=== PATIENT | female | born 1935 | race Caucasian/White ===

== ENCOUNTER 2017-09-28 13:23 | Inpatient (IN) | payer BC, OTHER ==
[~2017-09-28] VITALS: Ht 165.1 cm; Wt 91.1 kg
[~2017-09-28 13:23] MED LIST: ATEN100T PO; CALC-393 PO; CHOL2000 PO; DEXTSYP41 PO; FERR1TAB13 PO; FRS/80 PO; GLIP-197 PO; INSDGI SC; LEVO75TA5 PO; MECL1TAB40 PO; NITR100C43 PO; OMEP40CA PO; QUIN20TA30 PO; RXC5 PO; SPIR50TA2 PO
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
[2017-09-28] MEDS ORDERED: SODIUM CHLORIDE 0.9% 1000ML 1,000 ML IV STA (13:55)
[2017-09-28] MEDS ORDERED: GLIP10TA10 PO (14:11)
[2017-09-28] MEDS ORDERED: INSU1INJ33 SQ (14:11)
[2017-09-28] MEDS ORDERED: PRLSR20 PO (14:11)
[2017-09-28] MEDS ORDERED: PHEN95TA PO (14:11)
[2017-09-28] MEDS ORDERED: ATEN50TA8 PO (14:11)
[2017-09-28] MEDS ORDERED: FRS/40 PO (14:11)
[2017-09-28] MEDS ORDERED: QUIN40TA18 PO (14:11)
[2017-09-28] MEDS ORDERED: LIRA18IN INJ (14:11)
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
--- NOTE | 2017-09-28 14:48 | DIAGNOSTIC IMAGING REPORT ---
L WRIST MIN 3 VIEWS ROUTINE CLINICAL HISTORY: Left wrist pain status post trauma COMPARISON: None. DISCUSSION: There is acute fracture involving the midshaft of the radius. Distal fragment is ulnarly displaced by one full shaft width. No associated ulnar fracture is visualized. There is mild vertex dorsal ulnar angulation at the fracture site. IMPRESSION: Acute fracture of the mid radial shaft width mild vertex dorsal ulnar angulation, and one full shaft width of displacement Electronically signed by: Nirav Mercado M.D. 09/28/2017 2:47 PM Dictated Date/Time: 09/28/2017 2:35 PM
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
[2017-09-28] MEDS ORDERED: INSULIN SQ (15:01)
[2017-09-28 15:40] LABS: INR 1.1 (0.9-1.1); PTT PATIENT 24.2 SECONDS (21.0-31.0)
[2017-09-28 15:54] LABS: ALBUMIN 4.1 gm/dl (3.4-5.0); CALCIUM 9.9 mg/dl (8.5-10.1); CREATININE 2.18 mg/dl (0.60-1.20); POTASSIUM 5.2 mmol/L (3.5-5.1)
[2017-09-28 15:57] LABS: TOTAL PROTEIN 7.9 gm/dl (6.4-8.2)
[2017-09-28] MEDS ORDERED: ONDANSETRON INJ 2 MG/ML 2 ML VIAL ONE (16:07)
[2017-09-28 16:15] LABS: BASO % 0.3 %; BASO ABS # 0.02 K/uL (0-0.2); EOS % 0.8 %; EOS ABS # 0.06 K/uL (0-0.5); HEMATOCRIT 36.1 % (37-47); HEMOGLOBIN 12.7 g/dL (12.0-16.0); IG# 0.02 K/uL (0.00-0.02); LYMPH % 12.2 %; LYMPH ABS # 0.87 K/uL (1.2-3.4); MEAN CELL VOLUME 89.6 fL (80-100); MEAN CORPUSCULAR HEMOGLOBIN 31.5 pg (25-34); MEAN CORPUSCULAR HGB CONC 35.2 g/dl (32-36); MEAN PLATELET VOLUME 10.3 fL (7.4-10.4); MONO % 5.6 %; NEUT % 80.8 %; NEUT ABS # 5.74 K/uL (1.4-6.5); PLATELET COUNT 67 K/uL (130-400); RED CELL DISTRIBUTION WIDTH CV 14.1 % (11.5-14.5); RED CELL DISTRIBUTION WIDTH SD 46.1 fL (36.4-46.3); WHITE BLOOD COUNT 7.11 K/uL (4.8-10.8)
--- NOTE | 2017-09-28 16:29 | DIAGNOSTIC IMAGING REPORT ---
RIGHT FOOT 3 VIEWS HISTORY: Right foot pain COMPARISON: None. FINDINGS: Nondisplaced fracture within the proximal metadiaphysis of the right fifth metatarsal. This extends to the intertarsal region and is consistent with a Bess fracture. Soft tissue swelling within the midfoot. No radiopaque foreign bodies. IMPRESSION: Nondisplaced fracture within the proximal metadiaphysis of the right fifth metatarsal. This extends to the intertarsal region and is consistent with a Bess fracture. Electronically signed by: Oswaldo Rizo M.D. 09/28/2017 4:27 PM Dictated Date/Time: 09/28/2017 4:26 PM
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
[2017-09-28] MEDS ORDERED: HYDROmorphone INJ 1 MG/ML SYR IV PRN (18:30)
[2017-09-28] MEDS ORDERED: ONDANSETRON INJ 2 MG/ML 2 ML VIAL IV PRN (18:30)
[2017-09-28] MEDS ORDERED: METOCLOPRAMIDE HCL INJ 5 MG/ML 2 ML VIAL IV PRN (18:30)
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
[2017-09-28 20:20] VITALS: BP 105/67; PULSE 72; TEMP 36.7; O2SAT 96; BMI 33.4
[2017-09-28] MEDS ORDERED: FUROSEMIDE 40 MG TAB PO SCH (21:00)
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
[2017-09-28] MEDS: LEVOTHYROXINE 75 MCG TAB PO SCH (22:02)
[2017-09-28] MEDS: PANTOprazole SOD 40 MG TAB PO SCH (22:03)
[2017-09-28] MEDS: INSULIN GLARGINE SQ SCH (22:07)
[2017-09-29] VITALS (10 sets, daily range): BP systolic 102–130; BP diastolic 57–78; PULSE 77–101; TEMP 36.4–37.2; O2SAT 92–98
[2017-09-29] MEDS ORDERED: GLUCOSE 10 TABS/TUBE PO PRN (00:15)
[2017-09-29] MEDS ORDERED: GLUCAGON FOR INJ 1 MG VIAL SQ PRN (00:15)
[2017-09-29] MEDS ORDERED: GLUCOSE 40% GEL 15 GM TUBE PO PRN (00:15)
[2017-09-29] MEDS ORDERED: CARBIDOPA/LEVODOPA 10/100MG TAB PO PRN (00:15)
[2017-09-29] MEDS ORDERED: DEXTROSE 50% 50 ML SYR IV PRN (00:15)
[2017-09-29] MEDS ORDERED: CARB10TA5 PO (00:17)
[2017-09-29] MEDS: SODIUM CHLORIDE 0.9% 1000ML 1,000 ML IV SCH ×3 (00:51→21:03)
[2017-09-29] MEDS ORDERED: DOCUSATE SODIUM 100 MG CAP PO PRN (05:15)
[2017-09-29] MEDS ORDERED: CEFAZOLIN IV 2,000 MG in DEXTROSE 5% 50ML 50 ML IV SCH ×2 (06:00→14:30)
[2017-09-29] MEDS ORDERED: CEFAZOLIN 2000MG IV PUSH 15 ML IV SCH (06:00)
[2017-09-29 06:39] LABS: HEMATOCRIT 30.7 % (37-47); HEMOGLOBIN 10.8 g/dL (12.0-16.0); MEAN CELL VOLUME 90.3 fL (80-100); MEAN CORPUSCULAR HEMOGLOBIN 31.8 pg (25-34); MEAN CORPUSCULAR HGB CONC 35.2 g/dl (32-36); RED CELL DISTRIBUTION WIDTH CV 14.4 % (11.5-14.5); RED CELL DISTRIBUTION WIDTH SD 47.5 fL (36.4-46.3); WHITE BLOOD COUNT 5.07 K/uL (4.8-10.8)
[2017-09-29 06:42] LABS: MEAN PLATELET VOLUME 10.2 fL (7.4-10.4); PLATELET COUNT 56 K/uL (130-400)
[2017-09-29] MEDS: INSULIN ASPART 100 UNITS/ML 3 ML PEN SC SCH ×4 (07:04→22:29)
[2017-09-29 07:09] LABS: CALCIUM 8.8 mg/dl (8.5-10.1); CREATININE 2.02 mg/dl (0.60-1.20); POTASSIUM 4.8 mmol/L (3.5-5.1)
--- NOTE | 2017-09-29 08:46 | PROGRESS NOTE ---
DATE: 09/29/2017 CHIEF COMPLAINT: Left radial shaft fracture and right Bess fracture. PROGRESS: Earlene was seen and examined at bedside today. Overall, she is doing fairly well. She is having some difficulty ambulating. She says her biggest complaint actually comes from her left leg. She has pain in her left ankle and pain in the medial aspect of her left thigh. She says that hurts her worse than her right foot does. She has been having a lot of trouble getting up to the commode and is starting to have some soreness in her right shoulder as well today. PHYSICAL EXAMINATION: LEFT ARM: She has a left arm splint on. She has active motion of her fingers. RIGHT FOOT: There is swelling of her right foot. There is ecchymosis. She does have some tenderness to palpation at the base of the fifth metatarsal. LEFT LEG: She has pain in the left groin radiating down the left leg with logroll. She has pain on the lateral aspect of the ankle as well. She is able to do a straight leg raise, which she gets pain in her hip with that. LABORATORY DATA: She has an H&H of 10.8 and 30.7. Her glucose is 185. VITAL SIGNS: Her vital signs are all stable on room air. She is voiding on her own. IMPRESSION: 1. Left radial shaft fracture. 2. Right Bess fracture. PLAN: The Bess fracture will be treated conservatively in group. The radial shaft fracture, we will take her to the OR today for simple plate and screw fixation; so she can start using her forearm comfortably. I will also get a good look at her left lower extremity under fluoroscopy during the case to make sure that we are not missing anything. If all x-rays and fluoroscopic images come back negative, but she continues to be very symptomatic in her groin to the point where she cannot bear weight, an MRI of her hip may be warranted to rule out any occult fracture. She has already been seen by the medical team. She was placed on insulin. They deemed her a moderate risk for surgery and we will proceed later today. She is currently n.p.o.
[2017-09-29] MEDS ORDERED: FUROSEMIDE 80 MG TAB PO SCH (09:00)
[2017-09-29] MEDS: INSULIN GLARGINE SQ SCH ×2 (09:00→22:25)
[2017-09-29] MEDS: ENALAPRIL MALEATE 10 MG TAB PO SCH (09:00)
[2017-09-29] MEDS ORDERED: SPIRONOLACTONE 25 MG TAB PO SCH (09:00)
[2017-09-29] MEDS: PANTOprazole SOD 40 MG TAB PO SCH ×2 (10:05→21:05)
[2017-09-29] MEDS: PHENAZOPYRIDINE HCL 200 MG TAB PO SCH (10:05)
[2017-09-29] MEDS ORDERED: ONDANSETRON INJ 2 MG/ML 2 ML VIAL ONE (12:43)
[2017-09-29] MEDS ORDERED: LIDOCAINE HCL 2% 2 ML VIAL (20MG/ML) ONE (12:43)
[2017-09-29] MEDS ORDERED: FENTANYL CITRATE INJ 50 MCG/1 ML 2 ML VIAL ONE (12:43)
[2017-09-29] MEDS ORDERED: PROPOFOL IV EMULSION 10 MG/ML 20 ML VIAL IV ONE (12:43)
[2017-09-29] MEDS ORDERED: MIDAZOLAM HCL 1 MG/ML 2ML VIAL ONE (12:44)
[2017-09-29] MEDS ORDERED: HYDROmorphone INJ 2 MG/ML SYR/VIAL IV PRN (12:45)
[2017-09-29] MEDS ORDERED: ONDANSETRON INJ 2 MG/ML 2 ML VIAL IV PRN ×2 (12:45→14:30)
[2017-09-29] MEDS ORDERED: ATROPINE SULFATE 0.1 MG/ML 5ML SYR IV PRN (12:45)
[2017-09-29] MEDS ORDERED: BUPIVACAINE 0.25% 30 ML VIAL ONE (12:59)
[2017-09-29] MEDS ORDERED: EpINEphrine INJ 1MG/ML AMP 1 MG/ML AMP ONE (12:59)
[2017-09-29] MEDS ORDERED: CISATRACURIUM BESYLATE IV SOLN 2 MG/ML 10 ML VIAL ONE (13:47)
[2017-09-29] MEDS ORDERED: CEFAZOLIN SOD 1 GM VIAL ONE (13:47)
[2017-09-29] MEDS ORDERED: GLYCOPYRROLATE INJ 0.2 MG/ML VIAL ONE (14:14)
[2017-09-29] MEDS ORDERED: PHENYLEPHRINE 100MCG/ML 5ML SYR ONE (14:14)
--- NOTE | 2017-09-29 14:20 | [facility] Post Operative Brief Note ---
Immediate Operative Summary Operative Date Sep 29, 2017. Pre-Operative Diagnosis Displaced Left Radial Fracture Post-Operative Diagnosis Same as preoperative. Procedure(s) Performed Left Radius, Open Reduction Internal Fixation Surgeon Dr. Elian Gunderson Histopathology Technician Surgeon(s) Andrea Morales PA-C Estimated Blood Loss 5ml Findings Consistent with Post-Op Diagnosis Specimens None per surgeon. Anesthesia Type General Complication(s) none Disposition Disposition: Recovery Room / PACU
[2017-09-29] MEDS ORDERED: LABETALOL HCL IV 5 MG/ML 20ML IV ONE ×2 (14:28→15:11)
--- NOTE | 2017-09-29 14:28 | DIAGNOSTIC IMAGING REPORT ---
L FOREARM 2 VIEWS ROUTINE CLINICAL HISTORY: 82 years-old Female presenting with LT FOREARM FX. TECHNIQUE: 3 fluoroscopic image(s) recorded as part of an intraoperative procedure. COMPARISON: 09/28/2017. FINDINGS/IMPRESSION: Interval cortical compression plate and screw fixation across the transversely oriented fracture of the mid radial diaphysis. Normal anatomic alignment has been restored. Please see surgical report for further details. Fluoroscopy dosage (mGy): 1.19. Fluoroscopy time: 29.5 seconds. Number of fluoroscopic spot images: 0. Electronically signed by: Faustino Santana M.D. 09/29/2017 2:27 PM Dictated Date/Time: 09/29/2017 2:26 PM
[2017-09-29] MEDS ORDERED: BISACODYL 10 MG SUPP PR PRN (14:30)
[2017-09-29] MEDS ORDERED: METOCLOPRAMIDE HCL INJ 5 MG/ML 2 ML VIAL IV PRN (14:30)
[2017-09-29] MEDS ORDERED: LABETALOL HCL IV 5 MG/ML 20ML IV PRN (14:30)
[2017-09-29] MEDS ORDERED: OXYCODONE HCL IR 5 MG TAB (IMMEDIATE RELEASE) PO PRN (14:30)
[2017-09-29] MEDS ORDERED: MAGNESIUM HYDROXIDE SUSP 30 ML UDC PO PRN (14:30)
[2017-09-29] MEDS ORDERED: SOD PHOSPHATE/SOD BIPHOSPHATE ENEMA 132 ML BTL PR PRN (14:30)
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
--- NOTE | 2017-09-29 14:58 | Anesthesiology Progress Note ---
Anesthesia Post Op Note Date & Time Sep 29, 2017 at 14:58 Vital Signs Pain Intensity: 0 Vital Signs Past 12 Hours Date Time Temp Pulse Resp B/P (MAP) Pulse Ox O2 Delivery O2 Flow Rate FiO2 09/29/17 14:45 36.1 107 20 138/62 95 Nasal Cannula 2 09/29/17 14:35 110 18 141/71 100 Oxymask 10 09/29/17 14:25 113 20 159/72 97 Oxymask 10 09/29/17 14:17 36.3 115 14 180/63 100 Oxymask 10 09/29/17 07:30 Room Air 09/29/17 07:19 36.9 101 18 114/73 (87) 93 Room Air Notes Mental Status: alert / awake / arousable, participated in evaluation Pt Amnestic to Procedure: Yes Nausea / Vomiting: adequately controlled Pain: adequately controlled Airway Patency, RR, SpO2: stable & adequate BP & HR: stable & adequate Hydration State: stable & adequate Anesthetic Complications: no major complications apparent
[2017-09-29] MEDS ORDERED: POTASSIUM CHLORIDE INJ 10 MEQ in SODIUM CHLORIDE 0.9% 1000ML 1,000 ML IV SCH (15:00)
[2017-09-29] MEDS: ACETAMINOPHEN 500 MG TAB PO SCH ×2 (17:02→22:32)
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
[2017-09-29] MEDS: SENNA 8.6 MG TAB PO SCH (21:00)
[2017-09-29] MEDS: DOCUSATE SODIUM 100 MG CAP PO SCH (21:05)
[2017-09-29] MEDS: LEVOTHYROXINE 75 MCG TAB PO SCH (21:06)
[2017-09-29] MEDS: OXYCODONE/ACETAMINOPHEN 5-325 TAB PO PRN (21:52)
[2017-09-29] MEDS: CEFAZOLIN IV 2,000 MG in SYRINGE 0 ML IV SCH (22:29)
[2017-09-29] MEDS ORDERED: NURSING VERBAL MED ORDER ONE (22:30)
[2017-09-29] MEDS ORDERED: INSULIN ASPART 100 UNITS/ML 3 ML PEN SC STA (22:38)
[2017-09-30] VITALS (7 sets, daily range): BP systolic 96–118; BP diastolic 53–69; PULSE 72–92; TEMP 36.6–37.1; O2SAT 90–94; Ht 165.1 cm; Wt 91.1 kg
[2017-09-30] MEDS: OXYCODONE/ACETAMINOPHEN 5-325 TAB PO PRN ×2 (03:47→22:30)
[2017-09-30] MEDS: CEFAZOLIN IV 2,000 MG in SYRINGE 0 ML IV SCH (06:13)
[2017-09-30] MEDS: ACETAMINOPHEN 500 MG TAB PO SCH ×3 (06:14→22:00)
[2017-09-30 06:49] LABS: HEMATOCRIT 30.6 % (37-47); HEMOGLOBIN 10.2 g/dL (12.0-16.0); MEAN CELL VOLUME 91.6 fL (80-100); MEAN CORPUSCULAR HEMOGLOBIN 30.5 pg (25-34); MEAN CORPUSCULAR HGB CONC 33.3 g/dl (32-36); RED CELL DISTRIBUTION WIDTH CV 14.3 % (11.5-14.5); RED CELL DISTRIBUTION WIDTH SD 48.4 fL (36.4-46.3); WHITE BLOOD COUNT 5.28 K/uL (4.8-10.8)
[2017-09-30 06:53] LABS: MEAN PLATELET VOLUME 10.3 fL (7.4-10.4); PLATELET COUNT 52 K/uL (130-400)
[2017-09-30 07:19] LABS: HEMOGLOBIN A1C 10.2 % (4.5-5.6)
[2017-09-30 07:20] LABS: CALCIUM 7.9 mg/dl (8.5-10.1); CREATININE 2.35 mg/dl (0.60-1.20); POTASSIUM 4.3 mmol/L (3.5-5.1)
[2017-09-30 07:31] LABS: BASO % 0.2 %; BASO ABS # 0.01 K/uL (0-0.2); EOS % 2.7 %; EOS ABS # 0.14 K/uL (0-0.5); IG# 0.02 K/uL (0.00-0.02); LYMPH % 14.4 %; LYMPH ABS # 0.76 K/uL (1.2-3.4); MONO % 9.1 %; MONO ABS # 0.48 K/uL (0.11-0.59); NEUT % 73.2 %; NEUT ABS # 3.87 K/uL (1.4-6.5)
--- NOTE | 2017-09-30 08:20 | PROGRESS NOTE ---
DATE: 09/30/2017 CHIEF COMPLAINT: Status post ORIF of the left radius. postop day #1. PROGRESS: Earlene was seen and examined at bedside today. Overall, she is doing as well as expected. She does not have much pain in her forearm. She is happy with the progress to this point and has no complaints. PHYSICAL EXAMINATION: The splint is clean and dry. She has active motion of all of her fingers and active motion of her thumb. Sensations are intact. IMPRESSION: Status post open reduction internal fixation of the left radial shaft fracture, postop day #1. PLAN: At this point, she is doing as well as expected. She can be weightbearing as tolerated on her forearm while she is in the splint. She will only be in the splint, likely for 2 weeks. She will be weightbearing as tolerated on her right foot while as long as she is in the boot. I did do fluoroscopic images of her entire left lower extremity and did not find any fractures or any abnormalities. She will be seen by physical therapy today for ambulation. She will likely need discharge to a rehab facility. She does live alone at home. I will continue to follow her closely.
[2017-09-30] MEDS: INSULIN GLARGINE SQ SCH ×2 (09:25→22:13)
[2017-09-30] MEDS: INSULIN ASPART 100 UNITS/ML 3 ML PEN SC SCH ×4 (09:25→21:00)
[2017-09-30] MEDS: PHENAZOPYRIDINE HCL 200 MG TAB PO SCH (09:26)
[2017-09-30] MEDS: ENALAPRIL MALEATE 10 MG TAB PO SCH (09:26)
[2017-09-30] MEDS: PANTOprazole SOD 40 MG TAB PO SCH ×2 (09:26→22:30)
[2017-09-30] MEDS: MULTIVITAMIN TAB PO SCH (09:26)
[2017-09-30] MEDS: DOCUSATE SODIUM 100 MG CAP PO SCH ×2 (09:27→22:05)
[2017-09-30] MEDS: SODIUM CHLORIDE 0.9% 1000ML 1,000 ML IV SCH (09:34)
[2017-09-30] MEDS ORDERED: MECLIZINE HCL 12.5 MG TAB PO ONE (10:15)
--- NOTE | 2017-09-30 13:03 | DIAGNOSTIC IMAGING REPORT ---
CHEST ONE VIEW PORTABLE CLINICAL HISTORY: CONGESTION dyspnea COMPARISON STUDY: 09/28/2017 FINDINGS: Mild stable cardia megaly. Diaphragms are smooth. No evidence for focal infiltrate. Patient is status post right shoulder total arthroplasty. IMPRESSION: Mild stable cardiomegaly. Otherwise no acute process. The above report was generated using voice recognition software. It may contain grammatical, syntax or spelling errors. Electronically signed by: Yogi Velazquez M.D. 09/30/2017 1:01 PM Dictated Date/Time: 09/30/2017 1:01 PM
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
[2017-09-30] MEDS ORDERED: NURSING VERBAL MED ORDER ONE (22:00)
[2017-09-30] MEDS: MECLIZINE HCL 12.5 MG TAB PO SCH (22:04)
[2017-09-30] MEDS: SENNA 8.6 MG TAB PO SCH (22:05)
[2017-09-30] MEDS: LEVOTHYROXINE 75 MCG TAB PO SCH (22:06)
[2017-09-30] MEDS ORDERED: INSULIN ASPART 100 UNITS/ML 3 ML PEN SC ONE (22:15)
[2017-10-01] MEDS: SODIUM CHLORIDE 0.9% 1000ML 1,000 ML IV SCH ×2 (03:07→22:58)
[2017-10-01] MEDS: ACETAMINOPHEN 500 MG TAB PO SCH ×3 (06:11→21:21)
[2017-10-01 07:51] VITALS: BP 113/65; PULSE 87; TEMP 36.9; O2SAT 95
[2017-10-01 07:54] LABS: HEMATOCRIT 25.9 % (37-47); HEMOGLOBIN 8.7 g/dL (12.0-16.0); MEAN CELL VOLUME 91.5 fL (80-100); MEAN CORPUSCULAR HEMOGLOBIN 30.7 pg (25-34); MEAN CORPUSCULAR HGB CONC 33.6 g/dl (32-36); RED CELL DISTRIBUTION WIDTH CV 14.4 % (11.5-14.5); RED CELL DISTRIBUTION WIDTH SD 48.3 fL (36.4-46.3); WHITE BLOOD COUNT 4.69 K/uL (4.8-10.8)
[2017-10-01 07:55] LABS: MEAN PLATELET VOLUME 9.8 fL (7.4-10.4); PLATELET COUNT 50 K/uL (130-400)
[2017-10-01 08:19] LABS: BASO % 0.4 %; BASO ABS # 0.02 K/uL (0-0.2); EOS % 2.8 %; EOS ABS # 0.13 K/uL (0-0.5); IG# 0.02 K/uL (0.00-0.02); LYMPH % 19.4 %; LYMPH ABS # 0.91 K/uL (1.2-3.4); MONO % 11.1 %; MONO ABS # 0.52 K/uL (0.11-0.59); NEUT % 65.9 %; NEUT ABS # 3.09 K/uL (1.4-6.5)
--- NOTE | 2017-10-01 08:19 | PROGRESS NOTE ---
DATE: 10/01/2017 CHIEF COMPLAINT: 1. Status post ORIF left radial shaft fracture, postop day #2. 2. Nondisplaced right proximal fifth metatarsal fracture. PROGRESS: Earlene was seen and examined at bedside today. Overall, she is doing fairly well. She is not having much pain. She has been getting hypotensive while standing and she did not get much therapy yesterday. She is being followed by the medical team. She has no new complaints. PHYSICAL EXAMINATION: EXTREMITIES: Left forearm, the dressing is clean and dry. She can move her fingers. Her sensation is intact. She has good capillary refill. Examination of her right foot, she still has some ecchymosis in the area and still has some swelling. IMPRESSION: 1. Status post open reduction internal fixation of the left radial shaft fracture, postop day #1. 2. Fifth metatarsal fracture. PLAN: With regards to her left forearm, I do want her in the splint, but she can be weightbearing as tolerated on it. With regards to her right foot, normally I would like a CAM walker boot. However, if she is having difficulty ambulating or more pain because of the unequal leg lengths secondary to the boot, I am okay if she ambulates some either without a boot or just with a simple hard-soled shoe, basically whatever makes her most comfortable so she can get up and ambulate some. The fracture is stable and is not going to displace. She is still getting blood work per the medical team and we want to make sure she is hemodynamically stable before we consider sending her to a rehab facility.
[2017-10-01 08:24] LABS: CALCIUM 7.8 mg/dl (8.5-10.1); CREATININE 1.93 mg/dl (0.60-1.20)
[2017-10-01 08:30] LABS: POTASSIUM 4.1 mmol/L (3.5-5.1)
[2017-10-01] MEDS: PANTOprazole SOD 40 MG TAB PO SCH ×2 (08:58→21:22)
[2017-10-01] MEDS: PHENAZOPYRIDINE HCL 200 MG TAB PO SCH (08:58)
[2017-10-01] MEDS: DOCUSATE SODIUM 100 MG CAP PO SCH ×2 (08:58→21:12)
[2017-10-01] MEDS: MECLIZINE HCL 12.5 MG TAB PO SCH ×2 (08:59→21:12)
[2017-10-01] MEDS: MULTIVITAMIN TAB PO SCH (08:59)
[2017-10-01] MEDS: INSULIN ASPART 100 UNITS/ML 3 ML PEN SC SCH ×4 (09:33→21:25)
[2017-10-01] MEDS: INSULIN GLARGINE SQ SCH ×2 (09:34→21:25)
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
[2017-10-01] MEDS ORDERED: ALUMINUM/MAGNESIUM SUSP 30 ML UDC PO PRN (10:45)
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
[2017-10-01 15:10] VITALS: BP 96/56; PULSE 70; TEMP 36.6; O2SAT 93
[2017-10-01] MEDS: LEVOTHYROXINE 75 MCG TAB PO SCH (21:21)
[2017-10-01] MEDS: SENNA 8.6 MG TAB PO SCH (21:22)
[2017-10-01 23:59] VITALS: BP 112/67; PULSE 91; TEMP 37.2; O2SAT 91
[2017-10-02] MEDS: ACETAMINOPHEN 500 MG TAB PO SCH ×2 (06:07→13:39)
[2017-10-02 07:59] LABS: HEMATOCRIT 26.3 % (37-47); HEMOGLOBIN 9.1 g/dL (12.0-16.0); MEAN CELL VOLUME 91.3 fL (80-100); MEAN CORPUSCULAR HEMOGLOBIN 31.6 pg (25-34); MEAN CORPUSCULAR HGB CONC 34.6 g/dl (32-36); MEAN PLATELET VOLUME 10.1 fL (7.4-10.4); PLATELET COUNT 63 K/uL (130-400); RED CELL DISTRIBUTION WIDTH CV 14.4 % (11.5-14.5); RED CELL DISTRIBUTION WIDTH SD 48.1 fL (36.4-46.3)
[2017-10-02 08:26] LABS: CALCIUM 8.2 mg/dl (8.5-10.1); CREATININE 1.73 mg/dl (0.60-1.20); POTASSIUM 4.2 mmol/L (3.5-5.1)
[2017-10-02 08:30] LABS: BASO % 0.4 %; BASO ABS # 0.02 K/uL (0-0.2); EOS % 3.1 %; EOS ABS # 0.15 K/uL (0-0.5); IG# 0.03 K/uL (0.00-0.02); LYMPH % 14.6 %; MONO % 9.2 %; MONO ABS # 0.44 K/uL (0.11-0.59); NEUT % 72.1 %; NEUT ABS # 3.46 K/uL (1.4-6.5)
[2017-10-02 08:31] VITALS: BP 121/69; PULSE 72; TEMP 36.5; O2SAT 94
[2017-10-02] MEDS: PANTOprazole SOD 40 MG TAB PO SCH ×2 (09:17→21:09)
[2017-10-02] MEDS: PHENAZOPYRIDINE HCL 200 MG TAB PO SCH (09:17)
[2017-10-02] MEDS: MULTIVITAMIN TAB PO SCH (09:18)
[2017-10-02] MEDS: DOCUSATE SODIUM 100 MG CAP PO SCH ×2 (09:18→21:08)
[2017-10-02] MEDS: MECLIZINE HCL 12.5 MG TAB PO SCH ×2 (09:18→21:08)
[2017-10-02] MEDS: INSULIN ASPART 100 UNITS/ML 3 ML PEN SC SCH ×4 (09:23→21:15)
[2017-10-02] MEDS: INSULIN GLARGINE SQ SCH ×2 (09:24→21:13)
[2017-10-02 15:28] VITALS: BP 119/69; PULSE 57; TEMP 36.4; O2SAT 97
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
[2017-10-02] MEDS ORDERED: ACETAMINOPHEN 500 MG TAB PO PRN (18:00)
[2017-10-02] MEDS ORDERED: PHARMACY GLYCEMIC MGMT CONSULT PRN (18:03)
[2017-10-02] MEDS: LEVOTHYROXINE 75 MCG TAB PO SCH (21:08)
[2017-10-02] MEDS: SENNA 8.6 MG TAB PO SCH (21:09)
[2017-10-02 23:05] VITALS: BP 127/68; PULSE 72; TEMP 37.4; O2SAT 94
[2017-10-03] MEDS: INSULIN ASPART 100 UNITS/ML 3 ML PEN SC SCH ×4 (04:00→13:38)
[2017-10-03] MEDS: DOCUSATE SODIUM 100 MG CAP PO SCH (08:12)
[2017-10-03] MEDS: PANTOprazole SOD 40 MG TAB PO SCH (08:14)
[2017-10-03] MEDS: MULTIVITAMIN TAB PO SCH (08:14)
[2017-10-03] MEDS: MECLIZINE HCL 12.5 MG TAB PO SCH (08:14)
[2017-10-03] MEDS: PHENAZOPYRIDINE HCL 200 MG TAB PO SCH (08:14)
[2017-10-03 08:22] VITALS: BP 129/64; PULSE 78; TEMP 36.7; O2SAT 94
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
[2017-10-03] MEDS ORDERED: INSU1INJ33 SQ (08:44)
[2017-10-03] MEDS ORDERED: TNR25 PO (08:45)
[2017-10-03] MEDS ORDERED: ACET-24 PO (08:45)
--- NOTE | 2017-10-03 08:49 | Discharge Instructions ---
Discharge Instructions Date of Service Oct 03, 2017. Admission Reason for Admission: Closed Left Radial Fracture Discharge Discharge Diagnosis / Problem: LEFT RADIAL FRACTURE, S/P ORIF Discharge Goals Goal(s): Diagnostic testing, Therapeutic intervention Activity Recommendations Activity Level: Assistance Required Therapies: Physical Therapy, Occupational Therapy . Additional Information Patient informed of condition: Yes Advance Directives: No (UNKNOWN) DNR: No (PATIENT IS A FULL CODE) Level of Care: Acute Rehab Communicable Disease: No Prognosis: Improving Instructions / Follow-Up Instructions / Follow-Up PLEASE MONITOR BLOOD GLUCOSE AC AND HS. (RE: EPISODES OF HYPOGLYCEMIA). MONITOR BLOOD PRESSURE DAILY (RE: ATENOLOL REDUCED, SHARYN-I HELD). PLEASE REFER TO ACCOMPANYING HOSPITAL DISCHARGE SUMMARY FOR FURTHER DETAILS. Current Hospital Diet Patient's current hospital diet: Diabetes Type 2 Diet Discharge Diet Recommended Diet: AHA Diet (Heart Healthy), Diabetes Type 2 Diet Procedures Procedures Performed: Left Radius, Open Reduction Internal Fixation Pending Studies Studies pending at discharge: yes List of pending studies: REPEAT CBC, PRP ON Saturday10/07/17 Physician Orders On Transfer Special Precautions: PLEASE MONITOR BLOOD GLUCOSE AC AND HS. (RE: EPISODES OF HYPOGLYCEMIA). MONITOR BLOOD PRESSURE DAILY (RE: ATENOLOL REDUCED, SHARYN-I HELD). PLEASE REFER TO ACCOMPANYING HOSPITAL DISCHARGE SUMMARY FOR FURTHER DETAILS. Laboratory Results Hemoglobin A1c Test 09/29/17 06:10 Range/Units Estimated Average Glucose 246 mg/dl Hemoglobin A1c 10.2 H 4.5-5.6 % Medical Emergencies . Who to Call and When: Medical Emergencies: If at any time you feel your situation is an emergency, please call 911 immediately. . Non-Emergent Contact Non-Emergency issues call your: Primary Care Provider, Surgeon Call Non-Emergent contact if: you have a fever, your pain is not controlled, your pain is worsening, wound has increased drainage, wound has increased redness, wound has increased pain, you have any medication questions . Past History Medical & Surgical History: (1) Proximal humerus fracture (2) Closed left radial fracture (3) Closed nondisplaced fracture of fifth right metatarsal bone . "Provider Documentation" section prepared by Shekhar Mark. . Core Measure Problem Core Measures: None
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
[2017-10-03] MEDS ORDERED: INSULIN GLARGINE SQ SCH (09:00)
[2017-10-03 09:02] VITALS: BP 129/64; PULSE 78; TEMP 36.7; O2SAT 94
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
== END 2017-10-03 16:00 | DRG 511 ==
LOC: EDBD 13:23 → C.EDA 13:24 → C.MSW 18:20 → ENRESERV 18:35 → C.MSW 20:09
PROVIDERS: ADMIT Orthopaedic Surgery; ATTEND Internal Medicine
PROC: 0PSJ04Z Reposition Left Radius with Internal Fixation Device, Open Approach (ICD-10-PCS; principal; 2017-09-29 09:00)
DX: S52.302A Unspecified fracture of shaft of left radius, initial encounter for closed fracture (principal); N17.9 Acute kidney failure, unspecified; D62 Acute posthemorrhagic anemia; S92.354A Nondisplaced fracture of fifth metatarsal bone, right foot, initial encounter for closed fracture; I12.9 Hypertensive chronic kidney disease with stage 1 through stage 4 chronic kidney disease, or unspecified chronic kidney disease; E11.22 Type 2 diabetes mellitus with diabetic chronic kidney disease; N18.3 Chronic kidney disease, stage 3 (moderate); E03.9 Hypothyroidism, unspecified; E78.5 Hyperlipidemia, unspecified; E87.5 Hyperkalemia; G25.81 Restless legs syndrome; G47.33 Obstructive sleep apnea (adult) (pediatric); K75.81 Nonalcoholic steatohepatitis (NASH); Z79.4 Long term (current) use of insulin; Z79.899 Other long term (current) drug therapy; Z88.5 Allergy status to narcotic agent; V03.10XA Pedestrian on foot injured in collision with car, pick-up truck or van in traffic accident, initial encounter

== ENCOUNTER 2018-12-05 10:53 | Inpatient (IN) ==
--- OUTSIDE RECORDS SUMMARY | 2018-12-05 10:57 | External Medical Summary | Continuity of Care Document ---
:1935 Author Name Rhea Kinsey Address Unavailable Unavailable , Care Team Providers Name Role Phone Ham Quick PA-C Unavailable [email or web address] [email or web address]. 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 ZEFERINO Quick Start: 01-Dec-2018 Quantity: 30 Refills: 5 NovoLIN 70/30 SUSP Refills: 0 Tresiba SOLN Refills: 0 raNITIdine HCl - 150 MG Oral Tablet; TAKE 1 TABLET DAILY. Refills: 0 Eliquis 5 MG Oral Tablet; TAKE 1 TABLET BY MOUTH TWICE DAILY Quantity: 180 Refills: 3 Carbidopa-Levodopa 10-100 MG Oral Tablet; Take 1 tablet artie y Refills: 0 Spironolactone 25 MG Oral Tablet; TAKE 1 TABLET TWICE DAILY. Refills: 0 Ferrous Sulfate 325 (65 Fe) MG Oral Tablet; as directed Refills: 0 Meclizine HCl - 12.5 MG Oral Tablet; TAKE 1 TABLET 3 T IMES DAILY NEEDED. Amelie Sultana Start: 07-Jun-2014 Quantity: 30 Refills: 1 Lantus SoloStar SOLN Refills: 0 Levothyroxine Sodium 88 MCG Oral Tablet; TAKE 1 TABLET DAILY . Quantity: 90 Refills: 3 Procedures Basic Metabolic Panel Date: 01-Dec-2018 Magnesium Date: 01-Dec-2018 History of Craniotomy Tumor Removal - Complete Status: Completed History of Cholecystectomy Status: Compl eted History of Total Abdominal Hysterectomy With Status: Completed Removal Of Both Ovaries History of Biopsy Of Liver Status: Compl eted History of Shoulder Arthroplasty Total Shoulder Status: Completed Replacement Immunizations Influenza On: 24-Mar-2014 Family History Unknown Family Member Family history of coronary artery disease Status: Active Comments: Family History (V17.3) (Z82.49) Family history of diabetes mellitus (V18.0) Status: Active Comments: Family History (Z83.3) Plan of Treatment Planned Encounters Appointment; Dav Quick PA-C Start: 11-Dec-2018 16:00 Requ est Planned Observations Planned Goals not documented Results No Known Results Results not documented Vital Signs 01-Dec-2018 14:11 Systolic 142 mm[Hg] Diastolic 74 mm[Hg] Respiration 16 /min Comments: Quality: N ormal Weight 218.4375 lb Heart Rate 120 /min Comments: Quality: R egular BMI Calculated 34.21 kg/m2 BSA Calculated 2.1 m2 Encounters Appointment; Dav Quick PA-C 01-Dec-2018 14:00 Encounter Diagnosis: Problem not documented Appointment; Dav Quick PA-C 11-Dec-2018 16:00 Encounter Diagnosis: Problem not documented
[2018-12-05 12:44] LABS: Basophils # (auto) 0.01 K/uL (0-0.2); Basophils % (auto) 0.2 %; Eosinophils # (auto) 0.16 K/uL (0-0.5); Eosinophils % (auto) 2.8 %; Hematocrit (blood only) 26.6 % (37-47); Hemoglobin 8.5 g/dL (12.0-16.0); Immature Granulocytes # (auto) 0.02 K/uL (0.00-0.02); Immature Granulocytes % (auto) 0.3 %; Lymphocytes # (auto) 0.86 K/uL (1.2-3.4); Lymphocytes % (auto) 14.9 %; Mean Platelet Volume 10.2 fL (7.4-10.4); Monocytes # (auto) 0.47 K/uL (0.11-0.59); Monocytes % (auto) 8.1 %; Neutrophils # (auto) 4.27 K/uL (1.4-6.5); Neutrophils % (auto) 73.7 %; Platelet Count 102 K/uL (130-400); RDW Coefficient of Variation 19.5 % (11.5-14.5); RDW Standard Deviation 63.1 fL (36.4-46.3); Red Blood Count 2.99 M/uL (4.2-5.4); White Blood Count 5.79 K/uL (4.8-10.8)
[2018-12-05 13:02] LABS: Calcium 8.9 mg/dl (8.5-10.1); Creatinine Clr Calc Pharmacy 14.4 ml/min; Est GFR (African American) 12.8; Est GFR (Non-African American) 11.1; Magnesium 2.8 mg/dl (1.8-2.4)
[2018-12-05 13:06] LABS: INR 1.4 (0.9-1.1); Partial Thromboplastin Ratio 1.1; Partial Thromboplastin Time 31.1 Seconds (21.0-31.0); Prothrombin Time 13.6 Seconds (9.0-12.0)
[2018-12-05 13:07] LABS: Albumin Globulin Ratio 1.1 (0.9-2); Bilirubin,Total 1.2 mg/dl (0.2-1); Globulin 3.7 gm/dl (2.5-4.0); Total Protein 7.7 gm/dl (6.4-8.2); Troponin I 0.031 ng/ml (0-0.045)
--- NOTE | 2018-12-05 13:09 | XRay Report ---
XR chest 1V portable CLINICAL HISTORY: Dyspnea dyspnea COMPARISON STUDY: 07/16/2018 FINDINGS: Moderate cardiomegaly slightly increased in the prior exam. Comment pulmonary vasculature. Very small left pleural effusion. IMPRESSION: Congestive heart failure. Very small left pleural effusion. The above report was generated using voice recognition software. It may contain grammatical, syntax or spelling errors. Electronically signed by: Yogi Velazquez M.D. 12/05/2018 1:08 PM
[2018-12-05] MEDS ORDERED: FUROSEMIDE 40 MG in SYRINGE 0 ML IV ONE (14:30)
--- NOTE | 2018-12-05 14:54 | History & Physical Report ---
Date of Service December 05, 2018 Assessment & Plan (1) Acute respiratory failure: (2) SOB (shortness of breath): (3) Acute decompensated heart failure: This is a 83-year-old female who has a significant past medical history of Martin cirrhosis, PAF, IDDM 2, HTN, HLD, CKD stage III, hypertension, anemia (both iron deficiency and chronic disease), hypothyroidism, RLS who presents to [facility] ED secondary to SOB x45 days. Patient has been on oxygen for approximately the past month per family secondary to increasing shortness of breath and hypoxia. Also she had is a 22 pound weight gain within the past 45 days. Patient was found to have sodium 129, K5.0, BUN 91, creatinine 3.62. Hemoglobin 8.5, hematocrit 26.6, platelet 102. proBNP elevated at 5038. Chest x-ray consistent with congestive heart failure changes and small left pleural effusion. Initial troponin is detectable but negative. INR elevated to 1.4 but on eliquis Pt with likely decompensated CHF (will need to get echocardiogram to determine sys vs diastolic) Pt with known MARTIN Cirrhosis and likely contributing to decompensation of CHF but no hepatic encephalopathy admit to telemetry consult [facility] Cardiology - Spoke with Dr. Whitehead Lasix 40mg IV given in ER - defer to cardiology for diuretic adjustment Daily weights Strict I and O - joyce placed FR of 1800cc/hr echocardiogram in a.m. repeat troponin 1800, given new t wave inversions anteriorly (4) Hyponatremia: likely in setting of volume overload/cirrhosis will check serum osm, urine osm, urine na bmp at 1800 monitor bmp closely with diuretic use (5) Acute worsening of stage 3 chronic kidney disease: Likely secondary to Decompensation of CHF baseline cr 1.9-2 bun/cr 91 and 3.62 bmp at 1800 Lasix 40mg IV x 1 given in ED - monitor response [facility] nephrology consulted - pt establishing with Dr. 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: known liver cirrhosis secondary to martin known portal htn and gastopathy on nadolol - no signs of active bleeding no s/sx of H.E., asterixis absent continue nadolol, aldactone, Lasix IV Obtain Abd U/S to observe for ascites and possible need for paracentesis (7) Anemia: H/H stable at 8.5 and 26.6 had iron panel 09/2018 which revealed iron deficiency (also likely chronic component contributing) per family had IV Venofer infusion recently outpt continue iron supplement recently required PRBC transfusion x 1 at [facility] and x 1 and [facility] follow FOBT and H/H closely - pt on eliquis for PAF (8) 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 on lantus/novolog per protocol Pt feels she is on too much insulin and gets symptomatic hypoglycemia with BSG 110 or less prefers to be > 120 given age and comorbidities loose control is acceptable (11) Hypothyroidism: (12) Restless leg syndrome: continue sinemet at HS (13) DVT prophylaxis: eliquis Disposition: to be determined, case management consulted Follow up: PCP Dr. Bean, along with appropriate cardiology, nephrology and GI follow up Patient was seen and examined in collaboration with Dr. Dixon, please see addendum Starting 12/06/18 pt will be under the care of Dr. Rogesr History of Present Illness Chief Complaint: SOB x 45 days. Primary Care Provider: Britta Bean MD This is a 83-year-old female who has a significant past medical history of Martin cirrhosis, PAF, IDDM 2, HTN, HLD, CKD stage III, hypertension, anemia (both iron deficiency and chronic disease), hypothyroidism, RLS who presents to [facility] ED secondary to SOB x45 days. Daughters at bedside. Pt had recent hospitalization at [facility] and [facility]. Records are unavailable at this time. Recent prolonged hospitalization at [facility] for hepatorenal syndrome, fluid overload and anemia. During that hospitalization she did require blood transfusion. She had worsening renal failure and was discharged to SNF on hospice given multiple comorbidities. While at SNF patient started to improve, kidney function improved and she was taken off hospice. She worked with PT and OT and was discharged home. She has been home for approximately 1 week and daughters have noticed progressive decline. She has had 6 pound weight gain in the past 3 days. Approximately 45 days ago patient's baseline weight was 190 pounds. Today she is 222 pounds. According to family she recently saw [facility] cardiology and had Lasix increased to 40 mg. Patient complains of increasing dyspnea on exertion, shortness of breath at rest, worsening swelling, increased weight gain, dry cough, orthopnea requiring her to sleep in chair, early satiety, decreased appetite. She denies any fever, chills, sweats, lightheadedness, dizziness, chest pain, palpitations, hemoptysis, nausea, vomiting, diarrhea, melena, hematochezia. She does note black stools secondary to iron but no rosi blood. Last BM was today and was normal for her. Over the past 3 days she has noted decreased urine output. Of note she was hospitalized at [facility] 2/2 Anemia requiring 1 unit PRBC. Daughters note she has had 1 iron infusion as well. Iron studies 09/29/18 ferritin 22, iron 75, TIBC 444, T sat 17% She currently lives alone, uses a walker to ambulate. Denies any smoking or ETOH Use. Has known hx of MARTIN cirrhosis but has not required paracentesis. States she is compliant with medications including lasix, aldactone and eliquis. Allergies Allergy/AdvReac Type Severity Reaction Status Date / Time oxycodone Allergy Unknown Hallucinati Verified 12/05/18 12:53 ng hydrocodone AdvReac Unknown SWEATING, Verified 12/05/18 12:53 FELT FUNNY - UNSURE IF IT WAS VICODIN Home Medications Home Medications Medication Instructions Recorded Confirmed Type insulin degludec [Tresiba 20 unit SUBCUT HS 07/09/18 12/05/18 History FlexTouch U-200] levothyroxine 88 mcg PO QAM 07/09/18 12/05/18 History meclizine 12.5 mg PO BID 07/09/18 12/05/18 History spironolactone 25 mg PO BID 07/09/18 12/05/18 History apixaban [Eliquis] 2.5 mg PO BID 12/05/18 12/05/18 History carbidopa-levodopa 1 tab PO HS 12/05/18 12/05/18 History ferrous sulfate 325 mg PO BID 12/05/18 12/05/18 History furosemide 40 mg PO QAM 12/05/18 12/05/18 History insulin aspart U-100 [Novolog 5 unit SUBCUT AC 12/05/18 12/05/18 History Flexpen U-100 Insulin] midodrine 2.5 mg PO TID PRN 12/05/18 12/05/18 History nadolol 20 mg PO HS 12/05/18 12/05/18 History ranitidine HCl 150 mg PO QAM 12/05/18 12/05/18 History Past Med/Surg History Medical History HLD (hyperlipidemia) Anemia Thrombocytopenia CKD (chronic kidney disease) stage 3, GFR 30-59 ml/min (Acute) 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 H/o fluid retention with elevated BNP--cardiac eval and echo 2016 ruled no CHF, 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 Periodic limb movement disorder On Simemet Hypertension Sleep apnea CPAP Diabetes A1C 8.5% on 10/09/18 Degenerative disc disease Acid reflux Restless leg syndrome Hypothyroidism Surgical History History of hysterectomy History of cholecystectomy History of brain surgery FOR MENINGIOMA, 1998 History of surgery on arm LEFT ([place]) History of reverse total replacement of right shoulder joint History of tonsillectomy History of ear surgery History of fracture of nasal bone Family History Other Diabetes Family history of cancer Social History Preferred Language: Angolan Communication Ability: Effective 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 Physical Exam Physical Exam: Gen: Elderly, F, chronically ill appearing, lying in bed, +tachypnea with conversation, pleasant, Head: Normocephalic, Atraumatic Eyes: Sclera normal, anicteric, no conjunctival injection, PERRLA, EOMI ENT: Gross hearing intact, normal pharynx, mucous membranes moist Neck: supple, no adenopathy, No JVD, no bruit, Resp: Clear to auscultation with diminished breath sounds b/l, no wheeze, rales, rhonchi. 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 head of english strength Extremities: +3 pitting edema of lower ext b/l extending above proximal thigh into abdomen and gluteal region, no erythema, warmth, negative homans sign Skin: warm, moist, no rash, negative turgor, cap refill < 2sec Neuro: Alert and oriented x 3, speech normal, good mood/affect, cran nerve 2-12 intact grossly : deferred Results & Data Vital Signs (Past 12 Hours) Vital Signs Temp Pulse Resp BP Pulse Ox 12/05/18 12:42 73 98 12/05/18 12:38 66 25 H 129/53 L 95 12/05/18 12:30 66 25 H 98 12/05/18 12:01 75 22 124/67 95 12/05/18 12:00 69 28 H 94 12/05/18 11:48 68 22 95 12/05/18 11:46 71 23 143/67 H 94 12/05/18 11:01 36.5 C 75 22 138/79 97 Laboratory Results Short CBC 12/05/18 12/05/18 12/05/18 Range/Units 12:36 12:36 12:36 WBC 5.79 (4.8-10.8) K/uL Hgb 8.5 L (12.0-16.0) g/dL Hct 26.6 L (37-47) % Plt Count 102 L (130-400) K/uL INR 1.4 H (0.9-1.1) Sodium 129 L (136-145) mmol/L BUN 91 H (7-18) mg/dl Creatinine 3.62 H (0.6-1.2) mg/dl Total Bilirubin 1.2 H (0.2-1) mg/dl Troponin I 0.031 (0-0.045) ng/ml NT-Pro-B Natriuret Pep 5038 H (0-1800) pg/ml BMP 12/05/18 12:36 Sodium 129 L Potassium 5.0 Chloride 94 L Carbon Dioxide 27 BUN 91 H Creatinine 3.62 H Glucose 121 H Calcium 8.9 Cardiac Enzymes 12/05/18 Range/Units 12:36 Troponin I 0.031 (0-0.045) ng/ml Liver Function 12/05/18 Range/Units 12:36 Total Bilirubin 1.2 H (0.2-1) mg/dl AST 26 (15-37) U/L ALT 20 (12-78) U/L Alkaline Phosphatase 84 (45-117) U/L Albumin 4.0 (3.4-5.0) gm/dl Diagnostic Findings CXR: IMPRESSION: Congestive heart failure. Very small left pleural effusion. Medications Administered Discontinued Medications Furosemide (Lasix) Confirm Administered Dose 40 mg IV .STK-MED ONE Stop: 12/05/18 15:10 Last Admin: 12/05/18 15:10 Dose: 40 mg Documented by: [id number] Furosemide 40 mg/ Syringe 4 mls @ 4 mls/min IV ONE ONE Stop: 12/05/18 14:31 Last Admin: 12/05/18 15:11 Dose: Not Given Documented by: [id number] ECG Rate (beats per minute): 72 Rhythm: atrial fibrillation Findings: + nonspecific-ST abn (t wave inversions anterior V2-4) Code Status & VTE Plan Code Status DNR VTE Prophylaxis Plan VTE Prophylaxis will be ordered: Yes Supervising Physician Co-Signing Physician Notes Attending addendum: Patient seen and examined, care coordinated with Barbara Krause PA-C This is a 83-year-old female with multiple comorbidities: Hypertension type 2 diabetes CKD stage III, Martin cirrhosis, chronic A. fib on Eliquis, anemia of chronic disease, Recently discharged from [facility] 11/25/2018 for iron deficiency anemia required 1 unit of blood transfusion Patient was discharged home, last few days develop progression of shortness of breath and dyspnea on exertion, has chronic orthopnea Noted to have significant weight gain, increased abdominal girth, increased lower extremity swelling In the ER chest x-ray shows progression of pulmonary congestion, elevated proBNP Acute on chronic renal failure with creatinine elevated 3, baseline is 22.5 Patient able to speak with complete sentences, complains of ongoing shortness of breath even at rest worse with minimum activity Order for 40 mg IV Lasix x1 stat Admit to telemetry, Ordered for abdominal ultrasound to assess for ascites No evidence of hepatic decompensation, LFTs within normal limit with mild elevation of bilirubin Cardiology consulted, patient follows with [facility] Resting echo, Defer to cardiology for the dose of diuresis Nephrology consult placed for [facility] Is scheduled to see Dr. Wheeler next week DVT prophylaxis: Continue Eliquis CODE STATUS: DNR/DNI discussed with patient Please refer to further documentation by Barbara Krause PA-C to discussion of other chronic issues Connie Dixon MD
--- NOTE | 2018-12-05 14:57 | Hospitalist Progress Note ---
Date of Service December 05, 2018 Subjective Attending addendum: Patient seen and examined, care coordinated with Barbara Krause PA-C This is a 83-year-old female with multiple comorbidities: Hypertension type 2 diabetes CKD stage III, Martin cirrhosis, chronic A. fib on Eliquis, anemia of chronic disease, Recently discharged from [facility] 11/25/2018 for iron deficiency anemia required 1 unit of blood transfusion Patient was discharged home, last few days develop progression of shortness of breath and dyspnea on exertion, has chronic orthopnea Noted to have significant weight gain, increased abdominal girth, increased lower extremity swelling In the ER chest x-ray shows progression of pulmonary congestion, elevated proBNP Acute on chronic renal failure with creatinine elevated 3, baseline is 22.5 Patient able to speak with complete sentences, complains of ongoing shortness of breath even at rest worse with minimum activity Order for 40 mg IV Lasix x1 stat Admit to telemetry, Ordered for abdominal ultrasound to assess for ascites No evidence of hepatic decompensation, LFTs within normal limit with mild elevation of bilirubin Cardiology consulted, patient follows with [facility] Resting echo, Defer to cardiology for the dose of diuresis Nephrology consult placed for [facility] Is scheduled to see Dr. Wheeler next week DVT prophylaxis: Continue Eliquis CODE STATUS: DNR/DNI discussed with patient Please refer to further documentation by Barbara Krause PA-C to discussion of other chronic issues Connie Dixon MD Results & Data Vital Signs (Past 12 Hours) Vital Signs Temp Pulse Resp BP Pulse Ox 12/05/18 12:42 73 98 12/05/18 12:38 66 25 H 129/53 L 95 12/05/18 12:30 66 25 H 98 12/05/18 12:01 75 22 124/67 95 12/05/18 12:00 69 28 H 94 12/05/18 11:48 68 22 95 12/05/18 11:46 71 23 143/67 H 94 12/05/18 11:01 36.5 C 75 22 138/79 97
[2018-12-05] MEDS ORDERED: FUROSEMIDE 40 MG/4 ML VIAL IV ONE (15:09)
[2018-12-05 16:01] LABS: T4 Free Thyroxine 1.35 ng/dl (0.8-1.6)
[2018-12-05] MEDS ORDERED: POLYETHYLENE (MIRALAX) 17 GM PACK PO PRN (16:07)
[2018-12-05] MEDS ORDERED: GLUCOSE 40% GEL 15 GM TUBE PO PRN (16:07)
[2018-12-05] MEDS ORDERED: CARBOHYDRATES FOR HYPOGLYCEMIA PO PRN (16:07)
[2018-12-05] MEDS ORDERED: ALUMINUM/MAGNESIUM SUSP 30 ML UDC PO PRN (16:07)
[2018-12-05] MEDS ORDERED: GLUCOSE 10 TABS/TUBE PO PRN (16:07)
[2018-12-05] MEDS ORDERED: ONDANSETRON INJ 2 MG/ML 2 ML VIAL IV PRN (16:07)
[2018-12-05] MEDS ORDERED: MAGNESIUM HYDROXIDE SUSP 30 ML UDC PO PRN (16:07)
[2018-12-05] MEDS ORDERED: GLUCAGON FOR INJ 1 MG VIAL SQ PRN (16:07)
[2018-12-05] MEDS ORDERED: ACETAMINOPHEN 325 MG TAB PO PRN (16:07)
[2018-12-05] MEDS ORDERED: DEXTROSE 50% 50 ML SYRINGE IV PRN (16:07)
[2018-12-05] MEDS: INSULIN ASPART 100 UNITS/ML 3 ML PEN SC SCH ×2 (17:02→21:07)
[2018-12-05] MEDS: FERROUS SULFATE 325 MG TAB PO SCH (17:03)
--- NOTE | 2018-12-05 17:33 | Emergency Department Note ---
Entered by Edmond Zambrano acting as a scribe for History of Present Illness General Chief complaint: Shortness of Breath/Dyspnea Stated complaint: FLUID RETENTION,TROUBLE BREATHING Source: patient and family History of Present Illness Provider complaint: Shortness of breath Onset (ago): month(s) 1 Location: chest Radiation: non-radiation Severity: similar to prior episodes Pain Consistency: + constant and + other (Worsening) Relieved By: + none Exacerbated By: + none Associated symptoms: + other (Positive fluid retention) The patient is an 83 year old female who presents to the Emergency Room with complaints of constant shortness of breath that started about a month ago but has worsened over the past 5 days. The patient states she has also been retaining fluid having gained 6 pounds in the past 4 days and 35 pounds in the p ast 45 days. The patient's daughter states that the patient was started on 4L of oxygen 45 days ago, when she initially started retaining fluid. The patient was recently hospitalized in [facility] for these symptoms as well as her WOODS liver disease and kidney failure. After being discharged a week ago, the patient saw Dav Quick - [facility] and he increased her Lasix from 20mg to 40mg along with putting her on a beta derek. Although the patient has kidney failure, she is not a dialysis candidate because of her WOODS liver disease. Home Medications Home Medications Medication Instructions Recorded Confirmed Type insulin degludec [Tresiba 20 unit SUBCUT HS 07/09/18 12/05/18 History FlexTouch U-200] levothyroxine 88 mcg PO QAM 07/09/18 12/05/18 History meclizine 12.5 mg PO BID 07/09/18 12/05/18 History spironolactone 25 mg PO BID 07/09/18 12/05/18 History apixaban [Eliquis] 2.5 mg PO BID 12/05/18 12/05/18 History carbidopa-levodopa 1 tab PO HS 12/05/18 12/05/18 History ferrous sulfate 325 mg PO BID 12/05/18 12/05/18 History furosemide 40 mg PO QAM 12/05/18 12/05/18 History insulin aspart U-100 [Novolog 5 unit SUBCUT AC 12/05/18 12/05/18 History Flexpen U-100 Insulin] midodrine 2.5 mg PO TID PRN 12/05/18 12/05/18 History nadolol 20 mg PO HS 12/05/18 12/05/18 History ranitidine HCl 150 mg PO QAM 12/05/18 12/05/18 History Allergies Allergy/AdvReac Type Severity Reaction Status Date / Time oxycodone Allergy Unknown Hallucinati Verified 12/05/18 12:53 ng hydrocodone AdvReac Unknown SWEATING, Verified 12/05/18 12:53 FELT FUNNY - UNSURE IF IT WAS VICODIN Past Med/Surg History Medical History HLD (hyperlipidemia) Anemia Thrombocytopenia CKD (chronic kidney disease) stage 3, GFR 30-59 ml/min 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 H/o fluid retention with elevated BNP--cardiac eval and echo 2016 ruled no CHF, 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 Periodic limb movement disorder On Simemet Hypertension Sleep apnea CPAP Diabetes A1C 8.5% on 10/09/18 Degenerative disc disease Acid reflux Restless leg syndrome Hypothyroidism Surgical History History of hysterectomy History of cholecystectomy History of brain surgery FOR MENINGIOMA, 1998 History of surgery on arm LEFT ([place]) History of reverse total replacement of right shoulder joint History of tonsillectomy History of ear surgery History of fracture of nasal bone Family History Other Diabetes Family history of cancer Social History Preferred Language: Azeri Communication Ability: Effective [employer] Required: No Beliefs That Will Affect Care: None Current Living Situation: Alone Other Information That Helps Us Care for You: No other: ambulates with walker Feels Safe at Home: Yes Safety Concerns: Feels Safe At This Time Smoking Status: Never smoker Do You Dip or Chew Tobacco: No Second Hand Exposure: No Tobacco Cessation Education Requested by Patient: No Hx Alcohol Use: No Hx Substance Use: No Review of Systems See HPI for pertinent positives & negatives. and A total of 10 systems reviewed and were otherwise negative Physical Exam Vital Signs Vital Signs - 24 hr 12/05/18 11:01 12/05/18 11:39 12/05/18 11:46 Temperature 36.5 C Temperature Source Oral Sepsis Recent Fever Within 48 Hours No Sepsis New/Unexplained Change in Mental Status No Sepsis Action Taken by Nursing No Action Required Pulse Rate 75 71 Pulse Rate from SpO2 Sensor 70 Pulse Rhythm Respiratory Rate 22 23 Respiratory Effort / Characteristics Spontaneous Labored Respiratory Depth Normal Respiratory Pattern Regular Blood Pressure 138/79 143/67 H Blood Pressure Mean 98 92 Pulse Oximetry 97 94 Oxygen Delivery Method Nasal Cannula Nasal Cannula Nasal Cannula Oxygen Flow Rate 4 4 12/05/18 11:48 12/05/18 12:00 12/05/18 12:01 Temperature Temperature Source Sepsis Recent Fever Within 48 Hours Sepsis New/Unexplained Change in Mental Status Sepsis Action Taken by Nursing Pulse Rate 68 69 75 Pulse Rate from SpO2 Sensor 70 76 73 Pulse Rhythm Respiratory Rate 22 28 H 22 Respiratory Effort / Characteristics Respiratory Depth Respiratory Pattern Blood Pressure 124/67 Blood Pressure Mean 86 Pulse Oximetry 95 94 95 Oxygen Delivery Method Oxygen Flow Rate 12/05/18 12:30 12/05/18 12:38 12/05/18 12:39 Temperature Temperature Source Sepsis Recent Fever Within 48 Hours Sepsis New/Unexplained Change in Mental Status Sepsis Action Taken by Nursing Pulse Rate 66 66 66 Pulse Rate from SpO2 Sensor 68 70 68 Pulse Rhythm Respiratory Rate 25 H 25 H 21 Respiratory Effort / Characteristics Respiratory Depth Respiratory Pattern Blood Pressure 129/53 L Blood Pressure Mean 78 Pulse Oximetry 98 95 97 Oxygen Delivery Method Oxygen Flow Rate 12/05/18 12:42 12/05/18 13:00 12/05/18 13:01 Temperature Temperature Source Sepsis Recent Fever Within 48 Hours Sepsis New/Unexplained Change in Mental Status Sepsis Action Taken by Nursing Pulse Rate 73 64 67 Pulse Rate from SpO2 Sensor 68 Pulse Rhythm Regular Respiratory Rate 22 20 Respiratory Effort / Characteristics Respiratory Depth Respiratory Pattern Blood Pressure 127/60 Blood Pressure Mean 82 Pulse Oximetry 98 98 Oxygen Delivery Method Nasal Cannula Oxygen Flow Rate 4 12/05/18 13:30 12/05/18 13:31 12/05/18 14:00 Temperature Temperature Source Sepsis Recent Fever Within 48 Hours Sepsis New/Unexplained Change in Mental Status Sepsis Action Taken by Nursing Pulse Rate 72 67 71 Pulse Rate from SpO2 Sensor 69 70 63 Pulse Rhythm Respiratory Rate 23 21 22 Respiratory Effort / Characteristics Respiratory Depth Respiratory Pattern Blood Pressure 142/75 H Blood Pressure Mean 97 Pulse Oximetry 98 97 96 Oxygen Delivery Method Oxygen Flow Rate 12/05/18 14:01 Temperature Temperature Source Sepsis Recent Fever Within 48 Hours Sepsis New/Unexplained Change in Mental Status Sepsis Action Taken by Nursing Pulse Rate 66 Pulse Rate from SpO2 Sensor 68 Pulse Rhythm Respiratory Rate 23 Respiratory Effort / Characteristics Respiratory Depth Respiratory Pattern Blood Pressure 153/80 H Blood Pressure Mean 104 Pulse Oximetry 99 Oxygen Delivery Method Oxygen Flow Rate GENERAL: Sitting up in bed, alert, well appearing, well nourished, no distress but slightly dyspneic with conversation, non-toxic EYE EXAM: normal conjunctiva. OROPHARYNX: no exudate, no erythema, lips, buccal mucosa, and tongue normal and mucous membranes are moist NECK: supple, no nuchal rigidity, no adenopathy, non-tender, positive JVD LUNGS: Clear to auscultation. Normal chest wall mechanics HEART: no murmurs, S1 normal and S2 normal ABDOMEN: abdomen is distended with positive fluid wave, non-tender, normo-active bowel, sounds, no masses, no rebound or guarding. BACK: Back is symmetrical on inspection and there is no deformity, no midline tenderness, no CVA tenderness. SKIN: no rashes and no bruising UPPER EXTREMITIES: upper extremities are grossly normal. LOWER EXTREMITIES: Pitting edema bilaterally tracking up to lower back. NEURO EXAM: Normal sensorium, cranial nerves II-XII grossly intact, normal speech, no gross weakness of arms, no gross weakness of legs. Course ED COURSE: Vital signs were reviewed and were normal. The patients medical record was reviewed The above diagnostic studies were performed and reviewed. ED treatments and interventions as stated above. 1150: The patient was evaluated in room B10. A complete history and physical examination was performed. 1352: I spoke to Barbara Wells PA-C under Dr. Zack King about the patient's case. They will be accepting her for further evaluation. 1357: Upon reevaluation, the patient is resting in bed. I discussed my findings with the patient and she understands and agrees with the treatment plan. Based on the patients age, coexisting illnesses, exam and lab findings the deci medina to treat as an inpatient was made. The patient remained stable while under my care. The patient will be evaluated for further management. Consultations Consultation #1: I spoke to Barbara Wells PA-C under Dr. Zack King about the patient's case. They will be accepting her for further evaluation. Time: 13:52 Administered Medications Ferrous Sulfate (Feosol) 325 mg PO BIDM CARLO Stop: 01/04/19 16:59 Last Admin: 12/05/18 17:03 Dose: 325 mg Documented by: [id number] Insulin Aspart (Novolog Flexpen) 0 units SC ACHS CARLO Stop: 01/04/19 16:29 Last Admin: 12/05/18 17:02 Dose: Not Given Documented by: [id number] Discontinued Medications Furosemide (Lasix) Confirm Administered Dose 40 mg IV .STK-MED ONE Stop: 12/05/18 15:10 Last Admin: 12/05/18 15:10 Dose: 40 mg Documented by: [id number] Furosemide 40 mg/ Syringe 4 mls @ 4 mls/min IV ONE ONE Stop: 12/05/18 14:31 Last Admin: 12/05/18 15:11 Dose: Not Given Documented by: [id number] Medical Decision Making Differential Diagnosis Differential diagnoses includes but is not limited to pneumonia, bronchitis, COPD/Asthma exacerbation, pneumothorax, pulmonary embolism, congestive heart failure, acute coronary syndrome Medical Records Attestation: I reviewed the patient's medical records. Home Medications Current Medication List: was personally reviewed by me Laboratory Data Attestation: I reviewed the patient's lab results. Result diagrams: 12/05/18 12:36 12/05/18 12:36 Lab Results 12/05/18 12/05/18 12/05/18 Range/Units 12:36 12:36 12:36 WBC 5.79 (4.8-10.8) K/uL RBC 2.99 L (4.2-5.4) M/uL Hgb 8.5 L (12.0-16.0) g/dL Hct 26.6 L (37-47) % MCV 89.0 (80-100) fL MCH 28.4 (25-34) pg MCHC 32.0 (32-36) g/dL RDW Std Deviation 63.1 H (36.4-46.3) fL RDW Coeff of [place] 19.5 H (11.5-14.5) % Plt Count 102 L (130-400) K/uL MPV 10.2 (7.4-10.4) fL Immature Gran % (Auto) 0.3 % Neut % (Auto) 73.7 % Lymph % (Auto) 14.9 % [place] % (Auto) 8.1 % Eos % (Auto) 2.8 % Baso % (Auto) 0.2 % Immature Gran # (Auto) 0.02 (0.00-0.02) K/uL Neut # (Auto) 4.27 (1.4-6.5) K/uL Lymph # (Auto) 0.86 L (1.2-3.4) K/uL [place] # (Auto) 0.47 (0.11-0.59) K/uL Eos # (Auto) 0.16 (0-0.5) K/uL Baso # (Auto) 0.01 (0-0.2) K/uL PT 13.6 H (9.0-12.0) Seconds INR 1.4 H (0.9-1.1) APTT 31.1 H (21.0-31.0) Seconds PTT Ratio 1.1 Sodium 129 L (136-145) mmol/L Potassium 5.0 (3.5-5.1) mmol/L Chloride 94 L (98-107) mmol/L Carbon Dioxide 27 (21-32) mmol/L Anion Gap 8.0 (3-11) BUN 91 H (7-18) mg/dl Creatinine 3.62 H (0.6-1.2) mg/dl Est Cr Clr Drug Dosing 14.4 ml/min Est GFR ( Amer) 12.8 Est GFR (Non-Af Amer) 11.1 BUN/Creatinine Ratio 25.0 H (10-20) Glucose 121 H (70-99) mg/dl Calcium 8.9 (8.5-10.1) mg/dl Magnesium 2.8 H (1.8-2.4) mg/dl Total Bilirubin 1.2 H (0.2-1) mg/dl AST 26 (15-37) U/L ALT 20 (12-78) U/L Alkaline Phosphatase 84 (45-117) U/L Troponin I 0.031 (0-0.045) ng/ml NT-Pro-B Natriuret Pep 5038 H (0-1800) pg/ml Total Protein 7.7 (6.4-8.2) gm/dl Albumin 4.0 (3.4-5.0) gm/dl Globulin 3.7 (2.5-4.0) gm/dl Albumin/Globulin Ratio 1.1 (0.9-2) TSH 10.600 H (0.300-4.500) uIu/ml Free T4 1.35 (0.8-1.6) ng/dl 12/05/18 Range/Units 12:36 WBC (4.8-10.8) K/uL RBC (4.2-5.4) M/uL Hgb (12.0-16.0) g/dL Hct (37-47) % MCV (80-100) fL MCH (25-34) pg MCHC (32-36) g/dL RDW Std Deviation (36.4-46.3) fL RDW Coeff of [place] (11.5-14.5) % Plt Count (130-400) K/uL MPV (7.4-10.4) fL Immature Gran % (Auto) % Neut % (Auto) % Lymph % (Auto) % [place] % (Auto) % Eos % (Auto) % Baso % (Auto) % Immature Gran # (Auto) (0.00-0.02) K/uL Neut # (Auto) (1.4-6.5) K/uL Lymph # (Auto) (1.2-3.4) K/uL [place] # (Auto) (0.11-0.59) K/uL Eos # (Auto) (0-0.5) K/uL Baso # (Auto) (0-0.2) K/uL PT (9.0-12.0) Seconds INR (0.9-1.1) APTT (21.0-31.0) Seconds PTT Ratio Sodium (136-145) mmol/L Potassium (3.5-5.1) mmol/L Chloride (98-107) mmol/L Carbon Dioxide (21-32) mmol/L Anion Gap (3-11) BUN (7-18) mg/dl Creatinine (0.6-1.2) mg/dl Est Cr Clr Drug Dosing ml/min Est GFR ( Amer) Est GFR (Non-Af Amer) BUN/Creatinine Ratio (10-20) Glucose (70-99) mg/dl Calcium (8.5-10.1) mg/dl Magnesium (1.8-2.4) mg/dl Total Bilirubin (0.2-1) mg/dl AST (15-37) U/L ALT (12-78) U/L Alkaline Phosphatase (45-117) U/L Troponin I (0-0.045) ng/ml NT-Pro-B Natriuret Pep (0-1800) pg/ml Total Protein (6.4-8.2) gm/dl Albumin (3.4-5.0) gm/dl Globulin (2.5-4.0) gm/dl Albumin/Globulin Ratio (0.9-2) TSH Cancelled (0.300-4.500) uIu/ml Free T4 (0.8-1.6) ng/dl Imaging Data Radiologist's Impression: Radiology results as stated below per my review and the radiologist's interpretation: XR chest 1V portable CLINICAL HISTORY: Dyspnea dyspnea COMPARISON STUDY: 07/16/2018 FINDINGS: Moderate cardiomegaly slightly increased in the prior exam. Comment pulmonary vasculature. Very small left pleural effusion. IMPRESSION: Congestive heart failure. Very small left pleural effusion. The above report was generated using voice recognition software. It may contain grammatical, syntax or spelling errors. Electronically signed by: Yogi Velazquez M.D. 12/05/2018 1:08 PM ECG Data Attestation: I personally reviewed and interpreted this ECG as follows: Indication: SOB/dyspnea Rate (beats per minute): 72 Rhythm: atrial fibrillation Findings: + other (Normal axis, low voltage) and + T-wave inversion (Septal); no PVC Comparison ECG Date: from (07/16/18) Change: the following changes noted (Afib and T wave inversion is new) Blood Pressure Blood Pressure Findings: Normal blood pressure MDM Narrative Patient is an 83-year-old female who presents the ER for shortness of breath which is been worsening over the past month. She notes that she has gained over 20 to 30 pounds over the course of the past 3 weeks. She is gained 6 pounds in the past 2 to 3 days. She does have a history of cirrhosis and CKD. Patient is on apixaban. IV was established and blood work shows a hemoglobin 8.5. Platelets were low at 102 which I favor secondary to cirrhosis. INR was at 1.4. BMP with sodium of 129. Creatinine bumped to 3.6 up from 2. Troponin was detectable but not positive. Free T4 was unremarkable. Chest x-ray with some CHF. On exam she has clear anasarca. No signs of SBP. Due to the elevation in her creatinine and anasarca elect to hold on Lasix and discussed with hospitalist for further treatment. Impression & Plan CHF (congestive heart failure), CKD (chronic kidney disease) stage 3, GFR 30-59 ml/min, KEMAR (acute kidney injury) Discharge Plan Visit Data *Final* Discharge Date/Time: 12/05/18 15:19 Chief Complaint: Shortness of Breath/Dyspnea Stated Complaint: FLUID RETENTION,TROUBLE BREATHING ED Provider: Arnav Hill Discharge Problem: CHF (congestive heart failure), CKD (chronic kidney disease) stage 3, GFR 30-59 ml/min, KEMAR (acute kidney injury) Patient Disposition: Admitted As Inpatient Discharge Instructions Interventions: ED Discharge Assessment Last Done: 12/05/18 15:19 The scribe's documentation has been prepared under my direction and personally reviewed by me in its entirety. I confirm that the note above accurately reflects all work, treatment, procedures, and medical decision making performed by me.
--- NOTE | 2018-12-05 17:41 | Ultrasound Report ---
US abdomen ltd ascites CLINICAL HISTORY: ascites COMPARISON STUDY: CT scan dated 09/28/2017 FINDINGS: The liver has a cirrhotic morphology. There is a small to moderate volume of ascites. IMPRESSION: Small to moderate volume of ascites. Electronically signed by: Nirav Mercado M.D. 12/05/2018 5:40 PM
[2018-12-05 18:00] LABS: Appearance Urine Slightly Cloudy (Clear); Bilirubin Urine Negative (Negative); Blood Urine 1+ (Negative); Color Urine Yellow; Glucose Urine UA Negative (Negative); Ketones Urine Negative (Negative); Leukocyte Esterase Urine Negative (Negative); Nitrite Urine Negative (Negative); Protein Urine 2+ (Negative); Urobilinogen Urine Negative (Negative)
[2018-12-05 18:06] LABS: Bacteria Urine Negative (Negative); Epithelial Cell Urine 0-5 /lpf (0-5); WBC Urine 0-5 /hpf (0-5)
[2018-12-05 18:07] LABS: Amorphous Sediment Urine Present (None Prsent)
--- NOTE | 2018-12-05 18:38 | Cardiology Consultation ---
Date of Consultation December 05, 2018 Assessment & Plan (1) CHF (congestive heart failure): She had an element of pulmonary congestion on her x-ray. Most her symptoms include dyspnea. She has an elevated BNP. While I suppose an element of her breathing difficulties related to pulmonary edema, a lot of it may be related to deconditioning as well. She is not known to have significant left ventricular systolic dysfunction but may have an element of diastolic failure. She is reported to have significant right ventricular dysfunction. An echocardiogram in our institution is pending but will be needed to evaluate both right and left ventricular function. If she has an element of left ventricular dysfunction we may be able to improve renal perfusion with dobutamine. If she does not have significant left ventricular systolic dysfunction of most of her failure involves the right vent ricle, he will be very difficult to affect any diuresis with traditional diuretics. In fact, I would imagine she has a cardiorenal syndrome at this point. Her sodium and chloride are low. Her BUN is high and her creatinine has risen. I am not confident will be able to affect any diuresis with medical therapy, and she may require ultrafiltration or dialysis in order to remove any fluid. Whether she is a candidate for such aggressive measures is unclear. (2) SOB (shortness of breath): Likely related both to an element of pulmonary vascular congestion as well as overall volume overload and deconditioning. I think her clinical condition is quite severe and her prognosis quite poor. She has an element of anemia which is likely not a factor at rest but produces significant symptoms with activity. Her dyspnea may improve with transfusion. She did report feeling worse after being transfused in [place]. In fact, she was discharged to hospice previously. It seems to me that her presentation currently is very similar to that from September of this year. (3) Atrial fibrillation: She appears to have rate controlled atrial fibrillation. She is currently on apixaban at reduced dose. She does have a history in her record of gastrointestinal hemorrhage and subsequent need for transfusion. Her hemoglobin is lower now than it was during her last admission. It is unclear whether she is having GI blood loss or simply not producing red cells. We will need to monitor this closely. I would have low threshold for discontinuing her anticoagulation in the setting of significant anemia and possible occult GI blood loss. History of Present Illness Reason for Consultation: Congestive heart failure Requesting Physician: Ken Attending Physician: Laquita Rogers, DO History of Present Illness Patient is an 83-year-old woman with a history of renal failure, liver failure and heart failure who recently had an extended hospitalization in [place] for hypoxic respiratory failure. Her hospitalization was complicated by development of atrial fibrillation requiring cardioversion and institution of anticoagulant therapy. Aggressive diuresis also resulted in significant renal dysfunction and hepatorenal syndrome. She apparently had some gastrointestinal hemorrhage as well and did require blood transfusion. Due to the severity of her comorbidities she was discharged to a nursing facility for palliative care. However, the patient's condition appeared to improved to the degree where she was sent home. Patient states that for the past 2 weeks at home she has had significant difficulty with activity due to persistent dyspnea. She is able to ambulate around her residence a few times a day with a walker. She states that with any activity she gets severely short of breath. She also feels unsteady on her feet and has an element of fatigue. She has some orthopnea and lately has been sleeping in a recliner. She has noticed increasing abdominal girth and lower extremity edema. Allergies Allergy/AdvReac Type Severity Reaction Status Date / Time oxycodone Allergy Unknown Hallucinati Verified 12/05/18 12:53 ng hydrocodone AdvReac Unknown SWEATING, Verified 12/05/18 12:53 FELT FUNNY - UNSURE IF IT WAS VICODIN Home Medications Home Medications Medication Instructions Recorded Confirmed Type insulin degludec [Tresiba 20 unit SUBCUT HS 07/09/18 12/05/18 History FlexTouch U-200] levothyroxine 88 mcg PO QAM 07/09/18 12/05/18 History meclizine 12.5 mg PO BID 07/09/18 12/05/18 History spironolactone 25 mg PO BID 07/09/18 12/05/18 History apixaban [Eliquis] 2.5 mg PO BID 12/05/18 12/05/18 History carbidopa-levodopa 1 tab PO HS 12/05/18 12/05/18 History ferrous sulfate 325 mg PO BID 12/05/18 12/05/18 History furosemide 40 mg PO QAM 12/05/18 12/05/18 History insulin aspart U-100 [Novolog 5 unit SUBCUT AC 12/05/18 12/05/18 History Flexpen U-100 Insulin] midodrine 2.5 mg PO TID PRN 12/05/18 12/05/18 History nadolol 20 mg PO HS 12/05/18 12/05/18 History ranitidine HCl 150 mg PO QAM 12/05/18 12/05/18 History Patient History Medical History HLD (hyperlipidemia) Anemia Thrombocytopenia CKD (chronic kidney disease) stage 3, GFR 30-59 ml/min (Acute) 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 H/o fluid retention with elevated BNP--cardiac eval and echo 2016 ruled no CHF, 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 Periodic limb movement disorder On Simemet Hypertension Sleep apnea CPAP Diabetes A1C 8.5% on 10/09/18 Degenerative disc disease Acid reflux Restless leg syndrome Hypothyroidism Surgical History History of hysterectomy History of cholecystectomy History of brain surgery FOR [place], 1998 History of surgery on arm LEFT ([place]) History of reverse total replacement of right shoulder joint History of tonsillectomy History of ear surgery History of fracture of nasal bone Family History Other Diabetes Family history of cancer Social History Preferred Language: Syriac Communication Ability: Effective Health Plan Specialist Required: No Beliefs That Will Affect Care: None Current Living Situation: Alone Other Information That Helps Us Care for You: No other: ambulates with walker Feels Safe at Home: Yes Safety Concerns: Feels Safe At This Time Smoking Status: Never smoker Do You Dip or Chew Tobacco: No Second Hand Exposure: No Tobacco Cessation Education Requested by Patient: No Hx Alcohol Use: No Hx Substance Use: No Review of Systems Review of Systems: All systems reviewed & are unremarkable except as noted in HPI & below No fevers or chills. No abdominal pain. No pain at any other site. She denies any sense of palpitation or rapid heartbeat. She did not endorse dizziness or lightheadedness. She claims to be eating well and has no difficulty swallowing foods. She was started on a diuretic as an outpatient but did not notice significant weight loss or improvement in symptoms. Physical Exam Physical Exam: She is alert and oriented x3. Mood affect appear normal. She answered all questions appropriately. HEENT: Sclerae are anicteric. Pupils are equal and reactive to light and accommodation. Extraocular movements were intact. Neuro: Cranial nerves intact Neck: Examination of the submandibular region did not reveal any significant lymphadenopathy. Carotids are palpable bilaterally and free of bruits on auscultation. She had severe jugular venous distention. The thyroid was not enlarged. Lungs: Some crackles in the bases bilaterally. respiratory effort without use of accessory muscles. There is normal pulmonary excursion. Cardiac: The rhythm was irregular. S1 and S2 were normal. There are no murmurs on examination. The PMI was not markedly displaced on palpation. Abdomen: Distended but still soft and nontender Extremities: Patient has bilateral radial pulses that are equal in intensity. There is no evidence cyanosis or clubbing. She has severe lower extremity edema Skin: There are no rashes noted on examination today. She has quite a few ecchymoses Results & Data Vital Signs (Past 12 Hours) Vital Signs Temp Pulse Pulse Resp BP BP Pulse Ox 12/05/18 15:59 36.3 C L 77 18 101/60 96 12/05/18 15:01 66 20 135/69 98 12/05/18 15:00 70 19 12/05/18 14:31 73 25 H 148/79 H 98 12/05/18 14:30 63 25 H 12/05/18 14:01 66 23 153/80 H 99 12/05/18 14:00 71 22 96 12/05/18 13:31 67 21 142/75 H 97 12/05/18 13:30 72 23 98 12/05/18 13:01 67 20 127/60 98 12/05/18 13:00 64 22 12/05/18 12:42 73 98 12/05/18 12:39 66 21 97 12/05/18 12:38 66 25 H 129/53 L 95 12/05/18 12:30 66 25 H 98 12/05/18 12:01 75 22 124/67 95 12/05/18 12:00 69 28 H 94 12/05/18 11:48 68 22 95 12/05/18 11:46 71 23 143/67 H 94 12/05/18 11:01 36.5 C 75 22 138/79 97 Laboratory Results Abnormal Lab Results 12/05/18 12/05/18 12/05/18 12:36 12:36 12:36 WBC 5.79 RBC 2.99 L Hgb 8.5 L Hct 26.6 L MCV 89.0 MCH 28.4 MCHC 32.0 RDW Std Deviation 63.1 H RDW Coeff of [place] 19.5 H Plt Count 102 L MPV 10.2 Immature Gran % (Auto) 0.3 Neut % (Auto) 73.7 Lymph % (Auto) 14.9 [place] % (Auto) 8.1 Eos % (Auto) 2.8 Baso % (Auto) 0.2 Immature Gran # (Auto) 0.02 Neut # (Auto) 4.27 Lymph # (Auto) 0.86 L [place] # (Auto) 0.47 Eos # (Auto) 0.16 Baso # (Auto) 0.01 PT 13.6 H INR 1.4 H APTT 31.1 H PTT Ratio 1.1 Sodium 129 L Potassium 5.0 Chloride 94 L Carbon Dioxide 27 Anion Gap 8.0 BUN 91 H Creatinine 3.62 H Est Cr Clr Drug Dosing 14.4 Est GFR ( Amer) 12.8 Est GFR (Non-Af Amer) 11.1 BUN/Creatinine Ratio 25.0 H Glucose 121 H POC Glucose Calcium 8.9 Magnesium 2.8 H Total Bilirubin 1.2 H AST 26 ALT 20 Alkaline Phosphatase 84 Troponin I 0.031 NT-Pro-B Natriuret Pep 5038 H Total Protein 7.7 Albumin 4.0 Globulin 3.7 Albumin/Globulin Ratio 1.1 TSH 10.600 H Free T4 1.35 Urine Color Urine Appearance Urine pH Ur Specific [place] Urine Protein Urine Glucose (UA) Urine Ketones Urine Blood Urine Nitrite Urine Bilirubin Urine Urobilinogen Ur Leukocyte Esterase Urine RBC Urine WBC Ur Epithelial Cells Amorphous Sediment Urine Bacteria Urine Osmolality Ur Random Sodium 12/05/18 12/05/18 12/05/18 12:36 16:00 16:00 WBC RBC Hgb Hct MCV MCH MCHC RDW Std Deviation RDW Coeff of [place] Plt Count MPV Immature Gran % (Auto) Neut % (Auto) Lymph % (Auto) [place] % (Auto) Eos % (Auto) Baso % (Auto) Immature Gran # (Auto) Neut # (Auto) Lymph # (Auto) [place] # (Auto) Eos # (Auto) Baso # (Auto) PT INR APTT PTT Ratio Sodium Potassium Chloride Carbon Dioxide Anion Gap BUN Creatinine Est Cr Clr Drug Dosing Est GFR ( Amer) Est GFR (Non-Af Amer) BUN/Creatinine Ratio Glucose POC Glucose Calcium Magnesium Total Bilirubin AST ALT Alkaline Phosphatase Troponin I NT-Pro-B Natriuret Pep Total Protein Albumin Globulin Albumin/Globulin Ratio TSH Cancelled Free T4 Urine Color Yellow Urine Appearance Slightly Cloudy Urine pH 5.0 Ur Specific [place] 1.020 Urine Protein 2+ H Urine Glucose (UA) Negative Urine Ketones Negative Urine Blood 1+ H Urine Nitrite Negative Urine Bilirubin Negative Urine Urobilinogen Negative Ur Leukocyte Esterase Negative Urine RBC 5-10 H Urine WBC 0-5 Ur Epithelial Cells 0-5 Amorphous Sediment Present A Urine Bacteria Negative Urine Osmolality 335 L Ur Random Sodium 12/05/18 12/05/18 16:00 16:09 WBC RBC Hgb Hct MCV MCH MCHC RDW Std Deviation RDW Coeff of [place] Plt Count MPV Immature Gran % (Auto) Neut % (Auto) Lymph % (Auto) [place] % (Auto) Eos % (Auto) Baso % (Auto) Immature Gran # (Auto) Neut # (Auto) Lymph # (Auto) [place] # (Auto) Eos # (Auto) Baso # (Auto) PT INR APTT PTT Ratio Sodium Potassium Chloride Carbon Dioxide Anion Gap BUN Creatinine Est Cr Clr Drug Dosing Est GFR ( Amer) Est GFR (Non-Af Amer) BUN/Creatinine Ratio Glucose POC Glucose 116 H Calcium Magnesium Total Bilirubin AST ALT Alkaline Phosphatase Troponin I NT-Pro-B Natriuret Pep Total Protein Albumin Globulin Albumin/Globulin Ratio TSH Free T4 Urine Color Urine Appearance Urine pH Ur Specific [place] Urine Protein Urine Glucose (UA) Urine Ketones Urine Blood Urine Nitrite Urine Bilirubin Urine Urobilinogen Ur Leukocyte Esterase Urine RBC Urine WBC Ur Epithelial Cells Amorphous Sediment Urine Bacteria Urine Osmolality Ur Random Sodium 17 Diagnostic Findings Abdominal ultrasound performed this evening revealed small to moderate ascites ECG Additional Comments: Atrial fibrillation with controlled ventricular rate. (1) CHF (congestive heart failure) Heart failure chronicity: acute Heart failure type: unspecified Qualified Code(s): I50.9 - Heart failure, unspecified
[2018-12-05 19:05] LABS: BUN Creatinine Ratio 24.7 (10-20); Calcium 8.8 mg/dl (8.5-10.1); Creatinine Clr Calc Pharmacy 13.3 ml/min; Est GFR (African American) 11.7; Est GFR (Non-African American) 10.1; Potassium 5.1 mmol/L (3.5-5.1)
[2018-12-05 19:10] LABS: Troponin I 0.03 ng/ml (0-0.045)
--- NOTE | 2018-12-05 19:38 | Hospitalist Progress Note ---
Date of Service December 05, 2018 Subjective Attending addendum: 6:30 PM labs reviewed(on [employer] it is listed as cancelled) Sodium 130/potassium 5.1/chloride 95/bicarb 25/creatinine 3.91(elevated from no labs 3.62-patient got 40 of IV Lasix) BUN 96 Connie Dixon MD Results & Data Vital Signs (Past 12 Hours) Vital Signs Temp Pulse Pulse Resp BP BP Pulse Ox 12/05/18 19:09 36.5 C 67 17 117/74 99 12/05/18 15:59 36.3 C L 77 18 101/60 96 12/05/18 15:01 66 20 135/69 98 12/05/18 15:00 70 19 12/05/18 14:31 73 25 H 148/79 H 98 12/05/18 14:30 63 25 H 12/05/18 14:01 66 23 153/80 H 99 12/05/18 14:00 71 22 96 12/05/18 13:31 67 21 142/75 H 97 12/05/18 13:30 72 23 98 12/05/18 13:01 67 20 127/60 98 12/05/18 13:00 64 22 12/05/18 12:42 73 98 12/05/18 12:39 66 21 97 12/05/18 12:38 66 25 H 129/53 L 95 12/05/18 12:30 66 25 H 98 12/05/18 12:01 75 22 124/67 95 12/05/18 12:00 69 28 H 94 12/05/18 11:48 68 22 95 12/05/18 11:46 71 23 143/67 H 94 12/05/18 11:01 36.5 C 75 22 138/79 97
[2018-12-05] MEDS: MECLIZINE 12.5 MG TAB PO SCH (21:05)
[2018-12-05] MEDS: NADOLOL 40 MG TAB PO SCH (21:06)
[2018-12-05] MEDS: APIXABAN 2.5 MG TAB PO SCH (21:06)
[2018-12-05] MEDS: SPIRONOLACTONE 25 MG TAB PO SCH (21:07)
[2018-12-05] MEDS: CARBIDOPA/LEVODOP 10/100MG TAB PO SCH (21:07)
[2018-12-06] MEDS: LEVOTHYROXINE SODIUM 88 MCG TABLET PO SCH (06:19)
[2018-12-06 06:30] LABS: Hematocrit (blood only) 24.7 % (37-47); Mean Corpuscular Hgb Conc 32.4 g/dL (32-36); Mean Corpuscular Volume 89.5 fL (80-100); RDW Coefficient of Variation 19.7 % (11.5-14.5); RDW Standard Deviation 64.6 fL (36.4-46.3); Red Blood Count 2.76 M/uL (4.2-5.4); White Blood Count 4.36 K/uL (4.8-10.8)
[2018-12-06 06:32] LABS: Mean Platelet Volume 10.1 fL (7.4-10.4); Platelet Count 93 K/uL (130-400)
[2018-12-06 07:03] LABS: BUN Creatinine Ratio 26.2 (10-20); Calcium 8.6 mg/dl (8.5-10.1); Creatinine Clr Calc Pharmacy 13.6 ml/min; Est GFR (Non-African American) 10.3; Potassium 4.9 mmol/L (3.5-5.1)
[2018-12-06 07:23] LABS: Estimated Average Glucose 146 mg/dl; Hemoglobin A1C 6.7 % (4.5-5.6)
[2018-12-06] MEDS: FERROUS SULFATE 325 MG TAB PO SCH ×2 (07:51→16:52)
[2018-12-06] MEDS: INSULIN ASPART 100 UNITS/ML 3 ML PEN SC SCH ×4 (07:51→21:06)
[2018-12-06] MEDS: SPIRONOLACTONE 25 MG TAB PO SCH ×2 (08:48→20:40)
[2018-12-06] MEDS: APIXABAN 2.5 MG TAB PO SCH ×2 (08:48→20:38)
[2018-12-06] MEDS: MECLIZINE 12.5 MG TAB PO SCH ×2 (08:49→20:38)
[2018-12-06] MEDS ORDERED: FUROSEMIDE 80 MG in SYRINGE 0 ML IV ONE ×2 (10:45→18:00)
--- NOTE | 2018-12-06 11:32 | Nephrology Consultation ---
Date of Consultation December 06, 2018 Assessment & Plan (1) Acute decompensated heart failure: -- TTE pending -- Symptomatic improvement noted with diuretics -- Cardiology consult reviewed -- Additional 80 mg IV furosemide provided today -- Document I/O's and daily weight (2) Hyponatremia: -- Hypervolemic -- Acute on chronic -- in the setting of cirrhosis and chronic heart failure this may be seen as a a negative prognostic finding -- 1.5 L daily fluid restriction -- Monitor metabolic profile twice daily -- Diuretics to encourage negative fluid balance (3) Acute worsening of stage 3 chronic kidney disease: -- Baseline CKD III-IV -- Advanced kidney dysfunction at baseline given comorbid medical conditions -- Poor candidate for SPECIAL EDUCATION INSTRUCTOR given medical comorbidities including cirrhosis and cardiac disease -- Dialysis is not to be considered part of care plan based on my conversation with the patient today -- Continue diuretics to encourage negative fluid balance -- I suspect a component of acute on chronic CHF, urine sodium is low but not classic for acute HRS -- Hypotensive with ascites but non-oliguric and normal serum albumin and urine sodium >5: defer octreotide, midodrine, and IV albumin for now -- Medications are acceptable for kidney function, acceptable to continue spironolactone given liver disease -- Special consideration should be given to continuing Eliquis given renal dysfunction, recent history of GI bleed, age greater than 80, and obesity. Coumadin may be a better consideration if patient plans to continue anticoagulation. 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 Earlene Oliveira is an 83-year-old female with obesity, cirrhosis, chronic congestive heart failure, advanced chronic kidney disease, severe obstructive sleep apnea, diabetes mellitus type 2, hypertension, hypothyroidism, paroxysmal atrial fibrillation, and a reported history of hepatorenal syndrome. Earlene presented to the emergency department at [facility] yesterday with dyspnea. Evaluation revealed pulmonary vascular congestion, and evidence of interstitial edema consistent with acute on chronic congestive heart failure. She was treated with 40 milligrams of IV furosemide. Urine output documented at slightly over 400 milliliters since admission. She is only slightly in the negative fluid balance but is reporting notable symptomatic improvement. She remains on supplemental oxygen. She has required supplemental oxygen at home per medical records. Medical history includes an admission to [facility] from October 14 through November 04. At that time she was also admitted with hypoxic respiratory failure. She was found to be in atrial fibrillation and underwent EREN cardioversion. She developed evidence of GI bleeding while anticoagulation. Following this hospitalization the patient is transitioned to a [facility] for hospice care. When I asked how about this she told me that she does not believe she is currently still on hospice. She does have nursing care at her home once per week. Patient is now living alone at her home in [place]. Her daughter lives less than 2 miles from her home and visits her frequently. During her hospitalization she had had acute on chronic renal insufficiency. She was told that she is not a candidate for hemo dialysis. She established an advanced directive that states she will not receive mechanical ventilation or cardiopulmonary resuscitation. Today Earlene told me that her primary goal is to maintain her current state of health. She does not want has significantly escalate her care. She is open to live long enough to attend her grandson's wedding in March. She does not want hemodialysis. Patient's baseline creatinine has been approximately 2 milligram/deciliter. This is consistent with chronic kidney disease class 4. She noted that her urine output had decreased approximately 2 days prior to her hospitalization. Urine studies on admission demonstrated a low urine sodium of 17. Patient's blood pressure has been slightly low. This has been chronic. The patient has been maintained on midodrine previously. This was discontinued by her record tabulating clerk as an outpatient. Albumin is within the normal range. Cirrhosis can be classified as class HGB. She has not had encephalopathy. She does have ascites has not required paracentesis. Meld score is currently 28. Allergies Allergy/AdvReac Type Severity Reaction Status Date / Time oxycodone Allergy Unknown Hallucinati Verified 12/05/18 12:53 ng hydrocodone AdvReac Unknown SWEATING, Verified 12/05/18 12:53 FELT FUNNY - UNSURE IF IT WAS VICODIN Home Medications Home Medications Medication Instructions Recorded Confirmed Type insulin degludec [Tresiba 20 unit SUBCUT HS 07/09/18 12/05/18 History FlexTouch U-200] levothyroxine 88 mcg PO QAM 07/09/18 12/05/18 History meclizine 12.5 mg PO BID 07/09/18 12/05/18 History spironolactone 25 mg PO BID 07/09/18 12/05/18 History apixaban [Eliquis] 2.5 mg PO BID 12/05/18 12/05/18 History carbidopa-levodopa 1 tab PO HS 12/05/18 12/05/18 History ferrous sulfate 325 mg PO BID 12/05/18 12/05/18 History furosemide 40 mg PO QAM 12/05/18 12/05/18 History insulin aspart U-100 [Novolog 5 unit SUBCUT AC 12/05/18 12/05/18 History Flexpen U-100 Insulin] midodrine 2.5 mg PO TID PRN 12/05/18 12/05/18 History nadolol 20 mg PO HS 12/05/18 12/05/18 History ranitidine HCl 150 mg PO QAM 12/05/18 12/05/18 History Patient History Medical History HLD (hyperlipidemia) Anemia Thrombocytopenia CKD (chronic kidney disease) stage 3, GFR 30-59 ml/min (Acute) 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 H/o fluid retention with elevated BNP--cardiac eval and echo 2015 ruled no CHF, 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 Periodic limb movement disorder On Simemet Hypertension Sleep apnea CPAP Diabetes A1C 8.5% on 10/09/18 Degenerative disc disease Acid reflux Restless leg syndrome Hypothyroidism Surgical History History of hysterectomy History of cholecystectomy History of brain surgery FOR MENINGIOMA, 1998 History of surgery on arm LEFT ([place]) History of reverse total replacement of right shoulder joint History of tonsillectomy History of ear surgery History of fracture of nasal bone Family History Other Diabetes Family history of cancer Social History Preferred Language: Comoran Communication Ability: Effective Client Director Required: No Beliefs That Will Affect Care: None Current Living Situation: Alone Other Information That Helps Us Care for You: No other: ambulates with walker Feels Safe at Home: Yes Safety Concerns: Feels Safe At This Time Smoking Status: Never smoker Do You Dip or Chew Tobacco: No Second Hand Exposure: No Tobacco Cessation Education Requested by Patient: No Hx Alcohol Use: No Hx Substance Use: No Review of Systems Review of Systems: All systems reviewed & are unremarkable except as noted in HPI & below Constitutional: no fever and no chills Physical Exam Constitutional: + frail appearing; no acute distress Eyes: no scleral abnormality and no corneal abnormality ENMT: Mouth: no oral mucosal abnormality and oral mucous membranes not dry Neck: normal visual inspection and trachea midline Respiratory: normal respiratory effort Auscultation: + rales; no rhonchi and no wheezes Cardiovascular: Heart Sounds: normal S1, normal S2 and + murmur Vessels: + JVD Extremities: + edema Gastrointestinal (Abdomen): Inspection/Auscultation: + abdomen distended Percussion/Palpation: abdomen soft; abdomen nontender Musculoskeletal: Extremities: no cyanosis and no clubbing Skin: no rashes and no jaundice Neurologic: Motor/Sensory: no tremor and no asterixis Psychiatric: Orientation: alert Insight: good insight Genitourinary: Mojica draining yellow urine Results & Data Vital Signs (Past 12 Hours) Vital Signs Temp Pulse Resp BP Pulse Ox 12/06/18 06:35 36.5 C 68 18 105/56 L 95 12/06/18 03:52 36.5 C 71 17 114/71 95 12/05/18 23:15 36.4 C L 66 18 108/69 96 Laboratory Results Laboratory Results - last 24 hr 12/05/18 12/05/18 12/05/18 12:36 12:36 12:36 WBC 5.79 RBC 2.99 L Hgb 8.5 L Hct 26.6 L MCV 89.0 MCH 28.4 MCHC 32.0 RDW Std Deviation 63.1 H RDW Coeff of [place] 19.5 H Plt Count 102 L MPV 10.2 Immature Gran % (Auto) 0.3 Neut % (Auto) 73.7 Lymph % (Auto) 14.9 [place] % (Auto) 8.1 Eos % (Auto) 2.8 Baso % (Auto) 0.2 Immature Gran # (Auto) 0.02 Neut # (Auto) 4.27 Lymph # (Auto) 0.86 L [place] # (Auto) 0.47 Eos # (Auto) 0.16 Baso # (Auto) 0.01 PT 13.6 H INR 1.4 H APTT 31.1 H PTT Ratio 1.1 Sodium 129 L Potassium 5.0 Chloride 94 L Carbon Dioxide 27 Anion Gap 8.0 BUN 91 H Creatinine 3.62 H Est Cr Clr Drug Dosing 14.4 Est GFR ( Amer) 12.8 Est GFR (Non-Af Amer) 11.1 BUN/Creatinine Ratio 25.0 H Glucose 121 H POC Glucose Estimat Average Glucose Hemoglobin A1c Osmolality Calcium 8.9 Magnesium 2.8 H Total Bilirubin 1.2 H AST 26 ALT 20 Alkaline Phosphatase 84 Troponin I 0.031 NT-Pro-B Natriuret Pep 5038 H Total Protein 7.7 Albumin 4.0 Globulin 3.7 Albumin/Globulin Ratio 1.1 TSH 10.600 H Free T4 1.35 Urine Color Urine Appearance Urine pH Ur Specific [place] Urine Protein Urine Glucose (UA) Urine Ketones Urine Blood Urine Nitrite Urine Bilirubin Urine Urobilinogen Ur Leukocyte Esterase Urine RBC Urine WBC Ur Epithelial Cells Amorphous Sediment Urine Bacteria Urine Osmolality Ur Random Sodium 12/05/18 12/05/18 12/05/18 12:36 16:00 16:00 WBC RBC Hgb Hct MCV MCH MCHC RDW Std Deviation RDW Coeff of [place] Plt Count MPV Immature Gran % (Auto) Neut % (Auto) Lymph % (Auto) [place] % (Auto) Eos % (Auto) Baso % (Auto) Immature Gran # (Auto) Neut # (Auto) Lymph # (Auto) [place] # (Auto) Eos # (Auto) Baso # (Auto) PT INR APTT PTT Ratio Sodium Potassium Chloride Carbon Dioxide Anion Gap BUN Creatinine Est Cr Clr Drug Dosing Est GFR ( Amer) Est GFR (Non-Af Amer) BUN/Creatinine Ratio Glucose POC Glucose Estimat Average Glucose Hemoglobin A1c Osmolality Calcium Magnesium Total Bilirubin AST ALT Alkaline Phosphatase Troponin I NT-Pro-B Natriuret Pep Total Protein Albumin Globulin Albumin/Globulin Ratio TSH Cancelled Free T4 Urine Color Yellow Urine Appearance Slightly Cloudy Urine pH 5.0 Ur Specific [place] 1.020 Urine Protein 2+ H Urine Glucose (UA) Negative Urine Ketones Negative Urine Blood 1+ H Urine Nitrite Negative Urine Bilirubin Negative Urine Urobilinogen Negative Ur Leukocyte Esterase Negative Urine RBC 5-10 H Urine WBC 0-5 Ur Epithelial Cells 0-5 Amorphous Sediment Present A Urine Bacteria Negative Urine Osmolality 335 L Ur Random Sodium 12/05/18 12/05/18 12/05/18 16:00 16:09 18:37 WBC RBC Hgb Hct MCV MCH MCHC RDW Std Deviation RDW Coeff of [place] Plt Count MPV Immature Gran % (Auto) Neut % (Auto) Lymph % (Auto) [place] % (Auto) Eos % (Auto) Baso % (Auto) Immature Gran # (Auto) Neut # (Auto) Lymph # (Auto) [place] # (Auto) Eos # (Auto) Baso # (Auto) PT INR APTT PTT Ratio Sodium Potassium Chloride Carbon Dioxide Anion Gap BUN Creatinine Est Cr Clr Drug Dosing Est GFR ( Amer) Est GFR (Non-Af Amer) BUN/Creatinine Ratio Glucose POC Glucose 116 H Estimat Average Glucose Hemoglobin A1c Osmolality 308 H Calcium Magnesium Total Bilirubin AST ALT Alkaline Phosphatase Troponin I NT-Pro-B Natriuret Pep Total Protein Albumin Globulin Albumin/Globulin Ratio TSH Free T4 Urine Color Urine Appearance Urine pH Ur Specific [place] Urine Protein Urine Glucose (UA) Urine Ketones Urine Blood Urine Nitrite Urine Bilirubin Urine Urobilinogen Ur Leukocyte Esterase Urine RBC Urine WBC Ur Epithelial Cells Amorphous Sediment Urine Bacteria Urine Osmolality Ur Random Sodium 17 12/05/18 12/05/18 12/05/18 18:37 18:37 19:40 WBC RBC Hgb Hct MCV MCH MCHC RDW Std Deviation RDW Coeff of [place] Plt Count MPV Immature Gran % (Auto) Neut % (Auto) Lymph % (Auto) [place] % (Auto) Eos % (Auto) Baso % (Auto) Immature Gran # (Auto) Neut # (Auto) Lymph # (Auto) [place] # (Auto) Eos # (Auto) Baso # (Auto) PT INR APTT PTT Ratio Sodium 130 L Cancelled Potassium 5.1 Cancelled Chloride 95 L Cancelled Carbon Dioxide 25 Cancelled Anion Gap 10.0 Cancelled BUN 96 H Cancelled Creatinine 3.91 H Cancelled Est Cr Clr Drug Dosing 13.3 Cancelled Est GFR ( Amer) 11.7 Cancelled Est GFR (Non-Af Amer) 10.1 Cancelled BUN/Creatinine Ratio 24.7 H Cancelled Glucose 155 H Cancelled POC Glucose 188 H Estimat Average Glucose Hemoglobin A1c Osmolality Calcium 8.8 Cancelled Magnesium Total Bilirubin AST ALT Alkaline Phosphatase Troponin I 0.030 NT-Pro-B Natriuret Pep Total Protein Albumin Globulin Albumin/Globulin Ratio TSH Free T4 Urine Color Urine Appearance Urine pH Ur Specific [place] Urine Protein Urine Glucose (UA) Urine Ketones Urine Blood Urine Nitrite Urine Bilirubin Urine Urobilinogen Ur Leukocyte Esterase Urine RBC Urine WBC Ur Epithelial Cells Amorphous Sediment Urine Bacteria Urine Osmolality Ur Random Sodium 12/06/18 12/06/18 12/06/18 00:13 03:51 06:04 WBC 4.36 L RBC 2.76 L Hgb 8.0 L Hct 24.7 L MCV 89.5 MCH 29.0 MCHC 32.4 RDW Std Deviation 64.6 H RDW Coeff of [place] 19.7 H Plt Count 93 L MPV 10.1 Immature Gran % (Auto) Neut % (Auto) Lymph % (Auto) [place] % (Auto) Eos % (Auto) Baso % (Auto) Immature Gran # (Auto) Neut # (Auto) Lymph # (Auto) [place] # (Auto) Eos # (Auto) Baso # (Auto) PT INR APTT PTT Ratio Sodium Potassium Chloride Carbon Dioxide Anion Gap BUN Creatinine Est Cr Clr Drug Dosing Est GFR ( Amer) Est GFR (Non-Af Amer) BUN/Creatinine Ratio Glucose POC Glucose 123 H Estimat Average Glucose Hemoglobin A1c Osmolality Calcium Magnesium Total Bilirubin AST ALT Alkaline Phosphatase Troponin I 0.027 NT-Pro-B Natriuret Pep Total Protein Albumin Globulin Albumin/Globulin Ratio TSH Free T4 Urine Color Urine Appearance Urine pH Ur Specific [place] Urine Protein Urine Glucose (UA) Urine Ketones Urine Blood Urine Nitrite Urine Bilirubin Urine Urobilinogen Ur Leukocyte Esterase Urine RBC Urine WBC Ur Epithelial Cells Amorphous Sediment Urine Bacteria Urine Osmolality Ur Random Sodium 12/06/18 12/06/18 12/06/18 06:04 06:04 07:26 WBC RBC Hgb Hct MCV MCH MCHC RDW Std Deviation RDW Coeff of [place] Plt Count MPV Immature Gran % (Auto) Neut % (Auto) Lymph % (Auto) [place] % (Auto) Eos % (Auto) Baso % (Auto) Immature Gran # (Auto) Neut # (Auto) Lymph # (Auto) [place] # (Auto) Eos # (Auto) Baso # (Auto) PT INR APTT PTT Ratio Sodium 129 L Potassium 4.9 Chloride 95 L Carbon Dioxide 28 Anion Gap 6.0 BUN 100 H Creatinine 3.83 H Est Cr Clr Drug Dosing 13.6 Est GFR ( Amer) 12.0 Est GFR (Non-Af Amer) 10.3 BUN/Creatinine Ratio 26.2 H Glucose 105 H POC Glucose 113 H Estimat Average Glucose 146 Hemoglobin A1c 6.7 H Osmolality Calcium 8.6 Magnesium Total Bilirubin AST ALT Alkaline Phosphatase Troponin I NT-Pro-B Natriuret Pep Total Protein Albumin Globulin Albumin/Globulin Ratio TSH Free T4 Urine Color Urine Appearance Urine pH Ur Specific [place] Urine Protein Urine Glucose (UA) Urine Ketones Urine Blood Urine Nitrite Urine Bilirubin Urine Urobilinogen Ur Leukocyte Esterase Urine RBC Urine WBC Ur Epithelial Cells Amorphous Sediment Urine Bacteria Urine Osmolality Ur Random Sodium
[2018-12-06 16:31] LABS: Albumin Level 3.7 gm/dl (3.4-5.0); BUN Creatinine Ratio 26.2 (10-20); Calcium 8.8 mg/dl (8.5-10.1); Creatinine Clr Calc Pharmacy 13.3 ml/min; Est GFR (African American) 11.7; Est GFR (Non-African American) 10.1; Potassium 5.1 mmol/L (3.5-5.1)
--- NOTE | 2018-12-06 16:56 | Hospitalist Progress Note ---
Date of Service December 06, 2018 Assessment & Plan (1) Acute decompensated heart failure: Acute on chronic CHF. Underlying physiology to be determined- echo pending. Cardiology consulted. Receiving IV furosemide. (2) Atrial fibrillation: Chronic atrial fibrillation. Rate control with nadolol. Anticoagulation with apixaban. (3) KEMAR (acute kidney injury): CKD III with baseline creatinine around 2. Creatinine at time of admission was 3.62. Acute kidney injury, associated with CHF, cirrhosis, diuretic therapy. Nephrology consulted. Creatinine today = 3.83. Follow. (4) CKD (chronic kidney disease) stage 3, GFR 30-59 ml/min: As noted above. (5) Hypertension: Continue nadolol and diuretics. Follow and titrate Rx. (6) Sleep apnea: Continue CPAP. 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 Follow. (8) Hyponatremia: Serum sodium 129 at time of admission. Hyponatremia probably multifactorial. Nephrology consulted. Na today = 131. Follow. (9) Diabetes mellitus type 2 with complications: Well-controlled with Hgb A1C of 6.7. Usually takes insulin degludec + insulin aspartate. Patient states that she feels best with blood sugars around 120-140. Lantus / NovoLog per protocol during hospital stay. FBS this morning = 113. (10) Hypothyroidism: Continue levothyroxine. (11) DVT prophylaxis: On apixaban for AF. Ambulate. (12) Discharge planning issues: Patient hopes to be discharged to home (although she required a recent stay at [facility]). Primary care follow-up with pt's preferred provider. Cardiology follow-up with [facility]. Nephrology follow-up with Dr. Wheeler. Subjective Recheck for multiple problems. Patient seen in their room around 11:30. Feels better. Less SOB. No fever or cough. No chest pain. Persistent dependent edema. Review of Systems: Constitutional- no fever. Cardiac- as noted above. Pulmonary- as noted above. GI- no nausea, vomiting, diarrhea, melena, hematochezia. - Mojica cath. Otherwise, as noted above. Physical Exam Constitutional: no acute distress sitting in chair Respiratory: no respiratory distress Auscultation: + rales (bibasilar) Cardiovascular: Rate/Rhythm: + irregularly irregular Vessels: + JVD Extremities: + edema (1-2+ pretibial edema); no calf tenderness Gastrointestinal (Abdomen): Inspection/Auscultation: normal bowel sounds Percussion/Palpation: abdomen soft; abdomen nontender Musculoskeletal: Extremities: no cyanosis TEDS applied Skin: no rashes, warm and dry Psychiatric: Orientation: alert and oriented x 3 Genitourinary: + bladder abnormality (Mojica cath) Results & Data Vital Signs (Past 12 Hours) Vital Signs Temp Pulse Resp BP BP Pulse Ox 12/06/18 15:54 36.5 C 70 18 110/67 95 12/06/18 12:02 36.8 C 70 22 105/62 95 12/06/18 06:35 36.5 C 68 18 105/56 L 95 Laboratory Results Laboratory Results - last 24 hr 12/05/18 12/05/18 12/05/18 16:00 16:00 16:00 WBC RBC Hgb Hct MCV MCH MCHC RDW Std Deviation RDW Coeff of [place] Plt Count MPV Sodium Potassium Chloride Carbon Dioxide Anion Gap BUN Creatinine Est Cr Clr Drug Dosing Est GFR ( Amer) Est GFR (Non-Af Amer) BUN/Creatinine Ratio Glucose POC Glucose Estimat Average Glucose Hemoglobin A1c Osmolality Calcium Phosphorus Troponin I Albumin Urine Color Yellow Urine Appearance Slightly Cloudy Urine pH 5.0 Ur Specific [place] 1.020 Urine Protein 2+ H Urine Glucose (UA) Negative Urine Ketones Negative Urine Blood 1+ H Urine Nitrite Negative Urine Bilirubin Negative Urine Urobilinogen Negative Ur Leukocyte Esterase Negative Urine RBC 5-10 H Urine WBC 0-5 Ur Epithelial Cells 0-5 Amorphous Sediment Present A Urine Bacteria Negative Urine Osmolality 335 L Ur Random Sodium 17 12/05/18 12/05/18 12/05/18 18:37 18:37 18:37 WBC RBC Hgb Hct MCV MCH MCHC RDW Std Deviation RDW Coeff of [place] Plt Count MPV Sodium 130 L Cancelled Potassium 5.1 Cancelled Chloride 95 L Cancelled Carbon Dioxide 25 Cancelled Anion Gap 10.0 Cancelled BUN 96 H Cancelled Creatinine 3.91 H Cancelled Est Cr Clr Drug Dosing 13.3 Cancelled Est GFR ( Amer) 11.7 Cancelled Est GFR (Non-Af Amer) 10.1 Cancelled BUN/Creatinine Ratio 24.7 H Cancelled Glucose 155 H Cancelled POC Glucose Estimat Average Glucose Hemoglobin A1c Osmolality 308 H Calcium 8.8 Cancelled Phosphorus Troponin I 0.030 Albumin Urine Color Urine Appearance Urine pH Ur Specific [place] Urine Protein Urine Glucose (UA) Urine Ketones Urine Blood Urine Nitrite Urine Bilirubin Urine Urobilinogen Ur Leukocyte Esterase Urine RBC Urine WBC Ur Epithelial Cells Amorphous Sediment Urine Bacteria Urine Osmolality Ur Random Sodium 12/05/18 12/06/18 12/06/18 19:40 00:13 03:51 WBC RBC Hgb Hct MCV MCH MCHC RDW Std Deviation RDW Coeff of [place] Plt Count MPV Sodium Potassium Chloride Carbon Dioxide Anion Gap BUN Creatinine Est Cr Clr Drug Dosing Est GFR ( Amer) Est GFR (Non-Af Amer) BUN/Creatinine Ratio Glucose POC Glucose 188 H 123 H Estimat Average Glucose Hemoglobin A1c Osmolality Calcium Phosphorus Troponin I 0.027 Albumin Urine Color Urine Appearance Urine pH Ur Specific [place] Urine Protein Urine Glucose (UA) Urine Ketones Urine Blood Urine Nitrite Urine Bilirubin Urine Urobilinogen Ur Leukocyte Esterase Urine RBC Urine WBC Ur Epithelial Cells Amorphous Sediment Urine Bacteria Urine Osmolality Ur Random Sodium 12/06/18 12/06/18 12/06/18 06:04 06:04 06:04 WBC 4.36 L RBC 2.76 L Hgb 8.0 L Hct 24.7 L MCV 89.5 MCH 29.0 MCHC 32.4 RDW Std Deviation 64.6 H RDW Coeff of [place] 19.7 H Plt Count 93 L MPV 10.1 Sodium 129 L Potassium 4.9 Chloride 95 L Carbon Dioxide 28 Anion Gap 6.0 BUN 100 H Creatinine 3.83 H Est Cr Clr Drug Dosing 13.6 Est GFR ( Amer) 12.0 Est GFR (Non-Af Amer) 10.3 BUN/Creatinine Ratio 26.2 H Glucose 105 H POC Glucose Estimat Average Glucose 146 Hemoglobin A1c 6.7 H Osmolality Calcium 8.6 Phosphorus Troponin I Albumin Urine Color Urine Appearance Urine pH Ur Specific [place] Urine Protein Urine Glucose (UA) Urine Ketones Urine Blood Urine Nitrite Urine Bilirubin Urine Urobilinogen Ur Leukocyte Esterase Urine RBC Urine WBC Ur Epithelial Cells Amorphous Sediment Urine Bacteria Urine Osmolality Ur Random Sodium 12/06/18 12/06/18 12/06/18 07:26 11:27 15:57 WBC RBC Hgb Hct MCV MCH MCHC RDW Std Deviation RDW Coeff of [place] Plt Count MPV Sodium 131 L Potassium 5.1 Chloride 94 L Carbon Dioxide 25 Anion Gap 11.0 BUN 103 H Creatinine 3.92 H Est Cr Clr Drug Dosing 13.3 Est GFR ( Amer) 11.7 Est GFR (Non-Af Amer) 10.1 BUN/Creatinine Ratio 26.2 H Glucose 200 H POC Glucose 113 H 186 H Estimat Average Glucose Hemoglobin A1c Osmolality Calcium 8.8 Phosphorus 6.0 H Troponin I Albumin 3.7 Urine Color Urine Appearance Urine pH Ur Specific [place] Urine Protein Urine Glucose (UA) Urine Ketones Urine Blood Urine Nitrite Urine Bilirubin Urine Urobilinogen Ur Leukocyte Esterase Urine RBC Urine WBC Ur Epithelial Cells Amorphous Sediment Urine Bacteria Urine Osmolality Ur Random Sodium
[2018-12-06] MEDS: NADOLOL 40 MG TAB PO SCH (20:39)
[2018-12-06] MEDS: CARBIDOPA/LEVODOP 10/100MG TAB PO SCH (20:40)
[2018-12-06] MEDS ORDERED: INSULIN GLARGINE SOLOSTAR 100 UNITS/ML 3 ML PEN SC SCH (21:00)
[2018-12-07] MEDS: LEVOTHYROXINE SODIUM 88 MCG TABLET PO SCH (06:09)
[2018-12-07 06:28] LABS: Hematocrit (blood only) 26.7 % (37-47); Hemoglobin 8.6 g/dL (12.0-16.0); Mean Corpuscular Hgb Conc 32.2 g/dL (32-36); RDW Coefficient of Variation 19.5 % (11.5-14.5); RDW Standard Deviation 62.6 fL (36.4-46.3); White Blood Count 3.85 K/uL (4.8-10.8)
[2018-12-07 06:33] LABS: Mean Platelet Volume 9.8 fL (7.4-10.4); Platelet Count 83 K/uL (130-400)
[2018-12-07 07:02] LABS: BUN Creatinine Ratio 29.1 (10-20); Calcium 8.4 mg/dl (8.5-10.1); Creatinine Clr Calc Pharmacy 13.8 ml/min; Est GFR (African American) 12.2; Est GFR (Non-African American) 10.5; Potassium 4.9 mmol/L (3.5-5.1)
[2018-12-07 07:07] LABS: Ferritin 64.5 ng/ml (8-388)
[2018-12-07] MEDS: MECLIZINE 12.5 MG TAB PO SCH ×2 (08:06→20:43)
[2018-12-07] MEDS: SPIRONOLACTONE 25 MG TAB PO SCH ×2 (08:06→20:43)
[2018-12-07] MEDS: INSULIN ASPART 100 UNITS/ML 3 ML PEN SC SCH ×4 (08:07→20:40)
[2018-12-07] MEDS: FERROUS SULFATE 325 MG TAB PO SCH ×2 (08:07→17:43)
[2018-12-07] MEDS: APIXABAN 2.5 MG TAB PO SCH ×2 (08:07→20:42)
--- NOTE | 2018-12-07 10:42 | Nephrology Progress Note ---
Date of Service December 07, 2018 Assessment & Plan (1) Acute decompensated heart failure: -- Start Bumex gtt @ 0.5 mg/hr -- Increase rate as needed to encourage net negative fluid balance -- Combination diuretic therapy PRN -- Document I/O's and daily weight (2) Hyponatremia: -- 1.5 L daily fluid restriction (3) Acute worsening of stage 3 chronic kidney disease: -- Advanced at baseline and approaching ESRD -- Hopeful to see some improvement with improving right heart failure/decompensation -- Unfortunately, treatment options are limited -- Palliative care consultation has been requested -- Earlene is working through goals of care. 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 Earlene reports feeling slightly better this morning. Dyspnea has improved slightly. She denies any chest pain. Activity tolerance is fair. We had a long conversation regarding goals of care. Unfortunately, I/O's remain matched with furosemide 80 mg x 2 doses yesterday. BUN continues to rise and creatinine remains elevated. Earlene struggles with the idea of dialysis. She does not feel ready to but also has appropriate reservations regarding dialysis. She acknowledges the advanced nature of her multiple medical comorbidities. One of her primary wishes at this time is to live long enough to see her grandson get in March. However, she also notes that she does not want to have repeated episodes of dyspnea or anymore hospitalizations. She feels that the burden of treatment associated with dialysis is something that she may not want to live with. She also worries about how she would handle complications associated with treatment. Review of Systems Review of Systems: All systems reviewed & are unremarkable except as noted in HPI & below Physical Exam Constitutional: + frail appearing; no acute distress Eyes: no scleral abnormality and no corneal abnormality ENMT: Mouth: no oral mucosal abnormality and oral mucous membranes not dry Neck: normal visual inspection and trachea midline Respiratory: normal respiratory effort Auscultation: + rales; no rhonchi and no wheezes Cardiovascular: Heart Sounds: normal S1, normal S2 and + murmur Vessels: + JVD Extremities: + edema Gastrointestinal (Abdomen): Inspection/Auscultation: + abdomen distended Percussion/Palpation: abdomen soft; abdomen nontender Musculoskeletal: Extremities: no cyanosis and no clubbing Skin: no rashes and no jaundice Neurologic: Motor/Sensory: no tremor and no asterixis Psychiatric: Orientation: alert Insight: good insight Results & Data Vital Signs (Past 12 Hours) Vital Signs Temp Pulse Resp BP Pulse Ox 12/07/18 07:44 36.5 C 63 16 99/62 L 97 12/07/18 03:24 67 18 104/69 96 12/06/18 23:26 36.8 C 76 18 117/73 91 Laboratory Results Laboratory Results - last 24 hr 12/06/18 12/06/18 12/06/18 11:27 15:57 16:23 WBC RBC Hgb Hct MCV MCH MCHC RDW Std Deviation RDW Coeff of Pastora Plt Count MPV Sodium 131 L Potassium 5.1 Chloride 94 L Carbon Dioxide 25 Anion Gap 11.0 BUN 103 H Creatinine 3.92 H Est Cr Clr Drug Dosing 13.3 Est GFR ( Amer) 11.7 Est GFR (Non-Af Amer) 10.1 BUN/Creatinine Ratio 26.2 H Glucose 200 H POC Glucose 186 H 231 H Calcium 8.8 Phosphorus 6.0 H Iron Transferrin Transferrin % Sat Ferritin Albumin 3.7 12/06/18 12/07/18 12/07/18 20:39 06:01 06:01 WBC 3.85 L RBC 3.00 L Hgb 8.6 L Hct 26.7 L MCV 89.0 MCH 28.7 MCHC 32.2 RDW Std Deviation 62.6 H RDW Coeff of Pastora 19.5 H Plt Count 83 L MPV 9.8 Sodium 130 L Potassium 4.9 Chloride 95 L Carbon Dioxide 29 Anion Gap 6.0 BUN 110 H Creatinine 3.77 H Est Cr Clr Drug Dosing 13.8 Est GFR ( Amer) 12.2 Est GFR (Non-Af Amer) 10.5 BUN/Creatinine Ratio 29.1 H Glucose 171 H POC Glucose 244 H Calcium 8.4 L Phosphorus Iron 36 Transferrin 264 Transferrin % Sat 10 L Ferritin 64.5 Albumin 12/07/18 07:41 WBC RBC Hgb Hct MCV MCH MCHC RDW Std Deviation RDW Coeff of Pastora Plt Count MPV Sodium Potassium Chloride Carbon Dioxide Anion Gap BUN Creatinine Est Cr Clr Drug Dosing Est GFR ( Amer) Est GFR (Non-Af Amer) BUN/Creatinine Ratio Glucose POC Glucose 191 H Calcium Phosphorus Iron Transferrin Transferrin % Sat Ferritin Albumin
[2018-12-07] MEDS ORDERED: EPOETIN ALFA 4,000 UNIT/ML VIAL SQ ONE (11:08)
[2018-12-07] MEDS: BUMETANIDE 10 MG in DEXTROSE 5% 10 ML IV SCH ×2 (11:54→23:35)
--- NOTE | 2018-12-07 16:18 | Hospitalist Progress Note ---
Date of Service December 07, 2018 Assessment & Plan (1) Acute decompensated heart failure: Acute on chronic CHF. Cardiology consulted. Echo showed mild LVH, normal LV size and systolic function, severely dilated RV with reduced systolic function, mild-moderate MR, severe TR, pulmonary hypertens ion. Acute on chronic right sided CHF, possible acute on chronic left ventricular diastolic failure, co-existent renal failure with fluid overload. Receiving IV furosemide without much urine output. Ongoing diuretic management per Nephrology / Cardiology. (2) Atrial fibrillation: Chronic atrial fibrillation. Rate control with nadolol. Anticoagulation with apixaban. (3) KEMAR (acute kidney injury): CKD III with baseline creatinine around 2. Creatinine at time of admission was 3.62. Acute kidney injury, associated with CHF, cirrhosis, diuretic therapy. Nephrology consulted. Diuretics being adjusted. Hemodialysis may help fluid management / symptoms, but patient uncertain whether or not she would like to proceed. Creatinine today = 3.77. Follow. (4) CKD (chronic kidney disease) stage 3, GFR 30-59 ml/min: As noted above. (5) Hypertension: Continue nadolol and diuretics. Follow and titrate Rx. (6) Sleep apnea: Continue CPAP. 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 Follow. (8) Hyponatremia: Serum sodium 129 at time of admission. Hyponatremia probably multifactorial. Nephrology consulted. Na today = 130. Follow. (9) Diabetes mellitus type 2 with complications: Well-controlled with Hgb A1C of 6.7. Usually takes insulin degludec + insulin aspartate. Patient states that she feels best with blood sugars around 120-140. Lantus / NovoLog per protocol during hospital stay. FBS this morning = 191. (10) Hypothyroidism: Continue levothyroxine. (11) Palliative care encounter: Patient with worsening renal function and CHF. Urine output / CHF may or may not improve with medical management. Patient uncertain whether or not she would want trial of hemodialysis. She was recently in hospice, but had mixed feeling about it and is not currently enrolled. Palliative Care Team consulted. (12) Do not resuscitate status: DNR per advanced directives. (13) DVT prophylaxis: On apixaban for AF. Ambulate. (14) Discharge planning issues: Patient hopes to be discharged to home (although she required a recent stay at [facility]). Primary care follow-up with pt's preferred provider. Cardiology follow-up with [facility]. Nephrology follow-up with Dr. Wheeler. Subjective Recheck for multiple problems. Patient seen in their room around 10:00. Less SOB. Low urine output. No fever or cough. No chest pain. Persistent dependent edema. She understands the gravity of her medical condition and is concerned about prognosis / decisions to be made. Review of Systems: Constitutional- no fever. Cardiac- as noted above. Pulmonary- as noted above. GI- no nausea, vomiting, diarrhea, melena, hematochezia. - Mojica cath. Otherwise, as noted above. Physical Exam Constitutional: no acute distress Respiratory: no respiratory distress Auscultation: + rales (bibasilar) Cardiovascular: Rate/Rhythm: + irregularly irregular Vessels: + JVD Extremities: + edema (1-2+ pretibial edema); no calf tenderness Gastrointestinal (Abdomen): Inspection/Auscultation: normal bowel sounds Percussion/Palpation: abdomen soft; abdomen nontender Musculoskeletal: Extremities: no cyanosis Skin: no rashes, warm and dry Psychiatric: Orientation: alert and oriented x 3 Genitourinary: + bladder abnormality (Mojica cath) Results & Data Vital Signs (Past 12 Hours) Vital Signs Temp Pulse Resp BP BP Pulse Ox 12/07/18 15:41 36.2 C L 67 22 131/77 97 12/07/18 12:37 36.7 C 63 119/78 99 12/07/18 07:44 36.5 C 63 16 99/62 L 97 Laboratory Results Laboratory Results - last 24 hr 12/06/18 12/06/18 12/06/18 15:57 16:23 20:39 WBC RBC Hgb Hct MCV MCH MCHC RDW Std Deviation RDW Coeff of Pastora Plt Count MPV Sodium 131 L Potassium 5.1 Chloride 94 L Carbon Dioxide 25 Anion Gap 11.0 BUN 103 H Creatinine 3.92 H Est Cr Clr Drug Dosing 13.3 Est GFR ( Amer) 11.7 Est GFR (Non-Af Amer) 10.1 BUN/Creatinine Ratio 26.2 H Glucose 200 H POC Glucose 231 H 244 H Calcium 8.8 Phosphorus 6.0 H Iron Transferrin Transferrin % Sat Ferritin Albumin 3.7 06/23/19 06/23/19 06/23/19 06:01 06:01 07:41 WBC 3.85 L RBC 3.00 L Hgb 8.6 L Hct 26.7 L MCV 89.0 MCH 28.7 MCHC 32.2 RDW Std Deviation 62.6 H RDW Coeff of Pastora 19.5 H Plt Count 83 L MPV 9.8 Sodium 130 L Potassium 4.9 Chloride 95 L Carbon Dioxide 29 Anion Gap 6.0 BUN 110 H Creatinine 3.77 H Est Cr Clr Drug Dosing 13.8 Est GFR ( Amer) 12.2 Est GFR (Non-Af Amer) 10.5 BUN/Creatinine Ratio 29.1 H Glucose 171 H POC Glucose 191 H Calcium 8.4 L Phosphorus Iron 36 Transferrin 264 Transferrin % Sat 10 L Ferritin 64.5 Albumin 12/07/18 11:49 WBC RBC Hgb Hct MCV MCH MCHC RDW Std Deviation RDW Coeff of Pastora Plt Count MPV Sodium Potassium Chloride Carbon Dioxide Anion Gap BUN Creatinine Est Cr Clr Drug Dosing Est GFR ( Amer) Est GFR (Non-Af Amer) BUN/Creatinine Ratio Glucose POC Glucose 209 H Calcium Phosphorus Iron Transferrin Transferrin % Sat Ferritin Albumin
[2018-12-07] MEDS ORDERED: CHLOROTHIAZIDE SODIUM 500 MG in DEXTROSE 5% 50 ML IV ONE (20:00)
[2018-12-07] MEDS: INSULIN GLARGINE SOLOSTAR 100 UNITS/ML 3 ML PEN SC SCH (20:41)
[2018-12-07] MEDS: NADOLOL 40 MG TAB PO SCH (20:41)
[2018-12-07] MEDS: CARBIDOPA/LEVODOP 10/100MG TAB PO SCH (20:42)
[2018-12-08] MEDS: LEVOTHYROXINE SODIUM 88 MCG TABLET PO SCH (05:32)
[2018-12-08 05:47] LABS: Hematocrit (blood only) 23.9 % (37-47); Hemoglobin 8.1 g/dL (12.0-16.0); Mean Corpuscular Hgb Conc 33.9 g/dL (32-36); Mean Corpuscular Volume 88.8 fL (80-100); RDW Coefficient of Variation 19.4 % (11.5-14.5); RDW Standard Deviation 62.8 fL (36.4-46.3); Red Blood Count 2.69 M/uL (4.2-5.4); White Blood Count 3.69 K/uL (4.8-10.8)
[2018-12-08 06:14] LABS: BUN Creatinine Ratio 29.9 (10-20); Calcium 8.9 mg/dl (8.5-10.1); Est GFR (African American) 12.4; Est GFR (Non-African American) 10.7; Mean Platelet Volume 9.7 fL (7.4-10.4); Platelet Count 78 K/uL (130-400); Potassium 4.5 mmol/L (3.5-5.1)
--- NOTE | 2018-12-08 07:28 | Nephrology Progress Note ---
Date of Service December 08, 2018 Assessment & Plan (1) Acute decompensated heart failure: -- Continue Bumex gtt @ 1 mg/hr -- Diuril PRN to encourage net negative fluid balance -- Document I/O's and daily weight (2) Hyponatremia: -- 1.5 L daily fluid restriction (3) Acute worsening of stage 3 chronic kidney disease: -- Advanced at baseline and approaching ESRD -- Hopeful to see some improvement with improving right heart failure/decompensation -- Unfortunately, treatment options are limited -- Palliative care consultation has been requested -- Earlene is working through goals of care. 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 Earlene is feeling slightly better this morning. She notes improvement in abdominal swelling. Dyspnea also continues to improve. She denies any chest pain. She continues to have appropriate concerns regarding hemodialysis. This morning, when asked about what we should do the next time that she feels she can't breathe, Earlene said to just make her comfortable. She plans to discuss her goals of care with the palliative care team. She has significant reservations about both the ideas of hospice and dialysis. Review of Systems Review of Systems: All systems reviewed & are unremarkable except as noted in HPI & below Physical Exam Constitutional: + frail appearing; no acute distress Eyes: no scleral abnormality and no corneal abnormality ENMT: Mouth: no oral mucosal abnormality and oral mucous membranes not dry Neck: normal visual inspection and trachea midline Respiratory: normal respiratory effort Auscultation: + rales; no rhonchi and no wheezes Cardiovascular: Heart Sounds: normal S1, normal S2 and + murmur Vessels: + JVD Extremities: + edema Gastrointestinal (Abdomen): Inspection/Auscultation: + abdomen distended Percussion/Palpation: abdomen soft; abdomen nontender Musculoskeletal: Extremities: no cyanosis and no clubbing Skin: no rashes and no jaundice Neurologic: Motor/Sensory: no tremor and no asterixis Psychiatric: Orientation: alert Insight: good insight Results & Data Vital Signs (Past 12 Hours) Vital Signs Temp Pulse Pulse Resp BP Pulse Ox 12/08/18 04:16 36.8 C 73 20 98/60 L 95 12/08/18 04:00 36.6 C 70 18 96/51 L 99 12/08/18 00:00 36.7 C 74 18 98/46 L 97 12/07/18 22:20 69 12/07/18 19:41 36.4 C L 80 21 144/74 H 93 Laboratory Results Laboratory Results - last 24 hr 12/07/18 12/07/18 12/07/18 07:41 11:49 16:13 WBC RBC Hgb Hct MCV MCH MCHC RDW Std Deviation RDW Coeff of Pastora Plt Count MPV Sodium Potassium Chloride Carbon Dioxide Anion Gap BUN Creatinine Est Cr Clr Drug Dosing Est GFR ( Amer) Est GFR (Non-Af Amer) BUN/Creatinine Ratio Glucose POC Glucose 191 H 209 H 237 H Calcium 12/07/18 12/08/18 12/08/18 20:00 05:30 05:30 WBC 3.69 L RBC 2.69 L Hgb 8.1 L Hct 23.9 L MCV 88.8 MCH 30.1 MCHC 33.9 RDW Std Deviation 62.8 H RDW Coeff of Pastora 19.4 H Plt Count 78 L MPV 9.7 Sodium 132 L Potassium 4.5 Chloride 95 L Carbon Dioxide 29 Anion Gap 8.0 BUN 111 H Creatinine 3.72 H Est Cr Clr Drug Dosing 14.0 Est GFR ( Amer) 12.4 Est GFR (Non-Af Amer) 10.7 BUN/Creatinine Ratio 29.9 H Glucose 154 H POC Glucose 211 H Calcium 8.9
[2018-12-08] MEDS: INSULIN ASPART 100 UNITS/ML 3 ML PEN SC SCH ×4 (07:57→20:42)
[2018-12-08] MEDS: BUMETANIDE 10 MG in DEXTROSE 5% 10 ML IV SCH ×2 (08:17→16:58)
[2018-12-08] MEDS: MECLIZINE 12.5 MG TAB PO SCH ×2 (08:23→20:44)
[2018-12-08] MEDS: SPIRONOLACTONE 25 MG TAB PO SCH ×2 (08:23→20:44)
[2018-12-08] MEDS: FERROUS SULFATE 325 MG TAB PO SCH ×2 (08:23→16:59)
[2018-12-08] MEDS: APIXABAN 2.5 MG TAB PO SCH ×2 (08:23→20:43)
[2018-12-08] MEDS ORDERED: CHLOROTHIAZIDE SODIUM 500 MG in DEXTROSE 5% 50 ML IV ONE (09:00)
--- NOTE | 2018-12-08 12:10 | Palliative Care Consultation ---
Date of Consultation December 08, 2018 Assessment & Plan (1) Palliative care encounter: -83 year old female patient with PMH CKD stage III, liver cirrhosis 2/2 WOODS, htn, sleep apnea, reflux, degenerative disc disease, hypothyroidism, DM, and others, presented to the hospital three days ago with c/o worsening SOB and lower extremity edema due to cardiorenal syndrome. Patient was just in [facility] recently for almost a month with hepatorenal syndrome, fluid overload and anemia. She was released to [facility] for rehab where she stayed for a few weeks, then went home where she lives independently. Patient was only for home for a short time when her legs began to swell and she became more SOB. She had a reported 6lb weight gain. Her Lasix was increased to 40mg, but no improvement. Nephrology and cardiology are now consulted. Patient is on Bumex gtt and PO Diuril in the PCU. She is diuresing and feeling better than when she came in, but still has pitting edema in ler legs and abdomen. Baseline creatinine is about 1.7-2, and is now 3.72. Dr. Wheeler with nephrology has discussed the possibility of dialysis with patient and she is uncertain of her goals of care. Apparently there was some discussion of goals of care and possible hospice care when patient was in [place] as well. Palliative care consulted. -Met with patient and her granddaughter in room 237. Patient is awake, alert and oriented x4. Feeling well today compared to when she came in. Patient states she has no SOB and has zero pain. Her legs are still edematous, but she has noticed that her abdomen feels smaller. -Patient and her granddaughter state that when patient was in [facility], she was "not doing well." There was a time that her heart rate had dropped into the 20s and she had to be a given "a medication to raise the heart rate." At that time, providers called the family in and talked about either continuing with aggressive care or transitioning to comfort/hospice. -Patient and her GD confirmed several times that patient was NOT ever put on hospice, it was only discussed. Patient states that she woke up in the hospital and saw all of her family members there and knew "they thought I was going to ." She said that she is not done fighting and plans to continue with medical treatment plan at this time. -Patient is hoping that she will not need dialysis, but is still undecided on whether or not she'd do it if the time comes that she's face with dialysis or end of life care. Patient states that she had a very good quality of life prior to her hospitalization, lived independently, and enjoyed life. She is hoping to make it to her family member's wedding in March, that is her main goal at this time. -We did discuss the option of hospice in detail in case she ever needs to make that decision. It was helpful to have her granddaughter present for that conversation as well. Patient is open to discussions of goals of care, hospice, etc. -No symptom management needs at this time. -We will follow to continue helping with medical decision making and providing supportive care. (2) Acute decompensated heart failure: -- Continue Bumex gtt @ 1 mg/hr -- Diuril PRN to encourage net negative fluid balance -- Document I/O's and daily weight (3) Acute worsening of stage 3 chronic kidney disease: -- Advanced at baseline and approaching ESRD -- Hopeful to see some improvement with improving right heart failure/decompensation -- Unfortunately, treatment options are limited -- Palliative care consultation has been requested -- Earlene is working through goals of care. 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 PE: NAD HEENT: EOMI, hearing WNL Resp: unlabored, clear BS CV: Irreg, rate controlled, 2+ pitting edema to abd wall Abd: soft, NT, anasarca Neuro: A&O X 4 Psych: appropriate mood and affect. Agree with above note, assessment and plan as per CRISTAL Romero - will cont to follow and assist pt with medical decision making. History of Present Illness Attending Physician: Adrian Marks MD History of Present Illness This 83 year old female patient with PMH CKD stage III, liver cirrhosis 2/2 WOODS, htn, sleep apnea, reflux, degenerative disc disease, hypothyroidism, DM, and others, presented to the hospital three days ago with c/o worsening SOB and lower extremity edema due to cardiorenal syndrome. Patient was just in [facility] recently for almost a month with hepatorenal syndrome, fluid overload and anemia. She was released to [facility] for rehab where she stayed for a few weeks, then went home where she lives independently. Patient was only for home for a short time when her legs began to swell and she became more SOB. She had a reported 6lb weight gain. Her Lasix was increased to 40mg, but no improvement. Nephrology and cardiology are now consulted. Patient is on Bumex gtt and PO Diuril in the PCU. She is diuresing and feeling better than when she came in, but still has pitting edema in ler legs and abdomen. Baseline creatinine is about 1.7-2, and is now 3.72. Dr. Wheeler with nephrology has discussed the possibility of dialysis with patient and she is uncertain of her goals of care. Apparently there was some discussion of goals of care and possible hospice care when patient was in [place] as well. Palliative care consulted. Thank you kindly for this consult. I will follow as needed. Allergies Allergy/AdvReac Type Severity Reaction Status Date / Time hydrocodone AdvReac Intermediate SWEATING, Verified 12/07/18 10:54 FELT FUNNY - UNSURE IF IT WAS VICODIN oxycodone AdvReac Intermediate Hallucinati Verified 12/07/18 10:54 ng Home Medications Home Medications Medication Instructions Recorded Confirmed Type insulin degludec [Tresiba 20 unit SUBCUT HS 07/09/18 12/05/18 History FlexTouch U-200] levothyroxine 88 mcg PO QAM 07/09/18 12/05/18 History meclizine 12.5 mg PO BID 07/09/18 12/05/18 History spironolactone 25 mg PO BID 07/09/18 12/05/18 History apixaban [Eliquis] 2.5 mg PO BID 12/05/18 12/05/18 History carbidopa-levodopa 1 tab PO HS 12/05/18 12/05/18 History ferrous sulfate 325 mg PO BID 12/05/18 12/05/18 History furosemide 40 mg PO QAM 12/05/18 12/05/18 History insulin aspart U-100 [Novolog 5 unit SUBCUT AC 12/05/18 12/05/18 History Flexpen U-100 Insulin] midodrine 2.5 mg PO TID PRN 12/05/18 12/05/18 History nadolol 20 mg PO HS 12/05/18 12/05/18 History ranitidine HCl 150 mg PO QAM 12/05/18 12/05/18 History Patient History Medical History HLD (hyperlipidemia) Anemia Thrombocytopenia CKD (chronic kidney disease) stage 3, GFR 30-59 ml/min (Acute) 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 H/o fluid retention with elevated BNP--cardiac eval and echo 2016 ruled no CHF, 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 Periodic limb movement disorder On Simemet Hypertension Sleep apnea CPAP Diabetes A1C 8.5% on 10/09/18 Degenerative disc disease Acid reflux Restless leg syndrome Hypothyroidism Surgical History History of hysterectomy History of cholecystectomy History of brain surgery FOR MENINGIOMA, 1998 History of surgery on arm LEFT ([place]) History of reverse total replacement of right shoulder joint History of tonsillectomy History of ear surgery History of fracture of nasal bone Family History Other Diabetes Family history of cancer Social History Preferred Language: Trinidadian Communication Ability: Effective [employer] Driver Required: No Beliefs That Will Affect Care: None Current Living Situation: Alone Other Information That Helps Us Care for You: No other: ambulates with walker Feels Safe at Home: Yes Safety Concerns: Feels Safe At This Time Smoking Status: Never smoker Do You Dip or Chew Tobacco: No Second Hand Exposure: No Tobacco Cessation Education Requested by Patient: No Hx Alcohol Use: No Hx Substance Use: No Review of Systems Constitutional: + weakness Respiratory: no cough and no dyspnea (resolved) Cardiovascular: + edema; no chest pain Gastrointestinal: no abdominal pain, no nausea and no vomiting +abdominal swelling Musculoskeletal: "no pain anywhere" Neurologic: no confusion Psychiatric: no depression and no anxiety Physical Exam Constitutional: + obese and comfortable; no acute distress ENMT: Mouth: no oral mucosal abnormality Neck: normal visual inspection and trachea midline Respiratory: normal respiratory effort; no respiratory distress Cardiovascular: Rate/Rhythm: regular rate and regular rhythm Extremities: + edema (+1-2 BLE) Gastrointestinal (Abdomen): Inspection/Auscultation: + abdomen distended and normal bowel sounds Percussion/Palpation: abdomen soft; abdomen nontender Skin: no rashes, warm and dry Neurologic: moves all extremities and awake Psychiatric: Orientation: alert and oriented x 3 Insight: good insight Results & Data Vital Signs (Past 12 Hours) Vital Signs Temp Pulse Resp BP Pulse Ox 12/08/18 07:41 36.3 C L 69 18 102/56 L 98 12/08/18 04:16 36.8 C 73 20 98/60 L 95 12/08/18 04:00 36.6 C 70 18 96/51 L 99 Time Spent Midlevel 75 minutes with >50% of the time spent at bedside with patient and family discussing condition and GOC.
--- NOTE | 2018-12-08 15:28 | Cardiology Progress Note ---
Date of Service December 08, 2018 Assessment & Plan (1) Atrial fibrillation: She appears to have adequate rate control of her atrial fibrillation. She is on anticoagulation with Eliquis. As noted in prior entries, she does have a history of gastrointestinal hemorrhage and has an element of anemia. Will need to monitor her closely for evidence of bleeding. A need to continue to take into account the risks and benefits of ongoing anticoagulation. (2) Acute decompensated heart failure: Echocardiography confirmed this suspicion that most of her heart failure is related to right ventricular dysfunction. This is also related to pulmonary hypertension and severe tricuspid regurgitation. This poses a more difficult problem than left-sided failure. Most of our therapy with center around continued diuresis. She appears a be responding well to a bumetanide infusion coupled with intermittent dosing of a thiazide diuretic. Her renal function and electrolytes appear to be stable. This seems to be a reasonable ongoing therapy for the time being. Other, more heroic measures would include initiation of dialysis primarily for volume control. It is unclear if a reduction in her pulmonary pressures would affect improvement in her symptoms. Subjective This morning the patient claims to be feeling somewhat better. She was up in a chair. She had a good appetite and finished breakfast. She denies significant ambulation since admission but thinks her breathing is better overall. Review of Systems Review of Systems: Per HPI. Perhaps some improvement in lower extremity edema. No chest pain. No dizziness. No sense of palpitation. Physical Exam Physical Exam: She is alert and oriented x3. Mood affect appear normal. She answered all questions appropriately. HEENT: Sclerae are anicteric. Pupils are equal and reactive to light and accommodation. Extraocular movements were intact. Neuro: Cranial nerves intact Lungs: She had crackles midway up the lung in both lung martin. Normal respiratory effort. No expiratory wheezing. Cardiac: The rhythm was irregular. S1 and S2 were normal. There are no murmurs on examination. The PMI was not markedly displaced on palpation. Abdomen: Distended but nontender. Extremities: Moderate to severe bilateral lower extremity edema Results & Data Vital Signs (Past 12 Hours) Vital Signs Temp Pulse Pulse Resp BP BP Pulse Ox 12/08/18 11:53 36.4 C L 74 18 125/70 100 12/08/18 10:00 72 12/08/18 07:41 36.3 C L 69 18 102/56 L 98 12/08/18 04:16 36.8 C 73 20 98/60 L 95 12/08/18 04:00 36.6 C 70 18 96/51 L 99 Laboratory Results Abnormal Lab Results 12/07/18 12/07/18 12/08/18 16:13 20:00 05:30 WBC 3.69 L RBC 2.69 L Hgb 8.1 L Hct 23.9 L MCV 88.8 MCH 30.1 MCHC 33.9 RDW Std Deviation 62.8 H RDW Coeff of Pastora 19.4 H Plt Count 78 L MPV 9.7 Sodium Potassium Chloride Carbon Dioxide Anion Gap BUN Creatinine Est Cr Clr Drug Dosing Est GFR ( Amer) Est GFR (Non-Af Amer) BUN/Creatinine Ratio Glucose POC Glucose 237 H 211 H Calcium 12/08/18 12/08/18 12/08/18 05:30 07:12 11:18 WBC RBC Hgb Hct MCV MCH MCHC RDW Std Deviation RDW Coeff of Pastora Plt Count MPV Sodium 132 L Potassium 4.5 Chloride 95 L Carbon Dioxide 29 Anion Gap 8.0 BUN 111 H Creatinine 3.72 H Est Cr Clr Drug Dosing 14.0 Est GFR ( Amer) 12.4 Est GFR (Non-Af Amer) 10.7 BUN/Creatinine Ratio 29.9 H Glucose 154 H POC Glucose 167 H 201 H Calcium 8.9 ECG Additional Comments: Telemetry revealed controlled atrial fibrillation
--- NOTE | 2018-12-08 19:20 | Hospitalist Progress Note ---
Date of Service December 08, 2018 Assessment & Plan (1) Acute decompensated heart failure: Acute on chronic CHF. Cardiology consulted. Echo showed mild LVH, normal LV size and systolic function, severely dilated RV with reduced systolic function, mild-moderate MR, severe TR, pulmonary hypertens ion. Acute on chronic right sided CHF, possible acute on chronic left ventricular diastolic failure, co-existent renal failure with fluid overload. Received IV furosemide without much urine output. Urine output better with bumetanide infusion- 1250 last shift. Ongoing diuretic management per Nephrology / Cardiology. (2) Atrial fibrillation: Chronic atrial fibrillation. Rate control with nadolol. Anticoagulation with apixaban. (3) KEMAR (acute kidney injury): CKD III with baseline creatinine around 2. Creatinine at time of admission was 3.62. Acute kidney injury, associated with CHF, cirrhosis, diuretic therapy. Nephrology consulted. Diuretics being adjusted. Hemodialysis may help fluid management / symptoms, but patient uncertain whether or not she would like to proceed. Creatinine today = 3.72. Follow. (4) CKD (chronic kidney disease) stage 3, GFR 30-59 ml/min: As noted above. (5) Hypertension: Continue nadolol and diuretics. Follow and titrate Rx. (6) Sleep apnea: Continue CPAP. 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 LFT's essentially normal. INR 1.4. Ascites may be secondary to hepatic disease with portal hypertension and/or right-sided CHF. Follow. (8) Hyponatremia: Serum sodium 129 at time of admission. Hyponatremia probably multifactorial. Nephrology consulted. Na today = 132. Follow. (9) Diabetes mellitus type 2 with complications: Well-controlled with Hgb A1C of 6.7. Usually takes insulin degludec + insulin aspartate. Patient states that she feels best with blood sugars around 120-140. Lantus / NovoLog per protocol during hospital stay. FBS this morning = 167. (10) Hypothyroidism: Continue levothyroxine. (11) Palliative care encounter: Patient with worsening renal function and CHF. Urine output / CHF may or may not improve with medical management. Patient uncertain whether or not she would want trial of hemodialysis. Palliative Care Team consulted to assist with decision making and planning. (12) Do not resuscitate status: DNR per advanced directives. (13) DVT prophylaxis: On apixaban for AF. Ambulate. (14) Discharge planning issues: Patient hopes to be discharged to home (although she required a recent stay at [facility]). Primary care follow-up with pt's preferred provider. Cardiology follow-up with [facility]. Nephrology follow-up with Dr. Wheeler. Subjective Recheck for multiple problems. Patient seen in their room around 10:40. Urine output improved on bumetanide infusion. Less dyspneic. Lower extremity edema improved. No fever or cough. No chest pain. Review of Systems: Constitutional- no fever. Cardiac- as noted above. Pulmonary- as noted above. GI- no nausea, vomiting, diarrhea, melena, hematochezia. - Mojica cath. Otherwise, as noted above. Physical Exam Constitutional: no acute distress Respiratory: no respiratory distress Auscultation: + rales (bibasilar) Cardiovascular: Rate/Rhythm: + irregularly irregular Vessels: + JVD Extremities: + edema (1+ pretibial edema); no calf tenderness Gastrointestinal (Abdomen): Inspection/Auscultation: normal bowel sounds Percussion/Palpation: abdomen soft; abdomen nontender Musculoskeletal: Extremities: no cyanosis Skin: no rashes, warm and dry Psychiatric: Orientation: alert and oriented x 3 Genitourinary: + bladder abnormality (Mojica cath) Results & Data Vital Signs (Past 12 Hours) Vital Signs Temp Pulse Pulse Resp BP BP Pulse Ox 12/08/18 15:51 36.8 C 65 19 111/65 100 12/08/18 11:53 36.4 C L 74 18 125/70 100 12/08/18 10:00 72 12/08/18 07:41 36.3 C L 69 18 102/56 L 98
[2018-12-08] MEDS: INSULIN GLARGINE SOLOSTAR 100 UNITS/ML 3 ML PEN SC SCH (20:42)
[2018-12-08] MEDS: NADOLOL 40 MG TAB PO SCH (20:43)
[2018-12-08] MEDS: CARBIDOPA/LEVODOP 10/100MG TAB PO SCH (20:44)
[2018-12-09] MEDS: BUMETANIDE 10 MG in DEXTROSE 5% 10 ML IV SCH ×3 (02:46→23:23)
[2018-12-09] MEDS: LEVOTHYROXINE SODIUM 88 MCG TABLET PO SCH (05:55)
[2018-12-09 06:52] LABS: Hematocrit (blood only) 24.6 % (37-47); Mean Corpuscular Hgb Conc 32.5 g/dL (32-36); Mean Corpuscular Volume 89.1 fL (80-100); RDW Coefficient of Variation 19.7 % (11.5-14.5); Red Blood Count 2.76 M/uL (4.2-5.4); White Blood Count 3.38 K/uL (4.8-10.8)
[2018-12-09 07:18] LABS: Mean Platelet Volume 9.4 fL (7.4-10.4); Platelet Count 78 K/uL (130-400)
[2018-12-09 07:24] LABS: Albumin Level 3.6 gm/dl (3.4-5.0); BUN Creatinine Ratio 31.9 (10-20); Calcium 8.8 mg/dl (8.5-10.1); Creatinine Clr Calc Pharmacy 14.9 ml/min; Est GFR (African American) 13.5; Est GFR (Non-African American) 11.6; Phosphorus 4.8 mg/dl (2.5-4.9); Potassium 4.4 mmol/L (3.5-5.1)
[2018-12-09] MEDS: FERROUS SULFATE 325 MG TAB PO SCH ×2 (07:57→16:52)
[2018-12-09] MEDS: INSULIN ASPART 100 UNITS/ML 3 ML PEN SC SCH ×4 (07:57→20:06)
[2018-12-09] MEDS: APIXABAN 2.5 MG TAB PO SCH (09:23)
[2018-12-09] MEDS: MECLIZINE 12.5 MG TAB PO SCH ×2 (09:24→20:03)
[2018-12-09] MEDS: SPIRONOLACTONE 25 MG TAB PO SCH ×2 (09:24→20:03)
[2018-12-09] MEDS: IRON SUCROSE 200 MG in 0.9 % SODIUM CHLORIDE 100 ML IV SCH (09:29)
--- NOTE | 2018-12-09 10:19 | Nephrology Progress Note ---
Date of Service December 09, 2018 Assessment & Plan (1) Acute decompensated heart failure: -- Net 3 L UO yesterday with Bumex gtt. However patient has significant ascites and tense LE edema. She is developing progressive azotemia in response to diuretic therapy. She does not yet have uremic symptoms -- Continue Bumex gtt @ 1 mg/hr. Monitor weight and I&O's -- Discussed goals of care w/ patient, her daughter (Leonela Lora [phone]) and primary service this morning. Ms. Oliveira indicates that she is not yet ready for hospice care. We have discussed the indications/risks and benefits of vascular access placement and dialysis in detail. Ms. Oliveira wishes to proceed w/ IJ THC insertion and a trial of dialysis. She understands that if she does not tolerate HD then transition to hospice care will be necessary. -- Consultation requested w/ Vascular Surgery to place IJ THC. Will need recommendations for Apixaban preceding and following procedure -- Consultation requested w/ Discharge Planning to set up outpatient IHD. 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 Oliveira was seen & examined in her hospital room this morning. At the time of my evaluation she was alert & oriented to person/place & time. She appeared capable of making informed decisions for herself. Ms. Ferrell c/o abdominal distention and tense LE swelling which limits her ability to ambulate, but notes improved urine output in response to Bumex drip. Review of Systems Constitutional: no fever Respiratory: no dyspnea Cardiovascular: no chest pain and no palpitations Gastrointestinal: no abdominal pain, no vomiting and no diarrhea/loose stools Genitourinary: no dysuria and no hematuria Physical Exam Constitutional: not in distress Eyes: PERRL, conjunctivae normal, anicteric sclerae Neck: trachea midline, no thyromegaly Respiratory: normal respiratory effort, lungs clear to auscultation able to speak in complete sentences; no respiratory distress Cardiovascular: Rate/Rhythm: + irregularly irregular Extremities: + edema (tense LE edema bilaterally) Gastrointestinal (Abdomen): Inspection/Auscultation: + abdomen distended Percussion/Palpation: abdomen nontender and no guarding Neurologic: awake; not confused Results & Data Vital Signs (Past 12 Hours) Vital Signs Temp Pulse Pulse Resp BP BP Pulse Ox 12/09/18 08:00 36.0 C L 74 22 117/73 97 12/09/18 03:29 36.7 C 75 20 101/63 96 12/09/18 01:40 73 12/08/18 23:35 36.6 C 77 19 105/65 96 Laboratory Results Laboratory Tests 12/09/18 12/09/18 06:09 06:09 WBC 3.38 L Hgb 8.0 L Hct 24.6 L Plt Count 78 L Sodium 131 L Potassium 4.4 Chloride 94 L Carbon Dioxide 30 BUN 111 H Creatinine 3.47 H Glucose 178 H
--- NOTE | 2018-12-09 13:53 | Palliative Care Progress Note ---
Date of Service December 09, 2018 Assessment & Plan (1) Palliative care encounter: -Patient feeling about the same today. Attempted to see her multiple times today, once when she was in the bathroom and another time that the [facility] liaison was in the room. There is a family member at bedside as well. -Patient was seen by nephrology today and again approached about dialysis. Patient plans to speak with a dialysis nurse today to learn more about the process. She continues to be undecided but did state to me several times yesterday, "I'm not done fighting yet." -I will follow up and continue to assist with medical decision making and provide supportive care. 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 Once she was on toilet, next there was a rehabilitation construction specialist on the room. She plans to meet with a dialysis nurse today to further discuss the process of dialysis and how this will affect her life if she does decide to go with dialysis. Review of Systems Review of Systems: Patient denies any pain or discomforts. No new complaints. Physical Exam Constitutional: + obese and comfortable; no acute distress Neck: normal visual inspection and trachea midline Respiratory: normal respiratory effort; no respiratory distress Cardiovascular: Rate/Rhythm: regular rate and regular rhythm Extremities: + edema (+1-2 BLE) Neurologic: moves all extremities and awake Psychiatric: Orientation: alert and oriented x 3 Results & Data Vital Signs (Past 12 Hours) Vital Signs Temp Pulse Resp BP BP Pulse Ox 12/09/18 12:00 36.6 C 74 18 122/74 99 12/09/18 08:00 36.0 C L 74 22 117/73 97 12/09/18 03:29 36.7 C 75 20 101/63 96 Time Spent Midlevel 15 minutes with >50% of time the spent at bedside with patient and family discussing condition and GOC.
--- NOTE | 2018-12-09 13:53 | Consultation ---
Date of Consultation December 09, 2018 Assessment & Plan (1) End stage renal disease: Pt discussed with Dr Jauregui. Planning on permcath insertion Saturday. Will need to hold eliquis until after procedure. Please call if needed. Patient was seen, examined, and chart reviewed. Agree with exam and treatment plan of the Vascular PA. History of Present Illness Reason for Consultation: ESRD, need permcath for HD Attending Physician: Adrian Marks MD History of Present Illness 83 yo f with multiple medical problems, including DMII, hyperlipidemia, CKD, A fib, CHF, Cirrhosis, HTN, seen in consultation today for permcath insertion for HD. Pt states she has had worsening renal fxn for a long time, and did not want HD, but would like to be around for her grandson's wedding later this year. Admits SINGH and edema. Denies KIM, fever, chills, chest pain, abd pain, rest pain, claudication, ulcers other complaints. Allergies Allergy/AdvReac Type Severity Reaction Status Date / Time hydrocodone AdvReac Intermediate SWEATING, Verified 12/07/18 10:54 FELT FUNNY - UNSURE IF IT WAS VICODIN oxycodone AdvReac Intermediate Hallucinati Verified 12/07/18 10:54 ng Home Medications Home Medications Medication Instructions Recorded Confirmed Type insulin degludec [Tresiba 20 unit SUBCUT HS 07/09/18 12/05/18 History FlexTouch U-200] levothyroxine 88 mcg PO QAM 07/09/18 12/05/18 History meclizine 12.5 mg PO BID 07/09/18 12/05/18 History spironolactone 25 mg PO BID 07/09/18 12/05/18 History apixaban [Eliquis] 2.5 mg PO BID 12/05/18 12/05/18 History carbidopa-levodopa 1 tab PO HS 12/05/18 12/05/18 History ferrous sulfate 325 mg PO BID 12/05/18 12/05/18 History furosemide 40 mg PO QAM 12/05/18 12/05/18 History insulin aspart U-100 [Novolog 5 unit SUBCUT AC 12/05/18 12/05/18 History Flexpen U-100 Insulin] midodrine 2.5 mg PO TID PRN 12/05/18 12/05/18 History nadolol 20 mg PO HS 12/05/18 12/05/18 History ranitidine HCl 150 mg PO QAM 12/05/18 12/05/18 History Patient History Medical History HLD (hyperlipidemia) Anemia Thrombocytopenia CKD (chronic kidney disease) stage 3, GFR 30-59 ml/min (Acute) 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 H/o fluid retention with elevated BNP--cardiac eval and echo 2016 ruled no CHF, 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 Periodic limb movement disorder On Simemet Hypertension Sleep apnea CPAP Diabetes A1C 8.5% on 10/09/18 Degenerative disc disease Acid reflux Restless leg syndrome Hypothyroidism Surgical History History of hysterectomy History of cholecystectomy History of brain surgery FOR MENINGIOMA, 1998 History of surgery on arm LEFT ([place]) History of reverse total replacement of right shoulder joint History of tonsillectomy History of ear surgery History of fracture of nasal bone Family History Other Diabetes Family history of cancer Social History Preferred Language: French Communication Ability: Effective Supervisor Tunnel Heading Required: No Beliefs That Will Affect Care: None Current Living Situation: Alone Other Information That Helps Us Care for You: No other: ambulates with walker Feels Safe at Home: Yes Safety Concerns: Feels Safe At This Time Smoking Status: Never smoker Do You Dip or Chew Tobacco: No Second Hand Exposure: No Tobacco Cessation Education Requested by Patient: No Hx Alcohol Use: No Hx Substance Use: No Review of Systems Review of Systems: All systems reviewed & are unremarkable except as noted in HPI & below positive for SINGH nd edema Physical Exam Constitutional: WD/WN, vitals as above well developed, well nourished, + ill appearing, + obese, well groomed, + disheveled, cooperative and comfortable; not in distress and not combative Eyes: PERRL, conjunctivae normal, anicteric sclerae EOM intact bilaterally ENMT: external ear and nose normal, oropharynx normal Ears: no hearing impairment Nose: no nasal discharge Throat: no posterior oropharynx abnormality Neck: trachea midline, no thyromegaly no tracheal deviation, no neck crepitus and neck nontender Respiratory: normal respiratory effort and able to speak in complete sentences; does not use accessory muscles and no cough Auscultation: + dimin ished lung sounds and + crackles; no rhonchi and no wheezes Cardiovascular: Rate/Rhythm: + irregularly irregular Heart Sounds: no gallop and no murmur Vessels: femoral pulses present, posterior tibial pulses present, dorsalis pedis pulses present, brachial pulses present and radial pulses present; no carotid bruit, no femoral bruit and + abnormal peripheral pulses Extremities: normal capillary refill, + pedal edema and + edema Chest (Breasts): Chest: normal inspection of chest Gastrointestinal (Abdomen): Inspection/Auscultation: abdomen normal to insp ection and normal bowel sounds; abdomen not distended and no abdominal edema Percussion/Palpation: abdomen soft; abdomen nontender, no guarding, abdomen not rigid and no abdominal mass Musculoskeletal: Head/Neck/Chest: normocephalic, head atraumatic and neck supple; no chest tenderness Extremities: extremities normal to inspection and strength 5/5 throughout; full ROM of extremities, no clubbing and no amputation noted Skin: no rashes, warm and dry normal turgor; no rashes, no lesions, no induration, no erythema, no eschar, no excoriations and no mottling Neurologic: moves all extremities and awake; no focal motor deficits and not confused Speech / Cognition: no expressive aphasia and no receptive aphasia Motor/Sensory: no tremor, no pronator drift and no sensory deficit Cranial Nerves: EOM intact bilaterally, normal facial strength and tongue midline Psychiatric: Orientation: alert, oriented x 3 and cooperative Apperance: appropriately dressed, appropriately groomed and appeared stated age Affect: euthymic affect Thought Process: goal directed thought process, linear/logical thought process and clear/coherent thought process Cognition: recent memory grossly intact, remote memory grossly intact, attention grossly intact and language grossly intact Estimated Intelligence: average estimated intelligence Lymphatic: no lymphedema Results & Data Vital Signs (Past 12 Hours) Vital Signs Temp Pulse Resp BP BP Pulse Ox 12/09/18 12:00 36.6 C 74 18 122/74 99 12/09/18 08:00 36.0 C L 74 22 117/73 97 12/09/18 03:29 36.7 C 75 20 101/63 96
--- NOTE | 2018-12-09 13:59 | Hospitalist Progress Note ---
Date of Service December 09, 2018 Assessment & Plan (1) Acute decompensated heart failure: Acute on chronic CHF. Cardiology consulted. Echo showed mild LVH, normal LV size and systolic function, severely dilated RV with reduced systolic function, mild-moderate MR, severe TR, pulmonary hypertens ion. Acute on chronic right sided CHF, possible acute on chronic left ventricular diastolic failure, co-existent renal failure with fluid overload. Received IV furosemide without much urine output. Urine output better with bumetanide infusion- 5100 ml last 24 hours. Ongoing diuretic management per Nephrology / Cardiology. (2) Atrial fibrillation: Chronic atrial fibrillation. Rate control with nadolol. Anticoagulation with apixaban. (3) KEMAR (acute kidney injury): CKD III with baseline creatinine around 2. Creatinine at time of admission was 3.62. Acute kidney injury, associated with CHF, cirrhosis, diuretic therapy. Nephrology consulted. Diuretics being adjusted. Nephrology has discussed possible need for hemodialysis with patient. Creatinine today = 3.47. Follow. (4) CKD (chronic kidney disease) stage 3, GFR 30-59 ml/min: As noted above. (5) Hypertension: Continue nadolol and diuretics. Follow and titrate Rx. (6) Sleep apnea: Continue CPAP. 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 LFT's essentially normal. INR 1.4. Ascites may be secondary to hepatic disease with portal hypertension and/or right-sided CHF. Follow. (8) Hyponatremia: Serum sodium 129 at time of admission. Hyponatremia probably multifactorial. Nephrology consulted. Na today = 131. Follow. (9) Diabetes mellitus type 2 with complications: Well-controlled with Hgb A1C of 6.7. Usually takes insulin degludec + insulin aspartate. Patient states that she feels best with blood sugars around 120-140. Lantus / NovoLog per protocol during hospital stay. FBS this morning = 207. (10) Hypothyroidism: Continue levothyroxine. (11) Anemia: Hgb 8.0. Anemia probably multifactorial, with anemia of CKD and cirrhosis contributing factors. Management per Nephrology. (12) Thrombocytopenia: Platelet count 78,000. Probably secondary to underlying cirrhosis. Follow. (13) Palliative care encounter: Patient with worsening renal function and CHF. Urine output / CHF may or may not improve with medical management. Patient uncertain whether or not she would want trial of hemodialysis. Palliative Care Team consulted to assist with decision making and planning. (14) Do not resuscitate status: DNR per advanced directives. (15) DVT prophylaxis: On apixaban for AF. Ambulate. (16) Discharge planning issues: Patient hopes to be discharged to home (although she required a recent stay at [facility]). Primary care follow-up with pt's preferred provider- patient would like to be established with a [facility] PCP at their [facility] office to coordinate care with Cardiology and Nephrology. Cardiology follow-up with [facility]. Nephrology follow-up with Dr. Wheeler. Subjective Recheck for multiple problems. Patient seen in their room around 11:30. Daughter visiting. Urine output good on bumetanide infusion. Dyspnea and lower extremity edema improved. No fever or cough. No chest pain. Review of Systems: Constitutional- no fever. Cardiac- as noted above. Pulmonary- as noted above. GI- no nausea, vomiting, diarrhea, melena, hematochezia. - still has Mojica cath. Otherwise, as noted above. Physical Exam Constitutional: no acute distress Respiratory: no respiratory distress Auscultation: + rales (bibasilar) Cardiovascular: Rate/Rhythm: + irregularly irregular Vessels: + JVD Extremities: + edema (1+ pretibial edema); no calf tenderness Gastrointestinal (Abdomen): Inspection/Auscultation: normal bowel sounds Percussion/Palpation: abdomen soft; abdomen nontender Musculoskeletal: Extremities: no cyanosis Skin: no rashes, warm and dry Psychiatric: Orientation: alert and oriented x 3 Genitourinary: + bladder abnormality (Mojica cath) Results & Data Vital Signs (Past 12 Hours) Vital Signs Temp Pulse Resp BP BP Pulse Ox 12/09/18 12:00 36.6 C 74 18 122/74 99 12/09/18 08:00 36.0 C L 74 22 117/73 97 12/09/18 03:29 36.7 C 75 20 101/63 96 Laboratory Results Laboratory Results - last 24 hr 12/08/18 12/08/18 12/09/18 16:31 20:20 06:09 WBC 3.38 L RBC 2.76 L Hgb 8.0 L Hct 24.6 L MCV 89.1 MCH 29.0 MCHC 32.5 RDW Std Deviation 64.0 H RDW Coeff of Pastora 19.7 H Plt Count 78 L MPV 9.4 Sodium Potassium Chloride Carbon Dioxide Anion Gap BUN Creatinine Est Cr Clr Drug Dosing Est GFR ( Amer) Est GFR (Non-Af Amer) BUN/Creatinine Ratio Glucose POC Glucose 281 H 282 H Calcium Phosphorus Albumin 12/09/18 12/09/18 12/09/18 06:09 07:40 11:53 WBC RBC Hgb Hct MCV MCH MCHC RDW Std Deviation RDW Coeff of Pastora Plt Count MPV Sodium 131 L Potassium 4.4 Chloride 94 L Carbon Dioxide 30 Anion Gap 7.0 BUN 111 H Creatinine 3.47 H Est Cr Clr Drug Dosing 14.9 Est GFR ( Amer) 13.5 Est GFR (Non-Af Amer) 11.6 BUN/Creatinine Ratio 31.9 H Glucose 178 H POC Glucose 207 H 229 H Calcium 8.8 Phosphorus 4.8 Albumin 3.6
[2018-12-09] MEDS: NADOLOL 40 MG TAB PO SCH (20:03)
[2018-12-09] MEDS: INSULIN GLARGINE SOLOSTAR 100 UNITS/ML 3 ML PEN SC SCH (20:04)
[2018-12-09] MEDS: CARBIDOPA/LEVODOP 10/100MG TAB PO SCH (20:04)
--- NOTE | 2018-12-09 21:19 | Cardiology Progress Note ---
Date of Service December 09, 2018 Assessment & Plan (1) Atrial fibrillation: She appears to have adequate rate control of her atrial fibrillation. Her anticoagulation has been held in anticipation of dialysis access procedure. NO urgency in re-starting eliquis. She does have a fairly profound anemia. Iron deficient. ON iron replacement and epogen. (2) Acute decompensated heart failure: Echocardiography confirmed this suspicion that most of her heart failure is related to right ventricular dysfunction. This is also related to pulmonary hypertension and severe tricuspid regurgitation. While she is effecting a brisk diuresis on a Bumex infusion with intermittent thiazide administration, she may have an element of intravascular depletion and worsening azotemia. As a result, she plans to initiate dialysis for better volume control. We'll see how well that is tolerated. Given her RV dysfunction and severe TR, I don't think we have much more to offer from a cardiac perspective. Treatment centers around volume control which will hopefully improve with dialysis. Subjective This afternoon she reports feeling well. She is troubled by the thought of starting dialysis but is afraid that if she does not she "is a goner". No pain. Breathing improved. NO palpitations. Some ambulation today with a walker. Review of Systems Review of Systems: Per HPI Physical Exam Physical Exam: Alert. Oriented. Answered questions appropriately. Irregular cardiac rhythm with a normal rate Distended abdomen. Edematous legs now with compression stockings. Results & Data Vital Signs (Past 12 Hours) Vital Signs Temp Pulse Resp BP BP Pulse Ox 12/09/18 19:44 36.6 C 80 16 105/64 96 12/09/18 15:24 36.4 C L 76 18 128/68 100 12/09/18 12:00 36.6 C 74 18 122/74 99 Laboratory Results Abnormal Lab Results 12/09/18 12/09/18 12/09/18 06:09 06:09 07:40 WBC 3.38 L RBC 2.76 L Hgb 8.0 L Hct 24.6 L MCV 89.1 MCH 29.0 MCHC 32.5 RDW Std Deviation 64.0 H RDW Coeff of Pastora 19.7 H Plt Count 78 L MPV 9.4 Sodium 131 L Potassium 4.4 Chloride 94 L Carbon Dioxide 30 Anion Gap 7.0 BUN 111 H Creatinine 3.47 H Est Cr Clr Drug Dosing 14.9 Est GFR ( Amer) 13.5 Est GFR (Non-Af Amer) 11.6 BUN/Creatinine Ratio 31.9 H Glucose 178 H POC Glucose 207 H Calcium 8.8 Phosphorus 4.8 Albumin 3.6 12/09/18 12/09/18 11:53 16:13 WBC RBC Hgb Hct MCV MCH MCHC RDW Std Deviation RDW Coeff of Pastora Plt Count MPV Sodium Potassium Chloride Carbon Dioxide Anion Gap BUN Creatinine Est Cr Clr Drug Dosing Est GFR ( Amer) Est GFR (Non-Af Amer) BUN/Creatinine Ratio Glucose POC Glucose 229 H 215 H Calcium Phosphorus Albumin
[2018-12-10] MEDS: LEVOTHYROXINE SODIUM 88 MCG TABLET PO SCH (05:49)
[2018-12-10 06:00] LABS: Hematocrit (blood only) 24.7 % (37-47); Mean Corpuscular Hgb Conc 32.4 g/dL (32-36); Mean Corpuscular Volume 90.5 fL (80-100); RDW Coefficient of Variation 19.5 % (11.5-14.5); RDW Standard Deviation 64.4 fL (36.4-46.3); Red Blood Count 2.73 M/uL (4.2-5.4); White Blood Count 2.94 K/uL (4.8-10.8)
[2018-12-10 06:11] LABS: Platelet Count 74 K/uL (130-400)
[2018-12-10 06:21] LABS: Basophils # (auto) 0.01 K/uL (0-0.2); Basophils % (auto) 0.3 %; Eosinophils # (auto) 0.17 K/uL (0-0.5); Eosinophils % (auto) 5.8 %; Giant Platelets 1+; Immature Granulocytes # (auto) 0.01 K/uL (0.00-0.02); Immature Granulocytes % (auto) 0.3 %; Lymphocytes # (auto) 0.55 K/uL (1.2-3.4); Lymphocytes % (auto) 18.7 %; Monocytes # (auto) 0.45 K/uL (0.11-0.59); Monocytes % (auto) 15.3 %; Neutrophils # (auto) 1.75 K/uL (1.4-6.5); Neutrophils % (auto) 59.6 %; Ovalocytes 1+
[2018-12-10 06:34] LABS: Albumin Level 3.4 gm/dl (3.4-5.0); BUN Creatinine Ratio 34.1 (10-20); Calcium 8.8 mg/dl (8.5-10.1); Creatinine Clr Calc Pharmacy 15.5 ml/min; Est GFR (African American) 14.6; Est GFR (Non-African American) 12.6; Phosphorus 4.5 mg/dl (2.5-4.9)
[2018-12-10] MEDS: FERROUS SULFATE 325 MG TAB PO SCH ×2 (08:15→17:24)
[2018-12-10] MEDS: INSULIN ASPART 100 UNITS/ML 3 ML PEN SC SCH ×4 (08:15→20:52)
[2018-12-10] MEDS: SPIRONOLACTONE 25 MG TAB PO SCH ×2 (08:16→20:29)
[2018-12-10] MEDS: MECLIZINE 12.5 MG TAB PO SCH ×2 (08:16→20:29)
[2018-12-10] MEDS: IRON SUCROSE 200 MG in 0.9 % SODIUM CHLORIDE 100 ML IV SCH (08:20)
--- NOTE | 2018-12-10 09:10 | Nephrology Progress Note ---
Date of Service December 10, 2018 Assessment & Plan (1) Acute decompensated heart failure: -- Net 2.7 L UO yesterday with Bumex gtt. However patient still has significant ascites and tense LE edema. She is developing progressive azotemia and metabolic alkalosis in response to diuretic therapy. She does not yet have uremic symptoms -- Continue Bumex gtt @ 1 mg/hr. Monitor weight and I&O's -- Discussed goals of care w/ patient and primary service this morning. Ms. Oliveira wishes to proceed w/ IJ THC insertion and a trial of dialysis. She understands that if she does not tolerate HD then transition to hospice care will be necessary. Plan of care discussed w/ her daughter (Leonela Lora [phone]) yesterday -- Vascular Surgery recommendations reviewed this am. Patient is scheduled for IJ THC Saturday (12/12/18) Apixaban is currently being held -- Discharge Planning is working to set up outpatient IHD. 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 Oliveira was seen & examined in her hospital room this morning. She is breathing comfortably on O2 at 2 L / min NC. She denies angina or nausea. She reports brisk UO but notes that she still has tense ascites and tense LE swelling Review of Systems Constitutional: no fever Respiratory: no cough and no dyspnea Cardiovascular: + edema; no chest pain and no palpitations Gastrointestinal: + bloating; no abdominal pain, no vomiting, no diarrhea/loose stools and no melena Neurologic: no confusion Physical Exam Constitutional: not in distress Eyes: PERRL, conjunctivae normal, anicteric sclerae Neck: trachea midline, no thyromegaly Respiratory: normal respiratory effort, lungs clear to auscultation able to speak in complete sentences; no respiratory distress Cardiovascular: Rate/Rhythm: + irregularly irregular Extremities: + edema (tense LE edema bilaterally) Gastrointestinal (Abdomen): Inspection/Auscultation: + abdomen distended Percussion/Palpation: abdomen nontender and no guarding Neurologic: awake; not confused Results & Data Vital Signs (Past 12 Hours) Vital Signs Temp Pulse Pulse Resp BP BP Pulse Ox 12/10/18 07:30 36.3 C L 80 22 107/67 96 12/10/18 03:55 36.3 C L 71 19 103/62 100 12/10/18 01:04 73 12/09/18 23:58 36.6 C 68 19 101/61 96 Laboratory Results Laboratory Tests 12/10/18 12/10/18 05:40 05:40 WBC 2.94 L Hgb 8.0 L Hct 24.7 L Plt Count 74 L Sodium 135 L Potassium 4.0 Chloride 94 L Carbon Dioxide 33 H BUN 111 H Creatinine 3.26 H Glucose 120 H
--- NOTE | 2018-12-10 10:12 | Hospitalist Progress Note ---
Date of Service December 10, 2018 Assessment & Plan (1) Acute decompensated heart failure: Acute on chronic CHF. Cardiology consulted. Echo showed mild LVH, normal LV size and systolic function, severely dilated RV with reduced systolic function, mild-moderate MR, severe TR, pulmonary hypertens ion. Acute on chronic right sided CHF, possible acute on chronic left ventricular diastolic failure, co-existent renal failure with fluid overload. Bumex gtt, Possible HD Tuesday 12/12 (2) Atrial fibrillation: Chronic atrial fibrillation. Rate control with nadolol. Anticoagulation with apixaban. (3) KEMAR (acute kidney injury): CKD III with baseline creatinine around 2. Creatinine at time of admission was 3.62. Acute kidney injury, associated with CHF, cirrhosis, diuretic therapy. Nephrology on case (4) CKD (chronic kidney disease) stage 3, GFR 30-59 ml/min: As noted above. (5) Hypertension: Continue nadolol and diuretics. Follow and titrate Rx. (6) Sleep apnea: Continue CPAP. 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 LFT's essentially normal. INR 1.4. Ascites may be secondary to hepatic disease with portal hypertension and/or right-sided CHF. Follow. (8) Hyponatremia: Multifactorial Check PAB Follow. (9) Diabetes mellitus type 2 with complications: Well-controlled with Hgb A1C of 6.7. Usually takes insulin degludec + insulin aspartate. Patient states that she feels best with blood sugars around 120-140. Lantus / NovoLog per protocol during hospital stay. (10) Hypothyroidism: Continue levothyroxine. (11) Anemia: Receiving blood when I saw her (12) Thrombocytopenia: Probably secondary to underlying cirrhosis. (13) Palliative care encounter: Patient with worsening renal function and CHF. Tense Edema/TEDS Patient discussed hemodialysis c Nephrology. HD Saturday, HD Catheter Palliative Care Team on case (14) Do not resuscitate status: DNR per advanced directives. (15) DVT prophylaxis: On apixaban for AF. Ambulate. (16) Discharge planning issues: Patient hopes to be discharged to home (although she required a recent stay at [facility]). Nephrology mentioned [facility] can get HD at [facility]. Primary care follow-up with pt's preferred provider- patient would like to be established with a [facility] PCP at their [facility] office to coordinate care with Cardiology and Nephrology. Cardiology follow-up with [facility]. Nephrology follow-up with Dr. Roe. Sandra BUTLER-No Headache, No Visual Changes, No Nausea, No Vomiting, No Fever, No Chills, No Neck Pain or Stiffness, No Chest Pain, No Palpitations, No SOB, No SINGH, No Cough, No Sputum, No Wheezing, No Abdominal Pain, No Diarrhea, No Hematemesis, No Hemoptysis, No Unexpected Weight Loss, No Flank pain, No Melena, No Hematochezia, No Frequency, No Urgency, No Burning, No Hematuria, No Rashes, No Diaphoresis. Appetite is Normal Physical Exam Gen-AAO x 3, NAD, Afebrile Head-NCAT, EOMI, PERRLA, Anicteric Sclera, No Posterior Pharyngeal Erythema Neck-Supple, No JVD, No Thyromegaly, No Masses, No LAD, No Bruits Lungs-Clear to Auscultation Bilaterally, No Rales, No Rhonchi, No Wheezing, No Crepitus Chest-No S4, +S1, +S2, No S3, No Murmurs, No Rubs, No Gallops, No Ectopy Abdomen-Soft, Bowel Sounds Present, Non Tender, Non Distended, No Hepatomegaly, No Splenomegaly, No Palpable Masses, No Rebound, No Rigidity, No Guarding Musculoskeletal-Full Range of Motion Bilaterally, No CVAT Extremities-No Cyanosis, No Clubbing, +Edema/Teds Nuero-Cranial Nerves II-XII grossly intact, Motor WNL, DTRs WNL, Strength WNL, Non Focal Psych-Normal Mood Results & Data Vital Signs (Past 12 Hours) Vital Signs Temp Pulse Pulse Resp BP BP Pulse Ox 12/10/18 07:30 36.3 C L 80 22 107/67 96 12/10/18 03:55 36.3 C L 71 19 103/62 100 12/10/18 01:04 73 12/09/18 23:58 36.6 C 68 19 101/61 96
[2018-12-10] MEDS: BUMETANIDE 10 MG in DEXTROSE 5% 10 ML IV SCH ×2 (11:07→20:28)
--- NOTE | 2018-12-10 13:10 | Palliative Care Progress Note ---
Date of Service December 10, 2018 Assessment & Plan (1) Palliative care encounter: -After much deliberation, patient has decided to undergo a trial of dialysis. She plans to speak with all four of her children about her wishes. -Per patient, plan is for perma cath placement on Saturday morning, and first dialysis treatment on Saturday afternoon. -Patient is anxious about the changes this will make her lifestyle, but she is willing to give it a try. She feels like she has a good bit of life left to live. -Plan is for her to potentially go to [facility] rehab after hospitalization, and her goal is eventually to get back home. She plans to go to dialysis center in [place]. Case management following. -Palliative care will continue to follow peripherally and be of assistance in any way we can. 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 Feels like her abdomen is smaller. Review of Systems Constitutional: + weakness Cardiovascular: + edema; no chest pain Gastrointestinal: +abdominal swelling Musculoskeletal: "no pain anywhere" Physical Exam Constitutional: + obese and comfortable; no acute distress ENMT: Mouth: no oral mucosal abnormality Neck: normal visual inspection and trachea midline Respiratory: normal respiratory effort; no respiratory distress Cardiovascular: Rate/Rhythm: regular rate and regular rhythm Extremities: + edema (+1-2 BLE) Gastrointestinal (Abdomen): Inspection/Auscultation: + abdomen distended and normal bowel sounds Percussion/Palpation: abdomen soft; abdomen nontender Skin: no rashes, warm and dry Neurologic: moves all extremities and awake Psychiatric: Orientation: alert and oriented x 3 Insight: good insight Results & Data Vital Signs (Past 12 Hours) Vital Signs Temp Pulse Pulse Resp BP BP Pulse Ox 12/10/18 11:47 36.5 C 72 20 121/74 99 12/10/18 08:00 63 12/10/18 07:30 36.3 C L 80 22 107/67 96 12/10/18 03:55 36.3 C L 71 19 103/62 100 Time Spent Midlevel 25 minutes with >50% of the time spent at bedside with patient discussing condition and GOC.
[2018-12-10 17:31] LABS: Hepatitis B Surface Antigen Neg (Neg)
[2018-12-10 18:00] LABS: Hepatitis C IgG 13Yrs+Old_Rflx Neg (Neg)
[2018-12-10] MEDS: NADOLOL 40 MG TAB PO SCH (20:30)
[2018-12-10] MEDS: CARBIDOPA/LEVODOP 10/100MG TAB PO SCH (20:32)
[2018-12-10] MEDS: INSULIN GLARGINE SOLOSTAR 100 UNITS/ML 3 ML PEN SC SCH (20:49)
[2018-12-11] MEDS: LEVOTHYROXINE SODIUM 88 MCG TABLET PO SCH (05:48)
[2018-12-11] MEDS: BUMETANIDE 10 MG in DEXTROSE 5% 10 ML IV SCH ×2 (06:02→16:51)
[2018-12-11 07:01] LABS: Hematocrit (blood only) 24.3 % (37-47); Hemoglobin 7.9 g/dL (12.0-16.0); Mean Corpuscular Hgb Conc 32.5 g/dL (32-36); Mean Corpuscular Volume 89.7 fL (80-100); RDW Coefficient of Variation 19.7 % (11.5-14.5); RDW Standard Deviation 63.7 fL (36.4-46.3); Red Blood Count 2.71 M/uL (4.2-5.4); White Blood Count 2.91 K/uL (4.8-10.8)
[2018-12-11 07:03] LABS: Mean Platelet Volume 9.4 fL (7.4-10.4); Platelet Count 74 K/uL (130-400)
[2018-12-11 07:15] LABS: INR 1.3 (0.9-1.1); Prothrombin Time 12.8 Seconds (9.0-12.0)
[2018-12-11 07:32] LABS: Albumin Level 3.3 gm/dl (3.4-5.0); BUN Creatinine Ratio 36.6 (10-20); Calcium 9.2 mg/dl (8.5-10.1); Est GFR (African American) 16.4; Est GFR (Non-African American) 14.1; Potassium 3.8 mmol/L (3.5-5.1)
[2018-12-11 07:36] LABS: Phosphorus 3.9 mg/dl (2.5-4.9)
[2018-12-11] MEDS: MECLIZINE 12.5 MG TAB PO SCH ×2 (08:11→20:43)
[2018-12-11] MEDS: INSULIN ASPART 100 UNITS/ML 3 ML PEN SC SCH ×4 (08:11→20:45)
[2018-12-11] MEDS: FERROUS SULFATE 325 MG TAB PO SCH ×2 (08:11→17:40)
[2018-12-11] MEDS: SPIRONOLACTONE 25 MG TAB PO SCH ×2 (08:11→20:44)
[2018-12-11] MEDS: IRON SUCROSE 200 MG in 0.9 % SODIUM CHLORIDE 100 ML IV SCH (08:12)
--- NOTE | 2018-12-11 09:19 | Nephrology Progress Note ---
Date of Service December 11, 2018 Assessment & Plan (1) Acute decompensated heart failure: -- Net 2.3 L UO yesterday with Bumex gtt. However patient still has significant ascites and tense LE edema. She is developing progressive azotemia and metabolic alkalosis in response to diuretic therapy. She does not yet have uremic symptoms -- Continue Bumex gtt @ 1 mg/hr. Monitor weight and I&O's -- Discussed goals of care w/ patient and primary service this morning. Ms. Oliveira wishes to proceed w/ IJ THC insertion and a trial of dialysis. She understands that if she does not tolerate HD then transition to hospice care will be necessary. Plan of care has been discussed w/ her daughter (Leonela Lora [phone]) -- Vascular Surgery has scheduled patient for IJ THC Saturday (12/12/18) Apixaban is currently being held -- Discharge Planning is working to set up outpatient IHD. 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 Oliveira was seen & examined in her hospital room this morning. She reports persistent abdominal swelling and tense LE edema. Review of Systems Constitutional: no fever Respiratory: no cough and no dyspnea Cardiovascular: no chest pain and no palpitations Gastrointestinal: no abdominal pain, no vomiting, no hematemesis, no diarrhea/loose stools and no melena Genitourinary: no dysuria and no hematuria Physical Exam Constitutional: not in distress Eyes: PERRL, conjunctivae normal, anicteric sclerae Neck: trachea midline, no thyromegaly Respiratory: normal respiratory effort and able to speak in complete sentences; no respiratory distress Auscultation: + crackles (L base) Cardiovascular: Rate/Rhythm: + irregularly irregular Extremities: + edema (tense LE edema bilaterally) Gastrointestinal (Abdomen): Inspection/Auscultation: + abdomen distended Percussion/Palpation: abdomen nontender and no guarding Neurologic: awake; not confused Results & Data Vital Signs (Past 12 Hours) Vital Signs Temp Pulse Pulse Resp BP Pulse Ox 12/11/18 07:30 36.5 C 74 18 108/70 96 12/11/18 03:49 36.4 C L 77 17 97/58 L 95 12/10/18 23:35 71 12/10/18 23:09 36.4 C L 77 17 105/58 L 95 Laboratory Results Laboratory Tests 12/11/18 12/11/18 06:22 06:22 WBC 2.91 L Hgb 7.9 L Hct 24.3 L Plt Count 74 L Sodium 138 Potassium 3.8 Chloride 95 L Carbon Dioxide 35 H BUN 108 H Creatinine 2.96 H D Glucose 146 H
--- NOTE | 2018-12-11 11:18 | Hospitalist Progress Note ---
Date of Service December 11, 2018 Assessment & Plan (1) Acute decompensated heart failure: Acute on chronic CHF. Cardiology consulted. Echo showed mild LVH, normal LV size and systolic function, severely dilated RV with reduced systolic function, mild-moderate MR, severe TR, pulmonary hypertens ion. Acute on chronic right sided CHF, possible acute on chronic left ventricular diastolic failure, co-existent renal failure with fluid overload. Bumex gtt, HD Tuesday 12/12 (2) Atrial fibrillation: Chronic atrial fibrillation. Rate control with nadolol. Anticoagulation with apixaban. (3) KEMAR (acute kidney injury): CKD III with baseline creatinine around 2. Creatinine at time of admission was 3.62. Acute kidney injury, associated with CHF, cirrhosis, diuretic therapy. Nephrology on case (4) CKD (chronic kidney disease) stage 3, GFR 30-59 ml/min: As noted above. (5) Hypertension: Continue nadolol and diuretics. Follow and titrate Rx. (6) Sleep apnea: Continue CPAP. 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 Hepatitis Kayleigh Pending LFT's essentially normal. INR 1.3. Ascites may be secondary to hepatic disease with portal hypertension and/or rig ht-sided CHF. Follow. (8) Hyponatremia: Multifactorial Check PAB Follow. (9) Diabetes mellitus type 2 with complications: Well-controlled with Hgb A1C of 6.7. Usually takes insulin degludec + insulin aspartate. Patient states that she feels best with blood sugars around 120-140. Lantus / NovoLog per protocol during hospital stay. (10) Hypothyroidism: Continue levothyroxine. (11) Anemia: Receiving blood when I saw her (12) Thrombocytopenia: Probably secondary to underlying cirrhosis. (13) Palliative care encounter: Patient with worsening renal function and CHF. Tense Edema/TEDS Patient discussed hemodialysis c Nephrology. HD Saturday, HD Catheter Palliative Care Team on case (14) Do not resuscitate status: DNR per advanced directives. (15) DVT prophylaxis: Ambulate. (16) Discharge planning issues: Patient hopes to be discharged to home (although she required a recent stay at [facility]). Nephrology mentioned [facility] ([facility]) can get HD at [facility]. Primary care follow-up with pt's preferred provider- patient would like to be established with a [facility] PCP at their [facility] office to coordinate care with Cardiology and Nephrology. Cardiology follow-up with [facility]. Nephrology follow-up with Dr. Wheeler. Amy dallas to renal Fxn Start Warfarin after HD catheter placed Moitor daily labs ROS-No Headache, No Visual Changes, No Nausea, No Vomiting, No Fever, No Chills, No Neck Pain or Stiffness, No Chest Pain, No Palpitations, No SOB, No SINGH, No Cough, No Sputum, No Wheezing, No Abdominal Pain, No Diarrhea, No Hematemesis, No Hemoptysis, No Unexpected Weight Loss, No Flank pain, No Melena, No Hematochezia, No Frequency, No Urgency, No Burning, No Hematuria, No Rashes, No Diaphoresis. Appetite is Normal Physical Exam Gen-AAO x 3, NAD, Afebrile Head-NCAT, EOMI, PERRLA, Anicteric Sclera, No Posterior Pharyngeal Erythema Neck-Supple, No JVD, No Thyromegaly, No Masses, No LAD, No Bruits Lungs-Clear to Auscultation Bilaterally, No Rales, No Rhonchi, No Wheezing, No Crepitus Chest-No S4, +S1, +S2, No S3, No Murmurs, No Rubs, No Gallops, No Ectopy Abdomen-Soft, Bowel Sounds Present, Non Tender, Non Distended, No Hepatomegaly, No Splenomegaly, No Palpable Masses, No Rebound, No Rigidity, No Guarding Musculoskeletal-Full Range of Motion Bilaterally, No CVAT Extremities-No Cyanosis, No Clubbing, +Edema/Teds Nuero-Cranial Nerves II-XII grossly intact, Motor WNL, DTRs WNL, Strength WNL, Non Focal Psych-Normal Mood Results & Data Vital Signs (Past 12 Hours) Vital Signs Temp Pulse Pulse Resp BP Pulse Ox 12/11/18 07:30 36.5 C 74 18 108/70 96 12/11/18 03:49 36.4 C L 77 17 97/58 L 95 12/10/18 23:35 71
[2018-12-11 11:37] LABS: Hepatitis B Surface Antibody Non-Immune
[2018-12-11] MEDS: CARBIDOPA/LEVODOP 10/100MG TAB PO SCH (20:43)
[2018-12-11] MEDS: NADOLOL 40 MG TAB PO SCH (20:43)
[2018-12-11] MEDS: INSULIN GLARGINE SOLOSTAR 100 UNITS/ML 3 ML PEN SC SCH (20:45)
[2018-12-12] MEDS: BUMETANIDE 10 MG in DEXTROSE 5% 10 ML IV SCH (03:25)
[2018-12-12] MEDS: LEVOTHYROXINE SODIUM 88 MCG TABLET PO SCH (05:53)
[2018-12-12] MEDS ORDERED: CEFAZOLIN 2000MG 2,000 MG/15 ML SYR IV SCH (06:00)
[2018-12-12] MEDS ORDERED: SODIUM CHLORIDE 0.9% 1000ML 1,000 ML IV PRN (07:00)
[2018-12-12] MEDS ORDERED: EPOETIN ALFA 10,000 UNITS/ML VIAL IV SCH (07:00)
[2018-12-12 07:12] LABS: Hematocrit (blood only) 25.4 % (37-47); Hemoglobin 8.4 g/dL (12.0-16.0); Mean Corpuscular Hgb Conc 33.1 g/dL (32-36); Mean Corpuscular Volume 90.7 fL (80-100); RDW Coefficient of Variation 20.1 % (11.5-14.5); RDW Standard Deviation 66.6 fL (36.4-46.3); White Blood Count 3.41 K/uL (4.8-10.8)
[2018-12-12 07:29] LABS: Mean Platelet Volume 9.2 fL (7.4-10.4); Platelet Count 68 K/uL (130-400)
[2018-12-12] MEDS ORDERED: HEPARIN SOD (PORCINE) 5,000 UNITS/ML VIAL ONE (07:31)
[2018-12-12 07:40] LABS: Albumin Level 3.5 gm/dl (3.4-5.0); BUN Creatinine Ratio 35.9 (10-20); Calcium 9.6 mg/dl (8.5-10.1); Creatinine Clr Calc Pharmacy 16.1 ml/min; Est GFR (African American) 15.7; Est GFR (Non-African American) 13.6; Phosphorus 3.6 mg/dl (2.5-4.9); Potassium 3.7 mmol/L (3.5-5.1)
[2018-12-12 07:44] LABS: Anisocytosis Present; Basophils # (auto) 0.02 K/uL (0-0.2); Basophils % (auto) 0.6 %; Eosinophils # (auto) 0.15 K/uL (0-0.5); Eosinophils % (auto) 4.4 %; Immature Granulocytes # (auto) 0.01 K/uL (0.00-0.02); Immature Granulocytes % (auto) 0.3 %; Lymphocytes # (auto) 0.53 K/uL (1.2-3.4); Lymphocytes % (auto) 15.5 %; Monocytes # (auto) 0.55 K/uL (0.11-0.59); Monocytes % (auto) 16.1 %; Neutrophils # (auto) 2.15 K/uL (1.4-6.5); Neutrophils % (auto) 63.1 %; Ovalocytes 1+; Polychromasia 1+
--- NOTE | 2018-12-12 08:12 | Hospitalist Progress Note ---
Date of Service December 12, 2018 Assessment & Plan (1) Acute decompensated heart failure: Acute on chronic CHF. Cardiology on case. Echo showed mild LVH, normal LV size and systolic function, severely dilated RV with reduced systolic function, mild-moderate MR, severe TR, pulmonary hypertension. Acute on chronic right sided CHF, possible acute on chronic left ventricular diastolic failure, co-existent renal failure with fluid overload. Stop Bumex gtt, HD Tuesday 12/12, Sat and Saturday, HD Catheter placed (2) Atrial fibrillation: Chronic atrial fibrillation. Rate control with nadolol. Anticoagulation with Warfarin-Start today (3) KEMAR (acute kidney injury): CKD III with baseline creatinine around 2. Creatinine at time of admission was 3.62. Acute kidney injury, associated with CHF, cirrhosis, diuretic therapy. Nephrology on case, HD today (4) CKD (chronic kidney disease) stage 3, GFR 30-59 ml/min: As noted above. (5) Hypertension: Continue nadolol and diuretics. Follow and titrate Rx. (6) Sleep apnea: Continue CPAP. (7) Liver cirrhosis secondary to WOOSD: History of cirrhosis attributed to fatty liver disease with associated varices. Hepatitis Panel is negative for any acute Hepatitis LFT's essentially normal. INR 1.3. Ascites may be secondary to hepatic disease with portal hypertension and/or right-sided CHF. Follow. (8) Hyponatremia: Multifactorial Reordered PAB Follow. (9) Diabetes mellitus type 2 with complications: Well-controlled with Hgb A1C of 6.7. Usually takes insulin degludec + insulin aspartate. Patient states that she feels best with blood sugars around 120-140. Lantus / NovoLog per protocol during hospital stay. (10) Hypothyroidism: Continue levothyroxine. (11) Anemia: Follow (12) Thrombocytopenia: Probably secondary to underlying cirrhosis. (13) Palliative care encounter: Patient with worsening renal function and CHF. Tense Edema/TEDS Patient discussed hemodialysis c Nephrology. Palliative Care Team on case (14) Do not resuscitate status: DNR per advanced directives. (15) DVT prophylaxis: Ambulate. (16) Discharge planning issues: Patient hopes to be discharged to home (although she required a recent stay at [facility]). Nephrology mentioned [facility] ([facility]) can get HD at [facility]. Primary care follow-up with pt's preferred provider- patient would like to be established with a [facility] PCP at their [facility] office to coordinate care with Cardiology and Nephrology. Cardiology follow-up with [facility]. Nephrology follow-up with Dr. Wheeler. Amy Sutton sec to renal Fxn Start Warfarin after HD catheter placed Moitor daily labs ROS-No Headache, No Visual Changes, No Nausea, No Vomiting, No Fever, No Chills, No Neck Pain or Stiffness, No Chest Pain, No Palpitations, No SOB, No SINGH, No Cough, No Sputum, No Wheezing, No Abdominal Pain, No Diarrhea, No Hematemesis, No Hemoptysis, No Unexpected Weight Loss, No Flank pain, No Melena, No Hematochezia, No Frequency, No Urgency, No Burning, No Hematuria, No Rashes, No Diaphoresis. Appetite is Normal Physical Exam Gen-AAO x 3, NAD, Afebrile Head-NCAT, EOMI, PERRLA, Anicteric Sclera, No Posterior Pharyngeal Erythema Neck-Supple, No JVD, No Thyromegaly, No Masses, No LAD, No Bruits Lungs-Clear to Auscultation Bilaterally, No Rales, No Rhonchi, No Wheezing, No Crepitus Chest-No S4, +S1, +S2, No S3, No Murmurs, No Rubs, No Gallops, No Ectopy Abdomen-Soft, Bowel Sounds Present, Non Tender, Non Distended, No Hepatomegaly, No Splenomegaly, No Palpable Masses, No Rebound, No Rigidity, No Guarding Musculoskeletal-Full Range of Motion Bilaterally, No CVAT Extremities-No Cyanosis, No Clubbing, +Edema/Teds Nuero-Cranial Nerves II-XII grossly intact, Motor WNL, DTRs WNL, Strength WNL, Non Focal Psych-Normal Mood Results & Data Vital Signs (Past 12 Hours) Vital Signs Temp Pulse Pulse Resp BP Pulse Ox 12/12/18 07:31 36.5 C 82 20 136/80 94 12/12/18 03:27 36.5 C 80 18 116/60 97 12/12/18 00:28 83 12/11/18 23:32 36.5 C 71 18 117/61 97
--- NOTE | 2018-12-12 08:13 | History & Physical Bridge Note ---
Date of Service December 12, 2018 History & Physical Bridge Note I have examined the patient, reviewed the History & Physical and in the interval since the performance of the History & Physical I have noted the following changes of clinical significance: no changes noted
[2018-12-12] MEDS ORDERED: MIDAZOLAM HCL 1 MG/ML 2ML VIAL ONE (08:29)
[2018-12-12] MEDS ORDERED: fentaNYL citrate 100 MCG/2 ML VIAL ONE (08:29)
[2018-12-12] MEDS ORDERED: LIDOCAINE HCL 1% 20 ML VIAL INJ ONE (08:50)
[2018-12-12] MEDS ORDERED: OPTIRAY 300 IV PRN (08:50)
--- NOTE | 2018-12-12 08:54 | Procedure Note ---
Angiogram Post Procedure Fluoroscopy Time (minutes): 0.9 Conscious Sedation Time (minutes): 22 Radiation (mGy): 9 Contrast: 10 Post Operative Report Pre & Post Diagnosis Operation Date: 12/12/18 08:00 Pre-Op Diagnosis: End Stage Renal Disease Post-Op Diagnosis: End Stage Renal Disease Procedure Operation Date: 12/12/18 08:00 Actual Procedures p Insertion of Perm Catheter, Right Internal Jugular Approach, Ultrasound Localization of Right Internal Jugular Vein, Fluoroscopy for positioning, Moderate Sedation from 0836 - 0858 (Right) - Gold Jauregui MD Surgeon Gold Jauregui MD Easement Worker None Estimated Blood Loss 15 Findings Consistent with Post-Op Diagnosis Specimens None Anesthesia Type RN Sedation Complications none Disposition Accompanied Patient To Recovery: No Disposition: Recovery Room Indications This is an 83-year-old female with end-stage renal disease in need of dialysis. She has no access. PermCath was recommended. Risks Description of Procedure Patient was taken to the angio suite and placed in the supine position. The r ight side of the neck and chest wall were prepped and draped in a sterile manner. The patient was identified and a timeout was performed. Local anesthesia was then administered to the appropriate areas of the neck and chest wall. Ultrasound was then used to locate the right internal jugular vein. The vein compressed easily, had no filing defects, and was patent. The vein was then punctured under direct ultrasound imaging. A guidewire was then passed centrally under fluoroscopic imaging. A stab wound was then made in the anterior chest wall and a 19 cm permcath was passed from the stab wound on the chest wall to the puncture site on the neck. The puncture site was then dilated till the 14Fr peel away sheath was inserted. The permcath was then inserted through the sheath to a central position in the distal superior vena cava. The peel away sheath was then removed. The catheter was then sutured in place using nylon sutures. The puncture was then closed using a 4-0 Vicryl subcuticular suture. Dermabond was used for a dressing on the puncture site. Both ports aspirated and flushed easily and were then packed with heparin. A sterile dressing was applied to the catheter. The patient left the operation room in satisfactory condition and tolerated the procedure well. All needle and sponge counts were correct at the end of the procedure. I attest to the content of the Intraoperative Record and any orders documented therein. Any exceptions are noted below.
--- NOTE | 2018-12-12 09:14 | Pre Anesthesia Assessment ---
Date of Service December 12, 2018 Pre Sedation Assessment Vital Signs Temp Pulse Pulse Resp BP BP Pulse Ox 12/12/18 08:58 79 16 120/55 L 95 12/12/18 08:53 74 16 127/62 100 12/12/18 08:51 75 16 127/62 99 12/12/18 08:46 78 16 124/65 100 12/12/18 08:41 78 16 125/65 100 12/12/18 08:36 76 16 140/74 100 12/12/18 08:35 77 17 143/69 H 100 12/12/18 07:31 36.5 C 82 20 136/80 94 12/12/18 03:27 36.5 C 80 18 116/60 97 12/12/18 00:28 83 12/11/18 23:32 36.5 C 71 18 117/61 97 12/11/18 19:07 36.6 C 83 20 120/68 93 12/11/18 15:52 36.4 C L 82 18 113/56 L 94 12/11/18 12:00 36.3 C L 78 18 129/79 92 Cardiovascular RRR, no murmur, no edema Respiratory normal respiratory effort, lungs clear to auscultation Pre-Sedation Airway Assessment Smoking Status: Never smoker Hx Sleep Apnea: Yes Short, Thick Neck: No Thyromental Distance: > or= 3.5 Finger Breadths Oral Cavity: + WNL Mallampati Class: II ASA: ASA4 NPO Status Date of Last Intake of Fluids: 12/11/18 Time of Last Intake of Fluids: 23:30 Date of Last Intake of Solid Food: 12/11/18 Time of Last Intake of Solid Foods: 23:30 Procedure Planning Contraindications for Sedation: none Current Medications Reviewed: Yes Notes The planned sedation has been discussed with the patient. Informed Consent was obtained. I have identified the patient, determined the appropriateness of sedation and have assessed the patient immediately prior to the procedure. All medicine(s) and interventions are by my order.
--- NOTE | 2018-12-12 09:14 | Post Anesthesia Assessment ---
Date of Service December 12, 2018 Post Sedation Assessment Vital Signs Temp Pulse Pulse Resp BP BP Pulse Ox 12/12/18 08:58 79 16 120/55 L 95 12/12/18 08:53 74 16 127/62 100 12/12/18 08:51 75 16 127/62 99 12/12/18 08:46 78 16 124/65 100 12/12/18 08:41 78 16 125/65 100 12/12/18 08:36 76 16 140/74 100 12/12/18 08:35 77 17 143/69 H 100 12/12/18 07:31 36.5 C 82 20 136/80 94 12/12/18 03:27 36.5 C 80 18 116/60 97 12/12/18 00:28 83 12/11/18 23:32 36.5 C 71 18 117/61 97 12/11/18 19:07 36.6 C 83 20 120/68 93 12/11/18 15:52 36.4 C L 82 18 113/56 L 94 12/11/18 12:00 36.3 C L 78 18 129/79 92 Recovery Score Activity: Moves 4 extremities Respiration: Deep Breath/Cough Circulation: +/-20% PreAnes Value Consciousness: Fully Awake Oxygen Saturation: O2 needed for >90% Post Anesthesia Score: 9 Discharge Sedation Level of Care: Fast Track Phase II Post Sedation Plan On clinical assessment, the patient appears to have tolerated the sedation without complications. Patient is recovering as anticipated. Patient will continue to be monitored by nursing and may be discharged when sedation discharge criteria are met per below protocol. Upon Completions of procedure and additional 15 minutes continue every 5 minute vital signs and the P.A.R. score; then discharge to a Phase I or Fast Track to Phase II per the following guidelines: * Discharge Patient to appropriate Phase II area if PAR is 8 or greater or return to pre- procedure baseline. The post - procedure orders will be as directed. * If PAR score is less than 8 or not return to pre-procedure baseline then patient will follow Phase I monitoring till PAR is reached for Phase II. The Phase I may be done in procedure room or may call to secure a Phase I area. * If naloxone or flumazenil are used for reversal, hold in Phase I for continued monitoring from when last reversal dose was given for a minimum of 60 minutes or longer pending the nurse and/or physician discretion of patient condition before discharge to Phase II. Please call the Sedation Physician to re-evaluate and complete post-note for discharge to Phase II area. Do NOT discharge from procedure sedation or Phase 1 until post- sedation evaluation note is complete by procedure /sedation MD Sedation Discharge Instructions to be given to the patient at discharge to home.
--- NOTE | 2018-12-12 09:39 | Nephrology Progress Note ---
Date of Service December 12, 2018 Assessment & Plan (1) Acute decompensated heart failure: -- Net 290 cc UO yesterday with Bumex gtt. However patient still has significant ascites and tense LE edema. She is developing progressive azotemia and metabolic alkalosis in response to diuretic therapy. -- R IJ THC inserted this morning. Will schedule 1st run HD today (heparin free). Orders placed in EMR and HD RN notified -- Stop Bumex and Spironolactone -- Discussed goals of care w/ patient and primary service this morning. Ms. Oliveira wishes to proceed w/ trial of dialysis. She understands that if she does not tolerate HD then transition to hospice care will be necessary. Plan of care has been discussed w/ her daughter (Leonela Lora [phone]) -- Discharge Planning is working to set up outpatient IHD. 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 Oliveira was seen & examined in her hospital room this morning. She underwent R IJ THC insertion without complication. She denies fever, angina or dyspnea but does reports persistent abdominal swelling and tense LE edema. Review of Systems Constitutional: + weakness; no fever Respiratory: no cough and no dyspnea Cardiovascular: + edema; no chest pain and no palpitations Gastrointestinal: no abdominal pain, no vomiting and no diarrhea/loose stools Genitourinary: no hematuria Physical Exam Constitutional: not in distress Eyes: PERRL, conjunctivae normal, anicteric sclerae Neck: trachea midline, no thyromegaly R IJ THC w/ clean dry dressing in place Respiratory: normal respiratory effort, lungs clear to auscultation normal respiratory effort and able to speak in complete sentences; no respiratory distress Auscultation: + crackles (L base) Cardiovascular: Rate/Rhythm: + irregularly irregular Extremities: + edema (tense LE edema bilaterally) Gastrointestinal (Abdomen): Inspection/Auscultation: + abdomen distended Percussion/Palpation: abdomen nontender and no guarding Neurologic: awake; not confused Results & Data Vital Signs (Past 12 Hours) Vital Signs Temp Pulse Pulse Resp BP BP Pulse Ox 12/12/18 08:58 79 16 120/55 L 95 12/12/18 08:53 74 16 127/62 100 12/12/18 08:51 75 16 127/62 99 12/12/18 08:46 78 16 124/65 100 12/12/18 08:41 78 16 125/65 100 12/12/18 08:36 76 16 140/74 100 12/12/18 08:35 77 17 143/69 H 100 12/12/18 07:31 36.5 C 82 20 136/80 94 12/12/18 03:27 36.5 C 80 18 116/60 97 12/12/18 00:28 83 12/11/18 23:32 36.5 C 71 18 117/61 97 Laboratory Results Laboratory Tests 12/12/18 12/12/18 06:37 06:37 WBC 3.41 L Hgb 8.4 L Hct 25.4 L Plt Count 68 L Sodium 138 Potassium 3.7 Chloride 95 L Carbon Dioxide 35 H BUN 110 H Creatinine 3.06 H Glucose 157 H
[2018-12-12] MEDS: INSULIN ASPART 100 UNITS/ML 3 ML PEN SC SCH ×4 (09:44→20:22)
[2018-12-12] MEDS: MECLIZINE 12.5 MG TAB PO SCH ×2 (09:45→20:24)
[2018-12-12] MEDS: FERROUS SULFATE 325 MG TAB PO SCH ×2 (09:45→15:40)
[2018-12-12] MEDS: IRON SUCROSE 200 MG in 0.9 % SODIUM CHLORIDE 100 ML IV SCH (13:15)
[2018-12-12] MEDS ORDERED: COUGH DROP (SUGAR FREE) LOZ 24 LOZ/1 BOX BUCCAL STA (13:21)
[2018-12-12] MEDS ORDERED: COUGH DROP (SUGAR FREE) LOZ 24 LOZ/1 BOX BUCCAL ONE (13:23)
[2018-12-12] MEDS: WARFARIN SOD 5 MG TAB PO SCH (15:39)
[2018-12-12] MEDS: NADOLOL 40 MG TAB PO SCH (20:24)
[2018-12-12] MEDS: INSULIN GLARGINE SOLOSTAR 100 UNITS/ML 3 ML PEN SC SCH (20:26)
[2018-12-12] MEDS: CARBIDOPA/LEVODOP 10/100MG TAB PO SCH (20:27)
[2018-12-13] MEDS: LEVOTHYROXINE SODIUM 88 MCG TABLET PO SCH (05:49)
[2018-12-13 06:39] LABS: Mean Corpuscular Volume 92.3 fL (80-100); RDW Coefficient of Variation 20.8 % (11.5-14.5); RDW Standard Deviation 69.3 fL (36.4-46.3); Red Blood Count 2.71 M/uL (4.2-5.4); White Blood Count 4.69 K/uL (4.8-10.8)
[2018-12-13 06:50] LABS: INR 1.3 (0.9-1.1); Mean Platelet Volume 9.6 fL (7.4-10.4); Platelet Count 64 K/uL (130-400); Prothrombin Time 13.4 Seconds (9.0-12.0)
[2018-12-13] MEDS ORDERED: EPOETIN ALFA 10,000 UNITS/ML VIAL IV ONE (07:00)
[2018-12-13] MEDS ORDERED: SODIUM CHLORIDE 0.9% 1000ML 1,000 ML IV PRN (07:00)
[2018-12-13 07:14] LABS: Albumin Level 3.4 gm/dl (3.4-5.0); BUN Creatinine Ratio 28.7 (10-20); Calcium 8.9 mg/dl (8.5-10.1); Creatinine Clr Calc Pharmacy 16.6 ml/min; Est GFR (African American) 16.2; Est GFR (Non-African American) 13.9; Potassium 3.9 mmol/L (3.5-5.1)
[2018-12-13 07:15] LABS: Phosphorus 3.6 mg/dl (2.5-4.9)
[2018-12-13] MEDS: MECLIZINE 12.5 MG TAB PO SCH ×2 (07:46→20:58)
[2018-12-13] MEDS: FERROUS SULFATE 325 MG TAB PO SCH ×2 (07:46→16:41)
[2018-12-13] MEDS: NEPHROCAPS PO SCH (07:46)
[2018-12-13] MEDS: INSULIN ASPART 100 UNITS/ML 3 ML PEN SC SCH ×4 (07:50→20:56)
--- NOTE | 2018-12-13 08:14 | Hospitalist Progress Note ---
Date of Service December 13, 2018 Assessment & Plan (1) Acute decompensated heart failure: Acute on chronic CHF. Cardiology on case. Echo showed mild LVH, normal LV size and systolic function, severely dilated RV with reduced systolic function, mild-moderate MR, severe TR, pulmonary hypertension. Acute on chronic right sided CHF, possible acute on chronic left ventricular diastolic failure, co-existent renal failure with fluid overload. Off Bumex gtt, HD Tuesday 12/12, Sat and Saturday, HD Catheter placed Tolerated HD on Tuesday 12/12 (2) Atrial fibrillation: Chronic atrial fibrillation. Rate control with nadolol. Anticoagulation with Warfarin as per INR-Started 12/12 (3) KEMAR (acute kidney injury): CKD III with baseline creatinine around 2. Creatinine at time of admission was 3.62. Acute kidney injury, associated with CHF, cirrhosis, diuretic therapy. Nephrology on case, HD today (4) CKD (chronic kidney disease) stage 3, GFR 30-59 ml/min: As noted above. (5) Hypertension: Continue nadolol and diuretics. Follow and titrate Rx. (6) Sleep apnea: Continue CPAP. 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 Hepatitis Panel is negative for any acute Hepatitis LFT's essentially normal. Ascites may be secondary to hepatic disease with portal hypertension and/or right-sided CHF. Follow. (8) Hyponatremia: Multifactorial PAB 16.4 Follow. (9) Diabetes mellitus type 2 with complications: Well-controlled with Hgb A1C of 6.7. Usually takes insulin degludec + insulin aspartate. Patient states that she feels best with blood sugars around 120-140. Lantus / NovoLog per protocol during hospital stay. (10) Hypothyroidism: Continue levothyroxine. (11) Anemia: Follow (12) Thrombocytopenia: Probably secondary to underlying cirrhosis. (13) Palliative care encounter: Patient with worsening renal function and CHF. Tense Edema/TEDS Patient discussed hemodialysis c Nephrology. Palliative Care Team on case (14) Do not resuscitate status: DNR per advanced directives. (15) Protein-calorie malnutrition, moderate: Push Diet (16) DVT prophylaxis: Ambulate. (17) Discharge planning issues: Nephrology mentioned [facility] ([facility] can get HD at [facility]. Primary care follow-up with pt's preferred provider- patient would like to be established with a [facility] PCP at their [facility] office to coordinate care with Cardiology and Nephrology. Cardiology follow-up with [facility]. Nephrology follow-up with Dr. Wheeler. Stopped Eliquis sec to renal Fxn Warfarin Moitor daily labs ROS-No Headache, No Visual Changes, No Nausea, No Vomiting, No Fever, No Chills, No Neck Pain or Stiffness, No Chest Pain, No Palpitations, No SOB, No SINGH, No Cough, No Sputum, No Wheezing, No Abdominal Pain, No Diarrhea, No Hematemesis, No Hemoptysis, No Unexpected Weight Loss, No Flank pain, No Melena, No Hematochezia, No Frequency, No Urgency, No Burning, No Hematuria, No Rashes, No Diaphoresis. Appetite is Normal Physical Exam Gen-AAO x 3, NAD, Afebrile Head-NCAT, EOMI, PERRLA, Anicteric Sclera, No Posterior Pharyngeal Erythema Neck-Supple, No JVD, No Thyromegaly, No Masses, No LAD, No Bruits Lungs-Clear to Auscultation Bilaterally, No Rales, No Rhonchi, No Wheezing, No Crepitus Chest-No S4, +S1, +S2, No S3, No Murmurs, No Rubs, No Gallops, No Ectopy Abdomen-Soft, Bowel Sounds Present, Non Tender, Non Distended, No Hepatomegaly, No Splenomegaly, No Palpable Masses, No Rebound, No Rigidity, No Guarding Musculoskeletal-Full Range of Motion Bilaterally, No CVAT Extremities-No Cyanosis, No Clubbing, +Edema/Teds Nuero-Cranial Nerves II-XII grossly intact, Motor WNL, DTRs WNL, Strength WNL, Non Focal Psych-Normal Mood Results & Data Vital Signs (Past 12 Hours) Vital Signs Temp Pulse Pulse Resp BP BP Pulse Ox 12/13/18 07:37 36.4 C L 70 19 102/65 98 12/13/18 04:38 36.7 C 77 18 116/54 L 97 12/12/18 23:33 36.8 C 77 20 101/58 L 97
[2018-12-13 10:24] LABS: Patient Weight 90.9 kg
[2018-12-13 10:47] LABS: Urine Creatinine 80.1 mg/dl
--- NOTE | 2018-12-13 10:56 | Nephrology Progress Note ---
Date of Service December 13, 2018 Assessment & Plan (1) Acute decompensated heart failure: -- R IJ THC placed 12/12/18 -- 1st run HD yesterday w/ 1800 cc UF -- Will provide 2nd HD treatment today. Attempt 2 L UF -- Discharge Planning is working to set up outpatient IHD. 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 Oliveira was seen & examined in her hospital room this morning. She underwent R IJ THC insertion and 1st run HD. HD was complicated by relative hypotension w/ SBP ~98 mmHG. 1800 cc UF obtained. Ms. Oliveira voices no medical concerns at this time. She reports that her abdominal ascites and LE swelling is mildly improved. Review of Systems Constitutional: no fever Respiratory: no cough and no dyspnea Cardiovascular: no chest pain and no palpitations Gastrointestinal: no abdominal pain, no vomiting and no diarrhea/loose stools Physical Exam Constitutional: not in distress Eyes: PERRL, conjunctivae normal, anicteric sclerae Neck: trachea midline, no thyromegaly Respiratory: normal respiratory effort, lungs clear to auscultation normal respiratory effort and able to speak in complete sentences; no respiratory distress Auscultation: + crackles (L base) Cardiovascular: Rate/Rhythm: + irregularly irregular Extremities: + edema (2+ LE edema bilaterally) Gastrointestinal (Abdomen): Inspection/Auscultation: + abdomen distended Percussion/Palpation: abdomen nontender and no guarding Neurologic: awake; not confused Results & Data Vital Signs (Past 12 Hours) Vital Signs Temp Pulse Pulse Pulse Pulse Resp BP 12/13/18 10:00 75 117/41 L 12/13/18 09:40 76 113/54 L 12/13/18 09:32 36.6 C 74 12/13/18 09:00 71 12/13/18 07:37 36.4 C L 70 19 12/13/18 04:38 36.7 C 77 18 12/12/18 23:33 36.8 C 77 20 BP BP Pulse Ox 12/13/18 10:00 12/13/18 09:40 12/13/18 09:32 12/13/18 09:00 12/13/18 07:37 102/65 98 12/13/18 04:38 116/54 L 97 12/12/18 23:33 101/58 L 97 Laboratory Results Laboratory Tests 12/13/18 12/13/18 06:21 06:21 WBC 4.69 L Hgb 8.0 L Hct 25.0 L Plt Count 64 L Sodium 136 Potassium 3.9 Chloride 100 Carbon Dioxide 30 Anion Gap 6.0 BUN 86 H Creatinine 2.99 H Glucose 142 H
[2018-12-13 11:36] LABS: Creatinine Clearance Urine 15.7 ml/min (88-128)
[2018-12-13 16:35] LABS: Cdiff Antigen Positive
[2018-12-13 16:36] LABS: Cdiff Toxin A+B Positive Cdiff Toxin (Negative)
[2018-12-13] MEDS: WARFARIN SOD 5 MG TAB PO SCH (16:40)
[2018-12-13] MEDS: VANCOMYCIN HCL 125 MG/2.5ML SOLN PO SCH ×2 (17:22→23:58)
[2018-12-13] MEDS: RASPBERRY SYRUP 5 ML UDP PO SCH ×2 (17:22→23:58)
[2018-12-13] MEDS: INSULIN GLARGINE SOLOSTAR 100 UNITS/ML 3 ML PEN SC SCH (20:57)
[2018-12-13] MEDS: CARBIDOPA/LEVODOP 10/100MG TAB PO SCH (20:58)
[2018-12-13] MEDS: NADOLOL 40 MG TAB PO SCH (20:59)
[2018-12-14 05:58] LABS: Hematocrit (blood only) 24.8 % (37-47); Hemoglobin 7.9 g/dL (12.0-16.0); Mean Corpuscular Hgb Conc 31.9 g/dL (32-36); Mean Corpuscular Volume 93.6 fL (80-100); RDW Coefficient of Variation 21.5 % (11.5-14.5); RDW Standard Deviation 72.2 fL (36.4-46.3); Red Blood Count 2.65 M/uL (4.2-5.4); White Blood Count 6.91 K/uL (4.8-10.8)
[2018-12-14] MEDS: RASPBERRY SYRUP 5 ML UDP PO SCH ×4 (06:09→23:15)
[2018-12-14] MEDS: LEVOTHYROXINE SODIUM 88 MCG TABLET PO SCH (06:09)
[2018-12-14] MEDS: VANCOMYCIN HCL 125 MG/2.5ML SOLN PO SCH ×4 (06:10→23:15)
[2018-12-14 06:24] LABS: INR 1.5 (0.9-1.1); Prothrombin Time 15.1 Seconds (9.0-12.0)
[2018-12-14 06:25] LABS: Mean Platelet Volume 9.5 fL (7.4-10.4); Platelet Count 62 K/uL (130-400)
[2018-12-14 06:26] LABS: Albumin Level 3.5 gm/dl (3.4-5.0); BUN Creatinine Ratio 18.2 (10-20); Calcium 8.8 mg/dl (8.5-10.1); Creatinine Clr Calc Pharmacy 14.1 ml/min; Est GFR (African American) 13.6; Est GFR (Non-African American) 11.7; Potassium 4.3 mmol/L (3.5-5.1)
[2018-12-14 06:27] LABS: Phosphorus 3.2 mg/dl (2.5-4.9)
[2018-12-14] MEDS: FERROUS SULFATE 325 MG TAB PO SCH ×2 (07:54→17:00)
[2018-12-14] MEDS: MECLIZINE 12.5 MG TAB PO SCH ×2 (07:54→20:49)
[2018-12-14] MEDS: NEPHROCAPS PO SCH (07:55)
[2018-12-14] MEDS: INSULIN ASPART 100 UNITS/ML 3 ML PEN SC SCH ×4 (08:57→20:47)
--- NOTE | 2018-12-14 10:32 | Hospitalist Progress Note ---
Date of Service December 14, 2018 Assessment & Plan (1) Acute decompensated heart failure: Acute on chronic CHF. Cardiology on case. Echo showed mild LVH, normal LV size and systolic function, severely dilated RV with reduced systolic function, mild-moderate MR, severe TR, pulmonary hypertension. Acute on chronic right sided CHF, possible acute on chronic left ventricular diastolic failure, co-existent renal failure with fluid overload. Off Bumex gtt, HD Tuesday 12/12, Sat, HD Catheter placed Next HD Friday 12/15 (2) Atrial fibrillation: Chronic atrial fibrillation. Rate control with nadolol. Anticoagulation with Warfarin as per INR-Started 12/12 Warfarin decreased to 3 mg daily (3) KEMAR (acute kidney injury): CKD III with baseline creatinine around 2. Creatinine at time of admission was 3.62. Acute kidney injury, associated with CHF, cirrhosis, diuretic therapy. Nephrology on case, HD tmorrow (4) CKD (chronic kidney disease) stage 3, GFR 30-59 ml/min: As noted above. (5) Hypertension: Continue nadolol and diuretics. Follow and titrate Rx. (6) Sleep apnea: Continue CPAP. 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 Hepatitis Panel is negative for any acute Hepatitis LFT's essentially normal. Ascites may be secondary to hepatic disease with portal hypertension and/or right-sided CHF. Follow. (8) Hyponatremia: Multifactorial PAB 16.4 Follow. (9) Diabetes mellitus type 2 with complications: Well-controlled with Hgb A1C of 6.7. Usually takes insulin degludec + insulin aspartate. Patient states that she feels best with blood sugars around 120-140. Lantus / NovoLog per protocol during hospital stay. (10) Hypothyroidism: Continue levothyroxine. (11) Anemia: Follow (12) Thrombocytopenia: Probably secondary to underlying cirrhosis. (13) Palliative care encounter: Patient with worsening renal function and CHF. Tense Edema/TEDS Patient discussed hemodialysis c Nephrology. Palliative Care Team on case (14) Do not resuscitate status: DNR per advanced directives. (15) Protein-calorie malnutrition, moderate: Push Diet (16) Clostridioides difficile infection: PO Vanco 125 mg q6h (17) DVT prophylaxis: Ambulate. (18) Discharge planning issues: Nephrology mentioned [facility] ([facility] can get HD at [facility]. Primary care follow-up with pt's preferred provider- patient would like to be established with a [facility] [place] [place] PCP at their [facility] Office to coordinate care with Cardiology and Nephrology. Cardiology follow-up with [facility]. Nephrology follow-up with Dr. Wheeler. Stopped Eliquis sec to renal Fxn Warfarin Monitor daily labs ROS-No Headache, No Visual Changes, No Nausea, No Vomiting, No Fever, No Chills, No Neck Pain or Stiffness, No Chest Pain, No Palpitations, No SOB, No SINGH, No Cough, No Sputum, No Wheezing, +Abdominal Pain, + Diarrhea, No Hematemesis, No Hemoptysis, No Unexpected Weight Loss, No Flank pain, No Melena, No Hematochezia, No Frequency, No Urgency, No Burning, No Hematuria, No Rashes, No Diaphoresis. Appetite is Normal Physical Exam Gen-AAO x 3, NAD, Afebrile Head-NCAT, EOMI, PERRLA, Anicteric Sclera, No Posterior Pharyngeal Erythema Neck-Supple, No JVD, No Thyromegaly, No Masses, No LAD, No Bruits Lungs-Clear to Auscultation Bilaterally, No Rales, No Rhonchi, No Wheezing, No Crepitus Chest-No S4, +S1, +S2, No S3, No Murmurs, No Rubs, No Gallops, No Ectopy Abdomen-Soft, Bowel Sounds Present, Tender, Non Distended, No Hepatomegaly, No Splenomegaly, No Palpable Masses, No Rebound, No Rigidity, No Guarding Musculoskeletal-Full Range of Motion Bilaterally, No CVAT Extremities-No Cyanosis, No Clubbing, +Edema/Teds Nuero-Cranial Nerves II-XII grossly intact, Motor WNL, DTRs WNL, Strength WNL, Non Focal Psych-Normal Mood Results & Data Vital Signs (Past 12 Hours) Vital Signs Temp Pulse Pulse Pulse Resp BP Pulse Ox 12/14/18 07:16 36.4 C L 74 79 20 92/52 L 96 12/14/18 04:08 36.5 C 75 18 94/56 L 95 12/14/18 01:21 82
--- NOTE | 2018-12-14 10:32 | Nephrology Progress Note ---
Date of Service December 14, 2018 Assessment & Plan (1) Acute decompensated heart failure: -- R IJ THC placed 12/12/18 -- HD 12/12 & 12/13. No acute indication for HD today. Will schedule next HD for Saturday morning -- Discharge Planning is working to set up outpatient IHD. 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 Oliveira was seen & examined in her hospital room this morning. She underwent her second dialysis treatment yesterday for 3 L UF. There were no complications. Ms. Oliveira reports that her abdominal ascites and LE swelling is mildly improved. Her primary concern is that she has diarrhea and tested positive for Clostridium Difficile. Review of Systems Constitutional: no fever Respiratory: no dyspnea Cardiovascular: no chest pain and no palpitations Gastrointestinal: + diarrhea/loose stools; no abdominal pain and no vomiting Genitourinary: no dysuria and no hematuria Physical Exam Constitutional: not in distress Eyes: PERRL, conjunctivae normal, anicteric sclerae Neck: trachea midline, no thyromegaly Respiratory: normal respiratory effort, lungs clear to auscultation normal respiratory effort Cardiovascular: Rate/Rhythm: + irregularly irregular Extremities: + edema (2+ LE edema bilaterally) Gastrointestinal (Abdomen): Inspection/Auscultation: + abdomen distended Percussion/Palpation: abdomen nontender and no guarding Neurologic: awake; not confused Results & Data Vital Signs (Past 12 Hours) Vital Signs Temp Pulse Pulse Pulse Resp BP Pulse Ox 12/14/18 07:16 36.4 C L 74 79 20 92/52 L 96 12/14/18 04:08 36.5 C 75 18 94/56 L 95 12/14/18 01:21 82 Laboratory Results Laboratory Tests 12/14/18 12/14/18 05:39 05:39 WBC 6.91 Hgb 7.9 L Hct 24.8 L Plt Count 62 L Sodium 133 L Potassium 4.3 Chloride 99 Carbon Dioxide 28 BUN 63 H Creatinine 3.45 H D Glucose 167 H
[2018-12-14] MEDS: WARFARIN SOD 3 MG TAB PO SCH (16:59)
[2018-12-14] MEDS ORDERED: PHARMACY GLYCEMIC MGMT CONSULT PRN (17:24)
[2018-12-14] MEDS: NADOLOL 40 MG TAB PO SCH (20:50)
[2018-12-14] MEDS: CARBIDOPA/LEVODOP 10/100MG TAB PO SCH (20:51)
[2018-12-14] MEDS ORDERED: INSULIN GLARGINE SOLOSTAR 100 UNITS/ML 3 ML PEN SC SCH ×2 (21:00)
[2018-12-15] MEDS: INSULIN ASPART 100 UNITS/ML 3 ML PEN SC SCH ×6 (04:01→21:59)
[2018-12-15] MEDS: VANCOMYCIN HCL 125 MG/2.5ML SOLN PO SCH ×3 (06:07→17:39)
[2018-12-15] MEDS: RASPBERRY SYRUP 5 ML UDP PO SCH ×3 (06:07→17:39)
[2018-12-15] MEDS: LEVOTHYROXINE SODIUM 88 MCG TABLET PO SCH (06:09)
[2018-12-15 06:40] LABS: Hematocrit (blood only) 25.9 % (37-47); Hemoglobin 8.4 g/dL (12.0-16.0); Mean Corpuscular Hgb Conc 32.4 g/dL (32-36); Mean Corpuscular Volume 93.5 fL (80-100); RDW Coefficient of Variation 21.2 % (11.5-14.5); RDW Standard Deviation 71.9 fL (36.4-46.3); Red Blood Count 2.77 M/uL (4.2-5.4); White Blood Count 6.08 K/uL (4.8-10.8)
[2018-12-15 06:41] LABS: Mean Platelet Volume 10.5 fL (7.4-10.4); Platelet Count 57 K/uL (130-400)
[2018-12-15 06:48] LABS: INR 2.2 (0.9-1.1); Prothrombin Time 20.9 Seconds (9.0-12.0)
[2018-12-15] MEDS ORDERED: SODIUM CHLORIDE 0.9% 1000ML 1,000 ML IV PRN (07:00)
[2018-12-15] MEDS ORDERED: EPOETIN ALFA 10,000 UNITS/ML VIAL IV ONE (07:00)
[2018-12-15 07:09] LABS: Albumin Level 3.5 gm/dl (3.4-5.0); BUN Creatinine Ratio 20.8 (10-20); Calcium 8.9 mg/dl (8.5-10.1); Creatinine Clr Calc Pharmacy 12.9 ml/min; Est GFR (African American) 12.1; Est GFR (Non-African American) 10.4; Potassium 3.9 mmol/L (3.5-5.1)
[2018-12-15 07:17] LABS: Phosphorus 3.9 mg/dl (2.5-4.9)
[2018-12-15] MEDS: MECLIZINE 12.5 MG TAB PO SCH ×2 (07:52→21:59)
[2018-12-15] MEDS: FERROUS SULFATE 325 MG TAB PO SCH ×2 (07:53→17:41)
--- NOTE | 2018-12-15 08:24 | Pharmacy Report ---
Glycemic Control Consultation - Date of Service December 15, 2018 - Scope Scope: Glycemic Pharmacist consulted by Dr Garrido on 12/14 PM for glycemic control and to write orders per [facility] inpatient glycemic control protocol - Objective Weight: 90.7 kg Accuchecks BSG (last 24hrs): 12/14/18 12/14/18 12/14/18 11:32 15:40 15:41 Glucose POC Glucose 291 H 309 H* 293 H 12/14/18 12/14/18 12/14/18 16:40 16:41 20:06 Glucose POC Glucose 303 H* 291 H 319 H* 12/14/18 12/14/18 12/15/18 20:08 23:58 03:52 Glucose POC Glucose 320 H* 209 H 154 H 12/15/18 12/15/18 06:11 07:29 Glucose 134 H POC Glucose 157 H Laboratory Data (last 24hrs): 12/15/18 06:11 Potassium 3.9 Carbon Dioxide 26 Anion Gap 10.0 Creatinine 3.81 H D Est Cr Clr Drug Dosing 12.9 HbA1c: Hemoglobin A1c 6.7 % (4.5-5.6) H 12/06/18 06:04 - Recent Pertinent Medications Outpatient Anti-diabetic Regimen: * Tresiba 20 units qHS * Novolog 5 units w/ meals * A1c = 6.7 % 12/06/18 The patient is currently receiving: * Basal insulin: Lantus 20 units every 24 hours - increased to 35 units on 12/14 PM * Correctional Insulin: Novolog Correction per scale ACHS Goal Range: Low 120 mg/dL - High 160 mg/dL Correction Factor: 20 mg/dL/unit * Prandial insulin: Per carb ratio of 1 unit per 7 grams CHO consumed Risk Factors for Insulin Resistance: * Infection: C diff - on po vanc * Diet: type 2 diabetes - Assessment & Plan Assessment & Plan: ASSESSMENT: * 83 y/o female admitted 12/05 for acute heart failure and KEMAR. Pharmacy received glycemic consult last night for BSGs in the 300s. Patient has a history of type 2 diabetes, managed with Tresiba and Novolog as an outpatient. In the past, she was on significantly higher doses of basal insulin, upwards of 140-160 units per day. CDE met with patient earlier this admission and confirmed current outpatient doses. I also met with patient today but she told me her Tresiba dose was 30 units? Patient reports difficulty controlling BSGs at home, does not like to have BSGs < 110 mg/dL because she feels hypoglycemic at that point. * Insulin needs have now changed with the initiation of HD on 12/12. Her BSGs were fairly well controlled on 12/12 and 12/13 but were in the 300s for the majority of the day yesterday. She is scheduled to receive dialysis today so I'm anticipating BSGs to be lower. In addition, she has a larger basal dose on board. Will loosen CF slightly and provide a scale for tonight's Lantus dose should BSGs remain controlled and/or lower. PLAN FOR INPATIENT GLYCEMIC CONTROL: * Basal insulin * Lantus qHS per the following scale: * 25 units for BSG < 120 * 30 units for BSG 120 - 160 * 35 units for BSG > 160 * Bolus insulin - loosen CF with more basal on board * NovoLog per scale ACHS or Q6hrs while NPO * Goal Range: Low 120 mg/dL - High 160 mg/dL * Correction Factor: 25 mg/dL/unit * Nutritional / Prandial insulin per carb ratio of 1 unit per 7 grams CHO consumed Discharge Plan * To be determined once more accurate dosing is determined in the midst of dialysis initiation Thank you.
[2018-12-15] MEDS: NEPHROCAPS PO SCH (08:33)
--- NOTE | 2018-12-15 08:46 | Hospitalist Progress Note ---
Date of Service December 15, 2018 Assessment & Plan (1) Acute decompensated heart failure: Acute on chronic CHF. Cardiology on case. Echo showed mild LVH, normal LV size and systolic function, severely dilated RV with reduced systolic function, mild-moderate MR, severe TR, pulmonary hypertension. Acute on chronic right sided CHF, possible acute on chronic left ventricular diastolic failure, co-existent renal failure with fluid overload. Off Bumex gtt, HD Tuesday 12/12, Sat, HD Catheter placed Next HD today 12/15 (2) Atrial fibrillation: Chronic atrial fibrillation. Rate control with nadolol. Anticoagulation with Warfarin as per INR-Started 12/12 Warfarin decreased to 3 mg daily-INR therapeutic today at 2.2 (3) KEMAR (acute kidney injury): CKD III with baseline creatinine around 2. Creatinine at time of admission was 3.62. Acute kidney injury, associated with CHF, cirrhosis, diuretic therapy. Nephrology on case, HD today (4) CKD (chronic kidney disease) stage 3, GFR 30-59 ml/min: As noted above. (5) Hypertension: Continue nadolol and diuretics. Follow and titrate Rx. (6) Sleep apnea: Continue CPAP. 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 Hepatitis Panel is negative for any acute Hepatitis LFT's essentially normal. Ascites may be secondary to hepatic disease with portal hypertension and/or right-sided CHF. Follow. (8) Hyponatremia: Multifactorial PAB 16.4 Follow. (9) Diabetes mellitus type 2 with complications: Well-controlled with Hgb A1C of 6.7. Usually takes insulin degludec + insulin aspartate. Patient states that she feels best with blood sugars around 120-140. Lantus / NovoLog per protocol during hospital stay. (10) Hypothyroidism: Continue levothyroxine. (11) Anemia: Follow (12) Thrombocytopenia: Probably secondary to underlying cirrhosis. (13) Palliative care encounter: Patient with worsening renal function and CHF. Tense Edema/TEDS Patient discussed hemodialysis c Nephrology. Palliative Care Team on case (14) Do not resuscitate status: DNR per advanced directives. (15) Protein-calorie malnutrition, moderate: Push Diet (16) Clostridioides difficile infection: PO Vanco 125 mg q6h, still c Frequent Diarrhea (17) DVT prophylaxis: Ambulate. (18) Discharge planning issues: Nephrology mentioned [facility] ([facility]) can get HD at [facility]. Primary care follow-up with pt's preferred provider- patient would like to be established with a [facility] PCP at their [facility] Office to coordinate care with Cardiology and Nephrology. Cardiology follow-up with [facility]. Nephrology follow-up with Dr. Wheeler. Stopped Eliquis sec to renal Fxn Warfarin as per INR Monitor daily labs ROS-No Headache, No Visual Changes, No Nausea, No Vomiting, No Fever, No Chills, No Neck Pain or Stiffness, No Chest Pain, No Palpitations, No SOB, No SINGH, No Cough, No Sputum, No Wheezing, +Abdominal Pain, + Diarrhea, No Hematemesis, No Hemoptysis, No Unexpected Weight Loss, No Flank pain, No Melena, No Hematochezia, No Frequency, No Urgency, No Burning, No Hematuria, No Rashes, No Diaphoresis. Appetite is Normal Physical Exam Gen-AAO x 3, NAD, Afebrile Head-NCAT, EOMI, PERRLA, Anicteric Sclera, No Posterior Pharyngeal Erythema Neck-Supple, No JVD, No Thyromegaly, No Masses, No LAD, No Bruits Lungs-Clear to Auscultation Bilaterally, No Rales, No Rhonchi, No Wheezing, No Crepitus Chest-No S4, +S1, +S2, No S3, No Murmurs, No Rubs, No Gallops, No Ectopy Abdomen-Soft, Bowel Sounds Present, Tender, Non Distended, No Hepatomegaly, No Splenomegaly, No Palpable Masses, No Rebound, No Rigidity, No Guarding Musculoskeletal-Full Range of Motion Bilaterally, No CVAT Extremities-No Cyanosis, No Clubbing, +Edema/Teds Nuero-Cranial Nerves II-XII grossly intact, Motor WNL, DTRs WNL, Strength WNL, Non Focal Psych-Normal Mood Results & Data Vital Signs (Past 12 Hours) Vital Signs Temp Pulse Pulse Pulse Resp BP Pulse Ox 12/15/18 07:16 36.5 C 71 18 105/69 99 12/15/18 04:09 36.7 C 72 18 95/58 L 99 12/15/18 03:11 78 12/15/18 00:00 36.5 C 83 18 92/52 L 97
--- NOTE | 2018-12-15 09:06 | Cardiology Progress Note ---
Date of Service December 15, 2018 Assessment & Plan (1) Atrial fibrillation: She appears to have adequate rate control of her atrial fibrillation. Her anticoagulation was switched to warfarin. Warfarin or apixaban would seem appropriate and her demographic. She did have significant anemia, likely related to a combination of factors including poor production. She will need to be monitored for continued decline since her hemoglobin and the benefit of anticoagulation continuously reassessed Given the stability of the patient's atrial fibrillation, I do not believe she needs continued telemetry, and if more convenient, she could be transferred to the regular medicine floor. (2) Acute decompensated heart failure: Likely related to a combination of factors including severe valvular heart disease. This point, she seems well compensated. The primary therapy is continued volume loss which is being affected with hemodialysis. Subjective This morning the patient claims to be feeling well. She had a rough day yesterday with frequent episodes of diarrhea. This morning she is feeling somewhat better. She does feel as if she is losing some weight and fluid. However, she still has a distended abdomen and swollen legs. She was ambulatory around her room yesterday. She denies any chest pain. She has no breathing difficulty. Review of Systems Review of Systems: Per HPI Physical Exam Physical Exam: She is alert and oriented x3. Mood affect appear normal. She answered all questions appropriately. HEENT: Sclerae are anicteric. Pupils are equal and reactive to light and accommodation. Extraocular movements were intact. Neuro: Cranial nerves intact Lungs: Lungs are clear to auscultation bilaterally. There are no rales wheezes or rhonchi. She has normal respiratory effort without use of accessory muscles. There is normal pulmonary excursion. Cardiac: The rhythm was irregular. S1 and S2 were normal. Chest: Dialysis catheter in the right upper pectoral area Abdomen: Distended but nontender Extremities: Moderate lower extremity edema Skin: There are no rashes noted on examination today. Results & Data Vital Signs (Past 12 Hours) Vital Signs Temp Pulse Pulse Pulse Resp BP Pulse Ox 12/15/18 07:16 36.5 C 71 18 105/69 99 12/15/18 04:09 36.7 C 72 18 95/58 L 99 12/15/18 03:11 78 12/15/18 00:00 36.5 C 83 18 92/52 L 97 Laboratory Results Abnormal Lab Results 12/14/18 12/14/18 12/14/18 11:32 15:40 15:41 WBC RBC Hgb Hct MCV MCH MCHC RDW Std Deviation RDW Coeff of Pastora Plt Count MPV PT INR Sodium Potassium Chloride Carbon Dioxide Anion Gap BUN Creatinine Est Cr Clr Drug Dosing Est GFR ( Amer) Est GFR (Non-Af Amer) BUN/Creatinine Ratio Glucose POC Glucose 291 H 309 H* 293 H Calcium Phosphorus Albumin 12/14/18 12/14/18 12/14/18 16:40 16:41 20:06 WBC RBC Hgb Hct MCV MCH MCHC RDW Std Deviation RDW Coeff of Pastora Plt Count MPV PT INR Sodium Potassium Chloride Carbon Dioxide Anion Gap BUN Creatinine Est Cr Clr Drug Dosing Est GFR ( Amer) Est GFR (Non-Af Amer) BUN/Creatinine Ratio Glucose POC Glucose 303 H* 291 H 319 H* Calcium Phosphorus Albumin 12/14/18 12/14/18 12/15/18 20:08 23:58 03:52 WBC RBC Hgb Hct MCV MCH MCHC RDW Std Deviation RDW Coeff of Pastora Plt Count MPV PT INR Sodium Potassium Chloride Carbon Dioxide Anion Gap BUN Creatinine Est Cr Clr Drug Dosing Est GFR ( Amer) Est GFR (Non-Af Amer) BUN/Creatinine Ratio Glucose POC Glucose 320 H* 209 H 154 H Calcium Phosphorus Albumin 12/15/18 12/15/18 12/15/18 06:11 06:11 06:11 WBC 6.08 RBC 2.77 L Hgb 8.4 L Hct 25.9 L MCV 93.5 MCH 30.3 MCHC 32.4 RDW Std Deviation 71.9 H RDW Coeff of Pastora 21.2 H Plt Count 57 L MPV 10.5 H PT 20.9 H INR 2.2 H Sodium 135 L Potassium 3.9 Chloride 99 Carbon Dioxide 26 Anion Gap 10.0 BUN 79 H Creatinine 3.81 H D Est Cr Clr Drug Dosing 12.9 Est GFR ( Amer) 12.1 Est GFR (Non-Af Amer) 10.4 BUN/Creatinine Ratio 20.8 H Glucose 134 H POC Glucose Calcium 8.9 Phosphorus 3.9 Albumin 3.5 12/15/18 07:29 WBC RBC Hgb Hct MCV MCH MCHC RDW Std Deviation RDW Coeff of Pastora Plt Count MPV PT INR Sodium Potassium Chloride Carbon Dioxide Anion Gap BUN Creatinine Est Cr Clr Drug Dosing Est GFR ( Amer) Est GFR (Non-Af Amer) BUN/Creatinine Ratio Glucose POC Glucose 157 H Calcium Phosphorus Albumin
--- NOTE | 2018-12-15 10:12 | Nephrology Progress Note ---
Date of Service December 15, 2018 Assessment & Plan (1) Acute decompensated heart failure: 83-year-old female with acute kidney injury setting of acute decompensated heart failure, cirrhosis of liver with possibly WOODS versus right-sided heart failure. Started on hemodialysis for worsening renal function after R IJ THC placed 12/12/18. 1st dialysis treatment was on 12/12/2018 -- getting 3rd dialysis treatment today for 3 hours, so for tolerating well. -- Discharge Planning is working to set up outpatient IHD. 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 She has been tolerating dialysis well, blood pressure stable. Tunnel dialysis catheter has been working well. Has decent urine output however creatinine continues to rise in between dialysis. Review of Systems Review of Systems: Detailed review of system was otherwise unremarkable except pertinent positive and negative findings mention above in history of present illness. Physical Exam Constitutional: WD/WN, vitals as above Respiratory: normal respiratory effort, lungs clear to auscultation Cardiovascular: RRR, no murmur, no edema Neurologic: PERRL, EOMI, accommodation nl, no face palsy, no dysarthria moves all extremities and awake Psychiatric: A+Ox3, euthymic affect Results & Data Vital Signs (Past 12 Hours) Vital Signs Temp Pulse Pulse Pulse Pulse Resp BP 12/15/18 09:40 77 109/52 L 12/15/18 09:20 76 98/49 L 12/15/18 09:02 77 107/48 L 12/15/18 08:55 36.5 C 80 12/15/18 07:16 36.5 C 71 18 12/15/18 04:09 36.7 C 72 18 12/15/18 03:11 78 12/15/18 00:00 36.5 C 83 18 BP Pulse Ox 12/15/18 09:40 12/15/18 09:20 07/01/19 09:02 12/15/18 08:55 12/15/18 07:16 105/69 99 12/15/18 04:09 95/58 L 99 12/15/18 03:11 12/15/18 00:00 92/52 L 97
--- NOTE | 2018-12-15 11:49 | Palliative Care Progress Note ---
Date of Service December 15, 2018 Assessment & Plan (1) Palliative care encounter: -Patient underwent dialysis on Saturday and was having her second treatment today during my visit. She states she is tolerating it well so far. -Edema has improved overall, had 3L fluid removed on Saturday. -Patient is upset about jose C. difficile infection, but states the diarrhea is better so far today. -Plan is for her to potentially go to [facility] rehab after hospitalization, and her goal is eventually to get back home. She plans to go to dialysis center in [place]. Case management following. -Please contact our team with any further palliative care needs. 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 3L removed Saturday. Contracted C. diff. No new pain or discomforts. Review of Systems Constitutional: + weakness Respiratory: no cough and no dyspnea Cardiovascular: + edema; no chest pain Gastrointestinal: no abdominal pain and no nausea +abdominal swelling, but much improved Physical Exam Constitutional: + obese and comfortable; no acute distress ENMT: Mouth: no oral mucosal abnormality Neck: normal visual inspection and trachea midline Respiratory: normal respiratory effort; no respiratory distress Cardiovascular: Rate/Rhythm: regular rate and regular rhythm Extremities: + edema (+1-2 BLE) Gastrointestinal (Abdomen): Inspection/Auscultation: + abdomen distended and normal bowel sounds Percussion/Palpation: abdomen soft; abdomen nontender pitting edema to abdomen present but improved Skin: no rashes, warm and dry Neurologic: moves all extremities and awake Psychiatric: Orientation: alert and oriented x 3 Results & Data Vital Signs (Past 12 Hours) Vital Signs Temp Pulse Pulse Pulse Pulse Resp BP 12/15/18 11:29 36.8 C 60 18 12/15/18 11:00 73 100/48 L 12/15/18 10:40 76 105/52 L 12/15/18 10:20 81 106/48 L 12/15/18 10:00 76 93/53 L 12/15/18 09:40 77 109/52 L 12/15/18 09:20 76 98/49 L 12/15/18 09:02 77 107/48 L 12/15/18 08:55 36.5 C 80 12/15/18 07:16 36.5 C 71 18 12/15/18 04:09 36.7 C 72 18 12/15/18 03:11 78 12/15/18 00:00 36.5 C 83 18 BP Pulse Ox 12/15/18 11:29 124/79 93 12/15/18 11:00 12/15/18 10:40 12/15/18 10:20 12/15/18 10:00 12/15/18 09:40 12/15/18 09:20 12/15/18 09:02 12/15/18 08:55 12/15/18 07:16 105/69 99 12/15/18 04:09 95/58 L 99 12/15/18 03:11 12/15/18 00:00 92/52 L 97 Supervising Physician Co-Signing Physician Notes Patient seen and examined, no family at bedside. Collaborated with CRISTAL Gregorio PE: Patient awake alert, no acute distress HEENT: EOMI, hearing within normal limits Respirations: Unlabored CV: Regular rate, edema markedly decreased Abdomen: Soft, nontender Neuro: Alert and oriented x4 Psych: Appropriate mood and affect Agree with above note, assessment and plan as per CRISTAL Gregorio-will continue to follow and assist patient with medical decision making as needed PG Care Time/CCT Total # of Minutes Spent Total Time Spent with Patient: Total time spent is greater than 50% in pastry cook helper rdination of care (as documented) at patient's floor/unit and/or counseling patient: Time Spent Midlevel 35 minutes with >50% of the time spent at bedside with patient discussing condition and POC.
[2018-12-15] MEDS: WARFARIN SOD 3 MG TAB PO SCH (17:41)
[2018-12-15] MEDS ORDERED: INSULIN GLARGINE SOLOSTAR 100 UNITS/ML 3 ML PEN SC SCH (21:00)
[2018-12-15] MEDS: NADOLOL 40 MG TAB PO SCH (21:58)
[2018-12-15] MEDS: CARBIDOPA/LEVODOP 10/100MG TAB PO SCH (22:01)
[2018-12-16] MEDS: VANCOMYCIN HCL 125 MG/2.5ML SOLN PO SCH ×5 (00:09→23:42)
[2018-12-16] MEDS: RASPBERRY SYRUP 5 ML UDP PO SCH ×5 (00:10→23:42)
[2018-12-16] MEDS: LEVOTHYROXINE SODIUM 88 MCG TABLET PO SCH (06:00)
[2018-12-16 07:05] LABS: Hematocrit (blood only) 26.4 % (37-47); Hemoglobin 8.3 g/dL (12.0-16.0); Mean Corpuscular Hgb Conc 31.4 g/dL (32-36); Mean Corpuscular Volume 94.6 fL (80-100); RDW Coefficient of Variation 21.5 % (11.5-14.5); RDW Standard Deviation 72.4 fL (36.4-46.3); Red Blood Count 2.79 M/uL (4.2-5.4); White Blood Count 5.88 K/uL (4.8-10.8)
[2018-12-16 07:13] LABS: Prothrombin Time 28.3 Seconds (9.0-12.0)
[2018-12-16 07:19] LABS: Platelet Count 57 K/uL (130-400)
[2018-12-16 07:30] LABS: Anisocytosis Present; Basophils # (auto) 0.02 K/uL (0-0.2); Basophils % (auto) 0.3 %; Eosinophils # (auto) 0.24 K/uL (0-0.5); Eosinophils % (auto) 4.1 %; Immature Granulocytes # (auto) 0.01 K/uL (0.00-0.02); Immature Granulocytes % (auto) 0.2 %; Lymphocytes # (auto) 0.94 K/uL (1.2-3.4); Monocytes % (auto) 13.6 %; Neutrophils # (auto) 3.87 K/uL (1.4-6.5); Neutrophils % (auto) 65.8 %
[2018-12-16 07:44] LABS: Albumin Level 3.4 gm/dl (3.4-5.0); BUN Creatinine Ratio 14.4 (10-20); Calcium 8.3 mg/dl (8.5-10.1); Creatinine Clr Calc Pharmacy 13.9 ml/min; Est GFR (African American) 13.5; Est GFR (Non-African American) 11.6; Potassium 3.8 mmol/L (3.5-5.1)
[2018-12-16] MEDS: MECLIZINE 12.5 MG TAB PO SCH ×2 (08:43→21:24)
[2018-12-16] MEDS: FERROUS SULFATE 325 MG TAB PO SCH ×2 (08:43→16:50)
[2018-12-16] MEDS: NEPHROCAPS PO SCH (08:44)
[2018-12-16] MEDS: INSULIN ASPART 100 UNITS/ML 3 ML PEN SC SCH ×4 (08:45→21:26)
--- NOTE | 2018-12-16 08:55 | Nephrology Progress Note ---
Date of Service December 16, 2018 Assessment & Plan (1) Acute decompensated heart failure: 83-year-old female with acute kidney injury setting of acute decompensated heart failure, cirrhosis of liver with possibly WOODS versus right-sided heart failure. Started on hemodialysis for worsening renal function after R IJ THC placed 12/12/18. 1st dialysis treatment was on 12/12/2018 -- had 3rd dialysis treatment yesterday for 3 hours, tolerated well. Continue on IDH MWF. -- Discharge Planning is working to set up outpatient IHD. 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 Overall she has been doing better. volume status improving. Diarrhea has been much less frequent. Review of Systems Review of Systems: Detail ROS was unremarkable. Physical Exam Constitutional: WD/WN, vitals as above Respiratory: normal respiratory effort, lungs clear to auscultation Cardiovascular: RRR, no murmur, no edema Neurologic: PERRL, EOMI, accommodation nl, no face palsy, no dysarthria moves all extremities and awake Psychiatric: A+Ox3, euthymic affect Results & Data Vital Signs (Past 12 Hours) Vital Signs Temp Pulse Pulse Pulse Resp BP BP 12/16/18 08:42 83 107/68 12/16/18 08:29 36.6 C 78 20 89/51 L 12/16/18 05:15 73 12/16/18 04:15 36.3 C L 71 20 103/66 Pulse Ox 12/16/18 08:42 12/16/18 08:29 91 12/16/18 05:15 12/16/18 04:15 98
--- NOTE | 2018-12-16 10:55 | Hospitalist Progress Note ---
Date of Service December 16, 2018 Assessment & Plan (1) Acute decompensated heart failure: Acute on chronic CHF. Cardiology on case. Echo showed mild LVH, normal LV size and systolic function, severely dilated RV with reduced systolic function, mild-moderate MR, severe TR, pulmonary hypertension. Acute on chronic right sided CHF, possible acute on chronic left ventricular diastolic failure, co-existent renal failure with fluid overload. Was on Bumex gtt, HD Tuesday 12/12, Sat, and Saturday, Next HD Saturday (2) Atrial fibrillation: Chronic atrial fibrillation. Rate control with nadolol. Anticoagulation with Warfarin as per INR-Started 12/12 Warfarin decreased to 3 mg daily-INR therapeutic today at 3.0 (3) KEMAR (acute kidney injury): CKD III with baseline creatinine around 2. Creatinine at time of admission was 3.62. Acute kidney injury, associated with CHF, cirrhosis, diuretic therapy. Nephrology on case (4) CKD (chronic kidney disease) stage 3, GFR 30-59 ml/min: As noted above. (5) Hypertension: Continue nadolol Follow and titrate Rx. (6) Sleep apnea: Continue CPAP. 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 Hepatitis Panel is negative for any acute Hepatitis LFT's essentially normal. Ascites may be secondary to hepatic disease with portal hypertension and/or right-sided CHF. Follow. (8) Hyponatremia: Multifactorial PAB 16.4 Follow. (9) Diabetes mellitus type 2 with complications: Hgb A1C of 6.7. Usually takes insulin degludec + insulin aspartate. Patient states that she feels best with blood sugars around 120-140. Lantus / NovoLog per protocol during hospital stay. Will Adjust (10) Hypothyroidism: Continue levothyroxine. (11) Anemia: Follow (12) Thrombocytopenia: Probably secondary to underlying cirrhosis. (13) Palliative care encounter: Palliative Care Team on case (14) Do not resuscitate status: DNR per advanced directives. (15) Protein-calorie malnutrition, moderate: Push Diet (16) Clostridioides difficile infection: PO Vanco 125 mg q6h, Diarrhea letting up a little, Less Abd Pain (17) DVT prophylaxis: Ambulate. (18) Discharge planning issues: Nephrology mentioned [facility] ([facility]) on DC, can get HD at [facility]. Primary care follow-up with pt's preferred provider- patient would like to be [facility] at their [facility] to coordinate care with Cardiology and Nephrology. Cardiology follow-up with [facility]. Nephrology follow-up with Dr. Wheeler. Stopped Eliquis sec to renal Fxn Warfarin as per INR-Got 5mg, 5 mg, 3mg, will get 3 mg today Monitor daily labs DC when Diarrhea stops, Hopefully to [facility], Dr Ferguson's wishes ROS-No Headache, No Visual Changes, No Nausea, No Vomiting, No Fever, No Chills, No Neck Pain or Stiffness, No Chest Pain, No Palpitations, No SOB, No SINGH, No Cough, No Sputum, No Wheezing, Less Abdominal Pain, +Diarrhea, No Hematemesis, No Hemoptysis, No Unexpected Weight Loss, No Flank pain, No Melena, No Hematochezia, No Frequency, No Urgency, No Burning, No Hematuria, No Rashes, No Diaphoresis. Appetite is Normal Physical Exam Gen-AAO x 3, NAD, Afebrile Head-NCAT, EOMI, PERRLA, Anicteric Sclera, No Posterior Pharyngeal Erythema Neck-Supple, No JVD, No Thyromegaly, No Masses, No LAD, No Bruits Lungs-Clear to Auscultation Bilaterally, No Rales, No Rhonchi, No Wheezing, No Crepitus Chest-No S4, +S1, +S2, No S3, No Murmurs, No Rubs, No Gallops, No Ectopy Abdomen-Soft, Bowel Sounds Present, Tender, Non Distended, No Hepatomegaly, No Splenomegaly, No Palpable Masses, No Rebound, No Rigidity, No Guarding Musculoskeletal-Full Range of Motion Bilaterally, No CVAT Extremities-No Cyanosis, No Clubbing, +Edema/Teds, Decreasing Nuero-Cranial Nerves II-XII grossly intact, Motor WNL, DTRs WNL, Strength WNL, Non Focal Psych-Normal Mood Results & Data Vital Signs (Past 12 Hours) Vital Signs Temp Pulse Pulse Pulse Resp BP BP 12/16/18 08:42 83 107/68 12/16/18 08:29 36.6 C 78 20 89/51 L 12/16/18 05:15 73 12/16/18 04:15 36.3 C L 71 20 103/66 Pulse Ox 12/16/18 08:42 12/16/18 08:29 91 12/16/18 05:15 12/16/18 04:15 98
--- NOTE | 2018-12-16 11:17 | Pharmacy Report ---
Pharmacy Glycemic Short Note 2 - Date of Service December 16, 2018 - Glycemic Short BSG Results (Last 24 hours): 12/15/18 12/15/18 12/15/18 11:25 16:24 20:30 Glucose POC Glucose 147 H 248 H 334 H* 12/15/18 12/16/18 12/16/18 20:31 06:27 07:33 Glucose 185 H POC Glucose 356 H* 195 H OUTPATIENT ANTIDIABETIC REGIMEN: * Tresiba 20units Q HS * Novolog 5 units SQ w/ meals * A1c = 6.7% ASSESSMENT: * Type 2 diabetic admitted w/ ADHF * Fasting BSG 195 this AM despite having 35 units of basal insulin on board and after receiving 12 units on Novolog at HS last evening - will titrate basal dosage upwards. On review of prior admission, she has tolerated much higher basal insulin doses. * Post-prandial BSGs did climb thoughout the day yesterday (147-->248-->356) indicating a need for larger prandial insulin doses, especially w/ evening meals. * Will also add a 0200 BSG check to screen for hyper- / hypo- glycemia in the setting of these new insulin changes. She appears as though she is going to require much higher insulin doses this hospitalization vs those reported as outpt regimen PLAN FOR INPATIENT GLYCEMIC CONTROL: * Basal insulin * Lantus 10 units SQ x 1 with lunch today; then Q HS per the following scale: * 25 units if BSG less than 120 * 35 units if BSG 120-200 * 45 units if BSG above 200 * Bolus insulin * NovoLog per scale ACHS or Q6hrs while NPO * Goal Range: Low 120 mg/dL - High 160 mg/dL * Correction Factor: 20 mg/dL/unit * Nutritional / Prandial insulin per carb ratio of 1 unit per 6 grams CHO consumed PLAN FOR DISCHARGE: *
[2018-12-16] MEDS ORDERED: INSULIN GLARGINE SOLOSTAR 100 UNITS/ML 3 ML PEN SC SCH ×2 (11:30→21:00)
[2018-12-16] MEDS: WARFARIN SOD 3 MG TAB PO SCH (16:49)
[2018-12-16] MEDS: CARBIDOPA/LEVODOP 10/100MG TAB PO SCH (21:24)
[2018-12-16] MEDS: NADOLOL 40 MG TAB PO SCH (21:24)
[2018-12-17] MEDS ORDERED: INSULIN ASPART 100 UNITS/ML 3 ML PEN SC ONE (02:00)
[2018-12-17] MEDS: VANCOMYCIN HCL 125 MG/2.5ML SOLN PO SCH ×4 (06:23→23:47)
[2018-12-17] MEDS: RASPBERRY SYRUP 5 ML UDP PO SCH ×4 (06:23→23:47)
[2018-12-17] MEDS: LEVOTHYROXINE SODIUM 88 MCG TABLET PO SCH (06:23)
[2018-12-17] MEDS ORDERED: SODIUM CHLORIDE 0.9% 1000ML 1,000 ML IV PRN (07:00)
[2018-12-17 07:48] LABS: Hematocrit (blood only) 25.9 % (37-47); Hemoglobin 8.3 g/dL (12.0-16.0); Mean Corpuscular Volume 94.2 fL (80-100); RDW Coefficient of Variation 21.3 % (11.5-14.5); RDW Standard Deviation 71.8 fL (36.4-46.3); Red Blood Count 2.75 M/uL (4.2-5.4); White Blood Count 5.12 K/uL (4.8-10.8)
[2018-12-17 07:57] LABS: Mean Platelet Volume 10.4 fL (7.4-10.4); Platelet Count 62 K/uL (130-400)
[2018-12-17 08:05] LABS: INR 3.1 (0.9-1.1); Prothrombin Time 29.5 Seconds (9.0-12.0)
[2018-12-17] MEDS: MECLIZINE 12.5 MG TAB PO SCH ×2 (08:13→21:18)
[2018-12-17] MEDS: NEPHROCAPS PO SCH (08:13)
[2018-12-17 08:14] LABS: Albumin Level 3.4 gm/dl (3.4-5.0); BUN Creatinine Ratio 16.3 (10-20); Calcium 8.3 mg/dl (8.5-10.1); Creatinine Clr Calc Pharmacy 11.8 ml/min; Est GFR (African American) 11.1; Est GFR (Non-African American) 9.6; Potassium 3.7 mmol/L (3.5-5.1)
[2018-12-17] MEDS: INSULIN GLARGINE SOLOSTAR 100 UNITS/ML 3 ML PEN SC SCH ×2 (08:14→21:19)
[2018-12-17] MEDS: INSULIN ASPART 100 UNITS/ML 3 ML PEN SC SCH ×4 (08:14→21:20)
[2018-12-17 08:15] LABS: Phosphorus 3.4 mg/dl (2.5-4.9)
[2018-12-17] MEDS: BENZONATATE 100 MG CAPSULE PO PRN ×3 (08:31→21:20)
[2018-12-17] MEDS ORDERED: EPOETIN ALFA 20,000 UNITS/ML VIAL IV SCH (09:00)
--- NOTE | 2018-12-17 09:06 | Pharmacy Report ---
Pharmacy Glycemic Short Note 2 - Date of Service December 17, 2018 - Glycemic Short BSG Results (Last 24 hours): 12/16/18 12/16/18 12/16/18 11:39 16:44 20:28 Glucose POC Glucose 259 H 270 H 271 H 12/17/18 12/17/18 12/17/18 02:07 06:52 07:12 Glucose 86 POC Glucose 146 H 92 OUTPATIENT ANTIDIABETIC REGIMEN: * Tresiba 20units Q HS * Novolog 5 units SQ w/ meals * A1c = 6.7% The patient is currently receiving: * Basal insulin: Lantus 10 units with lunch + 45 units HS yesterday * Correctional Insulin: Novolog Correction per scale ACHS Goal Range: Low 110 mg/dL - High 140 mg/dL Correction Factor: 15 mg/dL/unit * Prandial insulin: Per carb ratio of 1 unit per 5 grams CHO consumed * Oral Agents: ASSESSMENT: 12/17 * Glycemic control poor yesterday despite significant increases in insulin doses * Over the last 24 hrs she has received 103 units of insulin * Fasting BSG 86-92 this AM with 55 units of Lantus on board and after having received 10 units of Novolog correction overnight * Today is the first day she has started off the day with BSGs less than 140, will continue current Novolog doses to determine if they are appropriately set to prevent climb in BSGs throughout the day. * Of note, pt refused Novolog dose w/ breakfast today b/c she was not comfortable with BSGs in the 90's this AM. 12/16 * Type 2 diabetic admitted w/ ADHF * Fasting BSG 195 this AM despite having 35 units of basal insulin on board and after receiving 12 units on Novolog at HS last evening - will titrate basal dosage upwards. On review of prior admission, she has tolerated much higher basal insulin doses. * Post-prandial BSGs did climb thoughout the day yesterday (147-->248-->356) indicating a need for larger prandial insulin doses, especially w/ evening meals. * Will also add a 0200 BSG check to screen for hyper- / hypo- glycemia in the setting of these new insulin changes. She appears as though she is going to require much higher insulin doses this hospitalization vs those reported as outpt regimen PLAN FOR INPATIENT GLYCEMIC CONTROL: * Basal insulin * Lantus SQ BID per the following scale: * if BSG less than 110: 0 units * if BSG 110-160: 25 units * if BSG above 160: 30 units * Bolus insulin * NovoLog per scale ACHS or Q6hrs while NPO * Goal Range: Low 110 mg/dL - High 140 mg/dL * Correction Factor: 15 mg/dL/unit * Nutritional / Prandial insulin per carb ratio of 1 unit per 5 grams CHO consumed PLAN FOR DISCHARGE: * to be determined. I do wonder if her A1c not reflective of her actual level of glycemic control. her insulin requirements during this hospitalization are much higher than what her out-pt regimen provided.
--- NOTE | 2018-12-17 09:21 | Nephrology Progress Note ---
Date of Service December 17, 2018 Assessment & Plan (1) Acute decompensated heart failure: 83-year-old female with acute kidney injury setting of acute decompensated heart failure, cirrhosis of liver with possibly WOODS versus right-sided heart failure. Started on hemodialysis for worsening renal function after R IJ THC placed 12/12/18. 1st dialysis treatment was on 12/12/2018. Creatinine continue to rise between HD although started to make urine, had UO once this am -- having dialysis treatment now for 3hours, tolerated well. Continue on IDH MWF as no sign of renal recovery yet. -- Discharge Planning is working to set up outpatient IHD. 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 Overall she has been doing better. volume status improving. Diarrhea resolved. Cr continues to rise between HD, started to make urine. Physical Exam Constitutional: WD/WN, vitals as above Respiratory: normal respiratory effort, lungs clear to auscultation Cardiovascular: RRR, no murmur, no edema Neurologic: PERRL, EOMI, accommodation nl, no face palsy, no dysarthria moves all extremities and awake Psychiatric: A+Ox3, euthymic affect Results & Data Vital Signs (Past 12 Hours) Vital Signs Temp Pulse Pulse Pulse Resp BP BP 12/17/18 07:44 36.4 C L 84 18 96/60 L 12/17/18 04:50 36.7 C 71 20 103/55 L 12/17/18 00:00 78 12/16/18 23:39 36.6 C 81 20 99/61 L Pulse Ox 12/17/18 07:44 94 12/17/18 04:50 96 12/17/18 00:00 12/16/18 23:39 94
[2018-12-17] MEDS: FERROUS SULFATE 325 MG TAB PO SCH ×2 (09:26→17:42)
--- NOTE | 2018-12-17 13:53 | XRay Report ---
XR chest 1V portable HISTORY: cough COMPARISON: Chest 12/05/2018. FINDINGS: No pneumothorax. Near complete resolution of the mild interstitial pulmonary edema and trac e bilateral pleural effusions. The heart remains enlarged. There are mitral annulus calcifications. A few bibasilar linear densities consistent with subsegmental atelectasis. Right jugular catheter term inates at the SVC. 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 IMPRESSION: Near complete resolution of the mild interstitial pulmonary edema and trace bilateral pleural effusio ns. Electronically signed by: Oswaldo Rizo M.D. 12/17/2018 1:52 PM
[2018-12-17] MEDS: WARFARIN SOD 3 MG TAB PO SCH (15:45)
--- NOTE | 2018-12-17 17:41 | Hospitalist Progress Note ---
Date of Service December 17, 2018 Assessment & Plan (1) Acute decompensated heart failure: Acute on chronic CHF. Cardiology consulted. Echo showed mild LVH, normal LV size and systolic function, severely dilated RV with reduced systolic function, mild-moderate MR, severe TR, pulmonary hypertension. Acute on chronic right sided CHF, possible acute on chronic left ventricular diastolic failure, co-existent renal failure with fluid overload. Received IV furosemide followed by bumetanide infusion. SHARYN inhibitors and ARB's (1) not indicated for diastolic or right-sided heart failure and (2) contraindicated in light of renal disease. Hemodialysis recommended for fluid management. (2) Atrial fibrillation: Chronic atrial fibrillation. Rate control with nadolol. Anticoagulation changed from apixaban to warfarin in light of renal failure and advanced age. (3) KEMAR (acute kidney injury): History of CKD III with baseline creatinine around 2. Creatinine at time of admission was 3.62. Acute kidney injury, associated with CHF, cirrhosis, diuretic therapy. Nephrology consulted. Hemodialysis recommended for fluid management. Dialysis catheter placed on 12/12. Tolerating dialysis. Creatinine today = 4.08. Follow. (4) Hypertension: Continue nadolol and diuretics. Follow and titrate Rx. (5) Sleep apnea: Continue CPAP. 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 LFT's essentially normal. INR 1.4 before warfarin. Ascites may be secondary to hepatic disease with portal hypertension and/or right-sided CHF. Follow. (7) Hyponatremia: Serum sodium 129 at time of admission. Hyponatremia probably multifactorial. Nephrology consulted. Na today = 134. Follow. (8) Diabetes mellitus type 2 with complications: Well-controlled with Hgb A1C of 6.7. Usually takes insulin degludec + insulin aspartate. Patient states that she feels best with blood sugars around 120-140. Lantus / NovoLog per protocol during hospital stay. FBS this morning = 92. (9) Hypothyroidism: Continue levothyroxine. (10) Anemia: Hgb as low as 7.9.. Anemia probably multifactorial, with anemia of CKD and cirrhosis contributing factors. Management per Nephrology. (11) Thrombocytopenia: Chronic anemia, probably secondary to underlying cirrhosis. Platelet count today = 62,000. Follow. (12) Clostridioides difficile infection: Improving. Continue vancomycin. (13) Palliative care encounter: Patient with worsening renal function and CHF. Urine output / CHF may or may not improve with medical management. Patient uncertain whether or not she would want trial of hemodialysis. Palliative Care Team consulted to assist with decision making and planning. (14) Do not resuscitate status: DNR per advanced directives. (15) DVT prophylaxis: Initially on apixaban for AF. Transitioned to warfarin. Ambulate. (16) Discharge planning issues: Anticipated transfer to [facility] for rehab. Primary care follow-up with pt's preferred provider- patient would like to be established with a [facility] PCP at their [facility] office to coordinate care with Cardiology and Nephrology. Cardiology follow-up with [facility]. Nephrology follow-up with Dr. Wheeler. Subjective Recheck for multiple problems. Patient seen in their room around 09:40. Hemodialysis being performed. No fever. Occasional cough. Dyspnea and lower extremity edema improved. No chest pain. Diarrhea improved. Review of Systems: Constitutional- no fever. Cardiac- as noted above. Pulmonary- as noted above. GI- no nausea, vomiting, melena, hematochezia. - still has Mojica cath. Otherwise, as noted above. Physical Exam Constitutional: no acute distress Respiratory: no respiratory distress Auscultation: + rales (few bibasilar) Cardiovascular: Rate/Rhythm: + irregularly irregular Vessels: + JVD Extremities: + edema (1+ pretibial edema); no calf tenderness Gastrointestinal (Abdomen): Inspection/Auscultation: normal bowel sounds Percussion/Palpation: abdomen soft; abdomen nontender Musculoskeletal: Extremities: no cyanosis Skin: no rashes, warm and dry Psychiatric: Orientation: alert and oriented x 3 Results & Data Vital Signs (Past 12 Hours) Vital Signs Temp Pulse Pulse Pulse Resp BP BP 12/17/18 16:22 79 12/17/18 14:59 36.6 C 67 18 12/17/18 13:15 36.9 C 79 125/56 L 12/17/18 12:40 79 127/59 L 12/17/18 12:20 71 114/59 L 12/17/18 12:00 76 116/57 L 12/17/18 11:40 76 118/56 L 12/17/18 11:20 77 110/50 L 12/17/18 11:00 70 123/50 L 12/17/18 10:40 80 116/53 L 12/17/18 10:20 74 107/54 L 12/17/18 10:00 76 112/51 L 12/17/18 09:40 77 116/56 L 12/17/18 09:20 82 112/54 L 12/17/18 09:00 36.9 C 12/17/18 08:00 76 12/17/18 07:44 36.4 C L 84 18 BP Pulse Ox 12/17/18 16:22 12/17/18 14:59 90/56 L 96 12/17/18 13:15 12/17/18 12:40 12/17/18 12:20 12/17/18 12:00 12/17/18 11:40 12/17/18 11:20 12/17/18 11:00 12/17/18 10:40 12/17/18 10:20 12/17/18 10:00 12/17/18 09:40 12/17/18 09:20 12/17/18 09:00 12/17/18 08:00 12/17/18 07:44 96/60 L 94 Laboratory Results Laboratory Results - last 24 hr 12/16/18 12/17/18 12/17/18 20:28 02:07 06:52 WBC RBC Hgb Hct MCV MCH MCHC RDW Std Deviation RDW Coeff of Pastora Plt Count MPV Blood Smear Review PT 29.5 H INR 3.1 H Sodium Potassium Chloride Carbon Dioxide Anion Gap BUN Creatinine Est Cr Clr Drug Dosing Est GFR ( Amer) Est GFR (Non-Af Amer) BUN/Creatinine Ratio Glucose POC Glucose 271 H 146 H Calcium Phosphorus Albumin 12/17/18 12/17/18 12/17/18 06:52 06:52 07:12 WBC 5.12 RBC 2.75 L Hgb 8.3 L Hct 25.9 L MCV 94.2 MCH 30.2 MCHC 32.0 RDW Std Deviation 71.8 H RDW Coeff of Pastora 21.3 H Plt Count 62 L MPV 10.4 Blood Smear Review Cancelled PT INR Sodium 134 L Potassium 3.7 Chloride 100 Carbon Dioxide 24 Anion Gap 10.0 BUN 67 H Creatinine 4.08 H D Est Cr Clr Drug Dosing 11.8 Est GFR ( Amer) 11.1 Est GFR (Non-Af Amer) 9.6 BUN/Creatinine Ratio 16.3 Glucose 86 POC Glucose 92 Calcium 8.3 L Phosphorus 3.4 Albumin 3.4
[2018-12-17] MEDS: NADOLOL 40 MG TAB PO SCH (21:17)
[2018-12-17] MEDS: CARBIDOPA/LEVODOP 10/100MG TAB PO SCH (21:19)
[2018-12-18] MEDS ORDERED: ALBUMIN 25% 50 ML IV ONE (03:18)
[2018-12-18 04:08] LABS: Hemoglobin 7.8 g/dL (12.0-16.0); Mean Corpuscular Hgb Conc 32.5 g/dL (32-36); RDW Coefficient of Variation 21.8 % (11.5-14.5); RDW Standard Deviation 72.6 fL (36.4-46.3); Red Blood Count 2.58 M/uL (4.2-5.4); White Blood Count 4.08 K/uL (4.8-10.8)
[2018-12-18 04:17] LABS: INR 2.9 (0.9-1.1); Prothrombin Time 27.2 Seconds (9.0-12.0)
[2018-12-18 04:26] LABS: Mean Platelet Volume 10.1 fL (7.4-10.4); Platelet Count 58 K/uL (130-400)
[2018-12-18 04:39] LABS: BUN Creatinine Ratio 11.3 (10-20); Calcium 7.9 mg/dl (8.5-10.1); Creatinine Clr Calc Pharmacy 14.5 ml/min; Est GFR (African American) 14.5; Est GFR (Non-African American) 12.5; Magnesium 2.3 mg/dl (1.8-2.4); Potassium 3.5 mmol/L (3.5-5.1)
[2018-12-18 04:52] LABS: Anisocytosis Present; Basophils # (auto) 0.01 K/uL (0-0.2); Basophils % (auto) 0.2 %; Eosinophils # (auto) 0.18 K/uL (0-0.5); Eosinophils % (auto) 4.4 %; Immature Granulocytes # (auto) 0.03 K/uL (0.00-0.02); Immature Granulocytes % (auto) 0.7 %; Lymphocytes # (auto) 0.81 K/uL (1.2-3.4); Lymphocytes % (auto) 19.9 %; Monocytes # (auto) 0.72 K/uL (0.11-0.59); Monocytes % (auto) 17.6 %; Neutrophils # (auto) 2.33 K/uL (1.4-6.5); Neutrophils % (auto) 57.2 %; Polychromasia 1+
[2018-12-18] MEDS: RASPBERRY SYRUP 5 ML UDP PO SCH ×4 (05:29→23:30)
[2018-12-18] MEDS: LEVOTHYROXINE SODIUM 88 MCG TABLET PO SCH (05:29)
[2018-12-18] MEDS: VANCOMYCIN HCL 125 MG/2.5ML SOLN PO SCH ×4 (05:29→23:30)
[2018-12-18] MEDS: FERROUS SULFATE 325 MG TAB PO SCH ×2 (08:47→17:49)
[2018-12-18] MEDS: MECLIZINE 12.5 MG TAB PO SCH ×2 (08:47→20:48)
[2018-12-18] MEDS: NEPHROCAPS PO SCH (08:47)
[2018-12-18] MEDS: INSULIN GLARGINE SOLOSTAR 100 UNITS/ML 3 ML PEN SC SCH ×2 (08:47→20:43)
[2018-12-18] MEDS: INSULIN ASPART 100 UNITS/ML 3 ML PEN SC SCH ×4 (08:49→20:45)
[2018-12-18] MEDS: BENZONATATE 100 MG CAPSULE PO PRN (08:58)
--- NOTE | 2018-12-18 10:38 | Nephrology Progress Note ---
Date of Service December 18, 2018 Assessment & Plan (1) Acute decompensated heart failure: 83-year-old female with acute kidney injury setting of acute decompensated heart failure, cirrhosis of liver with possibly WOODS versus right-sided heart failure. Started on hemodialysis for worsening renal function after R IJ THC placed 12/12/18. 1st dialysis treatment was on 12/12/2018. Creatinine continue to rise between HD although started to make urine, had UO once this am -- dialysis tomorrow 4 hours, Continue on IDH MWF as no sign of renal recovery yet. -- Discharge Planning is working to set up outpatient IHD. 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 Overall she has been doing better. volume status improving. Diarrhea resolved. Cr continues to rise between HD, UO still low Physical Exam Constitutional: WD/WN, vitals as above Respiratory: normal respiratory effort, lungs clear to auscultation Cardiovascular: RRR, no murmur, no edema Neurologic: PERRL, EOMI, accommodation nl, no face palsy, no dysarthria moves all extremities and awake Psychiatric: A+Ox3, euthymic affect Results & Data Vital Signs (Past 12 Hours) Vital Signs Temp Pulse Pulse Resp BP BP Pulse Ox 12/18/18 07:00 36.6 C 61 18 99/65 L 94 12/18/18 05:30 36.4 C L 68 18 90/50 L 96 12/18/18 04:00 36.5 C 70 18 93/56 L 93 12/18/18 03:37 36.5 C 70 20 82/44 L 96 12/18/18 00:15 76 12/17/18 23:40 36.7 C 71 20 96/60 L 92
[2018-12-18 11:15] LABS: Hematocrit (blood only) 27.5 % (37-47); Hemoglobin 8.9 g/dL (12.0-16.0)
[2018-12-18] MEDS: WARFARIN SOD 3 MG TAB PO SCH (15:55)
--- NOTE | 2018-12-18 18:00 | Hospitalist Progress Note ---
Date of Service December 18, 2018 Assessment & Plan (1) Acute decompensated heart failure: Acute on chronic CHF. Cardiology consulted. Echo showed mild LVH, normal LV size and systolic function, severely dilated RV with reduced systolic function, mild-moderate MR, severe TR, pulmonary hypertension. Acute on chronic right sided CHF, possible acute on chronic left ventricular diastolic failure, co-existent renal failure with fluid overload. Received IV furosemide followed by bumetanide infusion. SHARYN inhibitors and ARB's (1) not indicated for diastolic or right-sided heart failure and (2) contraindicated in light of renal disease. Hemodialysis recommended for fluid management. Symptoms, exam, chest x-ray improved. (2) Atrial fibrillation: Chronic atrial fibrillation. Rate control with nadolol. Anticoagulation changed from apixaban to warfarin in light of renal failure and advanced age. (3) KEMAR (acute kidney injury): History of CKD III with baseline creatinine around 2. Creatinine at time of admission was 3.62. Acute kidney injury, associated with CHF, cirrhosis, diuretic therapy. Nephrology consulted. Hemodialysis recommended for fluid management. Dialysis catheter placed on 12/12. Tolerating dialysis. Creatinine today = 3.28. Follow. (4) Hypertension: Continue nadolol. Follow and titrate Rx. (5) Sleep apnea: Continue CPAP. 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 LFT's essentially normal. INR 1.4 before warfarin. Ascites may be secondary to hepatic disease with portal hypertension and/or right-sided CHF. Follow. (7) Hyponatremia: Serum sodium 129 at time of admission. Hyponatremia probably multifactorial. Nephrology consulted. Na today = 134. Follow. (8) Diabetes mellitus type 2 with complications: Well-controlled with Hgb A1C of 6.7. Usually takes insulin degludec + insulin aspartate. Patient states that she feels best with blood sugars around 120-140. Lantus / NovoLog per protocol during hospital stay. FBS this morning = 112. (9) Hypothyroidism: Continue levothyroxine. (10) Anemia: Hgb as low as 7.9.. Anemia probably multifactorial, with anemia of CKD and cirrhosis contributing factors. Hgb today 7.8, repeat 8.9. Management per Nephrology. (11) Thrombocytopenia: Chronic anemia, probably secondary to underlying cirrhosis. Platelet count 58,000. Follow. (12) Clostridioides difficile infection: Improving. Continue vancomycin. (13) Palliative care encounter: Palliative Care Team consulted to assist with decision making and planning. (14) Do not resuscitate status: DNR per advanced directives. (15) DVT prophylaxis: Initially on apixaban for AF. Transitioned to warfarin. Ambulate. (16) Discharge planning issues: Anticipated transfer to [facility] for rehab. Primary care follow-up with pt's preferred provider- patient would like to be established with a [facility] PCP at their [facility] office to coordinate care with Cardiology and Nephrology. Cardiology follow-up with [facility]. Nephrology follow-up with Dr. Wheeler. Subjective Recheck for multiple problems. Patient seen in their room around 15:00. No fever. Still has occasional cough. Dyspnea improved. No chest pain. Diarrhea improved, but has had 3 episodes so far today. No melena or hematochezia. Review of Systems: Constitutional- no fever. Cardiac- as noted above. Pulmonary- as noted above. GI- no nausea, vomiting, melena, hematochezia. - voiding without difficulty, but not often. Otherwise, as noted above. Physical Exam Constitutional: no acute distress Respiratory: no respiratory distress Cardiovascular: Rate/Rhythm: + irregularly irregular Vessels: + JVD Extremities: + edema (1+ pretibial edema); no calf tenderness Gastrointestinal (Abdomen): Inspection/Auscultation: normal bowel sounds Percussion/Palpation: abdomen soft; abdomen nontender Musculoskeletal: Extremities: no cyanosis Skin: no rashes, warm and dry Psychiatric: Orientation: alert and oriented x 3 Results & Data Vital Signs (Past 12 Hours) Vital Signs Temp Pulse Resp BP BP Pulse Ox 12/18/18 15:05 36.5 C 73 20 105/67 98 12/18/18 11:30 36.5 C 65 18 99/62 L 92 12/18/18 07:00 36.6 C 61 18 99/65 L 94 Laboratory Results Laboratory Results - last 24 hr 12/17/18 12/17/18 12/17/18 11:23 13:08 16:41 WBC RBC Hgb Hct MCV MCH MCHC RDW Std Deviation RDW Coeff of Pastora Plt Count MPV Immature Gran % (Auto) Neut % (Auto) Lymph % (Auto) [place] % (Auto) Eos % (Auto) Baso % (Auto) Immature Gran # (Auto) Neut # (Auto) Lymph # (Auto) [place] # (Auto) Eos # (Auto) Baso # (Auto) Polychromasia Anisocytosis PT INR Sodium Potassium Chloride Carbon Dioxide Anion Gap BUN Creatinine Est Cr Clr Drug Dosing Est GFR ( Amer) Est GFR (Non-Af Amer) BUN/Creatinine Ratio Glucose POC Glucose 121 H 108 H 191 H Lactate Calcium Magnesium Blood Type Antibody Screen 12/17/18 12/18/18 12/18/18 20:24 04:00 04:00 WBC 4.08 L RBC 2.58 L Hgb 7.8 L Hct 24.0 L MCV 93.0 MCH 30.2 MCHC 32.5 RDW Std Deviation 72.6 H RDW Coeff of Pastora 21.8 H Plt Count 58 L MPV 10.1 Immature Gran % (Auto) 0.7 Neut % (Auto) 57.2 Lymph % (Auto) 19.9 [place] % (Auto) 17.6 Eos % (Auto) 4.4 Baso % (Auto) 0.2 Immature Gran # (Auto) 0.03 H Neut # (Auto) 2.33 Lymph # (Auto) 0.81 L [place] # (Auto) 0.72 H Eos # (Auto) 0.18 Baso # (Auto) 0.01 Polychromasia 1+ Anisocytosis Present PT 27.2 H INR 2.9 H Sodium Potassium Chloride Carbon Dioxide Anion Gap BUN Creatinine Est Cr Clr Drug Dosing Est GFR ( Amer) Est GFR (Non-Af Amer) BUN/Creatinine Ratio Glucose POC Glucose 273 H Lactate Calcium Magnesium Blood Type Antibody Screen 12/18/18 12/18/18 12/18/18 04:00 04:00 07:18 WBC RBC Hgb Hct MCV MCH MCHC RDW Std Deviation RDW Coeff of Pastora Plt Count MPV Immature Gran % (Auto) Neut % (Auto) Lymph % (Auto) [place] % (Auto) Eos % (Auto) Baso % (Auto) Immature Gran # (Auto) Neut # (Auto) Lymph # (Auto) [place] # (Auto) Eos # (Auto) Baso # (Auto) Polychromasia Anisocytosis PT INR Sodium 134 L Potassium 3.5 Chloride 99 Carbon Dioxide 27 Anion Gap 8.0 BUN 37 H Creatinine 3.28 H D Est Cr Clr Drug Dosing 14.5 Est GFR ( Amer) 14.5 Est GFR (Non-Af Amer) 12.5 BUN/Creatinine Ratio 11.3 Glucose 114 H POC Glucose 112 H Lactate 1.7 Calcium 7.9 L Magnesium 2.3 Blood Type Antibody Screen 12/18/18 12/18/18 12/18/18 11:05 11:05 11:15 WBC RBC Hgb 8.9 L Hct 27.5 L MCV MCH MCHC RDW Std Deviation RDW Coeff of Pastora Plt Count MPV Immature Gran % (Auto) Neut % (Auto) Lymph % (Auto) [place] % (Auto) Eos % (Auto) Baso % (Auto) Immature Gran # (Auto) Neut # (Auto) Lymph # (Auto) [place] # (Auto) Eos # (Auto) Baso # (Auto) Polychromasia Anisocytosis PT INR Sodium Potassium Chloride Carbon Dioxide Anion Gap BUN Creatinine Est Cr Clr Drug Dosing Est GFR ( Amer) Est GFR (Non-Af Amer) BUN/Creatinine Ratio Glucose POC Glucose 141 H Lactate Calcium Magnesium Blood Type A Negative Antibody Screen NEGATIVE 12/18/18 16:38 WBC RBC Hgb Hct MCV MCH MCHC RDW Std Deviation RDW Coeff of Pastora Plt Count MPV Immature Gran % (Auto) Neut % (Auto) Lymph % (Auto) [place] % (Auto) Eos % (Auto) Baso % (Auto) Immature Gran # (Auto) Neut # (Auto) Lymph # (Auto) [place] # (Auto) Eos # (Auto) Baso # (Auto) Polychromasia Anisocytosis PT INR Sodium Potassium Chloride Carbon Dioxide Anion Gap BUN Creatinine Est Cr Clr Drug Dosing Est GFR ( Amer) Est GFR (Non-Af Amer) BUN/Creatinine Ratio Glucose POC Glucose 185 H Lactate Calcium Magnesium Blood Type Antibody Screen
[2018-12-18] MEDS: CARBIDOPA/LEVODOP 10/100MG TAB PO SCH (20:47)
[2018-12-18] MEDS: NADOLOL 40 MG TAB PO SCH (20:48)
[2018-12-19] MEDS: RASPBERRY SYRUP 5 ML UDP PO SCH ×3 (06:02→17:32)
[2018-12-19] MEDS: LEVOTHYROXINE SODIUM 88 MCG TABLET PO SCH (06:02)
[2018-12-19] MEDS: VANCOMYCIN HCL 125 MG/2.5ML SOLN PO SCH ×3 (06:03→17:32)
[2018-12-19] MEDS ORDERED: SODIUM CHLORIDE 0.9% 1000ML 1,000 ML IV PRN (07:00)
[2018-12-19 07:04] LABS: Hematocrit (blood only) 25.5 % (37-47); Hemoglobin 8.1 g/dL (12.0-16.0); Mean Corpuscular Hgb Conc 31.8 g/dL (32-36); Mean Corpuscular Volume 94.8 fL (80-100); RDW Coefficient of Variation 21.6 % (11.5-14.5); RDW Standard Deviation 74.5 fL (36.4-46.3); Red Blood Count 2.69 M/uL (4.2-5.4); White Blood Count 4.38 K/uL (4.8-10.8)
[2018-12-19 07:42] LABS: BUN Creatinine Ratio 12.1 (10-20); Calcium 8.1 mg/dl (8.5-10.1); Creatinine Clr Calc Pharmacy 11.9 ml/min; Est GFR (African American) 11.1; Est GFR (Non-African American) 9.6; Potassium 3.4 mmol/L (3.5-5.1)
[2018-12-19 07:47] LABS: Mean Platelet Volume 10.1 fL (7.4-10.4); Platelet Count 63 K/uL (130-400); Platelet Estimate Decreased (Normal)
[2018-12-19] MEDS: FERROUS SULFATE 325 MG TAB PO SCH ×2 (07:50→16:39)
[2018-12-19] MEDS: MECLIZINE 12.5 MG TAB PO SCH (07:50)
[2018-12-19] MEDS: NEPHROCAPS PO SCH (07:50)
[2018-12-19] MEDS: INSULIN ASPART 100 UNITS/ML 3 ML PEN SC SCH ×3 (08:03→19:08)
--- NOTE | 2018-12-19 08:05 | Pharmacy Report ---
Pharmacy Glycemic Short Note 2 - Date of Service December 19, 2018 - Glycemic Short BSG Results (Last 24 hours): 12/18/18 12/18/18 12/18/18 11:15 16:38 20:09 Glucose POC Glucose 141 H 185 H 184 H 12/19/18 12/19/18 06:49 07:12 Glucose 104 H POC Glucose 105 H OUTPATIENT ANTIDIABETIC REGIMEN: * Tresiba 20 units Q HS * Novolog 5 units SQ w/ meals * A1c = 6.7% on 12/06/18 The patient is currently receiving: * Basal insulin: Lantus 30 units SQ BID * Correctional Insulin: Novolog Correction per scale ACHS Goal Range: Low 110 mg/dL - High 140 mg/dL Correction Factor: 15 mg/dL/unit * Prandial insulin: Per carb ratio of 1 unit per 5 grams CHO consumed ASSESSMENT: * Glycemic control improved significantly over the last 24-48 hours with current aggressive Lantus and Novolog regimen * AM fasting BSG today excellent at 105 mg/dL. Of note, on 12/17 patient refused Novolog with breakfast because she was not comfortable with BSG in the 90's. Will add in a scale to reduce Lantus for BSG < 100 mg/dL * Trend x48 hours in which BSG's steadily climb over the course of the day with dinner and HS checks > 180 mg/dL - will tighten CHO ratio PLAN FOR INPATIENT GLYCEMIC CONTROL: * Basal insulin: Lantus SQ BID per the following scale: * 25 units for BSG less than 100 mg/dL * 30 units for BSG 100 mg/dL or greater * Bolus insulin * NovoLog per scale ACHS or Q6hrs while NPO * Goal Range: Low 110 mg/dL - High 140 mg/dL * Correction Factor: 15 mg/dL/unit * Nutritional / Prandial insulin per carb ratio of 1 unit per 4 grams CHO consumed PLAN FOR DISCHARGE: * To be determined. Her insulin requirements during this hospitalization are much higher than what her outpatient regimen provided. Patient may be a poor glycosylator - her HbA1c would look like BSG's are controlled well, but would not be reflective of actual estimated average glucose (EAG). EAG would be higher than HbA1c would reflect.
[2018-12-19] MEDS ORDERED: INSULIN GLARGINE SOLOSTAR 100 UNITS/ML 3 ML PEN SC SCH (09:00)
--- NOTE | 2018-12-19 09:49 | Nephrology Progress Note ---
Date of Service December 19, 2018 Assessment & Plan (1) Acute decompensated heart failure: 83-year-old female with acute kidney injury setting of acute decompensated heart failure, cirrhosis of liver with possibly WOODS versus right-sided heart failure. Started on hemodialysis for worsening renal function after R IJ THC placed 12/12/18. 1st dialysis treatment was on 12/12/2018. Creatinine continue to rise between HD although started to make urine, had UO once this am -- dialysis today 4 hours and then Continue on IDH MWF as no sign of renal recovery yet. -- Discharge Planning is working to set up outpatient IHD. 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 Overall she has been doing better. volume status improving. Diarrhea resolved. Cr continues to rise between HD, UO still low Physical Exam Constitutional: WD/WN, vitals as above Respiratory: normal respiratory effort, lungs clear to auscultation Cardiovascular: RRR, no murmur, no edema Neurologic: PERRL, EOMI, accommodation nl, no face palsy, no dysarthria moves all extremities and awake Psychiatric: A+Ox3, euthymic affect Results & Data Vital Signs (Past 12 Hours) Vital Signs Temp Pulse Pulse Resp BP Pulse Ox 12/19/18 07:09 36.4 C L 67 18 98/61 L 90 12/18/18 23:24 36.5 C 79 18 94/55 L 94
--- NOTE | 2018-12-19 16:25 | Hospitalist Progress Note ---
Date of Service December 19, 2018 Assessment & Plan (1) Acute decompensated heart failure: Acute on chronic CHF. Cardiology consulted. Echo showed mild LVH, normal LV size and systolic function, severely dilated RV with reduced systolic function, mild-moderate MR, severe TR, pulmonary hypertension. Acute on chronic right sided CHF, possible acute on chronic left ventricular diastolic failure, co-existent renal failure with fluid overload. Received IV furosemide followed by bumetanide infusion. SHARYN inhibitors and ARB's (1) not indicated for diastolic or right-sided heart failure and (2) contraindicated in light of renal disease. Hemodialysis recommended for fluid management. Symptoms, exam, chest x-ray improved. (2) Atrial fibrillation: Chronic atrial fibrillation. Rate control with nadolol. Anticoagulation changed from apixaban to warfarin in light of renal failure and advanced age. Titrate warfarin to maintain INR in low therapeutic range in light of thrombocytopenia. (3) KEMAR (acute kidney injury): History of CKD III with baseline creatinine around 2. Creatinine at time of admission was 3.62. Acute kidney injury, associated with CHF, cirrhosis, diuretic therapy. Nephrology consulted. Hemodialysis recommended for fluid management. Dialysis catheter placed on 12/12 and hemodialysis was initiated. Creatinine today = 4.07. To continue dialysis --. Follow. (4) Hypertension: Continue nadolol. Follow and titrate Rx. (5) Sleep apnea: Continue CPAP. 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 LFT's essentially normal. INR 1.4 before warfarin. Ascites may be secondary to hepatic disease with portal hypertension and/or right-sided CHF. Follow. (7) Hyponatremia: Serum sodium 129 at time of admission. Hyponatremia probably multifactorial. Nephrology consulted. Na today = 133. Follow. (8) Diabetes mellitus type 2 with complications: Well-controlled with Hgb A1C of 6.7. Usually takes insulin degludec + insulin aspartate. Patient states that she feels best with blood sugars around 120-140. Lantus / NovoLog per protocol during hospital stay. FBS this morning = 105. (9) Hypothyroidism: Continue levothyroxine. (10) Anemia: Hgb as low as 7.9. Anemia probably multifactorial, with anemia of CKD and cirrhosis contributing factors. Did not require transfusion. Hgb today = 8.1. Management per Nephrology. 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 Platelet count 63,000. Follow. (12) Clostridioides difficile infection: Improving. Continue vancomycin to complete course of therapy. (13) Palliative care encounter: Palliative Care Team consulted to assist with decision making and planning. (14) Do not resuscitate status: DNR per advanced directives. (15) DVT prophylaxis: Initially on apixaban for AF. Transitioned to warfarin because of worsening renal function. Ambulate. (16) Discharge planning issues: Arrangements being made for transfer to [facility] for inpatient rehab. Primary care follow-up with pt's preferred provider- patient would like to be established with a [facility] PCP at their [facility] office to coordinate care with Cardiology and Nephrology. Cardiology follow-up with Dav Quick PA-C. Nephrology follow-up with Dr. Wheeler. Subjective Recheck for multiple problems. Patient seen in their room around 15:10. Doing well. Receiving hemodialysis treatment. No fever. Still has occasional nonproductive cough. No SOB. No chest pain. Diarrhea better. No melena or hematochezia. Review of Systems: Constitutional- no fever. Cardiac- as noted above. Pulmonary- as noted above. GI- no nausea, vomiting, melena, hematochezia. - voiding without difficulty, but not often. Otherwise, as noted above. Physical Exam Constitutional: no acute distress Respiratory: no respiratory distress Auscultation: lungs clear to auscultation bilaterally Cardiovascular: Rate/Rhythm: + irregularly irregular Vessels: + JVD Extremities: + edema (1+ pretibial edema); no calf tenderness Gastrointestinal (Abdomen): Inspection/Auscultation: normal bowel sounds Percussion/Palpation: abdomen soft; abdomen nontender Musculoskeletal: Extremities: no cyanosis Skin: no rashes, warm and dry Psychiatric: Orientation: alert and oriented x 3 Results & Data Vital Signs (Past 12 Hours) Vital Signs Temp Pulse Pulse Pulse Resp BP BP 12/19/18 15:40 79 133/62 12/19/18 15:20 75 127/56 L 12/19/18 15:00 71 131/61 12/19/18 14:41 75 126/56 L 12/19/18 14:20 69 113/42 L 12/19/18 14:05 36.4 C L 73 79 121/59 L 12/19/18 07:09 36.4 C L 67 18 98/61 L Pulse Ox 12/19/18 15:40 12/19/18 15:20 12/19/18 15:00 12/19/18 14:41 12/19/18 14:20 12/19/18 14:05 12/19/18 07:09 90 Laboratory Results Laboratory Results - last 24 hr 12/18/18 12/18/18 12/19/18 16:38 20:09 06:49 WBC 4.38 L RBC 2.69 L Hgb 8.1 L Hct 25.5 L MCV 94.8 MCH 30.1 MCHC 31.8 L RDW Std Deviation 74.5 H RDW Coeff of Pastora 21.6 H Plt Count 63 L MPV 10.1 Platelet Estimate Decreased L Sodium Potassium Chloride Carbon Dioxide Anion Gap BUN Creatinine Est Cr Clr Drug Dosing Est GFR ( Amer) Est GFR (Non-Af Amer) BUN/Creatinine Ratio Glucose POC Glucose 185 H 184 H Calcium 12/19/18 12/19/18 12/19/18 06:49 07:12 12:30 WBC RBC Hgb Hct MCV MCH MCHC RDW Std Deviation RDW Coeff of Pastora Plt Count MPV Platelet Estimate Sodium 133 L Potassium 3.4 L Chloride 98 Carbon Dioxide 25 Anion Gap 10.0 BUN 49 H Creatinine 4.07 H D Est Cr Clr Drug Dosing 11.9 Est GFR ( Amer) 11.1 Est GFR (Non-Af Amer) 9.6 BUN/Creatinine Ratio 12.1 Glucose 104 H POC Glucose 105 H 149 H Calcium 8.1 L
[2018-12-19] MEDS: WARFARIN SOD 3 MG TAB PO SCH (16:40)
--- NOTE | 2018-12-19 17:08 | Discharge Summary ---
Date of Service December 19, 2018 Admission HPI Per Admitting Provider This is a 83-year-old female who has a significant past medical history of Martin cirrhosis, PAF, IDDM 2, HTN, HLD, CKD stage III, hypertension, anemia (both iron deficiency and chronic disease), hypothyroidism, RLS who presents to [facility] ED secondary to SOB x45 days. Daughters at bedside. Pt had recent hospitalization at [facility] and [facility]. Records are unavailable at this time. Recent prolonged hospitalization at [place] for hepatorenal syndrome, fluid overload and anemia. During that hospitalization she did require blood transfusion. She had worsening renal failure and was discharged to SNF on hospice given multiple comorbidities. While at SNF patient started to improve, kidney function improved and she was taken off hospice. She worked with PT and OT and was discharged home. She has been home for approximately 1 week and daughters have noticed progressive decline. She has had 6 pound weight gain in the past 3 days. Approximately 45 days ago patient's baseline weight was 190 pounds. Today she is 222 pounds. According to family she recently saw [facility] cardiology and had Lasix increased to 40 mg. Patient complains of increasing dyspnea on exertion, shortness of breath at rest, worsening swelling, increased weight gain, dry cough, orthopnea requiring her to sleep in chair, early satiety, decreased appetite. She denies any fever, chills, sweats, lightheadedness, dizziness, chest pain, palpitations, hemoptysis, nausea, vomiting, diarrhea, melena, hematochezia. She does note black stools secondary to iron but no rosi blood. Last BM was today and was normal for her. Over the past 3 days she has noted decreased urine output. Of note she was hospitalized at [facility] 2/2 Anemia requiring 1 unit PRBC. Daughters note she has had 1 iron infusion as well. Iron studies 09/29/18 ferritin 22, iron 75, TIBC 444, T sat 17% She currently lives alone, uses a walker to ambulate. Denies any smoking or ETOH Use. Has known hx of MARTIN cirrhosis but has not required paracentesis. States she is compliant with medications including lasix, aldactone and eliquis. Admission Exam Per Admitting Provider Gen: Elderly, F, chronically ill appearing, lying in bed, +tachypnea with conversation, pleasant, Head: Normocephalic, Atraumatic Eyes: Sclera normal, anicteric, no conjunctival injection, PERRLA, EOMI ENT: Gross hearing intact, normal pharynx, mucous membranes moist Neck: supple, no adenopathy, No JVD, no bruit, Resp: Clear to auscultation with diminished breath sounds b/l, no wheeze, rales, rhonchi. 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 Extremities: +3 pitting edema of lower ext b/l extending above proximal thigh into abdomen and gluteal region, no erythema, warmth, negative homans sign Skin: warm, moist, no rash, negative turgor, cap refill < 2sec Neuro: Alert and oriented x 3, speech normal, good mood/affect, cran nerve 2-12 intact grossly : deferred Principal Diagnosis acute on chronic left ventricular diastolic heart failure and acute on chronic right sided heart failure acute kidney injury Discharge Data Allergies Allergy/AdvReac Type Severity Reaction Status Date / Time hydrocodone AdvReac Intermediate SWEATING, Verified 12/07/18 10:54 FELT FUNNY - UNSURE IF IT WAS VICODIN oxycodone AdvReac Intermediate Hallucinati Verified 12/07/18 10:54 ng Consultations 12/05/18 13:55 ED Decision to Admit Stat 12/05/18 15:14 Consult Cardiology Routine 12/05/18 16:07 Consult Case Management - Discharge Planning Routine 12/06/18 09:27 Consult Nephrology Routine 12/07/18 10:37 Consult Palliative Care Routine 12/09/18 09:45 Consult Vascular Surgery Routine 12/09/18 09:46 Consult Case Management - Discharge Planning Routine Procedures Performed Operation Date: 12/12/18 08:00 Actual Procedures p Insertion of Perm Catheter, Right Internal Jugular Approach, Ultrasound Localization of Right Internal Jugular Vein, Fluoroscopy for positioning, Moderate Sedation from 0836 - 0858. (Right) - Gold Jauregui MD Ordered Studies 12/05/18 14:35 US abdomen ltd ascites Stat 12/12/18 07:13 US guide vascular access Routine 12/12/18 08:00 EV cvc insrt tunnel wo prt/database development project manager Routine Hospital Course (1) Acute decompensated heart failure: Acute on chronic CHF. Cardiology consulted. Echo showed mild LVH, normal LV size and systolic function, severely dilated RV with reduced systolic function, mild-moderate MR, severe TR, pulmonary hypertension. Acute on chronic right sided CHF, possible acute on chronic left ventricular diastolic failure, co-existent renal failure with fluid overload. Received IV furosemide followed by bumetanide infusion. SHARYN inhibitors and ARB's (1) not indicated for diastolic or right-sided heart failure and (2) contraindicated in light of renal disease. Hemodialysis recommended for fluid management. Symptoms, exam, chest x-ray improved. Weight down 13 kg by discharge. (2) Atrial fibrillation: Chronic atrial fibrillation. Rate control with nadolol. Anticoagulation changed from apixaban to warfarin in light of renal failure and advanced age. Titrate warfarin to maintain INR in low therapeutic range in light of thrombocytopenia. (3) KEMAR (acute kidney injury): History of CKD III with baseline creatinine around 2. Creatinine at time of admission was 3.62. Acute kidney injury, associated with CHF, cirrhosis, diuretic therapy. Nephrology consulted. Hemodialysis recommended for fluid management. Dialysis catheter placed on 12/12 and hemodialysis was initiated. Creatinine day of discharge was 4.07. To continue dialysis . Follow. (4) Hypertension: Continue nadolol. Follow and titrate Rx. (5) Sleep apnea: Continue CPAP. 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 LFT's essentially normal. INR 1.4 before warfarin. Ascites may be secondary to hepatic disease with portal hypertension and/or right-sided CHF. Follow. (7) Hyponatremia: Serum sodium 129 at time of admission. Hyponatremia probably multifactorial. Nephrology consulted. Na day of discharge was 133. Follow. (8) Diabetes mellitus type 2 with complications: Well-controlled with Hgb A1C of 6.7. Usually takes insulin degludec + insulin aspartate. Patient states that she feels best with blood sugars around 120-140. Lantus / NovoLog per protocol during hospital stay. FBS day of discharge was 105. (9) Hypothyroidism: Continue levothyroxine. (10) Anemia: Hgb as low as 7.9. Anemia probably multifactorial, with anemia of CKD and cirrhosis contributing factors. Did not require transfusion. Hgb day of discharge was 8.1. Management per Nephrology. 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 Platelet count day of discharge was 63,000. Follow. (12) Clostridioides difficile infection: Improving. Continue vancomycin to complete course of therapy. (13) Palliative care encounter: Palliative Care Team consulted to assist with decision making and planning. (14) Do not resuscitate status: DNR per advanced directives. (15) DVT prophylaxis: Initially on apixaban for AF. Transitioned to warfarin because of worsening renal function. Ambulate. (16) Discharge planning issues: Arrangements being made for transfer to [facility] for inpatient rehab. Primary care follow-up with pt's preferred provider- patient would like to be established with a [facility] PCP at their [facility] office to coordinate care with Cardiology and Nephrology. Cardiology follow-up with Dav Quick PA-C. Nephrology follow-up with Dr. Wheeler. Total Time Total Time Spent Total Time Spent (In Minutes): 50 Discharge Plan Discharge Items Patient Disposition: Transfer Inpatient Rehab Fac Reason For Visit: CHF, acute kidney injury Discharge Diagnosis: CHF acute kidney injury chronic atrial fibrillation DM type 2 anemia thrombocytopenia C difficile colitis Condition: Good Discharge Goals: Decrease discomfort and Improve disease control Activity: As commented below Activity Comment: gradually increase activity as tolerated Non-emergency contact: Primary Care Provider, Hospitalist, Garbage Man and Jackhammer Splitter Operator Call non-emergency contact if: you have any medication questions and you have a fever Diet: Carb Consistent or DM2, Dialysis Renal and Heart Healthy Addtl Provider Instructions: Please monitor INR's closely and maintain INR between 2 - 2.5. Please monitor fingerstick blood sugars AC + HS. Scale for NovoLog with meals: blood sugar NovoLog units SQ <111 none 111-140 4 141-200 8 201-260 12 > 260 16 Contact precautions for C diff. Thank you for receiving this patient in transfer. Please call if you have any questions. Adrian Marks Prescriptions: New vancomycin 125 mg capsule 125 mg PO Q6H Qty: 12 RF: 0 warfarin 2 mg tablet 2 mg PO DAILY Qty: 30 RF: 0 Renal Caps 1 mg Capsule 1 cap PO QAM Qty: 30 RF: 0 ascorbic acid (vitamin C) 500 mg tablet 500 mg PO DAILY Qty: 30 RF: 0 Continued nadolol 20 mg tablet 20 mg PO HS RF: 0 ranitidine HCl 150 mg tablet 150 mg PO QAM RF: 0 carbidopa-levodopa 10-100 mg tablet 1 tab PO HS RF: 0 meclizine 12.5 mg Tablet 12.5 mg PO BID RF: 0 levothyroxine 88 mcg Capsule 88 mcg PO QAM RF: 0 Changed Tresiba FlexTouch U-200 200 unit/mL (3 mL) Insulin Pen 20 unit SUBCUT BID Qty: 0 RF: 0 ferrous sulfate 325 mg (65 mg iron) Tablet,Delayed Release (Dr/Ec) 325 mg PO DAILY Qty: 30 RF: 0 Novolog Flexpen U-100 Insulin 100 unit/mL (3 mL) insulin pen See Rx Instructions .ROUTE .COMPLEX Qty: 0 RF: 0 Discontinued midodrine 2.5 mg tablet 2.5 mg PO TID PRN (Reason: Hypotension) RF: 0 furosemide 20 mg tablet 40 mg PO QAM RF: 0 Eliquis 2.5 mg tablet 2.5 mg PO BID RF: 0 spironolactone 25 mg Tablet 25 mg PO BID RF: 0 Stand-Alone Forms: Discharge [facility], [facility] Skilled Items Patient informed of condition?: Yes DNR: Yes Discharge Level of Care: Acute rehab Communicable Disease: Yes (C diff) Discharge Prognosis: Improving Admission Data Admit Date/Time: 12/05/18 14:25 Attending Provider: Adrian Marks Admit Provider: Connie Dixon Primary Care Provider: Britta Bean Other Providers: Laquita Rogers ; Danish Garrido ; Connie Dixon ; Dav Quick ; Rodger Cavazos ; Lázaro Delvalle ; Hans Gonzalez ; Javier Ramey Jr ; Sal Sigala ; Ashley Peralta ; Laura Rizo ; Jose Francisco Bess ; Jose Francisco Whitehead ; Venancio Dixon ; Edmond Landaverde ; Maryann Pastor ; Sophia Rai ; Elton Wheeler ; Gold Jauregui Service: Medical
[2018-12-19] MEDS: BENZONATATE 100 MG CAPSULE PO PRN (18:01)
--- NOTE | 2018-12-22 04:46 | Coding Query ---
CODING QUERY To promote full compliance with coding requirements relating to patient care, provider participation is requested in all cases of horizontal drill operator uncertainty. Please assist us with the question(s) below: Coding Question(s): Patient admitted with hypertensive heart/kidney disease and fluid overload. Hemodialysis catheter inserted - pt transferred to Rehab for dialysis. Progress notes mention CKD 3, Operative report states ESRD. Please check below the Kidney disease stage that was treated during this admission. Pt received hemodialysis during this hospitalization. Thanks for your help! ESE Zuleta [facility] Physician's Response(s): ____ CDK 3 __x__ END Stage Kidney Disease ____ Cannot Clinically Correlate what specific kidney disease was treated Other/ Please document: CKD III with acute kidney injury and progressing to end stage kidney disease requiring hemodialysis Thank you Emery De Leon Principal Diagnosis: "that condition established after study, to be chiefly responsible for occasioning the admission of the patient to the hospital for care." Co-Existing Principal Diagnosis: "when two or more diagnoses equally meet the criteria for principal diagnosis as determined by the circumstances of admission, diagnostic work up, and/or therapy provided, and the Alphabetic Index, Tabular List, or another coding guideline does not provide sequencing direction, any one of the diagnoses may be sequenced first." "When the physician has documented what appears to be a current diagnosis in the body of the record, but has not included the diagnosis in the final diagnostic statement, the physician should be asked whether the diagnosis should be added." (Source Coding Clinic 2 QTR90. p3-4) LISANDROD
== END 2018-12-19 18:30 | DRG 291 ==
LOC: ED 10:53 → SUATTDRO 14:25 → 2S 14:25 → 2W 12-12 14:00

== ENCOUNTER 2019-04-28 22:37 | Inpatient (IN) ==
[2019-04-29] MEDS ORDERED: SODIUM CHLORIDE 0.9% 500 ML IV SCH (00:15)
[2019-04-29 01:04] LABS: Basophils # (auto) 0.01 K/uL (0-0.2); Basophils % (auto) 0.1 %; Eosinophils # (auto) 0.12 K/uL (0-0.5); Eosinophils % (auto) 1.5 %; Hematocrit (blood only) 25.2 % (37-47); Hemoglobin 7.8 g/dL (12.0-16.0); Immature Granulocytes # (auto) 0.04 K/uL (0.00-0.02); Immature Granulocytes % (auto) 0.5 %; Lymphocytes # (auto) 0.96 K/uL (1.2-3.4); Lymphocytes % (auto) 11.8 %; Mean Corpuscular Hemoglobin 31.8 pg (25-34); Mean Corpuscular Volume 102.9 fL (80-100); Mean Platelet Volume 8.9 fL (7.4-10.4); Monocytes # (auto) 1.14 K/uL (0.11-0.59); Neutrophils # (auto) 5.86 K/uL (1.4-6.5); Neutrophils % (auto) 72.1 %; Platelet Count 101 K/uL (130-400); RDW Coefficient of Variation 17.2 % (11.5-14.5); RDW Standard Deviation 63.3 fL (36.4-46.3); Red Blood Count 2.45 M/uL (4.2-5.4); White Blood Count 8.13 K/uL (4.8-10.8)
[2019-04-29 01:22] LABS: INR 1.3 (0.9-1.1)
[2019-04-29 01:33] LABS: Echinocytes 1+; Polychromasia 1+; Tear Drop Cells 1+
[2019-04-29 01:54] LABS: Albumin Globulin Ratio 0.6 (0.9-2); Albumin Level 2.3 gm/dl (3.4-5.0); Bilirubin,Total 0.7 mg/dl (0.2-1); Calcium 8.4 mg/dl (8.5-10.1); Creatinine Clr Calc Pharmacy 9.6 ml/min; Est GFR (African American) 8.6; Est GFR (Non-African American) 7.4; Globulin 3.8 gm/dl (2.5-4.0); Magnesium 2.1 mg/dl (1.8-2.4); Potassium 3.6 mmol/L (3.5-5.1); Thyroid Stimulating Hormone 5.78 uIu/ml (0.300-4.500); Total Protein 6.1 gm/dl (6.4-8.2); Troponin I 0.021 ng/ml (0-0.045)
--- NOTE | 2019-04-29 02:26 | Emergency Department Note ---
Entered by Bernard Dorantes acting as a scribe for Daisy Wakefield DO History of Present Illness General Source: patient and family (daughter) History of Present Illness Onset (ago): day(s) (this morning) Pain Consistency: + constant Maximum Pain Intensity: 5 Quality: + other (weakness) Associated symptoms: + other (Positive for right shoulder pain and a low oxygen saturation.) The patient is an 84 year old female who presents to the emergency department with complaints of constant weakness beginning this morning. The patient states that she is a dialysis patient and she notes that she had dialysis yesterday. She reports that she became weak this morning, and she states that she has been having right shoulder pain. She notes that she has been eating and drinking today. Per daughter, the patients oxygen saturation was 68% earlier today. She reports that the patient was put on CPAP which increased her oxygen saturation to 78% when EMS arrived. She states that the patient has had chronic leg swelling for the past six months. Home Medications Home Medications Medication Instructions Recorded Confirmed Type carbidopa-levodopa 1 tab PO HS 12/05/18 04/28/19 History Novolog Flexpen U-100 Insulin See Rx Instructions .ROUTE 12/19/18 04/28/19 Rx .COMPLEX #0 ml levothyroxine 88 mcg capsule 88 mcg PO QAM 01/19/19 04/28/19 History meclizine 12.5 mg tablet 12.5 mg PO BID 01/19/19 04/28/19 History cholecalciferol (vitamin D3) 5,000 5,000 units PO DAILY 01/20/19 04/28/19 History unit capsule famotidine 20 mg tablet 20 mg PO .COMPLEX #15 tab 02/03/19 04/28/19 Rx insulin degludec 200 unit/mL (3 20 unit SUBCUT AMHS ml 03/10/19 04/28/19 History mL) subcutaneous pen apixaban 2.5 mg tablet 2.5 mg PO Q12H #180 tab 03/11/19 04/28/19 Rx B complex with C 20-folic acid 1 cap PO QAM 04/28/19 04/28/19 History [Triphrocaps] acetaminophen 650 mg PO Q4 PRN MDD 10 tabs daily 04/28/19 04/28/19 History ascorbic acid (vitamin C) 500 mg PO QAM 04/28/19 04/28/19 History calcium acetate 667 mg PO TIDM 04/28/19 04/28/19 History ferrous sulfate 325 mg PO QAM 04/28/19 04/28/19 History hydrocortisone 1 applic TOPICAL BID 04/28/19 04/28/19 History nadolol 10 mg PO HS 04/28/19 04/28/19 History Allergies Allergy/AdvReac Type Severity Reaction Status Date / Time hydrocodone AdvReac Intermediate SWEATING, Verified 04/28/19 23:32 FELT FUNNY - UNSURE IF IT WAS VICODIN oxycodone AdvReac Intermediate Hallucinati Verified 04/28/19 23:32 ng Past Med/Surg History Family History (Updated 01/20/19 @ 08:11 by Yudy Domingo) Unknown Coronary heart disease Diabetes Other Family history of cancer Social History (Updated 01/20/19 @ 08:16 by Yudy Domingo) Preferred Language: Portuguese Communication Ability: Effective Visual Impairment: No Limitations Hearing Ability: Normal Complaint Coordinator Required: No Beliefs That Will Affect Care: None marital status: / Current Living Situation: Alone current occupational status: unemployed and retired Other Information That Helps Us Care for You: No other: ambulates with walker Feels Safe at Home: Yes Safety Concerns: Feels Safe At This Time Smoking Status: Never smoker Second Hand Exposure: No ; Hx Alcohol Use: No Hx Substance Use: No Childhood Exposure to Second-Hand Smoke: No Dental Care, Regularly: Yes Review of Systems See HPI for pertinent positives & negatives. and A total of 10 systems reviewed and were otherwise negative Physical Exam Vital Signs Vital Signs - 24 hr 04/28/19 22:28 04/28/19 23:28 04/29/19 00:16 Temperature 36.7 C Temperature Source Oral Pulse Rate 90 Pulse Rate [Bilateral Apical] 89 Pulse Rhythm Regular Respiratory Rate 18 22 Respiratory Effort / Characteristics Non-Labored Spontaneous Non-Labored Respiratory Depth Normal Normal Respiratory Pattern Regular Blood Pressure 92/49 L Blood Pressure [Left Arm] 86/46 L Blood Pressure Mean 63 Blood Pressure Mean [Left Arm] 59 Blood Pressure Position Lying Pulse Oximetry 96 94 99 Oxygen Delivery Method Nasal Cannula Nasal Cannula Nasal Cannula Oxygen Flow Rate 2 2 3 Sepsis Recent Fever Within 48 Hours No Sepsis New/Unexplained Change in Mental Status No Sepsis Action Taken by Nursing No Action Required 04/29/19 00:30 04/29/19 01:35 04/29/19 02:09 Temperature Temperature Source Pulse Rate Pulse Rate [Bilateral Apical] 85 86 89 Pulse Rhythm Respiratory Rate 20 20 20 Respiratory Effort / Characteristics Non-Labored Respiratory Depth Normal Respiratory Pattern Blood Pressure Blood Pressure [Left Arm] 109/47 L 95/49 L 84/43 L Blood Pressure Mean Blood Pressure Mean [Left Arm] 67 64 56 Blood Pressure Position Pulse Oximetry 95 97 93 Oxygen Delivery Method Nasal Cannula Nasal Cannula Room Air Oxygen Flow Rate 3 3 Sepsis Recent Fever Within 48 Hours Sepsis New/Unexplained Change in Mental Status Sepsis Action Taken by Nursing 04/29/19 02:23 04/29/19 02:34 Temperature Temperature Source Pulse Rate Pulse Rate [Bilateral Apical] 83 86 Pulse Rhythm Respiratory Rate 20 20 Respiratory Effort / Characteristics Respiratory Depth Respiratory Pattern Blood Pressure Blood Pressure [Left Arm] 89/49 L 106/58 L Blood Pressure Mean Blood Pressure Mean [Left Arm] 62 74 Blood Pressure Position Pulse Oximetry 87 L 97 Oxygen Delivery Method Room Air Nasal Cannula Oxygen Flow Rate 2 Sepsis Recent Fever Within 48 Hours Sepsis New/Unexplained Change in Mental Status Sepsis Action Taken by Nursing General: Slightly lethargic. HEENT: Head - normocephalic and atraumatic Pupils are equal, round, and reactive to light. Extraocular eye muscles are intact, and sclera are anicteric. Nose - moist nasal mucosa without discharge. Mouth - dry buccal mucosa. Lips dry and cracked. Oropharynx is nonerythematous and there is no tonsillar exudate or edema noted. Neck: Supple; no cervical lymphadenopathy or thyromegaly. Heart: Regular rate and rhythm. There is a normal S1 and S2 with no murmurs, clicks, or gallops appreciated. Lungs: Clear to auscultation bilaterally with no wheezes, rales, or rhonchi. Abdomen: Soft, completely nontender, nondistended, with good bowel sounds. There are no palpable pulsatile masses or hepatosplenomegaly. There is no guarding, rigidity, or rebound noted. Extremities: No evidence of cyanosis, clubbing, or edema. There are easily palpable peripheral pulses. Skin: warm and dry with poor turgor and no rashes, very dry. Course Course 2348: The patient was evaluated in room B11. A complete history and physical examination were performed. Nursing notes and previous electronic medical records were reviewed. IV lock was established and labs were drawn as above. 0030: Sodium Chloride 500 mls @ 999 mls/hr IV 0213: Upon reevaluation, the patient is stable. I discussed the findings and the treatment plan with the patient and her daughters. She expresses agreement and understanding. I spoke with Dr. Garcia of the [facility] Hospitalist Service. The patient will be evaluated for further management. Consultations Consultation #1: I reviewed the patient's case with Dr. Garcia - Hospitalist, [facility]. He will evaluate the patient for further management. Time: 02:13 Administered Medications Levothyroxine Sodium (Synthroid) 88 mcg PO DAILYBB CARLO Stop: 05/29/19 06:29 Last Admin: 04/29/19 05:20 Dose: 88 mcg Documented by: [id number] Discontinued Medications Sodium Chloride (Nss) 500 mls @ 999 mls/hr IV .Q31M CARLO Stop: 04/29/19 00:45 Last Infusion: 04/29/19 01:13 Dose: 0 mls/hr Documented by: [id number] Admin: 04/29/19 00:30 Dose: 999 mls/hr Documented by: [id number] Medical Decision Making Differential Diagnosis Differential diagnoses include: dehydration, sepsis, electrolyte abnormality, an d hyperglycemia. Medical Records Attestation: I reviewed the patient's medical records. Home Medications Current Medication List: was personally reviewed by me Laboratory Data Attestation: I reviewed the patient's lab results. Result diagrams: 04/29/19 05:50 04/29/19 05:50 Lab Results 04/29/19 04/29/19 04/29/19 Range/Units 00:42 00:42 00:59 WBC 8.13 (4.8-10.8) K/uL RBC 2.45 L (4.2-5.4) M/uL Hgb 7.8 L (12.0-16.0) g/dL Hct 25.2 L (37-47) % MCV 102.9 H (80-100) fL MCH 31.8 (25-34) pg MCHC 31.0 L (32-36) g/dL RDW Std Deviation 63.3 H (36.4-46.3) fL RDW Coeff of [place] 17.2 H (11.5-14.5) % Plt Count 101 L (130-400) K/uL MPV 8.9 (7.4-10.4) fL Immature Gran % (Auto) 0.5 % Neut % (Auto) 72.1 % Lymph % (Auto) 11.8 % [place] % (Auto) 14.0 % Eos % (Auto) 1.5 % Baso % (Auto) 0.1 % Immature Gran # (Auto) 0.04 H (0.00-0.02) K/uL Neut # (Auto) 5.86 (1.4-6.5) K/uL Lymph # (Auto) 0.96 L (1.2-3.4) K/uL [place] # (Auto) 1.14 H (0.11-0.59) K/uL Eos # (Auto) 0.12 (0-0.5) K/uL Baso # (Auto) 0.01 (0-0.2) K/uL Polychromasia 1+ Tear Drop Cells 1+ Echinocytes 1+ PT 13.0 H (9.0-12.0) Seconds INR 1.3 H (0.9-1.1) Sodium 135 L (136-145) mmol/L Potassium 3.6 (3.5-5.1) mmol/L Chloride 100 (98-107) mmol/L Carbon Dioxide 23 (21-32) mmol/L Anion Gap 12.0 H (3-11) BUN 35 H (7-18) mg/dl Creatinine 5.01 H* (0.6-1.2) mg/dl Est Cr Clr Drug Dosing 9.6 ml/min Est GFR ( Amer) 8.6 Est GFR (Non-Af Amer) 7.4 BUN/Creatinine Ratio 7.0 L (10-20) Glucose 245 H (70-99) mg/dl Calcium 8.4 L (8.5-10.1) mg/dl Magnesium 2.1 (1.8-2.4) mg/dl Total Bilirubin 0.7 (0.2-1) mg/dl AST 23 (15-37) U/L ALT 10 L (12-78) U/L Alkaline Phosphatase 99 (45-117) U/L Troponin I 0.021 (0-0.045) ng/ml Total Protein 6.1 L (6.4-8.2) gm/dl Albumin 2.3 L (3.4-5.0) gm/dl Globulin 3.8 (2.5-4.0) gm/dl Albumin/Globulin Ratio 0.6 L (0.9-2) TSH 5.780 H (0.300-4.500) uIu/ml Free T4 1.00 (0.8-1.6) ng/dl Imaging Data Attestation: I personally reviewed and interpreted this imaging study as follows: My Impression: 1 VIEW CHEST X-RAY: Cardiomegaly Slight evidence of interstitial pulmonary edema. ECG Data Attestation: I personally reviewed and interpreted this ECG as follows: Indication: + weakness Rate (beats per minute): 93 Rhythm: + atrial fibrillation ECG ST segments: no ST depression and no ST elevation ECG Findings: no PACs and no PVCs Comparison ECG Date: from (01/04/2019) Change: no significant change Blood Pressure Blood Pressure Findings: Low blood pressure Blood Pressure Disposition: further management by hospitalist MICHAEL Calix The patient is an 84 year old female who presents to the emergency department with complaints of constant weakness beginning this morning. The patient's daughter took her blood pressure at home this evening and found it to be very low. She also noticed that her pulse ox was 68% on room air. She also was concerned because the heart rate reading was in the 30s. The patient had signs of extreme dehydration on physical exam, however, there was 4+ pitting edema of the legs up to the patient's groin. On chest x-ray, there was some evidence of pulmonary vascular congestion. Patient was treated with IV normal saline solution conservatively. Patient's O2 saturation was in the mid 80s without supplemental oxygen. The patient had persistent episodes of hypotension while here in the emergency department and was at significant risk for fall at home. Patient also required supplemental oxygen at all times. The patient will be evaluated by the [facility] Hospitalist for further care. Discharge Plan Visit Data *Final* Discharge Date/Time: 04/29/19 03:23 Chief Complaint: Illness Stated Complaint: WEAKNESS, FATIGUE ED Provider: Daisy Wakefield Discharge Problem: Hypoxia, Anemia, Hypotension, Dehydration Patient Disposition: Admitted As Inpatient Discharge Instructions Interventions: ED Discharge Assessment Last Done: 04/29/19 03:23 Discharge Problem: Anemia Qualifiers: Anemia type: unspecified type Qualified Code(s): D64.9 - Anemia, unspecified Hypotension Qualifiers: Hypotension type: unspecified hypotension type Qualified Code(s): I95.9 - Hyp otension, unspecified The scribe's documentation has been prepared under my direction and personally reviewed by me in its entirety. I confirm that the note above accurately reflects all work, treatment, procedures, and medical decision making performed by me.
--- NOTE | 2019-04-29 03:12 | History & Physical Report ---
Date of Service April 29, 2019 Assessment & Plan (1) Hypoxia: Ms. 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 ED course: 500 mL normal saline bolus Hypoxia -Admit to telemetry -Patient requiring 2L of oxygen via nasal cannula, which she uses at night and during dialysis -Suspect her hypoxia is related to her ascites. Anticipate improvement after paracentesis -Afebrile, no white cell count, no fever to suggest infectious cause Ascites, cirrhosis, secondary to WOODS -Follows with [facility] -Last underwent a therapeutic paracentesis on 04/14/2019, w/a removal of 5.1 L of fluid. Suspect her ascites is related to her cirrhosis -Diagnostic and therapeutic paracentesis ordered given ascites appreciated on examination. Unable to find records with prior diagnostic paracentesis. -Continue home nadolol. Per review of cardiology records, this was recently decreased in order to maintain a higher blood pressure during dialysis. If hypotension continues to be an issue, they recommend switching to low-dose atenolol or metoprolol End-stage renal disease, on dialysis -Follows with Dr. Agudelo, dialyzing at [facility] -Consult nephrology, assistance appreciated -Continue home calcium and vitamin D3 Anemia -Secondary to anemia of chronic disease and iron deficiency -Hemoglobin 7.8 on arrival - baseline is around 78 -Patient typed and screened, and blood consent form signed in case patient requires blood transfusion with dialysis -Continue home iron supplementation Generalized weakness -Likely related to deconditioning in the setting of multiple comorbidities -PT/OT evals ordered Type 2 diabetes mellitus -Patient reportedly takes 15 units of long-acting insulin daily, not on dialysis days. Will order Lantus for 04/30/2019 in case pt has dialysis tomorrow -BSG AC/HS with ISS Paroxysmal atrial fibrillation -Hold home Eliquis in preparation for paracentesis, can resume afterwards -Continue home nadolol Hypothyroidism -Continue home levothyroxine -TSH elevated at 5.78, T4 normal at 1 Obstructive sleep apnea -Continue CPAP qhs Periodic limb movement disorder -Continue home Sinemet GERD -Continue home famotidine CODE STATUS: DNR/DNI, confirmed with patient and family DVT prophylaxis: On Eliquis Disposition: Admit to telemetry (2) Anemia: (3) Hypotension: (4) End stage renal disease: (5) Diabetes mellitus type 2 with complications: (6) Atrial fibrillation: (7) Anemia: (8) Thrombocytopenia: (9) Liver cirrhosis secondary to WOODS: (10) Periodic limb movement disorder: (11) Hypertension: (12) Sleep apnea: (13) Restless leg syndrome: (14) Hypothyroidism: (15) Weakness: History of Present Illness , Had a mechanical fall earlier this morning, and was assisted back to a standing position. She states that she did not lose consciousness. Chief Complaint: Weakness, hypoxia Primary Care Provider: Gavi Huang MD Ms. 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 The patient states that she fell this morning while trying to back up onto a chair. She states that she hit her head, but denies any loss of consciousness. Her family states that she has been generally weak for the past few days. Her daughter notes that Ms. Oliveira looks like she was having trouble breathing at home, checked her oxygen saturations and found to be 68%. They subsequently put her on CPAP, and called an ambulance. Ms. Oliveira denies feeling short of breath, or having chest pain. She states that she underwent dialysis yesterday, however they were not able to complete the entire duration of dialysis due to low blood pressure. Allergies Allergy/AdvReac Type Severity Reaction Status Date / Time hydrocodone AdvReac Intermediate SWEATING, Verified 04/28/19 23:32 FELT FUNNY - UNSURE IF IT WAS VICODIN oxycodone AdvReac Intermediate Hallucinati Verified 04/28/19 23:32 ng Home Medications Home Medications Medication Instructions Recorded Confirmed Type carbidopa-levodopa 1 tab PO HS 12/05/18 04/28/19 History Novolog Flexpen U-100 Insulin See Rx Instructions .ROUTE 12/19/18 04/28/19 Rx .COMPLEX #0 ml levothyroxine 88 mcg capsule 88 mcg PO QAM 01/19/19 04/28/19 History meclizine 12.5 mg tablet 12.5 mg PO BID 01/19/19 04/28/19 History cholecalciferol (vitamin D3) 5,000 5,000 units PO DAILY 01/20/19 04/28/19 History unit capsule famotidine 20 mg tablet 20 mg PO .COMPLEX #15 tab 02/03/19 04/28/19 Rx insulin degludec 200 unit/mL (3 20 unit SUBCUT AMHS ml 03/10/19 04/28/19 History mL) subcutaneous pen apixaban 2.5 mg tablet 2.5 mg PO Q12H #180 tab 03/11/19 04/28/19 Rx B complex with C 20-folic acid 1 cap PO QAM 04/28/19 04/28/19 History [Triphrocaps] acetaminophen 650 mg PO Q4 PRN MDD 10 tabs daily 04/28/19 04/28/19 History ascorbic acid (vitamin C) 500 mg PO QAM 04/28/19 04/28/19 History calcium acetate 667 mg PO TIDM 04/28/19 04/28/19 History ferrous sulfate 325 mg PO QAM 04/28/19 04/28/19 History hydrocortisone 1 applic TOPICAL BID 04/28/19 04/28/19 History nadolol 10 mg PO HS 04/28/19 04/28/19 History Past Med/Surg History Medical History Acid reflux (Chronic) Anemia (Chronic) Anticoagulated on Coumadin (Chronic) Atrial fibrillation (Chronic) Clostridioides difficile infection (Resolved) Degenerative disc disease (Chronic) Diabetes mellitus type 2 with complications (Chronic) Dyslipidemia (Chronic) End stage renal disease (Chronic) Goals of care, counseling/discussion Hypertension (Chronic) Hypothyroidism (Chronic) Liver cirrhosis secondary to WOODS (Chronic) Nocturnal hypoxia (Chronic) Periodic limb movement disorder (Chronic) On Simemet Protein-calorie malnutrition, moderate (Chronic) Restless leg syndrome (Chronic) Sleep apnea (Chronic) CPAP Thrombocytopenia (Chronic) Surgical History History of cholecystectomy History of craniotomy History of Craniotomy Tumor Removal History of ear surgery History of fracture of nasal bone History of liver biopsy History of tonsillectomy History of total abdominal hysterectomy and bilateral salpingo-oophorectomy History of total shoulder replacement Family History Unknown Coronary heart disease Diabetes Other Family history of cancer Social History Preferred Language: Danish Communication Ability: Effective Visual Impairment: No Limitations Hearing Ability: Normal 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 Required: No Beliefs That Will Affect Care: None marital status: / Current Living Situation: Alone current occupational status: unemployed and retired Other Information That Helps Us Care for You: No other: ambulates with walker Feels Safe at Home: Yes Safety Concerns: Feels Safe At This Time Smoking Status: Never smoker Second Hand Exposure: No ; Hx Alcohol Use: No Hx Substance Use: No Childhood Exposure to Second-Hand Smoke: No Dental Care, Regularly: Yes Review of Systems Constitutional: + fatigue and + weakness; no fever and no chills Eyes: no diplopia and no loss of peripheral vision Respiratory: + dyspnea; no cough and no wheezing Cardiovascular: + edema; no chest pain, no palpitations, no syncope and no c talia pain Gastrointestinal: no abdominal pain, no nausea, no vomiting and no change in bowel habits Integumentary: no rash Neurologic: + falls and + generalized weakness Physical Exam Constitutional: WD/WN, vitals as above no acute distress Eyes: PERRL, conjunctivae normal, anicteric sclerae ENMT: external ear and nose normal, oropharynx normal Respiratory: Auscultation: + diminished lung sounds and + crackles (at lung bases) Cardiovascular: Rate/Rhythm: regular rate and regular rhythm Heart Sounds: no murmur Vessels: dorsalis pedis pulses present (Faint) Extremities: normal capillary refill and + pedal edema (2+ bilaterally); no calf tenderness Gastrointestinal (Abdomen): Inspection/Auscultation: + abdomen distended Percussion/Palpation: abdomen soft; abdomen nontender and no guarding Musculoskeletal: no cyanosis or clubbing, extremities motor strength 5/5 Skin: no rashes, warm and dry Psychiatric: A+Ox3, euthymic affect Results & Data Vital Signs (Past 12 Hours) Vital Signs Temp Pulse Pulse Resp BP BP Pulse Ox 04/29/19 02:34 86 20 106/58 L 97 04/29/19 02:23 83 20 89/49 L 87 L 04/29/19 02:09 89 20 84/43 L 93 04/29/19 01:35 86 20 95/49 L 97 04/29/19 00:30 85 20 109/47 L 95 04/29/19 00:16 99 04/28/19 23:28 89 22 86/46 L 94 04/28/19 22:28 36.7 C 90 18 92/49 L 96 Code Status & VTE Plan VTE Prophylaxis Plan VTE Prophylaxis will be ordered: Yes Supervising Physician Co-Signing Physician Notes Attending addendum: I have physically seen this patient, have supervised the medical residents activities, and agree with the H&P unless as otherwise noted. Assessment and Plan: Hypoxia- Admit to telemetry. Continue nasal cannula 2 L oxygen, nocturnally dependent. Secondary to pulmonary edema and decreased lung excursion due to ascites abdominal distention. Follow after dialysis. ESRD on HD- Undergoes most dialysis at [facility] [place]. Consult nephrology for dialysis while at [facility]. Liver cirrhosis with ascites, secondary to WOODS- Status post therapeutic paracentesis with removal of 5.1 L of fluid on 04/14/2019 while at [facility]. Look to reaccumulated fluid and would benefit from paracentesis in the a.m. tomorrow. Unable to find diagnostic results, so we will therefore perform a diagnostic and therapeutic paracentesis. Remainder of orders and notations as noted. Resident Activity Tracking Resident Involvement: Resident Care Provided Care Provided: Adult Hospital Medicine (1) Anemia Anemia type: unspecified type Qualified Code(s): D64.9 - Anemia, unspecified (2) Hypotension Hypotension type: unspecified hypotension type Qualified Code(s): I95.9 - Hypotension, unspecified
[2019-04-29] MEDS ORDERED: GLUCOSE 10 TABS/TUBE PO PRN (03:44)
[2019-04-29] MEDS ORDERED: GLUCAGON FOR INJ 1 MG VIAL SQ PRN (03:44)
[2019-04-29] MEDS ORDERED: MAGNESIUM HYDROXIDE SUSP 30 ML UDC PO PRN (03:44)
[2019-04-29] MEDS ORDERED: POLYETHYLENE (MIRALAX) 17 GM PACK PO PRN (03:44)
[2019-04-29] MEDS ORDERED: CARBOHYDRATES FOR HYPOGLYCEMIA PO PRN (03:44)
[2019-04-29] MEDS ORDERED: DEXTROSE 50% 50 ML SYRINGE IV PRN (03:44)
[2019-04-29] MEDS ORDERED: GLUCOSE 40% GEL 15 GM TUBE PO PRN (03:44)
[2019-04-29] MEDS ORDERED: ALUMINUM/MAGNESIUM SUSP 30 ML UDC PO PRN (03:44)
[2019-04-29] MEDS: LEVOTHYROXINE SODIUM 88 MCG TABLET PO SCH (05:20)
[2019-04-29 06:08] LABS: Basophils # (auto) 0.01 K/uL (0-0.2); Basophils % (auto) 0.1 %; Eosinophils # (auto) 0.13 K/uL (0-0.5); Eosinophils % (auto) 1.9 %; Hematocrit (blood only) 25.4 % (37-47); Immature Granulocytes # (auto) 0.02 K/uL (0.00-0.02); Immature Granulocytes % (auto) 0.3 %; Lymphocytes # (auto) 0.87 K/uL (1.2-3.4); Lymphocytes % (auto) 12.6 %; Mean Corpuscular Hemoglobin 32.7 pg (25-34); Mean Corpuscular Hgb Conc 31.5 g/dL (32-36); Mean Corpuscular Volume 103.7 fL (80-100); Mean Platelet Volume 9.3 fL (7.4-10.4); Monocytes # (auto) 1.12 K/uL (0.11-0.59); Monocytes % (auto) 16.2 %; Neutrophils # (auto) 4.77 K/uL (1.4-6.5); Neutrophils % (auto) 68.9 %; Platelet Count 103 K/uL (130-400); RDW Coefficient of Variation 17.3 % (11.5-14.5); Red Blood Count 2.45 M/uL (4.2-5.4); White Blood Count 6.92 K/uL (4.8-10.8)
[2019-04-29 06:35] LABS: BUN Creatinine Ratio 7.5 (10-20); Calcium 8.7 mg/dl (8.5-10.1); Creatinine Clr Calc Pharmacy 9.4 ml/min; Est GFR (African American) 8.6; Est GFR (Non-African American) 7.4; Potassium 3.6 mmol/L (3.5-5.1)
--- NOTE | 2019-04-29 07:08 | XRay Report ---
XR chest 1V portable HISTORY: hypoxia COMPARISON: Chest 12/17/2018. FINDINGS: No pneumothorax. The heart is mildly enlarged. Mitral annulus calcifications are present. R ight jugular catheter terminates in the SVC. There are healing left-sided rib fractures. Right should er prosthesis. Mild central pulmonary vascular congestion without overt edema. Suspect trace bilatera l pleural effusions. Left retrocardiac density. IMPRESSION: 1. Cardiomegaly with mild central pulmonary vascular congestion. 2. Trace bilateral pleural effusions. 3. Left retrocardiac density. This could represent atelectasis or pneumonia. Electronically signed by: Oswaldo Rizo M.D. 04/29/2019 7:07 AM
[2019-04-29] MEDS: INSULIN ASPART 100 UNITS/ML 3 ML PEN SC SCH ×4 (08:38→20:38)
[2019-04-29] MEDS: CHOLECALCIFEROL 1,000 UNITS TAB PO SCH (08:39)
[2019-04-29] MEDS: ASCORBIC ACID 500 MG TAB PO SCH (08:39)
[2019-04-29] MEDS: FAMOTIDINE 20 MG TAB PO SCH (08:39)
[2019-04-29] MEDS: FERROUS SULFATE 325 MG TAB PO SCH (08:39)
[2019-04-29] MEDS: NEPHROCAPS PO SCH (08:40)
[2019-04-29] MEDS: CALCIUM ACETATE 667 MG CAP PO SCH ×3 (08:40→17:49)
[2019-04-29] MEDS: HYDROCORTISONE 2.5% CR 30 GM TUBE EXT SCH ×2 (08:40→20:25)
--- NOTE | 2019-04-29 10:02 | Ultrasound Report ---
PARACENTESIS UNDER ULTRASOUND GUIDANCE CLINICAL HISTORY: cirrhosis, ascites COMPARISON STUDY: No previous studies for comparison. FINDINGS: The risks, benefits, and alternatives to the procedure were discussed with the patient. Miles rider informed consent was obtained. Following real-time ultrasound localization, the skin was prepped and draped. Following local anesthesia with Xylocaine, the sheath paracentesis needle was inserted a nd approximately 4.7 liters of straw-colored fluid was removed by vacuum suction. A left lower quadra nt approach was utilized. The patient tolerated the procedure well and left the department in satisfactory condition. IMPRESSION: Successful ultrasound-guided paracentesis with removal of approximately 4.7 liters of asc itic fluid. Electronically signed by: Nirav Mercado M.D. 04/29/2019 10:00 AM
[2019-04-29 10:21] LABS: Albumin Peritoneal Fluid 0.6 g/dl
[2019-04-29 10:32] LABS: Total Protein Peritoneal Fluid 1.2 g/dl
[2019-04-29] MEDS: ALBUMIN 25% 50 ML IV SCH ×3 (10:40→12:10)
[2019-04-29 10:57] LABS: Appearance Peritoneal Fluid HAZY; Basophils, Fluid 0 %; Color Peritoneal Fluid PALE YELLOW; Eosinophils, Fluid 0 %; Lymphocytes, Fluid 14 %; Mono,Macrophage,Mesothelial 65 %; Neutrophils, Fluid 21 %; RBC Peritoneal Fluid (A) < 3000 /uL; WBC Peritoneal Fluid (A) 142 /ul (0-300)
[2019-04-29] MEDS ORDERED: SODIUM CHLORIDE 0.9% 250 ML IV ONE (12:54)
--- NOTE | 2019-04-29 14:12 | History & Physical Bridge Note ---
Date of Service April 29, 2019 History & Physical Bridge Note Seen and examined throughout the day. After paracentesis, BP has run as low as 65/30; however, she is mentating well and has few symptoms. Gave 3 bottles of albumin post-paracentesis (report that only 5L was taken off). Giving bolus of 250 mL of NS. She is willing to have IV pressors; however, she does not want a central line. PICC/midline unable due to poor vasculature. Could use HD line if needed, but will avoid if necessary.
[2019-04-29] MEDS: MIDODRINE HCL 10 MG TAB PO SCH (15:21)
[2019-04-29] MEDS: FLUDROCORTISONE ACETATE 0.1 MG TAB PO SCH (15:21)
--- NOTE | 2019-04-29 16:01 | Palliative Care Consultation ---
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 Patient has had issues recently with hypotension during dialysis. She underwent large volume paracentesis today with removal of 5L ascitic fluid. Patient was in hospital here at [facility] from end of November to December 19 with hepatorenal syndrome. During that admission, palliative care was consulted to discuss whether or not she wanted to undergo dialysis or move towards comfort measures. After several discussions, patient decided to undergo dialysis. She was eventually discharged home where she lives alone independently. Her daughter and other family help keep an eye on her. Today, patient continues to have hypotension, as low as 65/30, although she was asymptomatic with this. Patient was mentating fine even with the low BP. She is likely dehydrated, but fluid resuscitation is tricky given her hepatic and renal disease. Several nurses attempted to get peripheral IV access but were unsuccessful. IV team attempted a PICC, but could not find a vessel large enough. Patient now has an ultrasound- guided IV. Patient told the hospitalist she would be okay with IV pressors if needed, but would not want other heroic measures if she continued to decline. Tito hernandez is consulted again for supportive care and assistance with medical decision making for patient and family. -Met with patient and her daughter, Leonela, in room 233. Patient is very tired after her long exhausting day, but she is oriented x4 and states she has zero discomforts. Patient denied any fatigue or weakness at home, but her daughter Leonela states patient has fallen several times at home that she thinks is from the hypotension. -Patient confirmed that she would be fine with short-term pressors if needed, but really does not want heroic measures. Patient told Dr. Cantor she would not want bipap mask or another central line. She is DNR/DNI. -We discussed that we are trying PO Florinef and midodrine at this time to elevate the blood pressure. SBP has in fact improved to 90s at this time. Hoping to avoid ICU and pressors. -Patient is hoping to continue with dialysis and treatment, hopes to get back home. -Patient and her daughter have some questions about a renal-appropriate diet that could help boost her protein. Will order multiplex operator to see patient tomorrow when hopefully feeling a little better. -Palliative team will follow during hospitalization and see how she does. Prognosis is guarded at this time. If patient continues to decline and has issues with blood pressure, uncertain of recovery potential. 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 Patient has had issues recently with hypotension during dialysis. She underwent large volume paracentesis today with removal of 5L ascitic fluid. Patient was in hospital here at [facility] from end of November to December 19 with hepatorenal syndrome. During that admission, palliative care was consulted to discuss whether or not she wanted to undergo dialysis or move towards comfort measures. After several discussions, patient decided to undergo dialysis. She was eventually discharged home where she lives alone independently. Her daughter and other family help keep an eye on her. Today, patient continues to have hypotension, as low as 65/30, although she was asymptomatic with this. Patient was mentating fine even with the low BP. She is likely dehydrated, but fluid resuscitation is tricky given her hepatic and renal disease. Several nurses a ttempted to get peripheral IV access but were unsuccessful. IV team attempted a PICC, but could not find a vessel large enough. Patient now has an ultrasound- guided IV. Patient told the hospitalist she would be okay with IV pressors if needed, but would not want other heroic measures if she continued to decline. Palliative care is consulted again for supportive care and assistance with medical decision making for patient and family. Thank you kindly for this consult. Palliative care team will follow as needed. Allergies Allergy/AdvReac Type Severity Reaction Status Date / Time hydrocodone AdvReac Intermediate SWEATING, Verified 04/28/19 23:32 FELT FUNNY - UNSURE IF IT WAS VICODIN oxycodone AdvReac Intermediate Hallucinati Verified 04/28/19 23:32 ng Home Medications Home Medications Medication Instructions Recorded Confirmed Type carbidopa-levodopa 1 tab PO HS 12/05/18 04/28/19 History Novolog Flexpen U-100 Insulin See Rx Instructions .ROUTE 12/19/18 04/28/19 Rx .COMPLEX #0 ml levothyroxine 88 mcg capsule 88 mcg PO QAM 01/19/19 04/28/19 History meclizine 12.5 mg tablet 12.5 mg PO BID 01/19/19 04/28/19 History cholecalciferol (vitamin D3) 5,000 5,000 units PO DAILY 01/20/19 04/28/19 History unit capsule famotidine 20 mg tablet 20 mg PO .COMPLEX #15 tab 02/03/19 04/28/19 Rx insulin degludec 200 unit/mL (3 20 unit SUBCUT AMHS ml 03/10/19 04/28/19 History mL) subcutaneous pen apixaban 2.5 mg tablet 2.5 mg PO Q12H #180 tab 03/11/19 04/28/19 Rx B complex with C 20-folic acid 1 cap PO QAM 04/28/19 04/28/19 History [Triphrocaps] acetaminophen 650 mg PO Q4 PRN MDD 10 tabs daily 04/28/19 04/28/19 History ascorbic acid (vitamin C) 500 mg PO QAM 04/28/19 04/28/19 History calcium acetate 667 mg PO TIDM 04/28/19 04/28/19 History ferrous sulfate 325 mg PO QAM 04/28/19 04/28/19 History hydrocortisone 1 applic TOPICAL BID 04/28/19 04/28/19 History nadolol 10 mg PO HS 04/28/19 04/28/19 History Patient History Family History (Updated 01/20/19 @ 08:11 by Yudy Domingo) Unknown Coronary heart disease Diabetes Other Family history of cancer Social History (Updated 01/20/19 @ 08:16 by Yudy Domingo) Preferred Language: Tunisian Communication Ability: Effective Visual Impairment: No Limitations Hearing Ability: Normal Vegetable Farmer Required: No Beliefs That Will Affect Care: None marital status: / Current Living Situation: Alone current occupational status: unemployed and retired Other Information That Helps Us Care for You: No other: ambulates with walker Feels Safe at Home: Yes Safety Concerns: Feels Safe At This Time Smoking Status: Never smoker Second Hand Exposure: No ; Hx Alcohol Use: No Hx Substance Use: No Childhood Exposure to Second-Hand Smoke: No Dental Care, Regularly: Yes Review of Systems Review of Systems: Const: No fever, no chills Resp: No SOB, no cough Cardio: No chest pain, no edema GI: No abdominal pain, no N/V MS: No musculoskeletal pain Neuro: No confusion Psych: No anxiety, no depression Physical Exam Constitutional: + frail appearing; no acute distress ENMT: external ear and nose normal, oropharynx normal Neck: normal visual inspection Respiratory: normal respiratory effort, lungs clear to auscultation Cardiovascular: RRR, no murmur, no edema Gastrointestinal (Abdomen): Inspection/Auscultation: normal bowel sounds Percussion/Palpation: abdomen soft; abdomen nontender Neurologic: moves all extremities and awake; not confused Psychiatric: A+Ox3, euthymic affect Results & Data Vital Signs (Past 12 Hours) Vital Signs Temp Pulse Pulse Resp BP BP Pulse Ox 04/29/19 15:26 36.4 C L 83 18 93/55 L 91 04/29/19 14:45 82/50 L 04/29/19 14:27 77 87/51 L 04/29/19 13:41 87/52 L 04/29/19 13:30 86/52 L 04/29/19 13:29 79/45 L 04/29/19 13:23 101/60 04/29/19 12:41 76/43 L 04/29/19 12:40 63/36 L 04/29/19 12:27 75 18 85/49 L 97 04/29/19 12:00 74 18 87/54 L 95 04/29/19 11:30 82 18 85/55 L 96 04/29/19 10:58 81 18 77/44 L 96 04/29/19 10:41 82 18 78/50 L 93 04/29/19 10:27 82 18 77/53 L 97 04/29/19 10:16 85/49 L 04/29/19 10:14 58/33 L 04/29/19 10:12 36.5 C 80 18 63/37 L 93 04/29/19 08:00 97 H 04/29/19 07:24 36.5 C 80 19 90/51 L 92 04/29/19 04:59 85 Time Spent Midlevel 50 minutes with >50% of the time spent at bedside with patient and family discussing condition and GOC.
--- NOTE | 2019-04-29 18:05 | Nephrology Consultation ---
Date of Consultation April 29, 2019 Assessment & Plan (1) End stage renal disease: The patient's volume status was found to be acceptable today. She underwent removal of 5 L ascitic fluid. She was hypotensive following this. 50 g of IV albumin was provided. Patient has been started on Midodrine to assist with hypotension. Electrolytes are acceptable. Medications are appropriately dosed for kidney dysfunction. Hemodialysis was deferred today. I will plan to provide a treatment tomorrow. Palliative Care is consultation is appreciated regarding overall goals of care. At this time we will plan to continue with hemodialysis as tolerated. Limitations of the procedure known to the patient. We will avoid aggressive fluid removal and focus on providing appropriate clearance. Overall, the patient's prognosis given her underlying advanced liver disease as well as end-stage renal disease is poor. The patient and her family acknowledges this. Orders for hemodialysis will be coordinated for tomorrow discussed with the dialysis nurse the morning. Metabolic profile will be repeated in the morning. Erythropoietin and iron will be provided with dialysis is needed. (2) Liver cirrhosis secondary to WOODS: (3) Anemia: History of Present Illness Reason for Consultation: ESRD Requesting Physician: Juan Cantor MD Attending Physician: Juan Cantor MD History of Present Illness Earlene is a 84 year old female with ESRD. She initially started on hemodialysis during admission to [facility] in November/December. Earlene is on intermittent hemodialysis in [place] //. She dialyzes via a right IJ tunnel dialysis catheter. Hemodialysis has recently been complicated by hypotension. Otherwise the patient states she is tolerating treatments well. Medical history is notable for liver cirrhosis due to WOODS. She has portal hypertension with refractory ascites. Patient has required intermittent large volume paracenteses. She was seen and evaluated the morning after undergoing paracentesis with 5 L fluid removed. There is no evidence of SBP. Earlene presented to the hospital yesterday with increased weakness. She describes increased difficulty living at home alone. She has suffered several recent falls. She has weakness in her legs. She is a generalized weakness limiting her activities of daily living. Patient has family that lives close. However she is result herself that she may need transition to nursing care at the [facility] to care in [place]. Overall, the patient notes that she is aware of the advanced nature of her medical conditions and was agreeable to speak with palliative care today. She feels the quality of her life is reasonable. She has not thought about stopping dialysis recently. Allergies Allergy/AdvReac Type Severity Reaction Status Date / Time hydrocodone AdvReac Intermediate SWEATING, Verified 04/28/19 23:32 FELT FUNNY - UNSURE IF IT WAS VICODIN oxycodone AdvReac Intermediate Hallucinati Verified 04/28/19 23:32 ng Home Medications Home Medications Medication Instructions Recorded Confirmed Type carbidopa-levodopa 1 tab PO HS 12/05/18 04/28/19 History Novolog Flexpen U-100 Insulin See Rx Instructions .ROUTE 12/19/18 04/28/19 Rx .COMPLEX #0 ml levothyroxine 88 mcg capsule 88 mcg PO QAM 01/19/19 04/28/19 History meclizine 12.5 mg tablet 12.5 mg PO BID 01/19/19 04/28/19 History cholecalciferol (vitamin D3) 5,000 5,000 units PO DAILY 01/20/19 04/28/19 History unit capsule famotidine 20 mg tablet 20 mg PO .COMPLEX #15 tab 02/03/19 04/28/19 Rx insulin degludec 200 unit/mL (3 20 unit SUBCUT AMHS ml 03/10/19 04/28/19 History mL) subcutaneous pen apixaban 2.5 mg tablet 2.5 mg PO Q12H #180 tab 03/11/19 04/28/19 Rx B complex with C 20-folic acid 1 cap PO QAM 04/28/19 04/28/19 History [Triphrocaps] acetaminophen 650 mg PO Q4 PRN MDD 10 tabs daily 04/28/19 04/28/19 History ascorbic acid (vitamin C) 500 mg PO QAM 04/28/19 04/28/19 History calcium acetate 667 mg PO TIDM 04/28/19 04/28/19 History ferrous sulfate 325 mg PO QAM 04/28/19 04/28/19 History hydrocortisone 1 applic TOPICAL BID 04/28/19 04/28/19 History nadolol 10 mg PO HS 04/28/19 04/28/19 History Patient History Medical History Acid reflux (Chronic) Anemia (Chronic) Anticoagulated on Coumadin (Chronic) Atrial fibrillation (Chronic) Clostridioides difficile infection (Resolved) Degenerative disc disease (Chronic) Diabetes mellitus type 2 with complications (Chronic) Dyslipidemia (Chronic) End stage renal disease (Chronic) Goals of care, counseling/discussion Hypertension (Chronic) Hypothyroidism (Chronic) Liver cirrhosis secondary to WOODS (Chronic) Nocturnal hypoxia (Chronic) Periodic limb movement disorder (Chronic) On Simemet Protein-calorie malnutrition, moderate (Chronic) Restless leg syndrome (Chronic) Sleep apnea (Chronic) CPAP Thrombocytopenia (Chronic) Surgical History History of cholecystectomy History of craniotomy History of Craniotomy Tumor Removal History of ear surgery History of fracture of nasal bone History of liver biopsy History of tonsillectomy History of total abdominal hysterectomy and bilateral salpingo-oophorectomy History of total shoulder replacement Family History Unknown Coronary heart disease Diabetes Other Family history of cancer Social History Preferred Language: Cameroonian Communication Ability: Effective Visual Impairment: No Limitations Hearing Ability: Normal Corporate Financial Analyst Required: No Beliefs That Will Affect Care: None marital status: / Current Living Situation: Alone current occupational status: unemployed and retired Other Information That Helps Us Care for You: No other: ambulates with walker Feels Safe at Home: Yes Safety Concerns: Feels Safe At This Time Smoking Status: Never smoker Second Hand Exposure: No ; Hx Alcohol Use: No Hx Substance Use: No Childhood Exposure to Second-Hand Smoke: No Dental Care, Regularly: Yes Review of Systems Review of Systems: All systems reviewed & are unremarkable except as noted in HPI & below Physical Exam Constitutional: + frail appearing; no acute distress and not edematous Eyes: + anicteric sclerae; no conjunctival abnormality ENMT: Mouth: no oral mucosal abnormality and oral mucous membranes not dry Neck: normal visual inspection and trachea midline RIJ TDC Respiratory: normal respiratory effort Auscultation: lungs clear to auscultation bilaterally Cardiovascular: Heart Sounds: normal S1 and normal S2 Vessels: no JVD Extremities: + edema Gastrointestinal (Abdomen): Percussion/Palpation: abdomen soft; abdomen nontender Musculoskeletal: Extremities: no cyanosis and no clubbing Skin: + pallor; no jaundice Neurologic: Motor/Sensory: no tremor and no asterixis Psychiatric: Eye Contact: good eye contact Affect: + depressed affect Results & Data Vital Signs (Past 12 Hours) Vital Signs Temp Pulse Pulse Resp BP BP Pulse Ox 04/29/19 16:40 91/60 L 04/29/19 16:00 90/54 L 04/29/19 15:26 36.4 C L 83 18 93/55 L 91 04/29/19 14:45 82/50 L 04/29/19 14:27 77 87/51 L 04/29/19 13:41 87/52 L 04/29/19 13:30 86/52 L 04/29/19 13:29 79/45 L 04/29/19 13:23 101/60 04/29/19 12:41 76/43 L 04/29/19 12:40 63/36 L 04/29/19 12:27 75 18 85/49 L 97 04/29/19 12:00 74 18 87/54 L 95 04/29/19 11:30 82 18 85/55 L 96 04/29/19 10:58 81 18 77/44 L 96 04/29/19 10:41 82 18 78/50 L 93 04/29/19 10:27 82 18 77/53 L 97 04/29/19 10:16 85/49 L 04/29/19 10:14 58/33 L 04/29/19 10:12 36.5 C 80 18 63/37 L 93 04/29/19 08:00 97 H 04/29/19 07:24 36.5 C 80 19 90/51 L 92 Laboratory Results Laboratory Results - last 24 hr 04/29/19 04/29/19 04/29/19 00:42 00:42 00:59 WBC 8.13 RBC 2.45 L Hgb 7.8 L Hct 25.2 L MCV 102.9 H MCH 31.8 MCHC 31.0 L RDW Std Deviation 63.3 H RDW Coeff of Pastora 17.2 H Plt Count 101 L MPV 8.9 Immature Gran % (Auto) 0.5 Neut % (Auto) 72.1 Lymph % (Auto) 11.8 [place] % (Auto) 14.0 Eos % (Auto) 1.5 Baso % (Auto) 0.1 Immature Gran # (Auto) 0.04 H Neut # (Auto) 5.86 Lymph # (Auto) 0.96 L [place] # (Auto) 1.14 H Eos # (Auto) 0.12 Baso # (Auto) 0.01 Polychromasia 1+ Tear Drop Cells 1+ Echinocytes 1+ PT 13.0 H INR 1.3 H Sodium 135 L Potassium 3.6 Chloride 100 Carbon Dioxide 23 Anion Gap 12.0 H BUN 35 H Creatinine 5.01 H* Est Cr Clr Drug Dosing 9.6 Est GFR ( Amer) 8.6 Est GFR (Non-Af Amer) 7.4 BUN/Creatinine Ratio 7.0 L Glucose 245 H POC Glucose Calcium 8.4 L Magnesium 2.1 Total Bilirubin 0.7 AST 23 ALT 10 L Alkaline Phosphatase 99 Troponin I 0.021 Total Protein 6.1 L Albumin 2.3 L Globulin 3.8 Albumin/Globulin Ratio 0.6 L TSH 5.780 H Free T4 1.00 Fluid Neutrophils % Fluid Lymphocytes % Fluid Eosinophils % Fluid Basophils % Fluid Meso/Macro/[place] % Peritoneal Color Peritoneal Appearance Peritoneal WBC Peritoneal RBC Peritoneal Tot Protein Peritoneal Albumin Peritoneal LDH Peritoneal Glucose Peritoneal Amylase Nasal Screen MRSA (PCR) Blood Type Antibody Screen 04/29/19 04/29/19 04/29/19 04:24 05:50 05:50 WBC 6.92 RBC 2.45 L Hgb 8.0 L Hct 25.4 L MCV 103.7 H MCH 32.7 MCHC 31.5 L RDW Std Deviation 64.0 H RDW Coeff of [place] 17.3 H Plt Count 103 L MPV 9.3 Immature Gran % (Auto) 0.3 Neut % (Auto) 68.9 Lymph % (Auto) 12.6 [place] % (Auto) 16.2 Eos % (Auto) 1.9 Baso % (Auto) 0.1 Immature Gran # (Auto) 0.02 Neut # (Auto) 4.77 Lymph # (Auto) 0.87 L [place] # (Auto) 1.12 H Eos # (Auto) 0.13 Baso # (Auto) 0.01 Polychromasia Tear Drop Cells Echinocytes PT INR Sodium 136 Potassium 3.6 Chloride 101 Carbon Dioxide 24 Anion Gap 10.0 BUN 38 H Creatinine 5.03 H* Est Cr Clr Drug Dosing 9.4 Est GFR ( Amer) 8.6 Est GFR (Non-Af Amer) 7.4 BUN/Creatinine Ratio 7.5 L Glucose 219 H POC Glucose Calcium 8.7 Magnesium Total Bilirubin AST ALT Alkaline Phosphatase Troponin I Total Protein Albumin Globulin Albumin/Globulin Ratio TSH Free T4 Fluid Neutrophils % Fluid Lymphocytes % Fluid Eosinophils % Fluid Basophils % Fluid Meso/Macro/[place] % Peritoneal Color Peritoneal Appearance Peritoneal WBC Peritoneal RBC Peritoneal Tot Protein Peritoneal Albumin Peritoneal LDH Peritoneal Glucose Peritoneal Amylase Nasal Screen MRSA (PCR) Negative Blood Type Antibody Screen 04/29/19 04/29/19 04/29/19 05:50 07:34 09:43 WBC RBC Hgb Hct MCV MCH MCHC RDW Std Deviation RDW Coeff of [place] Plt Count MPV Immature Gran % (Auto) Neut % (Auto) Lymph % (Auto) [place] % (Auto) Eos % (Auto) Baso % (Auto) Immature Gran # (Auto) Neut # (Auto) Lymph # (Auto) [place] # (Auto) Eos # (Auto) Baso # (Auto) Polychromasia Tear Drop Cells Echinocytes PT INR Sodium Potassium Chloride Carbon Dioxide Anion Gap BUN Creatinine Est Cr Clr Drug Dosing Est GFR ( Amer) Est GFR (Non-Af Amer) BUN/Creatinine Ratio Glucose POC Glucose 214 H Calcium Magnesium Total Bilirubin AST ALT Alkaline Phosphatase Troponin I Total Protein Albumin Globulin Albumin/Globulin Ratio TSH Free T4 Fluid Neutrophils % Fluid Lymphocytes % Fluid Eosinophils % Fluid Basophils % Fluid Meso/Macro/[place] % Peritoneal Color Peritoneal Appearance Peritoneal WBC Peritoneal RBC Peritoneal Tot Protein 1.2 Peritoneal Albumin 0.6 Peritoneal LDH 48 Peritoneal Glucose 235 Peritoneal Amylase 5 Nasal Screen MRSA (PCR) Blood Type A Negative Antibody Screen NEGATIVE 04/29/19 04/29/19 04/29/19 09:43 09:43 09:43 WBC RBC Hgb Hct MCV MCH MCHC RDW Std Deviation RDW Coeff of [place] Plt Count MPV Immature Gran % (Auto) Neut % (Auto) Lymph % (Auto) [place] % (Auto) Eos % (Auto) Baso % (Auto) Immature Gran # (Auto) Neut # (Auto) Lymph # (Auto) [place] # (Auto) Eos # (Auto) Baso # (Auto) Polychromasia Tear Drop Cells Echinocytes PT INR Sodium Potassium Chloride Carbon Dioxide Anion Gap BUN Creatinine Est Cr Clr Drug Dosing Est GFR ( Amer) Est GFR (Non-Af Amer) BUN/Creatinine Ratio Glucose POC Glucose Calcium Magnesium Total Bilirubin AST ALT Alkaline Phosphatase Troponin I Total Protein Albumin Globulin Albumin/Globulin Ratio TSH Free T4 Fluid Neutrophils % 21 Fluid Lymphocytes % 14 Fluid Eosinophils % 0 Fluid Basophils % 0 Fluid Meso/Macro/[place] % 65 Peritoneal Color PALE YELLOW Peritoneal Appearance HAZY Peritoneal WBC 142 Peritoneal RBC < 3000 Peritoneal Tot Protein Peritoneal Albumin Peritoneal LDH Peritoneal Glucose Cancelled Peritoneal Amylase Cancelled Nasal Screen MRSA (PCR) Blood Type Antibody Screen 04/29/19 04/29/19 04/29/19 09:43 09:43 11:22 WBC RBC Hgb Hct MCV MCH MCHC RDW Std Deviation RDW Coeff of Pastora Plt Count MPV Immature Gran % (Auto) Neut % (Auto) Lymph % (Auto) [place] % (Auto) Eos % (Auto) Baso % (Auto) Immature Gran # (Auto) Neut # (Auto) Lymph # (Auto) [place] # (Auto) Eos # (Auto) Baso # (Auto) Polychromasia Tear Drop Cells Echinocytes PT INR Sodium Potassium Chloride Carbon Dioxide Anion Gap BUN Creatinine Est Cr Clr Drug Dosing Est GFR ( Amer) Est GFR (Non-Af Amer) BUN/Creatinine Ratio Glucose POC Glucose 219 H Calcium Magnesium Total Bilirubin AST ALT Alkaline Phosphatase Troponin I Total Protein Albumin Globulin Albumin/Globulin Ratio TSH Free T4 Fluid Neutrophils % Fluid Lymphocytes % Fluid Eosinophils % Fluid Basophils % Fluid Meso/Macro/[place] % Peritoneal Color Peritoneal Appearance Peritoneal WBC Peritoneal RBC Peritoneal Tot Protein Cancelled Peritoneal Albumin Peritoneal LDH Cancelled Peritoneal Glucose Peritoneal Amylase Nasal Screen MRSA (PCR) Blood Type Antibody Screen 04/29/19 16:24 WBC RBC Hgb Hct MCV MCH MCHC RDW Std Deviation RDW Coeff of [place] Plt Count MPV Immature Gran % (Auto) Neut % (Auto) Lymph % (Auto) [place] % (Auto) Eos % (Auto) Baso % (Auto) Immature Gran # (Auto) Neut # (Auto) Lymph # (Auto) [place] # (Auto) Eos # (Auto) Baso # (Auto) Polychromasia Tear Drop Cells Echinocytes PT INR Sodium Potassium Chloride Carbon Dioxide Anion Gap BUN Creatinine Est Cr Clr Drug Dosing Est GFR ( Amer) Est GFR (Non-Af Amer) BUN/Creatinine Ratio Glucose POC Glucose 212 H Calcium Magnesium Total Bilirubin AST ALT Alkaline Phosphatase Troponin I Total Protein Albumin Globulin Albumin/Globulin Ratio TSH Free T4 Fluid Neutrophils % Fluid Lymphocytes % Fluid Eosinophils % Fluid Basophils % Fluid Meso/Macro/[place] % Peritoneal Color Peritoneal Appearance Peritoneal WBC Peritoneal RBC Peritoneal Tot Protein Peritoneal Albumin Peritoneal LDH Peritoneal Glucose Peritoneal Amylase Nasal Screen MRSA (PCR) Blood Type Antibody Screen PG Care Time/CCT Total # of Minutes Spent Total Time Spent with Patient: Total time spent is greater than 50% in coordination of care (as documented) at patient's floor/unit and/or counseling patient: (1) Anemia Anemia type: unspecified type Qualified Code(s): D64.9 - Anemia, unspecified
[2019-04-29] MEDS: CARBIDOPA/LEVODOP 10/100MG TAB PO SCH (20:26)
[2019-04-29] MEDS ORDERED: NADOLOL 40 MG TAB PO SCH (21:00)
[2019-04-30] MEDS: LEVOTHYROXINE SODIUM 88 MCG TABLET PO SCH (05:49)
[2019-04-30 06:58] LABS: Hematocrit (blood only) 26.3 % (37-47); Hemoglobin 8.2 g/dL (12.0-16.0); Mean Corpuscular Hemoglobin 32.4 pg (25-34); Mean Corpuscular Hgb Conc 31.2 g/dL (32-36); Nucleated RBC # (auto) 0.02 K/uL (0-0); Nucleated RBC % (auto) 0.3 %; RDW Coefficient of Variation 17.2 % (11.5-14.5); RDW Standard Deviation 63.7 fL (36.4-46.3); Red Blood Count 2.53 M/uL (4.2-5.4); White Blood Count 5.58 K/uL (4.8-10.8)
[2019-04-30] MEDS ORDERED: SODIUM CHLORIDE 0.9% 1000ML 1,000 ML IV PRN ×2 (07:00→09:55)
[2019-04-30 07:31] LABS: Mean Platelet Volume 9.4 fL (7.4-10.4); Platelet Count 89 K/uL (130-400); Platelet Estimate Decreased (Normal)
[2019-04-30 07:53] LABS: Albumin Level 2.5 gm/dl (3.4-5.0); BUN Creatinine Ratio 7.7 (10-20); Calcium 8.4 mg/dl (8.5-10.1); Creatinine Clr Calc Pharmacy 7.2 ml/min; Est GFR (African American) 6.8; Est GFR (Non-African American) 5.9; Ferritin 379.7 ng/ml (8-388); Phosphorus 4.8 mg/dl (2.5-4.9); Potassium 3.9 mmol/L (3.5-5.1)
[2019-04-30] MEDS: CALCIUM ACETATE 667 MG CAP PO SCH ×3 (07:58→16:52)
[2019-04-30] MEDS: INSULIN ASPART 100 UNITS/ML 3 ML PEN SC SCH ×4 (08:31→21:52)
[2019-04-30] MEDS: MIDODRINE HCL 10 MG TAB PO SCH ×3 (08:32→16:52)
[2019-04-30] MEDS: FERROUS SULFATE 325 MG TAB PO SCH (09:49)
[2019-04-30] MEDS: ASCORBIC ACID 500 MG TAB PO SCH (09:49)
[2019-04-30] MEDS: FLUDROCORTISONE ACETATE 0.1 MG TAB PO SCH (09:50)
[2019-04-30] MEDS: NEPHROCAPS PO SCH (09:52)
[2019-04-30] MEDS: HYDROCORTISONE 2.5% CR 30 GM TUBE EXT SCH ×2 (09:52→21:51)
[2019-04-30] MEDS: CHOLECALCIFEROL 1,000 UNITS TAB PO SCH (09:53)
[2019-04-30] MEDS ORDERED: EPOETIN ALFA 10,000 UNITS/ML VIAL IV ONE (09:55)
--- NOTE | 2019-04-30 10:02 | Nephrology Progress Note ---
Date of Service April 30, 2019 Assessment & Plan (1) End stage renal disease: HD today, orders entered into EMR and discussed with the HD nurse. Outpatient schedule is MWF. Will evaluate tomorrow for timing of next HD. Plan for 3 hrs via TDC. UF goal 1 L as tolerated given BP. midodrine 10 mg to be given prior to treatment. Nadolol has been held. Medications are appropriately dosed for IHD. The patient notes improvement overall following paracentesis yesterday. For anemia, Epogen 56500 units and Venofer 200 mg will be provided with dialysis. The patient again today noted that an assisted living arrangement may be necessary at the time of discharge. She realizes that her comorbid medical conditions are advanced and that her overall health and functional status are declining. She is not ready to stop dialysis at this time. 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 Earlene appears weak but states that she feels well this morning. Appetite is fair. BP improved slightly. She would like to try hemodialysis. She denies dyspnea. She denies abdominal pain. Review of Systems Review of Systems: All systems reviewed & are unremarkable except as noted in HPI & below Physical Exam Constitutional: + frail appearing; no acute distress and not edematous Eyes: + anicteric sclerae; no conjunctival abnormality ENMT: Mouth: no oral mucosal abnormality and oral mucous membranes not dry Neck: normal visual inspection and trachea midline Respiratory: normal respiratory effort Auscultation: lungs clear to auscultation bilaterally Cardiovascular: Heart Sounds: normal S1 and normal S2 Vessels: no JVD Extremities: + edema Gastrointestinal (Abdomen): Percussion/Palpation: abdomen soft; abdomen nontender Musculoskeletal: Extremities: no cyanosis and no clubbing Skin: + pallor; no jaundice Neurologic: Motor/Sensory: no tremor and no asterixis Psychiatric: Eye Contact: good eye contact Affect: + depressed affect Results & Data Vital Signs (Past 12 Hours) Vital Signs Temp Pulse Pulse Resp BP BP Pulse Ox 04/30/19 08:00 36.4 C L 84 18 93/56 L 95 04/30/19 07:22 75 04/30/19 04:08 36.5 C 81 18 95/53 L 93 04/30/19 00:30 80 04/30/19 00:14 36.4 C L 80 20 96/57 L 93 Laboratory Results Laboratory Results - last 24 hr 04/29/19 04/29/19 04/29/19 09:43 09:43 09:43 WBC RBC Hgb Hct MCV MCH MCHC RDW Std Deviation RDW Coeff of Pastora Plt Count MPV Absolute Nucleated RBC Nucleated RBC % (auto) Platelet Estimate Sodium Potassium Chloride Carbon Dioxide Anion Gap BUN Creatinine Est Cr Clr Drug Dosing Est GFR ( Amer) Est GFR (Non-Af Amer) BUN/Creatinine Ratio Glucose POC Glucose Calcium Phosphorus Iron Transferrin Transferrin % Sat Ferritin Albumin Fluid Neutrophils % 21 Fluid Lymphocytes % 14 Fluid Eosinophils % 0 Fluid Basophils % 0 Fluid Meso/Macro/[place] % 65 Peritoneal Color PALE YELLOW Peritoneal Appearance HAZY Peritoneal WBC 142 Peritoneal RBC < 3000 Peritoneal Tot Protein 1.2 Peritoneal Albumin 0.6 Peritoneal LDH 48 Peritoneal Glucose 235 Peritoneal Amylase 5 Cancelled 04/29/19 04/29/19 04/29/19 09:43 09:43 09:43 WBC RBC Hgb Hct MCV MCH MCHC RDW Std Deviation RDW Coeff of Pastora Plt Count MPV Absolute Nucleated RBC Nucleated RBC % (auto) Platelet Estimate Sodium Potassium Chloride Carbon Dioxide Anion Gap BUN Creatinine Est Cr Clr Drug Dosing Est GFR ( Amer) Est GFR (Non-Af Amer) BUN/Creatinine Ratio Glucose POC Glucose Calcium Phosphorus Iron Transferrin Transferrin % Sat Ferritin Albumin Fluid Neutrophils % Fluid Lymphocytes % Fluid Eosinophils % Fluid Basophils % Fluid Meso/Macro/[place] % Peritoneal Color Peritoneal Appearance Peritoneal WBC Peritoneal RBC Peritoneal Tot Protein Cancelled Peritoneal Albumin Peritoneal LDH Cancelled Peritoneal Glucose Cancelled Peritoneal Amylase 04/29/19 04/29/19 04/29/19 11:22 16:24 20:33 WBC RBC Hgb Hct MCV MCH MCHC RDW Std Deviation RDW Coeff of Pastora Plt Count MPV Absolute Nucleated RBC Nucleated RBC % (auto) Platelet Estimate Sodium Potassium Chloride Carbon Dioxide Anion Gap BUN Creatinine Est Cr Clr Drug Dosing Est GFR ( Amer) Est GFR (Non-Af Amer) BUN/Creatinine Ratio Glucose POC Glucose 219 H 212 H 211 H Calcium Phosphorus Iron Transferrin Transferrin % Sat Ferritin Albumin Fluid Neutrophils % Fluid Lymphocytes % Fluid Eosinophils % Fluid Basophils % Fluid Meso/Macro/[place] % Peritoneal Color Peritoneal Appearance Peritoneal WBC Peritoneal RBC Peritoneal Tot Protein Peritoneal Albumin Peritoneal LDH Peritoneal Glucose Peritoneal Amylase 04/30/19 04/30/19 04/30/19 06:15 06:15 07:48 WBC 5.58 RBC 2.53 L Hgb 8.2 L Hct 26.3 L MCV 104.0 H MCH 32.4 MCHC 31.2 L RDW Std Deviation 63.7 H RDW Coeff of Pastora 17.2 H Plt Count 89 L MPV 9.4 Absolute Nucleated RBC 0.02 H Nucleated RBC % (auto) 0.3 Platelet Estimate Decreased L Sodium 131 L Potassium 3.9 Chloride 98 Carbon Dioxide 23 Anion Gap 10.0 BUN 46 H Creatinine 6.08 H* D Est Cr Clr Drug Dosing 7.2 Est GFR ( Amer) 6.8 Est GFR (Non-Af Amer) 5.9 BUN/Creatinine Ratio 7.7 L Glucose 176 H POC Glucose 190 H Calcium 8.4 L Phosphorus 4.8 Iron 25 L Transferrin 118 L Transferrin % Sat 15 Ferritin 379.7 Albumin 2.5 L Fluid Neutrophils % Fluid Lymphocytes % Fluid Eosinophils % Fluid Basophils % Fluid Meso/Macro/[place] % Peritoneal Color Peritoneal Appearance Peritoneal WBC Peritoneal RBC Peritoneal Tot Protein Peritoneal Albumin Peritoneal LDH Peritoneal Glucose Peritoneal Amylase PG Care Time/CCT Total # of Minutes Spent Total Time Spent with Patient: Total time spent is greater than 50% in coordination of care (as documented) at patient's floor/unit and/or counseling patient: (1) Anemia Anemia type: unspecified type Qualified Code(s): D64.9 - Anemia, unspecified
[2019-04-30] MEDS: INSULIN GLARGINE SOLOSTAR 100 UNITS/ML 3 ML PEN SC SCH (10:08)
[2019-04-30] MEDS ORDERED: IRON SUCROSE 200 MG in SYRINGE 0 ML IV ONE (10:15)
--- NOTE | 2019-04-30 14:58 | Hospitalist Progress Note ---
Date of Service April 30, 2019 Assessment & Plan (1) Hypotension: Has been ongoing with low BPs for months. - Worse on 04/29 after a 5L paracentesis - Improved with albumin, NSS bolus, and midodrine + Florinef. - On 04/30, BP is stable at 100/55. 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 - S/p 5L paracentesis on 04/29 - Some leaking from paracentesis site - Unable to start Lasix/spironolactone given her low BP (3) End stage renal disease: Follows with [facility] [place] nephrology. - Attempting HD today (04/30) if BP allows. 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 This is less reliable in ESRD; however, lower than priors. - Continue Lantus - Sliding scale insulin (5) Atrial fibrillation: On apixaban. - Holding home beta-derek for hypotension. (6) Anemia: Secondary to anemia of chronic disease and iron deficiency. - Hemoglobin 7.8 on arrival - baseline is around 78 - Patient typed and screened, and blood consent form signed in case patient requires blood transfusion with dialysis - Continue home iron supplementation - Stable today at 8.2. (7) Hypothyroidism: TSH elevated at 5.78, T4 normal at 1. No symptoms. - Continue home levothyroxine (8) Periodic limb movement disorder: - Continue home Sinemet (9) Sleep apnea: - Continue CPAP qhs Subjective Feels well this morning. BP stable. No major complaints overnight. Reports no fevers/chills, chest pain, shortness of breath, abdominal pain, nausea, or vomiting. Physical Exam Constitutional: + frail appearing and cooperative Eyes: EOM intact bilaterally; no conjunctival abnormality ENMT: external ear and nose normal, oropharynx normal Neck: trachea midline, no thyromegaly normal visual inspection Respiratory: normal respiratory effort, lungs clear to auscultation no respiratory distress Cardiovascular: RRR, no murmur, no edema Gastrointestinal (Abdomen): Inspection/Auscultation: abdomen normal to inspection and normal bowel sounds; abdomen not distended Percussion/Palpation: abdomen soft and + ascites; abdomen nontender, no guarding and abdomen not rigid Musculoskeletal: no cyanosis or clubbing, extremities motor strength 5/5 Skin: no rashes, warm and dry Neurologic: moves all extremities and awake Psychiatric: Orientation: alert, oriented to person and cooperative Results & Data Vital Signs (Past 12 Hours) Vital Signs Temp Pulse Pulse Pulse Resp BP BP 04/30/19 14:34 36.5 C 85 100/56 L 04/30/19 14:00 79 97/47 L 04/30/19 13:38 79 95/55 L 04/30/19 13:20 79 94/50 L 04/30/19 13:00 74 102/45 L 04/30/19 12:40 82 105/52 L 04/30/19 12:20 79 87/47 L 04/30/19 12:00 83 82/44 L 04/30/19 11:44 85 82/38 L 04/30/19 11:20 85 90/52 L 04/30/19 11:08 36.4 C L 79 04/30/19 08:00 36.4 C L 84 18 93/56 L 04/30/19 07:22 75 04/30/19 04:08 36.5 C 81 18 95/53 L Pulse Ox 04/30/19 14:34 04/30/19 14:00 04/30/19 13:38 04/30/19 13:20 04/30/19 13:00 04/30/19 12:40 04/30/19 12:20 04/30/19 12:00 04/30/19 11:44 04/30/19 11:20 04/30/19 11:08 04/30/19 08:00 95 04/30/19 07:22 04/30/19 04:08 93 PG Care Time/CCT Total # of Minutes Spent Total Time Spent with Patient: Total time spent is greater than 50% in coordination of care (as documented) at patient's floor/unit and/or counseling patient: (1) Hypotension Hypotension type: unspecified hypotension type Qualified Code(s): I95.9 - Hypotension, unspecified
[2019-04-30] MEDS: CARBIDOPA/LEVODOP 10/100MG TAB PO SCH (21:51)
--- NOTE | 2019-05-01 00:31 | Billing Data ---
Coding Level of Care Code 03294 Initial Inpt Care Lvl 3
[2019-05-01 06:12] LABS: Hematocrit (blood only) 26.3 % (37-47); Hemoglobin 8.4 g/dL (12.0-16.0); Mean Corpuscular Hemoglobin 32.7 pg (25-34); Mean Corpuscular Hgb Conc 31.9 g/dL (32-36); Mean Corpuscular Volume 102.3 fL (80-100); Nucleated RBC # (auto) 0.02 K/uL (0-0); Nucleated RBC % (auto) 0.2 %; RDW Coefficient of Variation 17.4 % (11.5-14.5); RDW Standard Deviation 64.1 fL (36.4-46.3); Red Blood Count 2.57 M/uL (4.2-5.4); White Blood Count 10.97 K/uL (4.8-10.8)
[2019-05-01 06:14] LABS: Mean Platelet Volume 8.9 fL (7.4-10.4); Platelet Count 93 K/uL (130-400)
[2019-05-01] MEDS: LEVOTHYROXINE SODIUM 88 MCG TABLET PO SCH (06:46)
[2019-05-01 06:50] LABS: BUN Creatinine Ratio 6.6 (10-20); Calcium 8.6 mg/dl (8.5-10.1); Creatinine Clr Calc Pharmacy 9.5 ml/min; Est GFR (African American) 8.9; Est GFR (Non-African American) 7.7; Magnesium 2.1 mg/dl (1.8-2.4); Phosphorus 3.9 mg/dl (2.5-4.9); Potassium 3.9 mmol/L (3.5-5.1)
[2019-05-01] MEDS: MIDODRINE HCL 10 MG TAB PO SCH ×3 (07:57→17:19)
[2019-05-01] MEDS: CALCIUM ACETATE 667 MG CAP PO SCH ×3 (07:58→17:19)
[2019-05-01] MEDS: INSULIN ASPART 100 UNITS/ML 3 ML PEN SC SCH ×4 (07:59→20:53)
[2019-05-01] MEDS: FERROUS SULFATE 325 MG TAB PO SCH (08:52)
[2019-05-01] MEDS: FAMOTIDINE 20 MG TAB PO SCH (08:52)
[2019-05-01] MEDS: CHOLECALCIFEROL 1,000 UNITS TAB PO SCH (08:52)
[2019-05-01] MEDS: ASCORBIC ACID 500 MG TAB PO SCH (08:53)
[2019-05-01] MEDS: HYDROCORTISONE 2.5% CR 30 GM TUBE EXT SCH ×2 (08:55→20:52)
[2019-05-01] MEDS: INSULIN GLARGINE SOLOSTAR 100 UNITS/ML 3 ML PEN SC SCH (08:55)
[2019-05-01] MEDS: FLUDROCORTISONE ACETATE 0.1 MG TAB PO SCH (08:55)
[2019-05-01] MEDS: NEPHROCAPS PO SCH (08:57)
[2019-05-01] MEDS ORDERED: SODIUM CHLORIDE 0.9% 1000ML 1,000 ML IV PRN (09:43)
--- NOTE | 2019-05-01 09:52 | Nephrology Progress Note ---
Date of Service May 01, 2019 Assessment & Plan (1) End stage renal disease: HD today, orders entered into EMR and discussed with the HD nurse. Outpatient schedule is MWF. Plan for 3 hrs via TDC. UF goal 1 L as tolerated. midodrine 10 mg to be given prior to treatment. Nadolol has been held. Medications are appropriately dosed for IHD. For anemia, Epogen 32366 units and Venofer 200 mg was provided with dialysis yesterday. I spent an additional 30 minutes counseling Earlene today. We reviewed the advanced nature of her liver disease and complications associated with dialysis. She acknowledges that her life expectancy is limited but she feels her quality of life and ability to tolerate current therapy is reasonable. She does plan to continue with hemodialysis as tolerated given hypotension. 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 Earlene remains weak and lethargic. She tolerated HD reasonably well yesterday. BP 90-100 mmHg systolic. She denies any issues with treatment. She states that she feels well this morning. Review of Systems Review of Systems: All systems reviewed & are unremarkable except as noted in HPI & below Physical Exam Constitutional: + frail appearing; no acute distress and not edematous Eyes: + anicteric sclerae; no conjunctival abnormality ENMT: Mouth: + dry oral mucous membranes; no oral mucosal abnormality Neck: normal visual inspection and trachea midline Respiratory: normal respiratory effort Auscultation: lungs clear to auscultation bilaterally Cardiovascular: Heart Sounds: normal S1 and normal S2 Vessels: no JVD Extremities: + edema Gastrointestinal (Abdomen): Inspection/Auscultation: + abdomen distended and + abdominal edema Percussion/Palpation: abdomen nontender Musculoskeletal: Extremities: no cyanosis and no clubbing Skin: + pallor; no jaundice Neurologic: Motor/Sensory: no tremor and no asterixis Psychiatric: Eye Contact: good eye contact Affect: euthymic affect Results & Data Vital Signs (Past 12 Hours) Vital Signs Temp Pulse Pulse Resp BP Pulse Ox Pulse Ox 05/01/19 08:51 97 05/01/19 07:33 36.3 C L 77 19 84/47 L 97 05/01/19 07:07 36.3 C L 77 19 84/47 L 97 05/01/19 04:38 36.4 C L 86 19 87/54 L 98 05/01/19 00:16 36.9 C 97 H 19 105/53 L 94 05/01/19 00:00 85 Pulse Ox Pulse Ox 05/01/19 08:51 97 96 05/01/19 07:33 05/01/19 07:07 05/01/19 04:38 05/01/19 00:16 05/01/19 00:00 Laboratory Results Laboratory Results - last 24 hr 04/30/19 04/30/19 05/01/19 16:12 20:13 05:50 WBC 10.97 H RBC 2.57 L Hgb 8.4 L Hct 26.3 L MCV 102.3 H MCH 32.7 MCHC 31.9 L RDW Std Deviation 64.1 H RDW Coeff of Pastora 17.4 H Plt Count 93 L MPV 8.9 Absolute Nucleated RBC 0.02 H Nucleated RBC % (auto) 0.2 Sodium Potassium Chloride Carbon Dioxide Anion Gap BUN Creatinine Est Cr Clr Drug Dosing Est GFR ( Amer) Est GFR (Non-Af Amer) BUN/Creatinine Ratio Glucose POC Glucose 148 H 220 H Calcium Phosphorus Magnesium 05/01/19 05/01/19 05:50 07:12 WBC RBC Hgb Hct MCV MCH MCHC RDW Std Deviation RDW Coeff of Pastora Plt Count MPV Absolute Nucleated RBC Nucleated RBC % (auto) Sodium 132 L Potassium 3.9 Chloride 98 Carbon Dioxide 23 Anion Gap 11.0 BUN 32 H Creatinine 4.86 H* D Est Cr Clr Drug Dosing 9.5 Est GFR ( Amer) 8.9 Est GFR (Non-Af Amer) 7.7 BUN/Creatinine Ratio 6.6 L Glucose 193 H POC Glucose 207 H Calcium 8.6 Phosphorus 3.9 Magnesium 2.1 PG Care Time/CCT Total # of Minutes Spent Total Time Spent with Patient: Total time spent is greater than 50% in coordination of care (as documented) at patient's floor/unit and/or counseling patient: (1) Anemia Anemia type: unspecified type Qualified Code(s): D64.9 - Anemia, unspecified
--- NOTE | 2019-05-01 11:08 | Palliative Care Progress Note ---
Date of Service May 01, 2019 Assessment & Plan (1) Goals of care, counseling/discussion: -Patient stated to me today that if she continues to feel this "lousy" and/or continues to not tolerate dialysis well that she is going to consider stopping dialysis. -We talked about what stopping dialysis would look like and about hospice care. Daughter Leonela was tearful, but supportive of patient. She agrees that ultimately it is the patient's decision. -BP is marginal, but stable today. -No symptom management needs at this time. -We will continue to follow. Case management following as well. 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 No pain. Tolerated dialysis okay yesterday but patient states she still does not really "feel better." Daughter Leonela at bedside. Review of Systems Review of Systems: Const: No fever, no chills. + weakness, + fatigue Resp: No SOB, no cough Cardio: No chest pain, no edema GI: No abdominal pain, no N/V MS: No musculoskeletal pain Neuro: No confusion Psych: No anxiety, no depression Physical Exam Constitutional: + frail appearing; no acute distress ENMT: external ear and nose normal, oropharynx normal Neck: normal visual inspection Respiratory: normal respiratory effort, lungs clear to auscultation Cardiovascular: RRR, no murmur, no edema Gastrointestinal (Abdomen): Inspection/Auscultation: normal bowel sounds Percussion/Palpation: abdomen soft; abdomen nontender Neurologic: moves all extremities and awake; not confused Psychiatric: A+Ox3, euthymic affect Results & Data Vital Signs (Past 12 Hours) Vital Signs Temp Pulse Pulse Resp BP Pulse Ox Pulse Ox 05/01/19 08:51 97 05/01/19 07:33 36.3 C L 77 19 84/47 L 97 05/01/19 07:07 36.3 C L 77 19 84/47 L 97 05/01/19 04:38 36.4 C L 86 19 87/54 L 98 05/01/19 00:16 36.9 C 97 H 19 105/53 L 94 05/01/19 00:00 85 Pulse Ox Pulse Ox 05/01/19 08:51 97 96 05/01/19 07:33 05/01/19 07:07 05/01/19 04:38 05/01/19 00:16 05/01/19 00:00 Supervising Physician Co-Signing Physician Notes Chart reviewed, patient seen and examined. Patient's daughter at bedside Patient known to the palliative service from her prior hospitalization. Collaborated with CRISTAL Gregorio PE: Patient awake and alert, NAD HEENT: EOMI, hearing within normal limits Respirations: Unlabored-on O2 CV: Regular rate, no edema Abdomen: Soft, nontender Neuro: Alert and oriented x4 Agree with above note, assessment and plan as per CRISTAL Gregorio Patient also stated she is agreeable for rehab therapies-she had been at [facility] in the past and [facility] if indicated Will continue to follow and assist patient and family with medical decision making. Time Spent Midlevel 35 minutes with >50% of the time spent at bedside with patient and family discussing condition and GOC. (1) Hypotension Hypotension type: unspecified hypotension type Qualified Code(s): I95.9 - Hypotension, unspecified
--- NOTE | 2019-05-01 12:33 | Hospitalist Progress Note ---
Date of Service May 01, 2019 Assessment & Plan (1) Hypotension: Has been ongoing with low BPs for months. Likely due to cirrhosis, ESRD, frailty. - Worse on 04/29 after a 5L paracentesis - Improved with albumin, NSS bolus, and midodrine + Florinef. - On 05/01, BP is a bit lower at 80/40. Attempting dialysis to see if she can tolerate it. If not, considering hospice/comfort measures. 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 - S/p 5L paracentesis on 04/29 - Some leaking from paracentesis site - Unable to start Lasix/spironolactone given her low BP - Considering hospice if she cannot tolerate HD (3) End stage renal disease: Follows with [facility] [place] nephrology. - Attempting HD today (05/01) if BP allows. 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 This is less reliable in ESRD; however, lower than priors. - Continue Lantus - Sliding scale insulin (5) Atrial fibrillation: On apixaban. - Holding home beta-derek for hypotension. (6) Anemia: Secondary to anemia of chronic disease and iron deficiency. - Hemoglobin 7.8 on arrival - baseline is around 78 - Patient typed and screened, and blood consent form signed in case patient requires blood transfusion with dialysis - Continue home iron supplementation - Stable today at 8.4. (7) Hypothyroidism: TSH elevated at 5.78, T4 normal at 1. No symptoms. - Continue home levothyroxine (8) Periodic limb movement disorder: - Continue home Sinemet (9) Sleep apnea: - Continue CPAP qhs Subjective Feeling very tired today. No major pain complaints. No shortness of breath. Reports no fevers/chills, chest pain, shortness of breath, abdominal pain, nausea, or vomiting. Physical Exam Constitutional: + frail appearing, cooperative and + lethargic Eyes: EOM intact bilaterally; no conjunctival abnormality ENMT: external ear and nose normal, oropharynx normal Neck: trachea midline, no thyromegaly normal visual inspection Respiratory: normal respiratory effort, lungs clear to auscultation no re spiratory distress Cardiovascular: RRR, no murmur, no edema Gastrointestinal (Abdomen): Inspection/Auscultation: abdomen normal to inspection and normal bowel sounds; abdomen not distended Percussion/Palpation: abdomen soft and + ascites; abdomen nontender, no guarding and abdomen not rigid Musculoskeletal: no cyanosis or clubbing, extremities motor strength 5/5 Skin: no rashes, warm and dry Neurologic: moves all extremities and awake Psychiatric: Orientation: alert, oriented to person and cooperative Results & Data Vital Signs (Past 12 Hours) Vital Signs Temp Pulse Pulse Pulse Resp BP BP 05/01/19 12:00 81 88/47 L 05/01/19 11:40 81 85/42 L 05/01/19 11:20 71 100/49 L 05/01/19 11:10 36.4 C L 83 05/01/19 08:51 05/01/19 07:33 36.3 C L 77 19 84/47 L 05/01/19 07:07 36.3 C L 77 19 84/47 L 05/01/19 04:38 36.4 C L 86 19 87/54 L Pulse Ox Pulse Ox Pulse Ox Pulse Ox 05/01/19 12:00 05/01/19 11:40 05/01/19 11:20 05/01/19 11:10 05/01/19 08:51 97 97 96 05/01/19 07:33 97 05/01/19 07:07 97 05/01/19 04:38 98 PG Care Time/CCT Total # of Minutes Spent Total Time Spent with Patient: Total time spent is greater than 50% in coordination of care (as documented) at patient's floor/unit and/or counseling patient: (1) Hypotension Hypotension type: unspecified hypotension type Qualified Code(s): I95.9 - Hypotension, unspecified
[2019-05-01] MEDS: CARBIDOPA/LEVODOP 10/100MG TAB PO SCH (20:56)
[2019-05-02] MEDS: LEVOTHYROXINE SODIUM 88 MCG TABLET PO SCH (05:42)
[2019-05-02 07:34] LABS: Hematocrit (blood only) 28.3 % (37-47); Mean Corpuscular Hemoglobin 32.6 pg (25-34); Mean Corpuscular Hgb Conc 31.8 g/dL (32-36); Mean Corpuscular Volume 102.5 fL (80-100); RDW Coefficient of Variation 17.5 % (11.5-14.5); RDW Standard Deviation 63.8 fL (36.4-46.3); Red Blood Count 2.76 M/uL (4.2-5.4); White Blood Count 12.68 K/uL (4.8-10.8)
[2019-05-02 07:35] LABS: Mean Platelet Volume 8.7 fL (7.4-10.4); Platelet Count 99 K/uL (130-400)
[2019-05-02 08:05] LABS: BUN Creatinine Ratio 5.8 (10-20); Calcium 8.4 mg/dl (8.5-10.1); Creatinine Clr Calc Pharmacy 10.7 ml/min; Est GFR (African American) 10.3; Est GFR (Non-African American) 8.9; Magnesium 2.1 mg/dl (1.8-2.4); Potassium 4.3 mmol/L (3.5-5.1)
[2019-05-02] MEDS: INSULIN ASPART 100 UNITS/ML 3 ML PEN SC SCH ×4 (08:21→21:52)
[2019-05-02] MEDS: INSULIN GLARGINE SOLOSTAR 100 UNITS/ML 3 ML PEN SC SCH (08:21)
[2019-05-02] MEDS: CALCIUM ACETATE 667 MG CAP PO SCH ×3 (08:23→17:02)
[2019-05-02] MEDS: CHOLECALCIFEROL 1,000 UNITS TAB PO SCH (08:23)
[2019-05-02] MEDS: NEPHROCAPS PO SCH (08:24)
[2019-05-02] MEDS: MIDODRINE HCL 10 MG TAB PO SCH ×3 (08:24→17:02)
[2019-05-02] MEDS: HYDROCORTISONE 2.5% CR 30 GM TUBE EXT SCH ×2 (08:25→21:53)
[2019-05-02] MEDS: ASCORBIC ACID 500 MG TAB PO SCH (08:25)
[2019-05-02] MEDS: FERROUS SULFATE 325 MG TAB PO SCH (08:25)
[2019-05-02] MEDS: FLUDROCORTISONE ACETATE 0.1 MG TAB PO SCH (09:08)
--- NOTE | 2019-05-02 11:55 | Nephrology Progress Note ---
Date of Service May 02, 2019 Assessment & Plan (1) End stage renal disease: HD MWF. Treatment completed on 04/30 and 05/01 with net UF 2 L. Volume status is acceptable. BP persistently low but tolerable. Medications are appropriately dosed for IHD. For anemia, Epogen 37729 units and Venofer 200 mg was provided with dialysis 04/30. I have had several long conversations with the patient regarding her health and prognosis. Palliative care consultation appreciated. Earlene and her family are aware of the limited options for management of some of her advanced medical conditions including ESLD. They acknowledge the limitations of dialysis. 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 Sleeping in bed. No complaints this morning. Remains somnolent and weak. Activity tolerance reduced. Tolerated HD yesterday without complications. Review of Systems Review of Systems: All systems reviewed & are unremarkable except as noted in HPI & below Physical Exam Constitutional: + frail appearing; no acute distress and not edematous Eyes: + anicteric sclerae; no conjunctival abnormality ENMT: Mouth: + dry oral mucous membranes; no oral mucosal abnormality Neck: normal visual inspection and trachea midline Respiratory: normal respiratory effort Auscultation: lungs clear to auscultation bilaterally Cardiovascular: Heart Sounds: normal S1 and normal S2 Vessels: no JVD Extremities: + edema Gastrointestinal (Abdomen): Inspection/Auscultation: + abdomen distended and + abdominal edema Percussion/Palpation: abdomen nontender Musculoskeletal: Extremities: no cyanosis and no clubbing Skin: + pallor; no jaundice Neurologic: Motor/Sensory: no tremor and no asterixis Psychiatric: Eye Contact: good eye contact Affect: euthymic affect Results & Data Vital Signs (Past 12 Hours) Vital Signs Temp Pulse Pulse Resp BP BP Pulse Ox 05/02/19 07:48 36.7 C 101 H 20 101/57 L 95 05/02/19 07:41 98 H 05/02/19 04:00 36.8 C 54 L 20 130/57 L 97 Laboratory Results Laboratory Results - last 24 hr 05/01/19 05/01/19 05/02/19 16:13 20:04 07:06 WBC RBC Hgb Hct MCV MCH MCHC RDW Std Deviation RDW Coeff of Pastora Plt Count MPV Sodium Potassium Chloride Carbon Dioxide Anion Gap BUN Creatinine Est Cr Clr Drug Dosing Est GFR ( Amer) Est GFR (Non-Af Amer) BUN/Creatinine Ratio Glucose POC Glucose 154 H 251 H 203 H Calcium Magnesium 05/02/19 05/02/19 05/02/19 07:17 07:17 11:25 WBC 12.68 H RBC 2.76 L Hgb 9.0 L Hct 28.3 L MCV 102.5 H MCH 32.6 MCHC 31.8 L RDW Std Deviation 63.8 H RDW Coeff of Pastora 17.5 H Plt Count 99 L MPV 8.7 Sodium 133 L Potassium 4.3 Chloride 100 Carbon Dioxide 24 Anion Gap 9.0 BUN 25 H Creatinine 4.32 H D Est Cr Clr Drug Dosing 10.7 Est GFR ( Amer) 10.3 Est GFR (Non-Af Amer) 8.9 BUN/Creatinine Ratio 5.8 L Glucose 194 H POC Glucose 244 H Calcium 8.4 L Magnesium 2.1 PG Care Time/CCT Total # of Minutes Spent Total Time Spent with Patient: Total time spent is greater than 50% in coordination of care (as documented) at patient's floor/unit and/or counseling patient: 30 minutes (1) Anemia Anemia type: unspecified type Qualified Code(s): D64.9 - Anemia, unspecified
--- NOTE | 2019-05-02 15:07 | Hospitalist Progress Note ---
Date of Service May 02, 2019 Assessment & Plan (1) Hypotension: Has been ongoing with low BPs for months. Likely due to cirrhosis, ESRD, frailty. - Worse on 04/29 after a 5L paracentesis - Improved with albumin, NSS bolus, and midodrine + Florinef. - On 05/02, BP is stable at 100/60. Did well with dialysis on 05/01 with stable BP and 1L of fluid off. 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 - S/p 5L paracentesis on 04/29 - Some leaking from paracentesis site which has mostly resolved. - Unable to start Lasix/spironolactone given her low BP - Considering hospice if she cannot tolerate HD (3) End stage renal disease: Follows with [facility] [place] nephrology. - Underwent HD on 05/01 with some fluid taken off. 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 This is less reliable in ESRD; however, lower than priors. - Continue Lantus - Sliding scale insulin (5) Atrial fibrillation: On apixaban. - Holding home beta-derek for hypotension. (6) Anemia: Secondary to anemia of chronic disease and iron deficiency. - Hemoglobin 7.8 on arrival - baseline is around 78 - Patient typed and screened, and blood consent form signed in case patient requires blood transfusion with dialysis - Continue home iron supplementation - Stable today at 9.0. (7) Hypothyroidism: TSH elevated at 5.78, T4 normal at 1. No symptoms. - Continue home levothyroxine (8) Periodic limb movement disorder: - Continue home Sinemet (9) Sleep apnea: - Continue CPAP qhs Subjective Still feeling tired today. Sleeping more than usual for her. Reports no fevers/chills, chest pain, shortness of breath, abdominal pain, nausea, or vomiting. Physical Exam Constitutional: + frail appearing, cooperative and + lethargic Eyes: EOM intact bilaterally; no conjunctival abnormality ENMT: external ear and nose normal, oropharynx normal Neck: trachea midline, no thyromegaly normal visual inspection Respiratory: normal respiratory effort, lungs clear to auscultation no respiratory distress Cardiovascular: Rate/Rhythm: regular rhythm and + tachycardic Heart Sounds: normal S1 and normal S2 Extremities: no edema Gastrointestinal (Abdomen): Inspection/Auscultation: abdomen normal to inspection and normal bowel sounds; abdomen not distended Percussion/Palpation: abdomen soft and + ascites; abdomen nontender, no guarding and abdomen not rigid Musculoskeletal: no cyanosis or clubbing, extremities motor strength 5/5 Skin: no rashes, warm and dry Neurologic: moves all extremities and awake Psychiatric: Orientation: alert, oriented to person and cooperative Results & Data Vital Signs (Past 12 Hours) Vital Signs Temp Pulse Pulse Resp BP BP Pulse Ox 05/02/19 12:14 36.4 C L 97 H 18 100/58 L 94 05/02/19 07:48 36.7 C 101 H 20 101/57 L 95 05/02/19 07:41 98 H 05/02/19 04:00 36.8 C 54 L 20 130/57 L 97 PG Care Time/CCT Total # of Minutes Spent Total Time Spent with Patient: Total time spent is greater than 50% in coordination of care (as documented) at patient's floor/unit and/or counseling patient: (1) Hypotension Hypotension type: unspecified hypotension type Qualified Code(s): I95.9 - Hypotension, unspecified
--- NOTE | 2019-05-02 20:15 | XRay Report ---
XR chest 2V PA/lateral HISTORY: 84 years-old Female Increased WBC acute leukocytosis COMPARISON: Chest radiograph 04/29/2019 TECHNIQUE: AP and lateral views of the chest FINDINGS: Dual-lumen right IJ hemodialysis catheter is unchanged in positioning. Moderate cardiomegaly with pul monary vascular congestion. Calcified plaque of the thoracic aortic arch. No pneumothorax. Trace pleu ral effusions with persistent left lung base opacities. Degenerative changes of the spine and left sh oulder. Reverse right shoulder total joint arthroplasty. IMPRESSION: 1. Cardiomegaly with pulmonary vascular congestion. 2. Unchanged trace pleural effusions with left lung base opacities suggestive of atelectasis versus p neumonia. The above report was generated using voice recognition software. It may contain grammatical, syntax o r spelling errors. Electronically signed by: Wilian Mccoy M.D. 05/02/2019 8:13 PM
[2019-05-02] MEDS: CARBIDOPA/LEVODOP 10/100MG TAB PO SCH (21:54)
[2019-05-03] MEDS: LEVOTHYROXINE SODIUM 88 MCG TABLET PO SCH (05:30)
[2019-05-03 05:55] LABS: Hematocrit (blood only) 30.9 % (37-47); Hemoglobin 9.9 g/dL (12.0-16.0); Mean Corpuscular Hemoglobin 33.2 pg (25-34); Mean Corpuscular Volume 103.7 fL (80-100); Nucleated RBC # (auto) 0.03 K/uL (0-0); Nucleated RBC % (auto) 0.2 %; RDW Coefficient of Variation 17.3 % (11.5-14.5); RDW Standard Deviation 63.9 fL (36.4-46.3); Red Blood Count 2.98 M/uL (4.2-5.4); White Blood Count 15.07 K/uL (4.8-10.8)
[2019-05-03 05:57] LABS: Mean Platelet Volume 9.1 fL (7.4-10.4); Platelet Count 83 K/uL (130-400)
[2019-05-03 06:07] LABS: INR 1.2 (0.9-1.1); Prothrombin Time 12.6 Seconds (9.0-12.0)
[2019-05-03 06:46] LABS: Albumin Globulin Ratio 0.7 (0.9-2); Albumin Level 2.3 gm/dl (3.4-5.0); BUN Creatinine Ratio 6.5 (10-20); Bilirubin,Total 0.8 mg/dl (0.2-1); Calcium 8.9 mg/dl (8.5-10.1); Creatinine Clr Calc Pharmacy 8.6 ml/min; Est GFR (Non-African American) 6.9; Globulin 3.5 gm/dl (2.5-4.0); Phosphorus 4.3 mg/dl (2.5-4.9); Potassium 4.7 mmol/L (3.5-5.1); Total Protein 5.8 gm/dl (6.4-8.2)
[2019-05-03] MEDS: CHOLECALCIFEROL 1,000 UNITS TAB PO SCH (08:29)
[2019-05-03] MEDS: CALCIUM ACETATE 667 MG CAP PO SCH ×3 (08:29→17:28)
[2019-05-03] MEDS: FLUDROCORTISONE ACETATE 0.1 MG TAB PO SCH (08:30)
[2019-05-03] MEDS: ASCORBIC ACID 500 MG TAB PO SCH (08:30)
[2019-05-03] MEDS: NEPHROCAPS PO SCH (08:30)
[2019-05-03] MEDS: MIDODRINE HCL 10 MG TAB PO SCH ×3 (08:31→17:29)
[2019-05-03] MEDS: HYDROCORTISONE 2.5% CR 30 GM TUBE EXT SCH ×2 (08:31→20:20)
[2019-05-03] MEDS: FERROUS SULFATE 325 MG TAB PO SCH (08:31)
[2019-05-03] MEDS: INSULIN GLARGINE SOLOSTAR 100 UNITS/ML 3 ML PEN SC SCH (08:32)
[2019-05-03] MEDS: INSULIN ASPART 100 UNITS/ML 3 ML PEN SC SCH ×4 (08:33→20:27)
--- NOTE | 2019-05-03 10:41 | Nephrology Progress Note ---
Date of Service May 03, 2019 Assessment & Plan (1) End stage renal disease: HD MWF. Treatment completed on 04/30 and 05/01 with net UF 2 L. Volume status is acceptable. BP persistently low but reaonsbly tolerated. Nadolol held. Remains in atrial fibrillation with a heart rate of 90-100 bpm. Medications are appropriately dosed for IHD. For anemia, Epogen 93541 units and Venofer 200 mg was provided with dialysis 04/30. Hgb is rising. I have had several long conversations with the patient regarding her overall health and guarded prognosis. Palliative care consultation appreciated. Earlene and her family are aware of the limited options for management given her advanced medical conditions including ESLD. They acknowledge the limitations [place] dialysis[place] [address] over the past few days. She has not had fever. She is very weak and experiencing frequent loose stool. She does have a history of C diff in the past. Stool studies have been ordered. 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 Sleeping in bed. Remains very weak. Earlene states that she is not feeling well this morning. She is having loose stools with incontinence every time she eats. No fevers or chills or abdominal pain. Denies blood in her stool. Activity tolerance reduced. Tolerated HD yesterday without complications. Review of Systems Review of Systems: All systems reviewed & are unremarkable except as noted in HPI & below Physical Exam Constitutional: + frail appearing; no acute distress and not edematous Eyes: + anicteric sclerae; no conjunctival abnormality ENMT: Mouth: + dry oral mucous membranes; no oral mucosal abnormality Neck: normal visual inspection and trachea midline Respiratory: normal respiratory effort Auscultation: lungs clear to auscultation bilaterally Cardiovascular: Heart Sounds: normal S1 and normal S2 Vessels: no JVD Extremities: + edema Gastrointestinal (Abdomen): Inspection/Auscultation: + abdomen distended and + abdominal edema Percussion/Palpation: abdomen nontender Musculoskeletal: Extremities: no cyanosis and no clubbing Skin: + pallor; no jaundice Neurologic: Motor/Sensory: no tremor and no asterixis Psychiatric: Eye Contact: good eye contact Affect: euthymic affect Results & Data Vital Signs (Past 12 Hours) Vital Signs Temp Pulse Resp BP Pulse Ox 05/03/19 07:45 36.4 C L 102 H 19 107/63 97 11/17/19 04:38 36.6 C 96 H 20 95/59 L 18 L 05/03/19 00:00 36.6 C 100 H 20 98 Laboratory Results Laboratory Results - last 24 hr 05/02/19 05/02/19 05/02/19 11:25 16:53 20:26 WBC RBC Hgb Hct MCV MCH MCHC RDW Std Deviation RDW Coeff of Pastora Plt Count MPV Absolute Nucleated RBC Nucleated RBC % (auto) PT INR Sodium Potassium Chloride Carbon Dioxide Anion Gap BUN Creatinine Est Cr Clr Drug Dosing Est GFR ( Amer) Est GFR (Non-Af Amer) BUN/Creatinine Ratio Glucose POC Glucose 244 H 201 H 184 H Calcium Phosphorus Magnesium Total Bilirubin AST ALT Alkaline Phosphatase Total Protein Albumin Globulin Albumin/Globulin Ratio Specimen Hemolysis Stl C. diff Tox B Gene 05/02/19 05/03/19 05/03/19 23:16 05:44 05:44 WBC 15.07 H RBC 2.98 L Hgb 9.9 L Hct 30.9 L MCV 103.7 H MCH 33.2 MCHC 32.0 RDW Std Deviation 63.9 H RDW Coeff of Pastora 17.3 H Plt Count 83 L MPV 9.1 Absolute Nucleated RBC 0.03 H Nucleated RBC % (auto) 0.2 PT 12.6 H INR 1.2 H Sodium Potassium Chloride Carbon Dioxide Anion Gap BUN Creatinine Est Cr Clr Drug Dosing Est GFR ( Amer) Est GFR (Non-Af Amer) BUN/Creatinine Ratio Glucose POC Glucose Calcium Phosphorus Magnesium Total Bilirubin AST ALT Alkaline Phosphatase Total Protein Albumin Globulin Albumin/Globulin Ratio Specimen Hemolysis Stl C. diff Tox B Gene TNP 05/03/19 05/03/19 05:44 07:20 WBC RBC Hgb Hct MCV MCH MCHC RDW Std Deviation RDW Coeff of Pastora Plt Count MPV Absolute Nucleated RBC Nucleated RBC % (auto) PT INR Sodium 132 L Potassium 4.7 Chloride 98 Carbon Dioxide 25 Anion Gap 9.0 BUN 35 H Creatinine 5.34 H* D Est Cr Clr Drug Dosing 8.6 Est GFR ( Amer) 8.0 Est GFR (Non-Af Amer) 6.9 BUN/Creatinine Ratio 6.5 L Glucose 137 H POC Glucose 157 H Calcium 8.9 Phosphorus 4.3 Magnesium 2.0 Total Bilirubin 0.8 AST 42 H ALT 9 L Alkaline Phosphatase 126 H Total Protein 5.8 L Albumin 2.3 L Globulin 3.5 Albumin/Globulin Ratio 0.7 L Specimen Hemolysis Stl C. diff Tox B Gene PG Care Time/CCT Total # of Minutes Spent Total Time Spent with Patient: Total time spent is greater than 50% in coordination of care (as documented) at patient's floor/unit and/or counseling patient: (1) Anemia Anemia type: unspecified type Qualified Code(s): D64.9 - Anemia, unspecified
--- NOTE | 2019-05-03 15:52 | Hospitalist Progress Note ---
Date of Service May 03, 2019 Assessment & Plan (1) Leukocytosis: Concern for infection. 1) CXR on 05/02 showed left lung base atelectasis vs. pneumonia; however, unchanged from 3 days ago. Remains without pulmonary complaints, including no shortness of breath or cough. 2) Blood cultures ordered on 05/03. Unable to get from HD port as nursing cannot access it. 3) SBP always a concern in cirrhotic patients; however, paracentesis on 04/29 was negative. Will get limited ultrasound to see if fluid has reaccumulated. 4) Having more diarrhea. Nursing unable to get sample at this point (It has been >24 hours and I have asked several times.). Starting empiric vancomycin and can always stop if C. diff comes back negative. (2) Hypotension: Has been ongoing with low BPs for months. Likely due to cirrhosis, ESRD, frailty. - Worse on 04/29 after a 5L paracentesis - Improved with albumin, NSS bolus, and midodrine + Florinef. - On 05/03, BP is stable at 110/60. Did well with dialysis on 05/01 with stable BP and 1L of fluid off. Plan for HD on 05/04. 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 - S/p 5L paracentesis on 04/29 - Some leaking from paracentesis site which has mostly resolved. - Unable to start Lasix/spironolactone given her low BP - Considering hospice if she cannot tolerate HD (4) End stage renal disease: Follows with [facility] [place] nephrology. - Underwent HD on 05/01 with some fluid taken off. Plan for HD on Saturday. - Continue PhosLo & iron (5) Diabetes mellitus type 2 with complications: A1c was 6.7%. This is less reliable in ESRD; however, lower than priors. - Continue Lantus - Sliding scale insulin (6) Atrial fibrillation: On apixaban. - Holding home beta-derek for hypotension. (7) Anemia: Secondary to anemia of chronic disease and iron deficiency. - Hemoglobin 7.8 on arrival - baseline is around 78 - Patient typed and screened, and blood consent form signed in case patient requires blood transfusion with dialysis - Continue home iron supplementation - Stable today at 9.9. (8) Hypothyroidism: TSH elevated at 5.78, T4 normal at 1. No symptoms. - Continue home levothyroxine (9) Periodic limb movement disorder: - Continue home Sinemet (10) Sleep apnea: - Continue CPAP qhs Dispo: Still trying to see if she does ok with HD. WBC rising for unknown reason. Likely 2-3 days. Subjective Still very weak today. Not much energy and sleeping alot. She is now having a lot of diarrhea, particularly after she eats. Reports no fevers/chills, chest pain, shortness of breath, abdominal pain, nausea, or vomiting. Physical Exam Constitutional: + frail appearing, cooperative and + lethargic Eyes: EOM intact bilaterally; no conjunctival abnormality ENMT: external ear and nose normal, oropharynx normal Neck: trachea midline, no thyromegaly normal visual inspection Respiratory: normal respiratory effort, lungs clear to auscultation no respiratory distress Cardiovascular: RRR, no murmur, no edema Rate/Rhythm: regular rhythm and + tachycardic Heart Sounds: normal S1 and normal S2 Extremities: no edema Gastrointestinal (Abdomen): Inspection/Auscultation: abdomen normal to inspection and normal bowel sounds; abdomen not distended Percussion/Palpation: abdomen soft and + ascites; abdomen nontender, no guarding and abdomen not rigid Musculoskeletal: no cyanosis or clubbing, extremities motor strength 5/5 Skin: no rashes, warm and dry Neurologic: moves all extremities and awake Psychiatric: Orientation: alert, oriented to person and cooperative Results & Data Vital Signs (Past 12 Hours) Vital Signs Temp Pulse Resp BP BP Pulse Ox 05/03/19 15:32 36.1 C L 90 17 112/64 99 05/03/19 12:11 36.4 C L 91 H 18 109/65 98 05/03/19 07:45 36.4 C L 102 H 19 107/63 97 05/03/19 04:38 36.6 C 96 H 20 95/59 L 18 L PG Care Time/CCT Total # of Minutes Spent Total Time Spent with Patient: Total time spent is greater than 50% in coordination of care (as documented) at patient's floor/unit and/or counseling patient: (1) Hypotension Hypotension type: unspecified hypotension type Qualified Code(s): I95.9 - Hypotension, unspecified
[2019-05-03] MEDS: VANCOMYCIN HCL 125 MG/2.5ML SOLN PO SCH ×2 (17:31→23:07)
[2019-05-03] MEDS: RASPBERRY SYRUP 5 ML UDP PO SCH ×2 (17:33→23:06)
--- NOTE | 2019-05-03 19:25 | Ultrasound Report ---
US abdomen limited CLINICAL HISTORY: Ascites check COMPARISON STUDY: Abdominal ultrasound 12/05/2018. FINDINGS: Nodular contour to the liver consistent with cirrhosis. Small amount of ascites seen within the abdomen. IMPRESSION: Small amount of ascites Electronically signed by: Oswaldo Rizo M.D. 05/03/2019 7:23 PM
[2019-05-03] MEDS: CARBIDOPA/LEVODOP 10/100MG TAB PO SCH (20:22)
[2019-05-04] MEDS: VANCOMYCIN HCL 125 MG/2.5ML SOLN PO SCH ×3 (05:56→17:32)
[2019-05-04] MEDS: RASPBERRY SYRUP 5 ML UDP PO SCH ×3 (05:56→17:32)
[2019-05-04] MEDS: LEVOTHYROXINE SODIUM 88 MCG TABLET PO SCH (05:58)
[2019-05-04 06:06] LABS: Basophils # (auto) 0.01 K/uL (0-0.2); Basophils % (auto) 0.1 %; Eosinophils % (auto) 1.2 %; Hematocrit (blood only) 30.9 % (37-47); Hemoglobin 9.8 g/dL (12.0-16.0); Immature Granulocytes # (auto) 0.07 K/uL (0.00-0.02); Immature Granulocytes % (auto) 0.4 %; Lymphocytes # (auto) 1.46 K/uL (1.2-3.4); Mean Corpuscular Hemoglobin 32.3 pg (25-34); Mean Corpuscular Hgb Conc 31.7 g/dL (32-36); Mean Platelet Volume 8.8 fL (7.4-10.4); Monocytes # (auto) 1.47 K/uL (0.11-0.59); Monocytes % (auto) 9.1 %; Neutrophils # (auto) 12.95 K/uL (1.4-6.5); Neutrophils % (auto) 80.2 %; Platelet Count 110 K/uL (130-400); RDW Coefficient of Variation 17.6 % (11.5-14.5); Red Blood Count 3.03 M/uL (4.2-5.4); White Blood Count 16.16 K/uL (4.8-10.8)
[2019-05-04] MEDS ORDERED: SODIUM CHLORIDE 0.9% 1000ML 1,000 ML IV PRN (07:00)
[2019-05-04 07:01] LABS: Alanine Aminotransferase < 6 U/L (12-78); Albumin Globulin Ratio 0.6 (0.9-2); Albumin Level 2.1 gm/dl (3.4-5.0); Alkaline Phosphatase 124 U/L (45-117); Aspartate Aminotransferase 28 U/L (15-37); BUN Creatinine Ratio 7.4 (10-20); Bilirubin,Total 0.8 mg/dl (0.2-1); Blood Urea Nitrogen 46 mg/dl (7-18); Calcium 9.1 mg/dl (8.5-10.1); Carbon Dioxide 23 mmol/L (21-32); Chloride 97 mmol/L (98-107); Creatinine Clr Calc Pharmacy 7.1 ml/min; Est GFR (African American) 6.7; Est GFR (Non-African American) 5.8; Globulin 3.5 gm/dl (2.5-4.0); Glucose 122 mg/dl (70-99); Potassium 4.9 mmol/L (3.5-5.1); Sodium 131 mmol/L (136-145); Total Protein 5.6 gm/dl (6.4-8.2)
[2019-05-04] MEDS: INSULIN ASPART 100 UNITS/ML 3 ML PEN SC SCH ×4 (08:55→20:56)
[2019-05-04] MEDS: FLUDROCORTISONE ACETATE 0.1 MG TAB PO SCH ×2 (08:56→09:15)
[2019-05-04] MEDS: CALCIUM ACETATE 667 MG CAP PO SCH ×3 (08:56→16:52)
[2019-05-04] MEDS: MIDODRINE HCL 10 MG TAB PO SCH ×4 (08:56→16:53)
[2019-05-04] MEDS: FERROUS SULFATE 325 MG TAB PO SCH (08:56)
[2019-05-04] MEDS: FAMOTIDINE 20 MG TAB PO SCH (08:57)
[2019-05-04] MEDS: NEPHROCAPS PO SCH (08:57)
[2019-05-04] MEDS: ASCORBIC ACID 500 MG TAB PO SCH (08:57)
[2019-05-04] MEDS: CHOLECALCIFEROL 1,000 UNITS TAB PO SCH (08:57)
[2019-05-04] MEDS: HYDROCORTISONE 2.5% CR 30 GM TUBE EXT SCH ×2 (09:16→20:45)
--- NOTE | 2019-05-04 09:25 | Palliative Care Progress Note ---
Date of Service May 04, 2019 Results & Data Vital Signs (Past 12 Hours) Vital Signs Temp Pulse Pulse Resp BP Pulse Ox 05/04/19 07:47 36.9 C 96 H 18 105/62 95 05/04/19 04:12 36.3 C L 101 H 20 106/63 95 05/04/19 00:28 96 H 05/03/19 23:12 36.3 C L 101 H 19 111/65 95 PG Care Time/CCT Total # of Minutes Spent Total Time Spent with Patient: Total time spent is greater than 50% in coordination of care (as documented) at patient's floor/unit and/or counseling patient:
[2019-05-04] MEDS: INSULIN GLARGINE SOLOSTAR 100 UNITS/ML 3 ML PEN SC SCH (09:51)
--- NOTE | 2019-05-04 09:57 | Nephrology Progress Note ---
Date of Service May 04, 2019 Assessment & Plan (1) End stage renal disease: -- HD MWF. Will schedule dialysis today. UF limited to 1 L due to relative hypotension -- Patient wishes to continue dialysis at this time (2) Anemia: -- On oral iron. Hgb relatively stable at ~ 10 (3) Leukocytosis: -- h/o Clostridium Difficile colitis -- 05/02 stool sample formed. 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 Oliveira was seen & examined in the PCU this morning. She c/o weakness but denies fever, abdominal pain or dyspnea. She reports continued diarrhea. staff nuclear medicine technologist notes that stool sample was sent for Clostridium Difficile toxin testing 05/02 but sample was formed and therefore testing was not completed. Review of Systems Constitutional: + weakness; no fever and no chills Eyes: no worsening vision and no problem reported Ear, Nose, Mouth, Throat: no problem reported Respiratory: no cough and no dyspnea Cardiovascular: + edema; no chest pain and no palpitations Gastrointestinal: + diarrhea/loose stools; no abdominal pain, no nausea and no vomiting Musculoskeletal: no back pain Integumentary: no rash Neurologic: no falls and no confusion Physical Exam Constitutional: + thin and + frail appearing; not in distress Eyes: PERRL, conjunctivae normal, anicteric sclerae ENMT: external ear and nose normal, oropharynx normal Neck: trachea midline, no thyromegaly Respiratory: normal respiratory effort, lungs clear to auscultation Cardiovascular: Rate/Rhythm: regular rate and regular rhythm Extremities: + edema (2+ LE edema) Gastrointestinal (Abdomen): Inspection/Auscultation: + abdomen distended Percussion/Palpation: abdomen soft; abdomen nontender Musculoskeletal: Extremities: no cyanosis Skin: no rashes, warm and dry Neurologic: awake; not confused Results & Data Vital Signs (Past 12 Hours) Vital Signs Temp Pulse Pulse Resp BP Pulse Ox 05/04/19 07:47 36.9 C 96 H 18 105/62 95 05/04/19 04:12 36.3 C L 101 H 20 106/63 95 05/04/19 00:28 96 H 05/03/19 23:12 36.3 C L 101 H 19 111/65 95 Laboratory Results Laboratory Tests 11/18/19 11/18/19 05:44 05:44 WBC 16.16 H Hgb 9.8 L Hct 30.9 L Plt Count 110 L Neut # (Auto) 12.95 H Sodium 131 L Potassium 4.9 Chloride 97 L Carbon Dioxide 23 BUN 46 H Creatinine 6.17 H* D Glucose 122 H Total Bilirubin 0.8 AST 28 ALT < 6 L Alkaline Phosphatase 124 H Albumin 2.1 L PG Care Time/CCT Total # of Minutes Spent Total Time Spent with Patient: Total time spent is greater than 50% in coordination of care (as documented) at patient's floor/unit and/or counseling patient: (1) Anemia Anemia type: unspecified type Qualified Code(s): D64.9 - Anemia, unspecified
[2019-05-04 14:47] LABS: Cdiff Antigen Positive
[2019-05-04 14:49] LABS: Cdiff Toxin A+B Positive Cdiff Toxin (Negative)
[2019-05-04] MEDS: CARBIDOPA/LEVODOP 10/100MG TAB PO SCH (20:46)
--- NOTE | 2019-05-04 21:52 | Hospitalist Progress Note ---
Date of Service May 04, 2019 Assessment & Plan (1) Leukocytosis: Concern for infection. 1) CXR on 05/02 showed left lung base atelectasis vs. pneumonia; however, unchanged from 3 days ago. Remains without pulmonary complaints, including no shortness of breath or cough. 2) Blood cultures ordered on 05/03. Unable to get from HD port as nursing cannot access it. 3) SBP always a concern in cirrhotic patients; however, paracentesis on 04/29 was negative. Will get limited ultrasound to see if fluid has reaccumulated. 4) Patient appears to be having c. diff as tests are positive. will continue with empiric vancomycin. (2) Hypotension: Has been ongoing with low BPs for months. Likely due to cirrhosis, ESRD, frailty. - Worse on 04/29 after a 5L paracentesis - Improved with albumin, NSS bolus, and midodrine + Florinef. - On 05/03, BP is stable at 110/60. Did well with dialysis on 05/01 with stable BP and 1L of fluid off. Plan for HD on 05/04. 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 - S/p 5L paracentesis on 04/29 - Some leaking from paracentesis site which has mostly resolved. - Unable to start Lasix/spironolactone given her low BP - Considering hospice if she cannot tolerate HD (4) End stage renal disease: [place] [facility] [place] - Underwent HD on 05/01 with some fluid taken off. Plan for HD on Saturday. - Continue PhosLo & iron (5) Diabetes mellitus type 2 with complications: A1c was 6.7%. This is less reliable in ESRD; however, lower than priors. - Continue Lantus - Sliding scale insulin (6) Atrial fibrillation: On apixaban. - Holding home beta-derek for hypotension. (7) Anemia: Secondary to anemia of chronic disease and iron deficiency. - Hemoglobin 7.8 on arrival - baseline is around 78 - Patient typed and screened, and blood consent form signed in case patient requires blood transfusion with dialysis - Continue home iron supplementation - Stable today (8) Hypothyroidism: TSH elevated at 5.78, T4 normal at 1. No symptoms. - Continue home levothyroxine (9) Periodic limb movement disorder: - Continue home Sinemet (10) Sleep apnea: - Continue CPAP qhs Dispo: Still trying to see if she does ok with HD. WBC rising for unknown reason. Likely 2-3 days. Subjective Patient reports she tolreated HD and has no new complaints today. She reports her diarrhea is better controlled today. Review of Systems Review of Systems: All systems reviewed & are unremarkable except as noted in HPI & below Physical Exam Physical Exam: Constitutional: + frail appearing, cooperative and + lethargic Eyes: EOM intact bilaterally; no conjunctival abnormality ENMT: external ear and nose normal, oropharynx normal Neck: trachea midline, no thyromegaly normal visual inspection Respiratory: normal respiratory effort, lungs clear to auscultation no respiratory distress Cardiovascular: RRR, no murmur, no edema Rate/Rhythm: regular rhythm and + tachycardic Heart Sounds: normal S1 and normal S2 Extremities: no edema Gastrointestinal (Abdomen): Inspection/Auscultation: abdomen normal to inspection and normal bowel sounds; abdomen not distended Percussion/Palpation: abdomen soft and + ascites; abdomen nontender, no guarding and abdomen not rigid Musculoskeletal: no cyanosis or clubbing, extremities motor strength 5/5 Skin: no rashes, warm and dry Neurologic: moves all extremities and awake Psychiatric: Orientation: alert, oriented to person and cooperative Results & Data Vital Signs (Past 12 Hours) Vital Signs Temp Pulse Pulse Pulse Resp BP BP 05/04/19 19:58 37.0 C 101 H 22 109/67 05/04/19 15:45 36.9 C 110 H 16 125/70 05/04/19 13:05 36.5 C 119 H 133/72 05/04/19 13:00 36.5 C 107 H 113/52 L 05/04/19 12:20 111 H 108/48 L 05/04/19 12:00 104 H 107/76 05/04/19 11:40 107 H 89/54 L 05/04/19 11:20 108 H 104/53 L 05/04/19 11:00 101 H 99/47 L 05/04/19 10:40 105 H 107/52 L 05/04/19 10:20 98 H 97/45 L 05/04/19 10:00 99 H 95/45 L Pulse Ox 05/04/19 19:58 96 05/04/19 15:45 98 05/04/19 13:05 93 05/04/19 13:00 05/04/19 12:20 05/04/19 12:00 05/04/19 11:40 05/04/19 11:20 05/04/19 11:00 05/04/19 10:40 05/04/19 10:20 05/04/19 10:00 PG Care Time/CCT Total # of Minutes Spent Total Time Spent with Patient: Total time spent is greater than 50% in coordi nation of care (as documented) at patient's floor/unit and/or counseling patient: (1) Hypotension Hypotension type: unspecified hypotension type Qualified Code(s): I95.9 - Hypotension, unspecified
[2019-05-05] MEDS: VANCOMYCIN HCL 125 MG/2.5ML SOLN PO SCH ×4 (00:33→17:46)
[2019-05-05] MEDS: RASPBERRY SYRUP 5 ML UDP PO SCH ×4 (00:33→17:46)
[2019-05-05] MEDS: ACETAMINOPHEN 325 MG TAB PO PRN (01:33)
[2019-05-05] MEDS: LEVOTHYROXINE SODIUM 88 MCG TABLET PO SCH (05:48)
[2019-05-05 07:01] LABS: Hematocrit (blood only) 30.1 % (37-47); Hemoglobin 9.4 g/dL (12.0-16.0); Mean Corpuscular Hemoglobin 32.4 pg (25-34); Mean Corpuscular Hgb Conc 31.2 g/dL (32-36); Mean Corpuscular Volume 103.8 fL (80-100); RDW Coefficient of Variation 17.7 % (11.5-14.5); RDW Standard Deviation 66.2 fL (36.4-46.3); White Blood Count 15.87 K/uL (4.8-10.8)
[2019-05-05 07:26] LABS: Mean Platelet Volume 8.8 fL (7.4-10.4); Platelet Count 84 K/uL (130-400)
[2019-05-05 07:27] LABS: Platelet Estimate Decreased (Normal)
[2019-05-05 07:43] LABS: BUN Creatinine Ratio 6.3 (10-20); Calcium 8.4 mg/dl (8.5-10.1); Creatinine Clr Calc Pharmacy 9.4 ml/min; Est GFR (African American) 8.8; Est GFR (Non-African American) 7.6; Potassium 4.2 mmol/L (3.5-5.1)
[2019-05-05] MEDS: HYDROCORTISONE 2.5% CR 30 GM TUBE EXT SCH ×2 (08:02→20:39)
[2019-05-05] MEDS: INSULIN ASPART 100 UNITS/ML 3 ML PEN SC SCH ×4 (08:03→20:39)
[2019-05-05] MEDS: INSULIN GLARGINE SOLOSTAR 100 UNITS/ML 3 ML PEN SC SCH (08:04)
[2019-05-05] MEDS: NEPHROCAPS PO SCH (08:05)
[2019-05-05] MEDS: MIDODRINE HCL 10 MG TAB PO SCH ×3 (08:05→17:54)
[2019-05-05] MEDS: ASCORBIC ACID 500 MG TAB PO SCH (08:05)
[2019-05-05] MEDS: FERROUS SULFATE 325 MG TAB PO SCH (08:05)
[2019-05-05] MEDS: CALCIUM ACETATE 667 MG CAP PO SCH ×3 (08:06→17:52)
[2019-05-05] MEDS: CHOLECALCIFEROL 1,000 UNITS TAB PO SCH (08:06)
[2019-05-05] MEDS: FLUDROCORTISONE ACETATE 0.1 MG TAB PO SCH (08:06)
--- NOTE | 2019-05-05 10:30 | Nephrology Progress Note ---
Date of Service May 05, 2019 Assessment & Plan (1) End stage renal disease: -- Volume status and electrolyte balance are acceptable. No acute indication for HD today. -- Patient wishes to continue dialysis at this time. Will schedule next HD treatment for am (2) Anemia: -- On oral iron. Hgb relatively stable at ~ 10 (3) Leukocytosis: -- Tested + for C. 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 Oliveira was seen & examined in the PCU this morning. She c/o weakness but denies fever, abdominal pain or dyspnea. She reports continued diarrhea and has now tested positive Clostridium Difficile colitis. She remains on oral Vancomycin Review of Systems Constitutional: + weakness; no fever and no chills Eyes: no worsening vision and no problem reported Ear, Nose, Mouth, Throat: no problem reported Respiratory: no cough and no dyspnea Cardiovascular: + edema; no chest pain and no palpitations Gastrointestinal: + diarrhea/loose stools; no abdominal pain, no nausea and no vomiting Genitourinary: no dysuria and no hematuria Musculoskeletal: no back pain Integumentary: no rash Neurologic: no falls, no dizziness and no confusion Physical Exam Constitutional: + thin and + frail appearing; not in distress Eyes: PERRL, conjunctivae normal, anicteric sclerae ENMT: external ear and nose normal, oropharynx normal Neck: trachea midline, no thyromegaly Respiratory: normal respiratory effort, lungs clear to auscultation Cardiovascular: Rate/Rhythm: regular rate and regular rhythm Extremities: + edema (2+ LE edema) Gastrointestinal (Abdomen): Inspection/Auscultation: + abdomen distended Percussion/Palpation: abdomen soft; abdomen nontender Musculoskeletal: Extremities: no cyanosis Skin: no rashes, warm and dry Neurologic: awake; not confused Results & Data Vital Signs (Past 12 Hours) Vital Signs Temp Pulse Resp BP Pulse Ox 05/05/19 07:48 36.5 C 98 H 18 106/60 99 05/05/19 03:57 36.7 C 94 H 18 104/58 L 98 05/05/19 00:00 36.5 C 109 H 18 113/64 95 Laboratory Results Laboratory Tests 05/05/19 05/05/19 06:12 06:12 WBC 15.87 H Hgb 9.4 L Hct 30.1 L Plt Count 84 L Sodium 134 L Potassium 4.2 Chloride 100 Carbon Dioxide 23 BUN 31 H Creatinine 4.90 H* D Glucose 169 H PG Care Time/CCT Total # of Minutes Spent Total Time Spent with Patient: Total time spent is greater than 50% in coordination of care (as documented) at patient's floor/unit and/or counseling patient: (1) Anemia Anemia type: unspecified type Qualified Code(s): D64.9 - Anemia, unspecified
--- NOTE | 2019-05-05 16:42 | Palliative Care Progress Note ---
Date of Service May 05, 2019 Assessment & Plan (1) Goals of care, counseling/discussion: (1) Goals of care, counseling/discussion: -Patient stated she is fine with continuing dialysis at this point. -We talked about what stopping dialysis would look like and about hospice care. Daughter Leonela was present and supportive of patient's decision she agrees that ultimately it is the patient's decision. -BP is marginal, but stable today. -No symptom management needs at this time. -We will continue to follow. Case management following as well. 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 Patient awake and alert, doses off during visit, no acute distress Patient's daughter reports they were only able to get 1 L of fluid offer her and her last dialysis. Daughter states that the patient will likely continue dialysis until Dr. Wheeler tells her it is no longer helping or indicated. Current plan is for transfer to rehab facility in [place] with continued dialysis. Reviewed with daughter but stopping dialysis would look like given the patient's low but positive urine output. Patient reports she urinates approximately 3 times a week. Both of patient's daughters are very supportive of her decision what ever it may be. Review of Systems Review of Systems: Patient denies fever, chills, chest pain, increased shortness of breath, or abdominal pain Physical Exam Physical Exam: Patient alert when awake, no acute distress HEENT: EOMI, hearing within normal limits Respiratory: Diminished at bases CV: Tachycardic Abdomen: Soft, nontender Extremities: 3+ edema to the level of the lower abdominal wall Neuro: Alert and oriented Results & Data Vital Signs (Past 12 Hours) Vital Signs Temp Pulse Resp BP Pulse Ox 05/05/19 15:46 97.9 F 112 H 16 118/60 93 05/05/19 11:45 97.3 F L 111 H 18 121/68 95 05/05/19 07:48 97.7 F 98 H 18 106/60 99 PG Care Time/CCT Total # of Minutes Spent Total Time Spent with Patient: Total time spent is greater than 50% in coordination of care (as documented) at patient's floor/unit and/or counseling patient: Time Spent Attending Total time spent 35 minutes with greater than 50% of the time spent at bedside reviewing goals of care as well as current plan of care with both patient and daughter. (1) Hypotension Hypotension type: unspecified hypotension type Qualified Code(s): I95.9 - Hypotension, unspecified
[2019-05-05] MEDS: CARBIDOPA/LEVODOP 10/100MG TAB PO SCH (20:41)
--- NOTE | 2019-05-05 23:00 | Hospitalist Progress Note ---
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 This is less reliable in ESRD; however, lower than priors. - Continue Lantus - Sliding scale insulin (2) C. difficile colitis: Patient has c diff colitis. Placed on vancomycin. Will monitor. (3) Leukocytosis: Concern for infection. Appears to be due to c. diff colitis as noted above. 1) CXR on 05/02 showed left lung base atelectasis vs. pneumonia; however, unchanged from 3 days ago. Remains without pulmonary complaints, including no shortness of breath or cough. 2) Blood cultures ordered on 05/03. Unable to get from HD port as nursing cannot access it. 3) SBP always a concern in cirrhotic patients; however, paracentesis on 04/29 was negative. Will get limited ultrasound to see if fluid has reaccumulated. 4) Patient appears to be having c. diff as tests are positive. will continue with empiric vancomycin. (4) Hypotension: Has been ongoing with low BPs for months. Likely due to cirrhosis, ESRD, frailty. - Worse on 04/29 after a 5L paracentesis - Improved with albumin, NSS bolus, and midodrine + Florinef. 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 - S/p 5L paracentesis on 04/29 - Some leaking from paracentesis site which has mostly resolved. - Unable to start Lasix/spironolactone given her low BP - Was considering hospice if she cannot tolerate HD; at the moment will hold off hospice as tolerating HD (6) End stage renal disease: Follows with [facility] [place]. - Underwent HD on 05/01 with some fluid taken off. Plan for HD on Saturday. - Continue PhosLo & iron (7) Atrial fibrillation: On apixaban. - Holding home beta-derek for hypotension. (8) Anemia: Secondary to anemia of chronic disease and iron deficiency. - Hemoglobin 7.8 on arrival - baseline is around 78 - Patient typed and screened, and blood consent form signed in case patient requires blood transfusion with dialysis - Continue home iron supplementation - Stable today (9) Hypothyroidism: TSH elevated at 5.78, T4 normal at 1. No symptoms. - Continue home levothyroxine (10) Periodic limb movement disorder: - Continue home Sinemet (11) Sleep apnea: - Continue CPAP qhs Subjective 84 yo female reports no new symptoms today. She states she tolerated HD yesterday and at this moment would like to continue with this. Review of Systems Review of Systems: All systems reviewed & are unremarkable except as noted in HPI & below Physical Exam Physical Exam: Constitutional: + frail appearing, cooperative. resting comfortably in bed. Eyes: EOM intact bilaterally; no conjunctival abnormality ENMT: external ear and nose normal, oropharynx normal Neck: trachea midline, no thyromegaly normal visual inspection Respiratory: normal respiratory effort, lungs clear to auscultation no respiratory distress Cardiovascular: RRR, no murmur, no edema Rate/Rhythm: regular rhythm and + tachycardic Heart Sounds: normal S1 and normal S2 Extremities: no edema Gastrointestinal (Abdomen): Inspection/Auscultation: abdomen normal to inspection and normal bowel sounds; abdomen not distended Percussion/Palpation: abdomen soft and + ascites; abdomen nontender, no guarding and abdomen not rigid Musculoskeletal: no cyanosis or clubbing, extremities motor strength 5/5 Skin: no rashes, warm and dry Neurologic: moves all extremities and awake Psychiatric: Orientation: alert, oriented to person and cooperative Results & Data Vital Signs (Past 12 Hours) Vital Signs Temp Pulse Resp BP Pulse Ox 05/05/19 19:13 36.7 C 107 H 18 120/71 93 05/05/19 15:46 36.6 C 112 H 16 118/60 93 05/05/19 11:45 36.3 C L 111 H 18 121/68 95 PG Care Time/CCT Total # of Minutes Spent Total Time Spent with Patient: Total time spent is greater than 50% in coordination of care (as documented) at patient's floor/unit and/or counseling patient: (1) Hypotension Hypotension type: unspecified hypotension type Qualified Code(s): I95.9 - Hypotension, unspecified
[2019-05-06] MEDS: VANCOMYCIN HCL 125 MG/2.5ML SOLN PO SCH ×4 (00:27→17:28)
[2019-05-06] MEDS: RASPBERRY SYRUP 5 ML UDP PO SCH ×5 (00:27→23:34)
[2019-05-06] MEDS: LEVOTHYROXINE SODIUM 88 MCG TABLET PO SCH (05:59)
[2019-05-06] MEDS ORDERED: SODIUM CHLORIDE 0.9% 1000ML 1,000 ML IV PRN (07:00)
[2019-05-06] MEDS ORDERED: EPOETIN ALFA 10,000 UNITS/ML VIAL IV SCH (07:00)
[2019-05-06] MEDS: CALCIUM ACETATE 667 MG CAP PO SCH ×3 (08:15→17:29)
[2019-05-06] MEDS: MIDODRINE HCL 10 MG TAB PO SCH ×3 (08:16→17:33)
[2019-05-06] MEDS: INSULIN ASPART 100 UNITS/ML 3 ML PEN SC SCH ×4 (08:56→21:43)
[2019-05-06] MEDS: INSULIN GLARGINE SOLOSTAR 100 UNITS/ML 3 ML PEN SC SCH (08:56)
--- NOTE | 2019-05-06 11:03 | Nephrology Progress Note ---
Date of Service May 06, 2019 Assessment & Plan (1) End stage renal disease: -- Will provide HD today and attempt 1 L UF. HD orders entered into EMR and HD RN notified -- Patient wishes to continue with HD at this time (2) Anemia: -- On oral iron. Hgb relatively stable at ~ 10 (3) Leukocytosis: -- Tested + for C. 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 Oliveira was seen & examined in her hospital room this morning. She c/o weakness but denies fever, abdominal pain or dyspnea. She reports that her diarrhea is improving with oral Vancomycin Review of Systems Constitutional: + weakness; no fever and no chills Eyes: no worsening vision and no problem reported Ear, Nose, Mouth, Throat: no problem reported Respiratory: no cough and no dyspnea Cardiovascular: + edema; no chest pain and no palpitations Gastrointestinal: + diarrhea/loose stools; no abdominal pain, no nausea and no vomiting Genitourinary: no dysuria and no hematuria Musculoskeletal: no back pain Integumentary: no rash Neurologic: no falls, no dizziness and no confusion Physical Exam Constitutional: + thin and + frail appearing; not in distress Eyes: PERRL, conjunctivae normal, anicteric sclerae ENMT: external ear and nose normal, oropharynx normal Neck: trachea midline, no thyromegaly Respiratory: normal respiratory effort, lungs clear to auscultation Cardiovascular: Rate/Rhythm: regular rate and regular rhythm Extremities: + edema (2+ LE edema) Gastrointestinal (Abdomen): Inspection/Auscultation: + abdomen distended Percussion/Palpation: abdomen soft; abdomen nontender Musculoskeletal: Extremities: no cyanosis Skin: no rashes, warm and dry Neurologic: awake; not confused Results & Data Vital Signs (Past 12 Hours) Vital Signs Temp Pulse Pulse Pulse Resp BP BP 05/06/19 10:40 114 H 106/53 L 05/06/19 10:23 112 H 102/56 L 05/06/19 10:20 112 H 83/53 L 05/06/19 10:00 111 H 94/49 L 05/06/19 09:40 104 H 96/50 L 05/06/19 09:18 36.8 C 116 H 116 H 112/61 05/06/19 07:15 36.8 C 111 H 16 123/64 05/05/19 23:58 36.5 C 102 H 18 115/68 Pulse Ox 05/06/19 10:40 05/06/19 10:23 05/06/19 10:20 05/06/19 10:00 05/06/19 09:40 05/06/19 09:18 05/06/19 07:15 92 05/05/19 23:58 94 PG Care Time/CCT Total # of Minutes Spent Total Time Spent with Patient: Total time spent is greater than 50% in coordination of care (as documented) at patient's floor/unit and/or counseling patient: (1) Anemia Anemia type: unspecified type Qualified Code(s): D64.9 - Anemia, unspecified
[2019-05-06] MEDS: NEPHROCAPS PO SCH (13:07)
[2019-05-06] MEDS: ASCORBIC ACID 500 MG TAB PO SCH (13:07)
[2019-05-06] MEDS: FAMOTIDINE 20 MG TAB PO SCH (13:07)
[2019-05-06] MEDS: FLUDROCORTISONE ACETATE 0.1 MG TAB PO SCH (13:07)
[2019-05-06] MEDS: FERROUS SULFATE 325 MG TAB PO SCH (13:07)
[2019-05-06] MEDS: HYDROCORTISONE 2.5% CR 30 GM TUBE EXT SCH ×2 (13:08→21:43)
[2019-05-06] MEDS: CHOLECALCIFEROL 1,000 UNITS TAB PO SCH (13:27)
[2019-05-06] MEDS ORDERED: VANCOMYCIN HCL 250 MG/5 ML SOLN PO SCH (18:00)
[2019-05-06] MEDS: ACETAMINOPHEN 325 MG TAB PO PRN (21:36)
[2019-05-06] MEDS: NADOLOL 40 MG TAB PO SCH (21:37)
[2019-05-06] MEDS: CARBIDOPA/LEVODOP 10/100MG TAB PO SCH (21:37)
--- NOTE | 2019-05-06 22:31 | Hospitalist Progress Note ---
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 This is less reliable in ESRD; however, lower than priors. - Continue Lantus - Sliding scale insulin (2) C. difficile colitis: Patient has c diff colitis. Placed on vancomycin, due to lack of significant improvement, will increase dose to 250 mg. Will monitor. (3) Leukocytosis: Concern for infection. Appears to be due to c. diff colitis as noted above. WBC improving. 1) CXR on 05/02 showed left lung base atelectasis vs. pneumonia; however, unchanged from 3 days ago. Remains without pulmonary complaints, including no shortness of breath or cough. 2) Blood cultures ordered on 05/03. Unable to get from HD port as nursing cannot access it. 3) SBP always a concern in cirrhotic patients; however, paracentesis on 04/29 was negative. Will get limited ultrasound to see if fluid has reaccumulated. 4) Patient appears to be having c. diff as tests are positive. will continue with empiric vancomycin. (4) Hypotension: Has been ongoing with low BPs for months. Likely due to cirrhosis, ESRD, frailty. - Worse on 04/29 after a 5L paracentesis - Improved with albumin, NSS bolus, and midodrine + Florinef. 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 - S/p 5L paracentesis on 04/29 - Some leaking from paracentesis site which has mostly resolved. - Unable to start Lasix/spironolactone given her low BP - Was considering hospice if she cannot tolerate HD; at the moment will hold off hospice as tolerating HD (6) End stage renal disease: Follows with [facility] [place] nephrology. - as noted above - Continue PhosLo & iron (7) Atrial fibrillation: On apixaban. - Holding home beta-derek for hypotension. (8) Anemia: Secondary to anemia of chronic disease and iron deficiency. - Hemoglobin 7.8 on arrival - baseline is around 78 - Patient typed and screened, and blood consent form signed in case patient requires blood transfusion with dialysis - Continue home iron supplementation - Stable today (9) Hypothyroidism: TSH elevated at 5.78, T4 normal at 1. No symptoms. - Continue home levothyroxine (10) Periodic limb movement disorder: - Continue home Sinemet (11) Sleep apnea: - Continue CPAP qhs Subjective 84 yo female reports tpday that her main concern is her diarrhea. She states she had about 4 BMs during dialysis. Patient also reports that this is affecting her bottom, and making it irritated. Patient is unsure if she would want to be discharged in AM Review of Systems Review of Systems: All systems reviewed & are unremarkable except as noted in HPI & below Physical Exam Physical Exam: Constitutional: + frail appearing, cooperative. resting comfortably in bed. Eyes: EOM intact bilaterally; no conjunctival abnormality ENMT: external ear and nose normal, oropharynx normal Neck: trachea midline, no thyromegaly normal visual inspection Respiratory: normal respiratory effort, lungs clear to auscultation no respiratory distress Cardiovascular: RRR, no murmur, no edema Rate/Rhythm: regular rhythm and + tachycardic Heart Sounds: normal S1 and normal S2 Extremities: no edema Gastrointestinal (Abdomen): Inspection/Auscultation: abdomen normal to inspection and normal bowel sounds; abdomen not distended Percussion/Palpation: abdomen soft and + ascites; abdomen nontender, no guarding and abdomen not rigid Musculoskeletal: no cyanosis or clubbing, extremities motor strength 5/5 Skin: no rashes, warm and dry Neurologic: moves all extremities and awake Psychiatric: Orientation: alert, oriented to person and cooperative Results & Data Vital Signs (Past 12 Hours) Vital Signs Temp Pulse Pulse Pulse Resp BP BP 05/06/19 15:13 36.8 C 122 H 18 118/72 05/06/19 12:18 123 H 123 H 108/66 108/66 05/06/19 12:00 114 H 95/55 L 05/06/19 11:40 114 H 108/48 L 05/06/19 11:30 120 H 109/49 L 05/06/19 11:23 120 H 87/54 L 05/06/19 11:20 72 78/51 L 05/06/19 11:00 110 H 101/50 L 05/06/19 10:40 114 H 106/53 L Pulse Ox 05/06/19 15:13 95 05/06/19 12:18 05/06/19 12:00 05/06/19 11:40 05/06/19 11:30 05/06/19 11:23 05/06/19 11:20 05/06/19 11:00 05/06/19 10:40 PG Care Time/CCT Total # of Minutes Spent Total Time Spent with Patient: Total time spent is greater than 50% in coordination of care (as documented) at patient's floor/unit and/or counseling patient: (1) Hypotension Hypotension type: unspecified hypotension type Qualified Code(s): I95.9 - Hypotension, unspecified
[2019-05-06] MEDS: VANCOMYCIN HCL 250 MG/5 ML SOLN PO SCH (23:34)
[2019-05-07] MEDS: LEVOTHYROXINE SODIUM 88 MCG TABLET PO SCH (06:00)
[2019-05-07] MEDS: RASPBERRY SYRUP 5 ML UDP PO SCH ×4 (06:00→23:27)
[2019-05-07] MEDS: VANCOMYCIN HCL 250 MG/5 ML SOLN PO SCH ×4 (06:01→23:27)
[2019-05-07 07:15] LABS: Hematocrit (blood only) 31.5 % (37-47); Hemoglobin 9.9 g/dL (12.0-16.0); Mean Corpuscular Hemoglobin 32.2 pg (25-34); Mean Corpuscular Hgb Conc 31.4 g/dL (32-36); Mean Corpuscular Volume 102.6 fL (80-100); RDW Coefficient of Variation 17.7 % (11.5-14.5); RDW Standard Deviation 64.5 fL (36.4-46.3); Red Blood Count 3.07 M/uL (4.2-5.4); White Blood Count 14.18 K/uL (4.8-10.8)
[2019-05-07 07:20] LABS: Mean Platelet Volume 8.8 fL (7.4-10.4); Platelet Count 79 K/uL (130-400)
[2019-05-07 08:07] LABS: BUN Creatinine Ratio 6.6 (10-20); Calcium 8.6 mg/dl (8.5-10.1); Creatinine Clr Calc Pharmacy 9.9 ml/min; Est GFR (African American) 9.4; Est GFR (Non-African American) 8.1; Potassium 4.2 mmol/L (3.5-5.1)
[2019-05-07] MEDS: CALCIUM ACETATE 667 MG CAP PO SCH ×3 (09:37→17:36)
[2019-05-07] MEDS: MIDODRINE HCL 10 MG TAB PO SCH ×3 (09:37→17:36)
[2019-05-07] MEDS: FLUDROCORTISONE ACETATE 0.1 MG TAB PO SCH (09:38)
[2019-05-07] MEDS: HYDROCORTISONE 2.5% CR 30 GM TUBE EXT SCH ×2 (09:38→21:06)
[2019-05-07] MEDS: ASCORBIC ACID 500 MG TAB PO SCH (09:39)
[2019-05-07] MEDS: NEPHROCAPS PO SCH (09:39)
[2019-05-07] MEDS: CHOLECALCIFEROL 1,000 UNITS TAB PO SCH (09:39)
[2019-05-07] MEDS: INSULIN ASPART 100 UNITS/ML 3 ML PEN SC SCH ×4 (09:42→21:53)
[2019-05-07] MEDS: INSULIN GLARGINE SOLOSTAR 100 UNITS/ML 3 ML PEN SC SCH (09:44)
[2019-05-07] MEDS: FERROUS SULFATE 325 MG TAB PO SCH (09:55)
--- NOTE | 2019-05-07 11:03 | Nephrology Progress Note ---
Date of Service May 07, 2019 Assessment & Plan (1) End stage renal disease: -- Patient dialyzed yesterday without complication. 1 L UF obtained. -- Patient wishes to continue HD -- Will schedule next HD for am (2) Anemia: -- On oral iron. Hgb relatively stable at ~ 10 (3) Leukocytosis: -- Tested + for C. 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 Oliveira was seen & examined in her hospital room this morning. She c/o weakness but denies fever, abdominal pain or dyspnea. She remains on oral Vancomycin therapy but reports 7 liquid BM overnight Review of Systems Constitutional: no fever, no chills and no weakness Eyes: no worsening vision and no problem reported Ear, Nose, Mouth, Throat: no problem reported Respiratory: no cough and no dyspnea Cardiovascular: no chest pain, no palpitations and no edema Gastrointestinal: + diarrhea/loose stools; no abdominal pain, no nausea and no vomiting Musculoskeletal: no back pain Integumentary: no rash Neurologic: no dizziness Physical Exam Constitutional: + thin and + frail appearing; not in distress Eyes: PERRL, conjunctivae normal, anicteric sclerae ENMT: external ear and nose normal, oropharynx normal Neck: trachea midline, no thyromegaly Respiratory: normal respiratory effort, lungs clear to auscultation Cardiovascular: Rate/Rhythm: regular rate and regular rhythm Extremities: + edema (2+ LE edema) Gastrointestinal (Abdomen): Inspection/Auscultation: + abdomen distended Percussion/Palpation: abdomen soft; abdomen nontender Musculoskeletal: Extremities: no cyanosis Skin: no rashes, warm and dry Neurologic: awake; not confused Results & Data Vital Signs (Past 12 Hours) Vital Signs Temp Pulse Resp BP Pulse Ox 05/06/19 23:11 36.4 C L 109 H 18 101/61 93 Laboratory Results Laboratory Tests 05/07/19 05/07/19 07:06 07:06 WBC 14.18 H Hgb 9.9 L Hct 31.5 L Plt Count 79 L Sodium 132 L Potassium 4.2 Chloride 100 Carbon Dioxide 24 BUN 31 H Creatinine 4.67 H* Glucose 153 H PG Care Time/CCT Total # of Minutes Spent Total Time Spent with Patient: Total time spent is greater than 50% in coordination of care (as documented) at patient's floor/unit and/or counseling patient: (1) Anemia Anemia type: unspecified type Qualified Code(s): D64.9 - Anemia, unspecified
[2019-05-07] MEDS: NADOLOL 40 MG TAB PO SCH (21:05)
[2019-05-07] MEDS: CARBIDOPA/LEVODOP 10/100MG TAB PO SCH (21:07)
--- NOTE | 2019-05-07 23:13 | Hospitalist Progress Note ---
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 This is less reliable in ESRD; however, lower than priors. - Continue Lantus - Sliding scale insulin (2) C. difficile colitis: Patient has c diff colitis. Placed on vancomycin, due to lack of significant improvement, increased dose to 250 mg on 05/06. On 05/07, appears to finally be improving, will monitor. Will monitor. (3) Leukocytosis: Concern for infection. Appears to be due to c. diff colitis as noted above. WBC improving. 1) CXR on 05/02 showed left lung base atelectasis vs. pneumonia; however, unchanged from 3 days ago. Remains without pulmonary complaints, including no shortness of breath or cough. 2) Blood cultures ordered on 05/03. Unable to get from HD port as nursing cannot access it. 3) SBP always a concern in cirrhotic patients; however, paracentesis on 04/29 was negative. Will get limited ultrasound to see if fluid has reaccumulated. 4) Patient appears to be having c. diff as tests are positive. will continue with empiric vancomycin. (4) Hypotension: Has been ongoing with low BPs for months. Likely due to cirrhosis, ESRD, frailty. - Worse on 04/29 after a 5L paracentesis - Improved with albumin, NSS bolus, and midodrine + Florinef. 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 - S/p 5L paracentesis on 04/29 - Some leaking from paracentesis site which has mostly resolved. - Unable to start Lasix/spironolactone given her low BP - Was considering hospice if she cannot tolerate HD; at the moment will hold off hospice as tolerating HD (6) End stage renal disease: Follows with [facility] [place]. - as noted above - Continue PhosLo & iron (7) Atrial fibrillation: On apixaban. - Holding home beta-derek for hypotension. (8) Anemia: Secondary to anemia of chronic disease and iron deficiency. - Hemoglobin 7.8 on arrival - baseline is around 78 - Patient typed and screened, and blood consent form signed in case patient requires blood transfusion with dialysis - Continue home iron supplementation - Stable today (9) Hypothyroidism: TSH elevated at 5.78, T4 normal at 1. No symptoms. - Continue home levothyroxine (10) Periodic limb movement disorder: - Continue home Sinemet (11) Sleep apnea: - Continue CPAP qhs Subjective Patient reports having multiple BMs in the morning. D/W nurse, she had 9 BM in the AM but only 2 in the PM and these have been more formed. Review of Systems Review of Systems: All systems reviewed & are unremarkable except as noted in HPI & below Physical Exam Physical Exam: Constitutional: + frail appearing, cooperative. resting comfortably in bed. Eyes: EOM intact bilaterally; no conjunctival abnormality ENMT: external ear and nose normal, oropharynx normal Neck: trachea midline, no thyromegaly normal visual inspection Respiratory: normal respiratory effort, lungs clear to auscultation no respiratory distress Cardiovascular: RRR, no murmur, no edema Rate/Rhythm: regular rhythm and + tachycardic Heart Sounds: normal S1 and normal S2 Extremities: no edema Gastrointestinal (Abdomen): Inspection/Auscultation: abdomen normal to inspection and normal bowel sounds; abdomen not distended Percussion/Palpation: abdomen soft and + ascites; abdomen nontender, no guarding and abdomen not rigid Musculoskeletal: no cyanosis or clubbing, extremities motor strength 5/5 Skin: no rashes, warm and dry Neurologic: moves all extremities and awake Psychiatric: Orientation: alert, oriented to person and cooperative Results & Data Vital Signs (Past 12 Hours) Vital Signs Temp Pulse Pulse Resp BP Pulse Ox 05/07/19 14:18 36.4 C L 79 18 108/65 98 05/07/19 12:05 35.9 C L 86 22 108/70 95 PG Care Time/CCT Total # of Minutes Spent Total Time Spent with Patient: Total time spent is greater than 50% in coordination of care (as documented) at patient's floor/unit and/or counseling patient: (1) Hypotension Hypotension type: unspecified hypotension type Qualified Code(s): I95.9 - Hypotension, unspecified
[2019-05-08] MEDS: RASPBERRY SYRUP 5 ML UDP PO SCH ×4 (06:00→23:40)
[2019-05-08] MEDS: LEVOTHYROXINE SODIUM 88 MCG TABLET PO SCH (06:00)
[2019-05-08] MEDS: VANCOMYCIN HCL 250 MG/5 ML SOLN PO SCH ×4 (06:00→23:40)
[2019-05-08 06:24] LABS: Hematocrit (blood only) 32.7 % (37-47); Hemoglobin 10.5 g/dL (12.0-16.0); Mean Corpuscular Hemoglobin 32.4 pg (25-34); Mean Corpuscular Hgb Conc 32.1 g/dL (32-36); Mean Corpuscular Volume 100.9 fL (80-100); Mean Platelet Volume 9.1 fL (7.4-10.4); Platelet Count 101 K/uL (130-400); RDW Coefficient of Variation 17.6 % (11.5-14.5); RDW Standard Deviation 63.8 fL (36.4-46.3); Red Blood Count 3.24 M/uL (4.2-5.4)
[2019-05-08] MEDS ORDERED: HEPARIN SOD (PORCINE) 1000 UNIT/ML 10 ML VIAL IV ONE (07:00)
[2019-05-08] MEDS ORDERED: SODIUM CHLORIDE 0.9% 1000ML 1,000 ML IV PRN (07:00)
[2019-05-08 07:11] LABS: BUN Creatinine Ratio 7.3 (10-20); Calcium 8.6 mg/dl (8.5-10.1); Creatinine Clr Calc Pharmacy 8.4 ml/min; Est GFR (African American) 7.6; Est GFR (Non-African American) 6.6; Potassium 4.6 mmol/L (3.5-5.1)
[2019-05-08] MEDS: CALCIUM ACETATE 667 MG CAP PO SCH ×3 (08:39→18:27)
[2019-05-08] MEDS: MIDODRINE HCL 10 MG TAB PO SCH ×3 (08:40→18:27)
[2019-05-08] MEDS: INSULIN ASPART 100 UNITS/ML 3 ML PEN SC SCH ×4 (09:22→21:57)
[2019-05-08] MEDS: INSULIN GLARGINE SOLOSTAR 100 UNITS/ML 3 ML PEN SC SCH (09:23)
--- NOTE | 2019-05-08 12:53 | Nephrology Progress Note ---
Date of Service May 08, 2019 Assessment & Plan (1) End stage renal disease: -- HD orders discussed with nurse and entered into EMR. UF goal <500 ml -- Patient wishes to continue HD (2) Anemia: -- On oral iron. Hgb relatively stable at ~ 10 (3) Leukocytosis: -- Tested + for C. 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 Lower abdominal discomfort noted. No fevers. Seen and evaluated during HD. Review of Systems Review of Systems: All systems reviewed & are unremarkable except as noted in HPI & below Physical Exam Constitutional: + frail appearing; no acute distress and not edematous Eyes: + anicteric sclerae; no conjunctival abnormality ENMT: Mouth: + dry oral mucous membranes; no oral mucosal abnormality Neck: normal visual inspection and trachea midline Respiratory: normal respiratory effort Auscultation: lungs clear to auscultation bilaterally Cardiovascular: Heart Sounds: normal S1 and normal S2 Vessels: no JVD Extremities: + edema Gastrointestinal (Abdomen): Inspection/Auscultation: + abdomen distended and + abdominal edema Percussion/Palpation: abdomen nontender Musculoskeletal: Extremities: no cyanosis and no clubbing Skin: + pallor; no jaundice Neurologic: Motor/Sensory: no tremor and no asterixis Psychiatric: Eye Contact: good eye contact Affect: euthymic affect Results & Data Vital Signs (Past 12 Hours) Vital Signs Temp Pulse Pulse Pulse Resp BP BP 05/08/19 11:40 86 83/46 L 05/08/19 11:20 93 H 84/41 L 05/08/19 11:01 86 84/43 L 05/08/19 10:43 36.4 C L 94 H 05/08/19 07:12 36.4 C L 95 H 16 100/59 L Pulse Ox 05/08/19 11:40 05/08/19 11:20 05/08/19 11:01 05/08/19 10:43 05/08/19 07:12 96 Laboratory Results Laboratory Results - last 24 hr 05/07/19 05/07/19 05/08/19 16:36 21:35 05:59 WBC 17.60 H RBC 3.24 L Hgb 10.5 L Hct 32.7 L MCV 100.9 H MCH 32.4 MCHC 32.1 RDW Std Deviation 63.8 H RDW Coeff of Pastora 17.6 H Plt Count 101 L MPV 9.1 Sodium Potassium Chloride Carbon Dioxide Anion Gap BUN Creatinine Est Cr Clr Drug Dosing Est GFR ( Amer) Est GFR (Non-Af Amer) BUN/Creatinine Ratio Glucose POC Glucose 219 H 203 H Calcium 05/08/19 05/08/19 05:59 08:26 WBC RBC Hgb Hct MCV MCH MCHC RDW Std Deviation RDW Coeff of Pastora Plt Count MPV Sodium 132 L Potassium 4.6 Chloride 99 Carbon Dioxide 22 Anion Gap 11.0 BUN 40 H Creatinine 5.53 H* D Est Cr Clr Drug Dosing 8.4 Est GFR ( Amer) 7.6 Est GFR (Non-Af Amer) 6.6 BUN/Creatinine Ratio 7.3 L Glucose 197 H POC Glucose 227 H Calcium 8.6 PG Care Time/CCT Total # of Minutes Spent Total Time Spent with Patient: Total time spent is greater than 50% in coordination of care (as documented) at patient's floor/unit and/or counseling patient: (1) Anemia Anemia type: unspecified type Qualified Code(s): D64.9 - Anemia, unspecified
[2019-05-08] MEDS: NEPHROCAPS PO SCH (15:00)
[2019-05-08] MEDS: ASCORBIC ACID 500 MG TAB PO SCH (15:01)
[2019-05-08] MEDS: FAMOTIDINE 20 MG TAB PO SCH (15:01)
[2019-05-08] MEDS: FLUDROCORTISONE ACETATE 0.1 MG TAB PO SCH (15:01)
[2019-05-08] MEDS: FERROUS SULFATE 325 MG TAB PO SCH (15:03)
[2019-05-08] MEDS: HYDROCORTISONE 2.5% CR 30 GM TUBE EXT SCH ×2 (15:04→21:52)
[2019-05-08] MEDS: CHOLECALCIFEROL 1,000 UNITS TAB PO SCH (15:07)
[2019-05-08] MEDS: CARBIDOPA/LEVODOP 10/100MG TAB PO SCH (21:52)
[2019-05-08] MEDS: NADOLOL 40 MG TAB PO SCH (21:53)
--- NOTE | 2019-05-08 22:11 | Hospitalist Progress Note ---
Date of Service May 08, 2019 Assessment & Plan (1) C. difficile colitis: Patient has c diff colitis. This has been her pain issues this week. Initially her stool frequency had improved but was in the double digits on 05/06, an increase dose: 250 mg (125mg previously) On 05/08, will continue. finllay decreasing in frequency. Will monitor. (2) Leukocytosis: Concern for infection. Appears to be due to c. diff colitis as noted above. WBC improving. 1) CXR on 05/02 showed left lung base atelectasis vs. pneumonia; however, unchanged from 3 days ago. Remains without pulmonary complaints, including no shortness of breath or cough. 2) Blood cultures ordered on 05/03. Unable to get from HD port as nursing cannot access it. 3) SBP always a concern in cirrhotic patients; however, paracentesis on 04/29 was negative. Will get limited ultrasound to see if fluid has reaccumulated. 4) Patient appears to be having c. diff as tests are positive. will continue with empiric vancomycin. 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 This is less reliable in ESRD; however, lower than priors. - Continue Lantus - Sliding scale insulin (4) Hypotension: Has been ongoing with low BPs for months. Likely due to cirrhosis, ESRD, frailty. - Worse on 04/29 after a 5L paracentesis - Improved with albumin, NSS bolus, and midodrine + Florinef. 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 - S/p 5L paracentesis on 04/29 - Some leaking from paracentesis site which has mostly resolved. - Unable to start Lasix/spironolactone given her low BP - Was considering hospice if she cannot tolerate HD; at the moment will hold off hospice as tolerating HD (6) End stage renal disease: Follows with [facility] [place]. - as noted above - Continue PhosLo & iron (7) Atrial fibrillation: On apixaban. - Holding home beta-derek for hypotension. (8) Anemia: Secondary to anemia of chronic disease and iron deficiency. - Hemoglobin 7.8 on arrival - baseline is around 78 - Patient typed and screened, and blood consent form signed in case patient requires blood transfusion with dialysis - Continue home iron supplementation - Stable today (9) Hypothyroidism: TSH elevated at 5.78, T4 normal at 1. No symptoms. - Continue home levothyroxine (10) Periodic limb movement disorder: - Continue home Sinemet (11) Sleep apnea: - Continue CPAP qhs Subjective Patient reports her stools have decreased in size and amount. She has had about 4 loose stools today. Patient denies any fever,chills, nausea, or vomiting. Review of Systems Review of Systems: All systems reviewed & are unremarkable except as noted in HPI & below Physical Exam Physical Exam: Constitutional: + frail appearing, cooperative. resting comfortably in bed. Eyes: EOM intact bilaterally; no conjunctival abnormality ENMT: external ear and nose normal, oropharynx normal Neck: trachea midline, no thyromegaly normal visual inspection Respiratory: normal respiratory effort, lungs clear to auscultation no respiratory distress Cardiovascular: RRR, no murmur, no edema Rate/Rhythm: regular rhythm and + tachycardic Heart Sounds: normal S1 and normal S2 Extremities: no edema Gastrointestinal (Abdomen): Inspection/Auscultation: abdomen normal to inspection and normal bowel sounds; abdomen not distended Percussion/Palpation: abdomen soft and + ascites; abdomen nontender, no guarding and abdomen not rigid Musculoskeletal: no cyanosis or clubbing, extremities motor strength 5/5 Skin: no rashes, warm and dry Neurologic: moves all extremities and awake Psychiatric: Orientation: alert, oriented to person and cooperative Results & Data Vital Signs (Past 12 Hours) Vital Signs Temp Pulse Pulse Pulse Pulse Resp BP 05/08/19 21:49 95 H 05/08/19 15:48 36.4 C L 93 H 17 05/08/19 14:15 36.4 C L 98 H 05/08/19 14:02 92 H 86/48 L 05/08/19 13:56 93 H 83/42 L 05/08/19 13:40 83 87/40 L 05/08/19 13:20 87 81/47 L 05/08/19 13:00 91 H 94/54 L 05/08/19 12:40 83 94/57 L 05/08/19 12:20 100 H 93/50 L 05/08/19 12:00 90 78/45 L 05/08/19 11:40 86 83/46 L 05/08/19 11:20 93 H 84/41 L 05/08/19 11:01 86 84/43 L 05/08/19 10:43 36.4 C L 94 H BP Pulse Ox 05/08/19 21:49 112/67 05/08/19 15:48 130/73 90 05/08/19 14:15 106/57 L 05/08/19 14:02 05/08/19 13:56 05/08/19 13:40 05/08/19 13:20 05/08/19 13:00 05/08/19 12:40 05/08/19 12:20 05/08/19 12:00 05/08/19 11:40 05/08/19 11:20 05/08/19 11:01 05/08/19 10:43 PG Care Time/CCT Total # of Minutes Spent Total Time Spent with Patient: Total time spent is greater than 50% in coordination of care (as documented) at patient's floor/unit and/or counseling patient: (1) Hypotension Hypotension type: unspecified hypotension type Qualified Code(s): I95.9 - Hypotension, unspecified
[2019-05-09] MEDS: LEVOTHYROXINE SODIUM 88 MCG TABLET PO SCH (06:00)
[2019-05-09] MEDS: VANCOMYCIN HCL 250 MG/5 ML SOLN PO SCH ×4 (06:00→23:47)
[2019-05-09] MEDS: RASPBERRY SYRUP 5 ML UDP PO SCH ×4 (06:00→23:48)
[2019-05-09] MEDS: INSULIN ASPART 100 UNITS/ML 3 ML PEN SC SCH ×4 (08:53→22:22)
[2019-05-09] MEDS: CALCIUM ACETATE 667 MG CAP PO SCH ×3 (08:55→17:35)
[2019-05-09] MEDS: MIDODRINE HCL 10 MG TAB PO SCH ×3 (08:55→17:35)
[2019-05-09] MEDS: INSULIN GLARGINE SOLOSTAR 100 UNITS/ML 3 ML PEN SC SCH (08:57)
[2019-05-09] MEDS: FLUDROCORTISONE ACETATE 0.1 MG TAB PO SCH (08:59)
[2019-05-09] MEDS: NEPHROCAPS PO SCH (09:00)
[2019-05-09] MEDS: ASCORBIC ACID 500 MG TAB PO SCH (09:00)
[2019-05-09] MEDS: CHOLECALCIFEROL 1,000 UNITS TAB PO SCH (09:00)
[2019-05-09] MEDS: HYDROCORTISONE 2.5% CR 30 GM TUBE EXT SCH ×2 (09:00→22:26)
[2019-05-09] MEDS: FERROUS SULFATE 325 MG TAB PO SCH (10:19)
--- NOTE | 2019-05-09 11:40 | Nephrology Progress Note ---
Date of Service May 09, 2019 Assessment & Plan (1) End stage renal disease: -- HD MWF -- First outpatient treatment post discharge will be Saturday -- Will plan to provide HD on Saturday in anticipation of discharge -- Patient wishes to continue HD (2) Anemia: -- On oral iron. Hgb relatively stable at ~ 10 (3) Leukocytosis: -- Tested + for C. 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 Lower abdominal discomfort improved. Profoundly weak and chronically tired. No fevers. Tolerated HD yesterday without complications. Review of Systems Review of Systems: All systems reviewed & are unremarkable except as noted in HPI & below Physical Exam Constitutional: + frail appearing; no acute distress and not edematous Eyes: + anicteric sclerae; no conjunctival abnormality ENMT: Mouth: + dry oral mucous membranes; no oral mucosal abnormality Neck: normal visual inspection and trachea midline Respiratory: normal respiratory effort Auscultation: lungs clear to auscultation bilaterally Cardiovascular: Heart Sounds: normal S1 and normal S2 Vessels: no JVD Extremities: + edema Gastrointestinal (Abdomen): Inspection/Auscultation: + abdomen distended and + abdominal edema Percussion/Palpation: abdomen nontender Musculoskeletal: Extremities: no cyanosis and no clubbing Skin: + pallor; no jaundice Neurologic: Motor/Sensory: no tremor and no asterixis Psychiatric: Eye Contact: good eye contact Affect: euthymic affect Results & Data Vital Signs (Past 12 Hours) Vital Signs Temp Pulse Resp BP Pulse Ox 05/09/19 07:04 36.5 C 85 19 100/62 91 05/09/19 00:25 36.5 C 91 H 18 102/63 96 Laboratory Results Laboratory Results - last 24 hr 05/08/19 05/08/19 05/08/19 12:44 15:02 16:29 Glucose POC Glucose 187 H 140 H 152 H 05/08/19 05/09/19 05/09/19 20:10 07:43 07:44 Glucose POC Glucose 202 H 593 H* 226 H 05/09/19 05/09/19 07:48 08:00 Glucose 183 H POC Glucose 336 H* PG Care Time/CCT Total # of Minutes Spent Total Time Spent with Patient: Total time spent is greater than 50% in coordination of care (as documented) at patient's floor/unit and/or counseling patient: (1) Anemia Anemia type: unspecified type Qualified Code(s): D64.9 - Anemia, unspecified
[2019-05-09] MEDS: CHOLESTYRAMINE LIGHT 4 GM PKT PO SCH (20:28)
[2019-05-09] MEDS: FIDAXOMICIN 200 MG TAB PO SCH (22:22)
[2019-05-09] MEDS: CARBIDOPA/LEVODOP 10/100MG TAB PO SCH (22:23)
[2019-05-09] MEDS: NADOLOL 40 MG TAB PO SCH (22:27)
--- NOTE | 2019-05-09 22:42 | Hospitalist Progress Note ---
Date of Service May 09, 2019 Assessment & Plan (1) C. difficile colitis: Patient has c diff colitis. This has been her pain issues this week. Initially her stool frequency had improved but was in the double digits on 05/06, an increase dose: 250 mg (125mg previously) Still no significant improvement. will add dificid and qeustran on 05/09. will monitor. (2) Leukocytosis: Concern for infection. Appears to be due to c. diff colitis as noted fili drew. WBC improving. 1) CXR on 05/02 showed left lung base atelectasis vs. pneumonia; however, unchanged from 3 days ago. Remains without pulmonary complaints, including no shortness of breath or cough. 2) Blood cultures ordered on 05/03. Unable to get from HD port as nursing cannot access it. 3) SBP always a concern in cirrhotic patients; however, paracentesis on 04/29 was negative. Will get limited ultrasound to see if fluid has reaccumulated. 4) Patient appears to be having c. diff as tests are positive. will continue with empiric vancomycin. 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 This is less reliable in ESRD; however, lower than priors. - Continue Lantus - Sliding scale insulin (4) Hypotension: Has been ongoing with low BPs for months. Likely due to cirrhosis, ESRD, frailty. - Worse on 04/29 after a 5L paracentesis - Improved with albumin, NSS bolus, and midodrine + Florinef. 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 - S/p 5L paracentesis on 04/29 - Some leaking from paracentesis site which has mostly resolved. - Unable to start Lasix/spironolactone given her low BP - Was considering hospice if she cannot tolerate HD; at the moment will hold off hospice as tolerating HD (6) End stage renal disease: Follows with [facility] [place]. - as noted above - Continue PhosLo & iron (7) Atrial fibrillation: On apixaban. - Holding home beta-derek for hypotension. (8) Anemia: Secondary to anemia of chronic disease and iron deficiency. - Hemoglobin 7.8 on arrival - baseline is around 78 - Patient typed and screened, and blood consent form signed in case patient requires blood transfusion with dialysis - Continue home iron supplementation - Stable today (9) Hypothyroidism: TSH elevated at 5.78, T4 normal at 1. No symptoms. - Continue home levothyroxine (10) Periodic limb movement disorder: - Continue home Sinemet (11) Sleep apnea: - Continue CPAP qhs Subjective 84 yo female reports still having loose stools. She has had about 5 stools and marion been incontinent as per nursing staff. Review of Systems Review of Systems: All systems reviewed & are unremarkable except as noted in HPI & below Physical Exam Physical Exam: Constitutional: + frail appearing, cooperative. resting comfortably in bed. Eyes: EOM intact bilaterally; no conjunctival abnormality ENMT: external ear and nose normal, oropharynx normal Neck: trachea midline, no thyromegaly normal visual inspection Respiratory: normal respiratory effort, lungs clear to auscultation no respiratory distress Cardiovascular: RRR, no murmur, no edema Rate/Rhythm: regular rhythm and + tachycardic Heart Sounds: normal S1 and normal S2 Extremities: no edema Gastrointestinal (Abdomen): Inspection/Auscultation: abdomen normal to inspection and normal bowel sounds; abdomen not distended Percussion/Palpation: abdomen soft and + ascites; abdomen nontender, no guarding and abdomen not rigid Musculoskeletal: no cyanosis or clubbing, extremities motor strength 5/5 Skin: no rashes, warm and dry Neurologic: moves all extremities and awake Psychiatric: Orientation: alert, oriented to person and cooperative Results & Data Vital Signs (Past 12 Hours) Vital Signs Temp Pulse Resp BP Pulse Ox 05/09/19 22:27 82 127/72 05/09/19 14:17 36.6 C 82 18 100/59 L 91 PG Care Time/CCT Total # of Minutes Spent Total Time Spent with Patient: Total time spent is greater than 50% in coordination of care (as documented) at patient's floor/unit and/or counseling patient: (1) Hypotension Hypotension type: unspecified hypotension type Qualified Code(s): I95.9 - Hypotension, unspecified
[2019-05-10] MEDS: VANCOMYCIN HCL 250 MG/5 ML SOLN PO SCH ×4 (05:52→23:50)
[2019-05-10] MEDS: LEVOTHYROXINE SODIUM 88 MCG TABLET PO SCH (05:52)
[2019-05-10] MEDS: RASPBERRY SYRUP 5 ML UDP PO SCH ×4 (05:53→23:51)
[2019-05-10] MEDS: INSULIN ASPART 100 UNITS/ML 3 ML PEN SC SCH ×4 (08:58→22:05)
[2019-05-10] MEDS: MIDODRINE HCL 10 MG TAB PO SCH ×3 (08:59→17:50)
[2019-05-10] MEDS: CALCIUM ACETATE 667 MG CAP PO SCH ×3 (08:59→17:50)
[2019-05-10] MEDS: FLUDROCORTISONE ACETATE 0.1 MG TAB PO SCH (09:02)
[2019-05-10] MEDS: FIDAXOMICIN 200 MG TAB PO SCH ×2 (09:10→21:00)
[2019-05-10] MEDS: INSULIN GLARGINE SOLOSTAR 100 UNITS/ML 3 ML PEN SC SCH (09:12)
[2019-05-10] MEDS: HYDROCORTISONE 2.5% CR 30 GM TUBE EXT SCH ×2 (09:13→21:00)
[2019-05-10] MEDS: NEPHROCAPS PO SCH (09:14)
[2019-05-10] MEDS: CHOLECALCIFEROL 1,000 UNITS TAB PO SCH (09:14)
[2019-05-10] MEDS: ASCORBIC ACID 500 MG TAB PO SCH (09:14)
[2019-05-10] MEDS: FERROUS SULFATE 325 MG TAB PO SCH (09:44)
[2019-05-10] MEDS: CHOLESTYRAMINE LIGHT 4 GM PKT PO SCH (09:44)
--- NOTE | 2019-05-10 13:33 | Nephrology Progress Note ---
Date of Service May 10, 2019 Assessment & Plan (1) End stage renal disease: -- HD MWF -- First outpatient treatment post discharge will be Saturday -- Will plan to provide HD tomorrow and likely Saturday in anticipation of discharge -- Patient wishes to continue HD, we had another 20-30 minute conversation this morning to review her goals of care and her current health status (2) Anemia: -- On oral iron. Hgb relatively stable at ~ 10 (3) Leukocytosis: -- Tested + for C. 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 Lower abdominal discomfort improved. Profoundly weak and chronically tired. No fevers. Remains 100% dependent. Earlene however is not ready to stop dialysis. She hopes to see improvement after she recovers from colitis. Review of Systems Review of Systems: All systems reviewed & are unremarkable except as noted in HPI & below Physical Exam Constitutional: + frail appearing; no acute distress and not edematous Eyes: + anicteric sclerae; no conjunctival abnormality ENMT: Mouth: + dry oral mucous membranes; no oral mucosal abnormality Neck: normal visual inspection and trachea midline Respiratory: normal respiratory effort Auscultation: lungs clear to auscultation bilaterally Cardiovascular: Heart Sounds: normal S1 and normal S2 Vessels: no JVD Extremities: + edema Gastrointestinal (Abdomen): Inspection/Auscultation: + abdomen distended and + abdominal edema Percussion/Palpation: abdomen nontender Musculoskeletal: Extremities: no cyanosis and no clubbing Skin: + pallor; no jaundice Neurologic: Motor/Sensory: no tremor and no asterixis Psychiatric: Eye Contact: good eye contact Affect: euthymic affect Results & Data Vital Signs (Past 12 Hours) Vital Signs Temp Pulse Resp BP Pulse Ox 05/10/19 07:27 37.0 C 82 18 99/62 L 90 Laboratory Results Laboratory Results - last 24 hr 05/09/19 05/09/19 05/10/19 16:46 20:34 07:43 POC Glucose 191 H 225 H 160 H 05/10/19 12:01 POC Glucose 162 H PG Care Time/CCT Total # of Minutes Spent Total Time Spent with Patient: Total time spent is greater than 50% in coordination of care (as documented) at patient's floor/unit and/or counseling patient: (1) Anemia Anemia type: unspecified type Qualified Code(s): D64.9 - Anemia, unspecified
[2019-05-10 17:24] LABS: Hematocrit (blood only) 35.2 % (37-47); Hemoglobin 10.9 g/dL (12.0-16.0); Mean Corpuscular Hemoglobin 31.7 pg (25-34); Mean Corpuscular Volume 102.3 fL (80-100); RDW Coefficient of Variation 18.2 % (11.5-14.5); RDW Standard Deviation 67.6 fL (36.4-46.3); Red Blood Count 3.44 M/uL (4.2-5.4); White Blood Count 10.12 K/uL (4.8-10.8)
[2019-05-10 17:27] LABS: Base Excess VBG -4.2 mEq/L; Oxygen Saturation VBG 93.7 %; pH VBG 7.37 (7.36-7.41)
[2019-05-10 17:45] LABS: Basophils # (auto) 0.01 K/uL (0-0.2); Basophils % (auto) 0.1 %; Eosinophils # (auto) 0.09 K/uL (0-0.5); Eosinophils % (auto) 0.9 %; Immature Granulocytes # (auto) 0.07 K/uL (0.00-0.02); Immature Granulocytes % (auto) 0.7 %; Lymphocytes # (auto) 1.83 K/uL (1.2-3.4); Lymphocytes % (auto) 18.1 %; Mean Platelet Volume 9.3 fL (7.4-10.4); Monocytes # (auto) 1.01 K/uL (0.11-0.59); Neutrophils # (auto) 7.11 K/uL (1.4-6.5); Neutrophils % (auto) 70.2 %; Platelet Count 84 K/uL (130-400); Platelet Estimate Decreased (Normal)
[2019-05-10 17:54] LABS: Albumin Globulin Ratio 0.6 (0.9-2); Albumin Level 1.8 gm/dl (3.4-5.0); BUN Creatinine Ratio 7.9 (10-20); Bilirubin,Total 0.8 mg/dl (0.2-1); Calcium 8.6 mg/dl (8.5-10.1); Creatinine Clr Calc Pharmacy 7.9 ml/min; Est GFR (African American) 7.3; Est GFR (Non-African American) 6.3; Globulin 3.3 gm/dl (2.5-4.0); Potassium 4.9 mmol/L (3.5-5.1); Total Protein 5.1 gm/dl (6.4-8.2)
[2019-05-10] MEDS ORDERED: SODIUM CHLORIDE 0.9% 1000ML 500 ML IV ONE (18:30)
[2019-05-10] MEDS: metroNIDAZOLE 500 MG/100 ML BAG IV SCH (18:58)
[2019-05-10] MEDS: NADOLOL 40 MG TAB PO SCH (21:00)
[2019-05-10] MEDS: CARBIDOPA/LEVODOP 10/100MG TAB PO SCH (21:00)
--- NOTE | 2019-05-10 22:07 | Hospitalist Progress Note ---
Date of Service May 10, 2019 Assessment & Plan (1) C. difficile colitis: Patient has c diff colitis. This has been her main issues this week. Patient has required a increase in treatment throughout the week as she has failed each step. Initally on125 mg, then increased to 250mg of vanco. Then added dificid, now patient has lactic acidosis, and is more lethargic. will place on IV flagyl. Will also give 500 ml of NS. will monitor. Patient has poor prognosis, due to Cirrhosis and ESRD. Updated daughter Leonela, she is aware and understands patient is not doing well. She states that she was surpirsed by the fact that her mother was interested in trying to continue with HD as her quality of life had decreased. (2) Leukocytosis: Concern for infection. Appears to be due to c. diff colitis as noted above. WBC improving. 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 This is less reliable in ESRD; however, lower than priors. - Continue Lantus - Sliding scale insulin (4) Hypotension: Has been ongoing with low BPs for months. Likely due to cirrhosis, ESRD, frailty. - Worse on 04/29 after a 5L paracentesis - Improved with albumin, NSS bolus, and midodrine + Florinef. 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 - S/p 5L paracentesis on 04/29 - Some leaking from paracentesis site which has mostly resolved. - Unable to start Lasix/spironolactone given her low BP - Was considering hospice if she cannot tolerate HD; on midodrine. (6) End stage renal disease: [place] [facility] [place] - as noted above - Continue PhosLo & iron (7) Atrial fibrillation: On apixaban. - Holding home beta-derek for hypotension. (8) Anemia: Secondary to anemia of chronic disease and iron deficiency. - Hemoglobin 7.8 on arrival - baseline is around 78 - Patient typed and screened, and blood consent form signed in case patient requires blood transfusion with dialysis - Continue home iron supplementation - Stable today (9) Hypothyroidism: TSH elevated at 5.78, T4 normal at 1. No symptoms. - Continue home levothyroxine (10) Periodic limb movement disorder: - Continue home Sinemet (11) Sleep apnea: - Continue CPAP qhs Disp: Patient remains acutely sick, with low temp and lactic acidosis. Plan is for HD tomorrow. If patient does not improve, will need to be transitioned to Comfort measures only. Daughter (Leonela) is aware of how poorly patient has fared this past week. Subjective 84 yo female is lethargic and does not provide significant history. BM frequency has decreased as per nursing. Review of Systems Review of Systems: Unobtainable due to cognitive status Physical Exam Physical Exam: Constitutional: + frail appearing, lethargic Eyes: EOM intact bilaterally; no conjunctival abnormality ENMT: external ear and nose normal, oropharynx normal Neck: trachea midline, no thyromegaly normal visual inspection Respiratory: normal respiratory effort, lungs clear to auscultation no respiratory distress Cardiovascular: RRR, no murmur, no edema Rate/Rhythm: regular rhythm and regular rate Heart Sounds: normal S1 and normal S2 Extremities: no edema Gastrointestinal (Abdomen): Inspection/Auscultation: abdomen normal to inspection and normal bowel sounds; abdomen not distended Percussion/Palpation: abdomen soft and + ascites; abdomen nontender, no guarding and abdomen not rigid Musculoskeletal: no cyanosis or clubbing, extremities motor strength 5/5 Skin: no rashes, warm and dry Psychiatric: Orientation: lethargic, Results & Data Vital Signs (Past 12 Hours) Vital Signs Temp Pulse Resp BP Pulse Ox 05/10/19 16:06 35.8 C L 05/10/19 15:18 79 18 104/69 94 PG Care Time/CCT Total # of Minutes Spent Total Time Spent with Patient: Total time spent is greater than 50% in coordination of care (as documented) at patient's floor/unit and/or counseling patient: (1) Hypotension Hypotension type: unspecified hypotension type Qualified Code(s): I95.9 - Hypotension, unspecified
[2019-05-11] MEDS: metroNIDAZOLE 500 MG/100 ML BAG IV SCH ×3 (03:30→14:59)
[2019-05-11] MEDS: LEVOTHYROXINE SODIUM 88 MCG TABLET PO SCH (06:06)
[2019-05-11] MEDS: VANCOMYCIN HCL 250 MG/5 ML SOLN PO SCH ×3 (06:07→17:04)
[2019-05-11] MEDS: RASPBERRY SYRUP 5 ML UDP PO SCH ×3 (06:08→17:40)
[2019-05-11] MEDS ORDERED: SODIUM CHLORIDE 0.9% 1000ML 1,000 ML IV PRN (07:00)
[2019-05-11 08:12] LABS: Hematocrit (blood only) 33.4 % (37-47); Hemoglobin 10.6 g/dL (12.0-16.0); Mean Corpuscular Hemoglobin 31.9 pg (25-34); Mean Corpuscular Hgb Conc 31.7 g/dL (32-36); Mean Corpuscular Volume 100.6 fL (80-100); RDW Coefficient of Variation 17.9 % (11.5-14.5); RDW Standard Deviation 64.6 fL (36.4-46.3); Red Blood Count 3.32 M/uL (4.2-5.4); White Blood Count 11.28 K/uL (4.8-10.8)
[2019-05-11] MEDS: NEPHROCAPS PO SCH (08:19)
[2019-05-11] MEDS: CALCIUM ACETATE 667 MG CAP PO SCH ×3 (08:20→17:04)
[2019-05-11] MEDS: FLUDROCORTISONE ACETATE 0.1 MG TAB PO SCH (08:20)
[2019-05-11] MEDS: CHOLECALCIFEROL 1,000 UNITS TAB PO SCH (08:20)
[2019-05-11] MEDS: ASCORBIC ACID 500 MG TAB PO SCH (08:20)
[2019-05-11] MEDS: HYDROCORTISONE 2.5% CR 30 GM TUBE EXT SCH ×2 (08:21→21:31)
[2019-05-11] MEDS: FAMOTIDINE 20 MG TAB PO SCH (08:21)
[2019-05-11] MEDS: FERROUS SULFATE 325 MG TAB PO SCH (08:21)
[2019-05-11] MEDS: MIDODRINE HCL 10 MG TAB PO SCH ×3 (08:21→17:38)
[2019-05-11] MEDS: INSULIN GLARGINE SOLOSTAR 100 UNITS/ML 3 ML PEN SC SCH (08:22)
[2019-05-11 08:27] LABS: Albumin Level 1.7 gm/dl (3.4-5.0); BUN Creatinine Ratio 7.8 (10-20); Calcium 8.6 mg/dl (8.5-10.1); Creatinine Clr Calc Pharmacy 7.3 ml/min; Est GFR (African American) 6.6; Est GFR (Non-African American) 5.7; Phosphorus 5.1 mg/dl (2.5-4.9); Potassium 5.4 mmol/L (3.5-5.1)
[2019-05-11] MEDS: FIDAXOMICIN 200 MG TAB PO SCH ×2 (08:28→21:31)
[2019-05-11] MEDS: INSULIN ASPART 100 UNITS/ML 3 ML PEN SC SCH ×4 (08:55→21:38)
[2019-05-11 08:57] LABS: Mean Platelet Volume 9.2 fL (7.4-10.4); Platelet Count 73 K/uL (130-400)
--- NOTE | 2019-05-11 12:36 | Nephrology Progress Note ---
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 Has been tolerating dialysis well although could not do much UF because of low blood pressure in the setting of C diff diarrhea. Denies any other symptoms. Review of Systems Review of Systems: All systems reviewed & are unremarkable except as noted in HPI & below Physical Exam Constitutional: WD/WN, vitals as above Respiratory: normal respiratory effort, lungs clear to auscultation Cardiovascular: RRR, no murmur, no edema Skin: no rashes, warm and dry Neurologic: moves all extremities and awake; not confused Psychiatric: A+Ox3, euthymic affect Results & Data Vital Signs (Past 12 Hours) Vital Signs Temp Pulse Pulse Pulse Resp BP BP 05/11/19 12:00 90 89/40 L 05/11/19 11:40 85 75/51 L 05/11/19 11:20 90 83/47 L 05/11/19 11:00 86 85/47 L 05/11/19 10:45 86 85/50 L 05/11/19 10:40 94 H 81/46 L 05/11/19 10:25 81 86/45 L 05/11/19 10:20 83 71/40 L 05/11/19 10:05 80 81/39 L 05/11/19 10:00 78 65/39 L 05/11/19 09:45 78 84/42 L 05/11/19 09:40 78 64/38 L 05/11/19 09:20 65 92/53 L 05/11/19 09:15 36.4 C L 74 78 100/52 L 05/11/19 06:27 35.3 C L 84 21 100/63 Pulse Ox 05/11/19 12:00 05/11/19 11:40 05/11/19 11:20 05/11/19 11:00 05/11/19 10:45 05/11/19 10:40 05/11/19 10:25 05/11/19 10:20 05/11/19 10:05 05/11/19 10:00 05/11/19 09:45 05/11/19 09:40 05/11/19 09:20 05/11/19 09:15 05/11/19 06:27 94 PG Care Time/CCT Total # of Minutes Spent Total Time Spent with Patient: Total time spent is greater than 50% in coordination of care (as documented) at patient's floor/unit and/or counseling patient: (1) Anemia Anemia type: unspecified type Qualified Code(s): D64.9 - Anemia, unspecified
--- NOTE | 2019-05-11 12:38 | Palliative Care Progress Note ---
Date of Service May 11, 2019 Assessment & Plan (1) Goals of care, counseling/discussion: -Patient unfortunately seems to be doing poorly. Her blood pressure continues to drop during dialysis. In fact, dialysis nurse had to give fluid instead of taking any off, BP was as low as 60s/40s. Think of trying dialysis again tomorrow at a slow rate over 4 hours. Lactic acid increasing. Mental status seems to be worse. -Patient stated to me in the past that if she continued to do poorly with dialysis, she did not want to continue. -Called patient's daughter Leonela. Leonela will be in tomorrow afternoon and we will talk with the patient about goals. -We will continue to follow closely. 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 Patient not tolerating dialysis well today. Spoke with patient-- she agrees that she would like to discuss plan/goals with her daughter(s) again. Review of Systems Review of Systems: Patient denies fever, chills, chest pain, increased shortness of breath, or abdominal pain Does c/o generally not feeling well and continued diarrhea. Physical Exam Constitutional: + ill appearing and + frail appearing ENMT: Mouth: + dry oral mucous membranes Neck: normal visual inspection Respiratory: normal respiratory effort, lungs clear to auscultation Cardiovascular: RRR, no murmur, no edema Gastrointestinal (Abdomen): Inspection/Auscultation: normal bowel sounds Percussion/Palpation: abdomen soft; abdomen nontender Skin: + pallor (ashen) Neurologic: moves all extremities and awake; not confused Results & Data Vital Signs (Past 12 Hours) Vital Signs Temp Pulse Pulse Pulse Resp BP BP 05/11/19 12:00 90 89/40 L 05/11/19 11:40 85 75/51 L 05/11/19 11:20 90 83/47 L 05/11/19 11:00 86 85/47 L 05/11/19 10:45 86 85/50 L 05/11/19 10:40 94 H 81/46 L 05/11/19 10:25 81 86/45 L 05/11/19 10:20 83 71/40 L 05/11/19 10:05 80 81/39 L 05/11/19 10:00 78 65/39 L 05/11/19 09:45 78 84/42 L 05/11/19 09:40 78 64/38 L 05/11/19 09:20 65 92/53 L 05/11/19 09:15 36.4 C L 74 78 100/52 L 05/11/19 06:27 35.3 C L 84 21 100/63 Pulse Ox 05/11/19 12:00 05/11/19 11:40 05/11/19 11:20 05/11/19 11:00 05/11/19 10:45 05/11/19 10:40 05/11/19 10:25 05/11/19 10:20 05/11/19 10:05 05/11/19 10:00 05/11/19 09:45 05/11/19 09:40 05/11/19 09:20 05/11/19 09:15 05/11/19 06:27 94 Time Spent Midlevel 35 minutes with >50% of the time spent at bedside with patient and on phone with family discussing condition and GOC. (1) Hypotension Hypotension type: unspecified hypotension type Qualified Code(s): I95.9 - Hypotension, unspecified
[2019-05-11] MEDS ORDERED: metroNIDAZOLE 500 MG TAB PO SCH (15:15)
--- NOTE | 2019-05-11 16:55 | Hospitalist Progress Note ---
Date of Service May 11, 2019 Assessment & Plan (1) C. difficile colitis: Ms. 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 diff colitis. Pt appears to be doing poorly and daughter will be brought in for further discussion of goals of care. C. difficile colitis -Pt with Hx and currently being treated with 3 drug regimen (IV Flagyl, vancomycin and Dificid) -Given that diarrhea is improving (2 episodes today) will discontinue the Flagyl. -will continue to monitor ESRD requiring dialysis -Pt with end stage renal disease requiring dialysis -Dialysis this AM had to be discontinued as pt became hypotensive; fluid taken off had to be replenished -attempts will be made again in the AM -Palliative on board (appreciate recs) as pt previously stated she would not like to have HD done this way, if her quality of life was being affected. -pt has dialysis arrangements set up at SNF for discharge; however, reassessment may be needed once further discussions of goals occurs. 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 -will continue to monitor Atrial fibrillation: -Continue apixaban. -Hold home nadolol due to hypotension. Anemia: -Secondary to anemia of chronic disease and iron deficiency. - Hemoglobin 7.8 on arrival - baseline is around 78 - Patient typed and screened, and blood consent form signed in case patient requires blood transfusion with dialysis - Continue home iron supplementation Hypothyroidism: -TSH elevated at 5.78, T4 normal at 1. -Pt with no acute symptoms - Continue home levothyroxine Periodic limb movement disorder: -Continue home Sinemet Sleep apnea: -Continue CPAP Supervising Physician Co-Signing Physician Notes I personally examined the patient and verified all vasquez points of history and exam, discussed case, and agree with decision making with Dr Antoine. Patient notes to me that she is feeling terrible and having bowel movements all day the same as yesterday. In discussion with nursing she is actually only had 2 bowel movements the entire shift. Otherwise patient does not appear to be doing well, not eating well. Complains of ongoing abdominal discomfort. In general she is awake very fatigued drifts off to sleep questionable orientation but other than feeling very fatigued does not appear to be in acute distress. HEENT normocephalic atraumatic mucous membranes are moist. Abdomen is soft moderately distended but it feels more like anasarca type of body wall edema than ascites or true intra-abdominal distention. Vague mild tenderness without guarding/rebound/rigidity. C. difficile colitisclinically appears to be improving given that her diarrhea is slowing down. Stop the Flagyl today, continue to de-escalate treatment as possible. Continue supportive care. End-stage renal diseasenot doing well with dialysis. Cirrhosis with ascitescontinue to follow closely, right now her abdominal exam is more consistent with an anasarca-like body wall edema related to her protein/calorie malnutrition more so than a reaccumulation of ascites, but continue with vigilance. Failure to thriveunfortunately she appears to overall be declining quite severely, appreciate palliative care efforts as well. Subjective Pt seen today. Looked lethargic and tired, laying in bed. Some difficulty communicating. Two episodes of diarrhea today. No abd pain or N/V. Review of Systems Review of Systems: Other (limited due to lethargy) Physical Exam Physical Exam: General: lethargic laying in bed Skin: No noted rashes or bruises Psych: Depressed mood and affect Neuro: No gross deficits HEENT: NC/AT Chest: Nontender to palpation. CV: Irregular rate and rhythm Resp: Breath sounds clear bilaterally on front Abdomen: nontender, distended. No guarding or rebounding. Extremities: No edema in lower extremities bilaterally. Results & Data Vital Signs (Past 12 Hours) Vital Signs Temp Pulse Pulse Pulse Pulse Resp BP 05/11/19 15:00 36.7 C 72 18 05/11/19 12:15 36.4 C L 86 96 H 103/54 L 05/11/19 12:00 90 89/40 L 05/11/19 11:40 85 75/51 L 05/11/19 11:20 90 83/47 L 05/11/19 11:00 86 85/47 L 05/11/19 10:45 86 85/50 L 05/11/19 10:40 94 H 81/46 L 05/11/19 10:25 81 86/45 L 05/11/19 10:20 83 71/40 L 05/11/19 10:05 80 81/39 L 05/11/19 10:00 78 65/39 L 05/11/19 09:45 78 84/42 L 05/11/19 09:40 78 64/38 L 05/11/19 09:20 65 92/53 L 05/11/19 09:15 36.4 C L 74 78 100/52 L 05/11/19 06:27 35.3 C L 84 21 BP BP Pulse Ox 05/11/19 15:00 95/61 L 91 05/11/19 12:15 103/54 L 05/11/19 12:00 05/11/19 11:40 05/11/19 11:20 05/11/19 11:00 05/11/19 10:45 05/11/19 10:40 05/11/19 10:25 05/11/19 10:20 05/11/19 10:05 05/11/19 10:00 05/11/19 09:45 05/11/19 09:40 05/11/19 09:20 05/11/19 09:15 05/11/19 06:27 100/63 94 Laboratory Results Laboratory Results - last 24 hr 05/10/19 05/11/19 05/11/19 20:06 07:54 07:54 WBC 11.28 H RBC 3.32 L Hgb 10.6 L Hct 33.4 L MCV 100.6 H MCH 31.9 MCHC 31.7 L RDW Std Deviation 64.6 H RDW Coeff of Pastora 17.9 H Plt Count 73 L MPV 9.2 Sodium 131 L Potassium 5.4 H Chloride 101 Carbon Dioxide 18 L Anion Gap 11.0 BUN 49 H Creatinine 6.27 H* D Est Cr Clr Drug Dosing 7.3 Est GFR ( Amer) 6.6 Est GFR (Non-Af Amer) 5.7 BUN/Creatinine Ratio 7.8 L Glucose 185 H POC Glucose 173 H Lactate Calcium 8.6 Phosphorus 5.1 H Albumin 1.7 L 05/11/19 05/11/19 05/11/19 07:55 08:28 09:14 WBC RBC Hgb Hct MCV MCH MCHC RDW Std Deviation RDW Coeff of Pastora Plt Count MPV Sodium Potassium Chloride Carbon Dioxide Anion Gap BUN Creatinine Est Cr Clr Drug Dosing Est GFR ( Amer) Est GFR (Non-Af Amer) BUN/Creatinine Ratio Glucose POC Glucose 179 H Lactate Cancelled 3.1 H* Calcium Phosphorus Albumin 05/11/19 05/11/19 11:38 17:15 WBC RBC Hgb Hct MCV MCH MCHC RDW Std Deviation RDW Coeff of Pastora Plt Count MPV Sodium Potassium Chloride Carbon Dioxide Anion Gap BUN Creatinine Est Cr Clr Drug Dosing Est GFR ( Amer) Est GFR (Non-Af Amer) BUN/Creatinine Ratio Glucose POC Glucose 133 H 167 H Lactate Calcium Phosphorus Albumin Medications Administered Home Medications carbidopa-levodopa 1 tab PO HS 12/05/18 [History Confirmed 04/28/19] Novolog Flexpen U-100 Insulin See Rx Instructions .ROUTE .COMPLEX #0 ml 12/19/18 [Rx Confirmed 04/28/19] levothyroxine 88 mcg capsule 88 mcg PO QAM 01/19/19 [History Confirmed 04/28/19] meclizine 12.5 mg tablet 12.5 mg PO BID 01/19/19 [History Confirmed 04/28/19] cholecalciferol (vitamin D3) 5,000 unit capsule 5,000 units PO DAILY 01/20/19 [History Confirmed 04/28/19] famotidine 20 mg tablet 20 mg PO .COMPLEX #15 tab 02/03/19 [Rx Confirmed 04/28/19] insulin degludec 200 unit/mL (3 mL) subcutaneous pen 20 unit SUBCUT AMHS ml 03/10/19 [History Confirmed 04/28/19] apixaban 2.5 mg tablet 2.5 mg PO Q12H #180 tab 03/11/19 [Rx Confirmed 04/28/19] B complex with C 20-folic acid [Triphrocaps] 1 cap PO QAM 04/28/19 [History Confirmed 04/28/19] acetaminophen 650 mg PO Q4 PRN MDD 10 tabs daily 04/28/19 [History Confirmed 04/28/19] ascorbic acid (vitamin C) 500 mg PO QAM 04/28/19 [History Confirmed 04/28/19] calcium acetate 667 mg PO TIDM 04/28/19 [History Confirmed 04/28/19] ferrous sulfate 325 mg PO QAM 04/28/19 [History Confirmed 04/28/19] hydrocortisone 1 applic TOPICAL BID 04/28/19 [History Confirmed 04/28/19] nadolol 10 mg PO HS 04/28/19 [History Confirmed 04/28/19] Active Medications Acetaminophen (Tylenol) 650 mg PO Q4 PRN PRN Reason: Fever Or Pain Stop: 05/29/19 03:43 Last Admin: 05/06/19 21:36 Dose: 650 mg Documented by: Al Hydrox/Mg Hydrox/Simethicone (Maalox) 15 ml PO Q4H PRN PRN Reason: Dyspepsia Stop: 05/29/19 03:43 Ascorbic Acid (Vitamin C) 500 mg PO QAM [facility] Stop: 05/29/19 08:59 Last Admin: 05/11/19 08:20 Dose: 500 mg Documented by: Calcium Acetate (Phoslo) 667 mg PO TIDM [facility] Stop: 05/29/19 07:59 Last Admin: 05/11/19 17:04 Dose: 667 mg Documented by: Carbidopa/Levodopa (Sinement 10/100mg) 1 tab PO HS [facility] Stop: 05/29/19 20:59 Last Admin: 05/10/19 21:00 Dose: 1 tab Documented by: Dextrose (Dextrose 50%) 25 - 50 ml IV UD PRN; Protocol PRN Reason: Hypoglycemia Protocol Stop: 05/29/19 03:43 Famotidine (Pepcid) 20 mg PO MoWeFr@0900 [facility] Stop: 05/29/19 08:59 Last Admin: 05/11/19 08:21 Dose: 20 mg Documented by: Ferrous Sulfate (Feosol) 325 mg PO QAM [facility] Stop: 05/29/19 08:59 Last Admin: 05/11/19 08:21 Dose: 325 mg Documented by: Fidaxomicin (Dificid) 200 mg PO BID [facility] Stop: 05/19/19 20:59 Last Admin: 05/11/19 08:28 Dose: 200 mg Documented by: Fludrocortisone Acetate (Florinef) 0.05 mg PO QAM [facility] Stop: 05/29/19 15:14 Last Admin: 05/11/19 08:20 Dose: 0.05 mg Documented by: Glucagon (Glucagen) 1 mg SQ UD PRN; Protocol PRN Reason: Hypoglycemia Protocol Stop: 05/29/19 03:43 Glucose (Dex4 Glucose) 4 - 8 tabs PO UD PRN; Protocol PRN Reason: Hypoglycemia Protocol Stop: 05/29/19 03:43 Glucose (Glucose 40%) 15 - 30 gm PO UD PRN; Protocol PRN Reason: Hypoglycemia Protocol Stop: 05/29/19 03:43 Hydrocortisone (Hydrocortisone 2.5%) 1 appln EXT BID [facility] Stop: 05/29/19 08:59 Last Admin: 05/11/19 08:21 Dose: 1 appln Documented by: Sodium Chloride (Nss 1000ml) 1,000 mls @ 0 mls/hr IV .Q0M PRN PRN Reason: For Hemodialysis Use ONLY Stop: 05/12/19 12:59 Insulin Aspart (Novolog Flexpen) 0 units SC ACHS [facility] Stop: 05/29/19 07:29 Last Admin: 05/11/19 17:47 Dose: Not Given Documented by: Insulin Glargine (Lantus Solostar Pen) 15 units SC QAM [facility] Stop: 05/30/19 08:59 Last Admin: 05/11/19 08:22 Dose: 15 units Documented by: Levothyroxine Sodium (Synthroid) 88 mcg PO DAILYBB [facility] Stop: 05/29/19 06:29 Last Admin: 05/11/19 06:06 Dose: 88 mcg Documented by: Magnesium Hydroxide (Milk Of Magnesia) 30 ml PO Q12H PRN PRN Reason: Constipation Stop: 05/29/19 03:43 Metronidazole (Flagyl) 500 mg PO Q8 [facility] Stop: 05/21/19 13:59 Last Admin: 05/11/19 17:04 Dose: 500 mg Documented by: Midodrine (Proamatine) 10 mg PO TID@0800,1200,1700 [facility] Stop: 05/29/19 15:14 Last Admin: 05/11/19 17:38 Dose: 10 mg Documented by: Miscellaneous (Carbohydrates For Hypoglycemia) 15 - 30 gm PO UD PRN PRN Reason: Hypoglycemia Protocol Stop: 05/29/19 03:43 Nadolol (Corgard) 10 mg PO QPM [facility] Stop: 06/05/19 20:59 Last Admin: 05/10/19 21:00 Dose: 10 mg Documented by: Polyethylene Glycol (Miralax Powder Packet) 17 gm PO DAILY PRN PRN Reason: Constipation Stop: 05/29/19 03:43 Last Admin: 04/30/19 21:52 Dose: 17 gm Documented by: Raspberry (Raspberry) 5 ml PO Q6 [facility] Stop: 05/17/19 17:59 Last Admin: 05/11/19 17:40 Dose: Not Given Documented by: Vancomycin HCl (Vancomycin Hcl) 250 mg PO Q6 [facility]; Protocol Stop: 05/17/19 00:00 Last Admin: 05/11/19 17:04 Dose: 250 mg Documented by: Vitamin B Complex/Folic Acid (Nephrocaps) 1 cap PO QAM [facility] Stop: 05/29/19 08:59 Last Admin: 05/11/19 08:19 Dose: 1 cap Documented by: Vitamin D (Vitamin D3) 5,000 units PO DAILY [facility] Stop: 05/29/19 08:59 Last Admin: 05/11/19 08:20 Dose: 5,000 units Documented by: Resident Activity Tracking Resident Involvement: Resident Care Provided Care Provided: Adult Hospital Medicine
--- NOTE | 2019-05-11 19:11 | Billing Data ---
Coding Level of Care Code 42971 Subseq Hosp Care Lvl 3
[2019-05-11] MEDS: CARBIDOPA/LEVODOP 10/100MG TAB PO SCH (21:33)
[2019-05-11] MEDS: NADOLOL 40 MG TAB PO SCH (21:36)
[2019-05-12] MEDS: VANCOMYCIN HCL 250 MG/5 ML SOLN PO SCH ×5 (00:03→23:48)
[2019-05-12] MEDS: RASPBERRY SYRUP 5 ML UDP PO SCH ×5 (00:04→23:48)
[2019-05-12] MEDS: LEVOTHYROXINE SODIUM 88 MCG TABLET PO SCH (05:38)
[2019-05-12] MEDS ORDERED: SODIUM CHLORIDE 0.9% 1000ML 1,000 ML IV PRN (07:00)
--- NOTE | 2019-05-12 07:18 | Hospitalist Progress Note ---
Date of Service May 12, 2019 Assessment & Plan (1) C. difficile colitis: Ms. 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 diff colitis. Pt agrees to comfort care and upon discharge at [facility]. C. difficile colitis -Comfort measures currently -Historically: -Pt with Hx and was treated with 3 drug regimen (IV Flagyl, vancomycin and Dificid), Flagyl discontinued. ESRD requiring dialysis -Comfort measures currently; will discontinue dialysis. Historically: -Pt with end stage renal disease requiring dialysis -Dialysis had to be discontinued sometimes as pt became hypotensive; fluid taken off had to be replenished -Palliative on board (appreciate recs) as pt previously stated she would not like to have HD done this way, if her quality of life was being affected. -pt had dialysis arrangements set up at [facility] for discharge; however, reassessment may be needed once further discussions of goals occurs. 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 -comfort measures Atrial fibrillation: -Continue apixaban. -Hold home nadolol due to hypotension. -comfort measures Anemia: -Secondary to anemia of chronic disease and iron deficiency. - Hemoglobin 7.8 on arrival - baseline is around 78 - Patient typed and screened, and blood consent form signed in case patient requires blood transfusion with dialysis - Continue home iron supplementation Hypothyroidism: -TSH elevated at 5.78, T4 normal at 1. -Pt with no acute symptoms - Continue home levothyroxine Periodic limb movement disorder: -Continue home Sinemet Sleep apnea: -Comfort measures Supervising Physician Co-Signing Physician Notes I personally examined the patient and verified all vasquez points of history and exam, discussed case, and agree with decision making with Dr Antoine. no pain no distress. sleeping mostly but does awaken to physical stim and denies complaints. granddtrs present and answered all questions to the best of my ability. d/w palliative team and input appreciated. vitals noted nad but quite fatigued. heent nc at mmm breathing unlabored no pallor or icterus. skin without erythema no pallor or icterus Cdiff colitis - continue treatment for comfort ESRD - failing on HD - has opted for comfort cirrhosis - comfort care as above otherwise as above, anticpate SNF tomorrow unless she starts to show a rapid decline, in which case then would consider keeping inpt (so far appears more c/w slow but steady decline) Subjective Pt a bit more alert this AM. Stated that she did not have abd pain but that the inside of her buttocks were painful. Denied any N/V, chest pain or palpitations. Review of Systems Review of Systems: All systems reviewed & are unremarkable except as noted in HPI & below Physical Exam Physical Exam: General: awake, laying in bed Skin: No noted rashes or bruises Psych: Depressed mood and affect Neuro: No gross deficits HEENT: NC/AT Chest: Nontender to palpation. CV: Irregular rate and rhythm Resp: Breath sounds clear bilaterally on front Abdomen: nontender, distended. No guarding or rebounding. Extremities: Trace edema in lower extremities bilaterally. Results & Data Vital Signs (Past 12 Hours) Vital Signs Temp Pulse Resp BP Pulse Ox 05/11/19 22:50 36.5 C 87 20 102/62 92 Resident Activity Tracking Resident Involvement: Resident Care Provided Care Provided: Adult Hospital Medicine
[2019-05-12] MEDS: FLUDROCORTISONE ACETATE 0.1 MG TAB PO SCH (08:03)
[2019-05-12] MEDS: FIDAXOMICIN 200 MG TAB PO SCH ×2 (08:03→21:13)
[2019-05-12] MEDS: ASCORBIC ACID 500 MG TAB PO SCH (08:03)
[2019-05-12] MEDS: FERROUS SULFATE 325 MG TAB PO SCH (08:04)
[2019-05-12] MEDS: NEPHROCAPS PO SCH (08:04)
[2019-05-12] MEDS: HYDROCORTISONE 2.5% CR 30 GM TUBE EXT SCH ×2 (08:05→21:14)
[2019-05-12] MEDS: MIDODRINE HCL 10 MG TAB PO SCH ×3 (08:05→17:38)
[2019-05-12] MEDS: CHOLECALCIFEROL 1,000 UNITS TAB PO SCH (08:05)
[2019-05-12] MEDS: CALCIUM ACETATE 667 MG CAP PO SCH ×3 (08:05→17:39)
[2019-05-12 08:12] LABS: Hematocrit (blood only) 33.9 % (37-47); Hemoglobin 10.4 g/dL (12.0-16.0); Mean Corpuscular Hemoglobin 31.7 pg (25-34); Mean Corpuscular Hgb Conc 30.7 g/dL (32-36); Mean Corpuscular Volume 103.4 fL (80-100); Nucleated RBC # (auto) 0.02 K/uL (0-0); Nucleated RBC % (auto) 0.2 %; RDW Coefficient of Variation 18.2 % (11.5-14.5); RDW Standard Deviation 67.9 fL (36.4-46.3); Red Blood Count 3.28 M/uL (4.2-5.4); White Blood Count 9.42 K/uL (4.8-10.8)
[2019-05-12 08:14] LABS: INR 1.7 (0.9-1.1)
[2019-05-12] MEDS: INSULIN ASPART 100 UNITS/ML 3 ML PEN SC SCH ×4 (08:19→21:22)
[2019-05-12] MEDS: INSULIN GLARGINE SOLOSTAR 100 UNITS/ML 3 ML PEN SC SCH (08:19)
[2019-05-12 08:27] LABS: Mean Platelet Volume 9.4 fL (7.4-10.4); Platelet Count 62 K/uL (130-400)
[2019-05-12 08:29] LABS: Basophils # (auto) 0.01 K/uL (0-0.2); Basophils % (auto) 0.1 %; Eosinophils % (auto) 1.1 %; Immature Granulocytes # (auto) 0.06 K/uL (0.00-0.02); Immature Granulocytes % (auto) 0.6 %; Lymphocytes # (auto) 2.16 K/uL (1.2-3.4); Lymphocytes % (auto) 22.9 %; Monocytes # (auto) 1.17 K/uL (0.11-0.59); Monocytes % (auto) 12.4 %; Neutrophils # (auto) 5.92 K/uL (1.4-6.5); Neutrophils % (auto) 62.9 %
[2019-05-12 09:03] LABS: Albumin Globulin Ratio 0.6 (0.9-2); Albumin Level 1.7 gm/dl (3.4-5.0); BUN Creatinine Ratio 7.7 (10-20); Bilirubin,Total 0.9 mg/dl (0.2-1); Creatinine Clr Calc Pharmacy 8.7 ml/min; Est GFR (African American) 8.3; Est GFR (Non-African American) 7.2; Magnesium 2.3 mg/dl (1.8-2.4); Phosphorus 4.2 mg/dl (2.5-4.9); Potassium 4.5 mmol/L (3.5-5.1); Total Protein 4.7 gm/dl (6.4-8.2)
[2019-05-12] MEDS ORDERED: MIDODRINE HCL 10 MG TAB PO STA (09:06)
--- NOTE | 2019-05-12 10:38 | Nephrology Progress Note ---
Date of Service May 12, 2019 Assessment & Plan (1) End stage renal disease: -- HD MWF, will try dialysis today and she can be discharged after dialysis -- will give 1 dose of midodrine 10 milligram p.o. 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 Diarrhea resolved and overall she is feeling slightly better. Blood pressure remains low. Review of Systems Review of Systems: All systems reviewed & are unremarkable except as noted in HPI & below Physical Exam Constitutional: WD/WN, vitals as above Respiratory: normal respiratory effort, lungs clear to auscultation Cardiovascular: RRR, no murmur, no edema Skin: no rashes, warm and dry Neurologic: moves all extremities and awake; not confused Psychiatric: A+Ox3, euthymic affect Results & Data Vital Signs (Past 12 Hours) Vital Signs Temp Pulse Pulse Resp BP BP Pulse Ox 05/12/19 10:20 86 72/36 L 05/12/19 10:00 81 76/38 L 05/12/19 09:45 78 83/40 L 05/12/19 09:40 78 71/37 L 05/12/19 09:23 36.4 C L 78 118/50 L 05/12/19 07:18 36.3 C L 79 18 91/55 L 96 05/11/19 22:50 36.5 C 87 20 102/62 92 PG Care Time/CCT Total # of Minutes Spent Total Time Spent with Patient: Total time spent is greater than 50% in coordination of care (as documented) at patient's floor/unit and/or counseling patient: (1) Anemia Anemia type: unspecified type Qualified Code(s): D64.9 - Anemia, unspecified
--- NOTE | 2019-05-12 14:44 | Palliative Care Progress Note ---
Date of Service May 12, 2019 Assessment & Plan (1) Goals of care, counseling/discussion: -84 year old female patient with end stage renal disease and other medical problems. -Did another dialysis treatment today-- able to take off 200ml. Blood pressure continues to be low despite extra dose of midodrine. -Patient continues to be weak, have diarrhea, feels "miserable" per the patient. -Two daughters, Marva and Leonela at bedside. Patient is oriented x4, somewhat drowsy. Patient stated "I can't do this any more. I just want it all to stop." -Discussed stopping dialysis and transitioning to comfort measures only. Patient agreed this is her wish. Her daughters are tearful, but supportive of her decision. -Discussed some end of life issues and what to expect in the near future. Questions answered. Support given. -Patient and family would still like patient to go to [facility] for comfort care as it is closer. Case management updated. 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 Family meeting with patient and her two daughters. Review of Systems Review of Systems: Patient denies fever, chills, chest pain, shortness of breath, or abdominal pain Does c/o generally not feeling well and continued diarrhea. Physical Exam Constitutional: + ill appearing and + frail appearing ENMT: Mouth: + dry oral mucous membranes Neck: normal visual inspection Respiratory: normal respiratory effort, lungs clear to auscultation Cardiovascular: RRR, no murmur, no edema Gastrointestinal (Abdomen): Inspection/Auscultation: normal bowel sounds Percussion/Palpation: abdomen soft; abdomen nontender Skin: + pallor (ashen) Neurologic: moves all extremities and awake; not confused Results & Data Vital Signs (Past 12 Hours) Vital Signs Temp Pulse Pulse Resp BP BP Pulse Ox 05/12/19 12:20 87 75/38 L 05/12/19 12:00 89 77/39 L 05/12/19 11:40 87 82/42 L 05/12/19 11:20 82 80/38 L 05/12/19 11:00 85 89/42 L 05/12/19 10:40 81 74/40 L 05/12/19 10:20 86 72/36 L 05/12/19 10:00 81 76/38 L 05/12/19 09:45 78 83/40 L 05/12/19 09:40 78 71/37 L 05/12/19 09:23 36.4 C L 78 118/50 L 05/12/19 07:18 36.3 C L 79 18 91/55 L 96 Supervising Physician Co-Signing Physician Notes Patient seen and examined, collaborated with CRISTAL Gregroio. Patient's 2 granddaughters at bedside. Patient with very slight confusion, very little urine output-negligible. Family aware of patient's prognosis. Patient family very much would like to get to [facility] as [facility] as possible on comfort measures. PE: Patient awake, alert, no acute distress HEENT: EOMI, hearing within normal limits Respirations: Unlabored CV: Regular rate Neuro: Alert and oriented, minimal confusion Agree with above note, assessment and plan as per CRISTAL Gregorio. Will continue to follow and provide support to patient and family. Hopefully patient can be discharged to [facility] tomorrow. PG Care Time/CCT Prolonged Care Time Prolonged Care Time: Yes Total Prolonged Care Time: 65 90 Time Spent Midlevel 65 minutes with >50% of time spent at bedside with patient and family discussing condition and GOC. Attending Spent 25 minutes in addition to the 65 minutes spent by CRISTAL Gregorio for a total of 90 minutes with greater than 50% of the time spent at bedside providing support to family. (1) Hypotension Hypotension type: unspecified hypotension type Qualified Code(s): I95.9 - Hypotension, unspecified
--- NOTE | 2019-05-12 19:05 | Billing Data ---
Coding Level of Care Code 52751 Subseq Hosp Care Lvl 2
[2019-05-12] MEDS: NADOLOL 40 MG TAB PO SCH (21:14)
[2019-05-12] MEDS: CARBIDOPA/LEVODOP 10/100MG TAB PO SCH (21:14)
[2019-05-13] MEDS: VANCOMYCIN HCL 250 MG/5 ML SOLN PO SCH (05:38)
[2019-05-13] MEDS: LEVOTHYROXINE SODIUM 88 MCG TABLET PO SCH (05:38)
[2019-05-13] MEDS: ACETAMINOPHEN 325 MG TAB PO PRN (05:38)
[2019-05-13] MEDS: RASPBERRY SYRUP 5 ML UDP PO SCH (05:38)
[2019-05-13] MEDS: FLUDROCORTISONE ACETATE 0.1 MG TAB PO SCH (08:34)
[2019-05-13] MEDS: CALCIUM ACETATE 667 MG CAP PO SCH (08:34)
[2019-05-13] MEDS: FIDAXOMICIN 200 MG TAB PO SCH (08:34)
[2019-05-13] MEDS: CHOLECALCIFEROL 1,000 UNITS TAB PO SCH (08:34)
[2019-05-13] MEDS: HYDROCORTISONE 2.5% CR 30 GM TUBE EXT SCH (08:35)
[2019-05-13] MEDS: MIDODRINE HCL 10 MG TAB PO SCH (08:35)
[2019-05-13] MEDS: ASCORBIC ACID 500 MG TAB PO SCH (08:35)
[2019-05-13] MEDS: FAMOTIDINE 20 MG TAB PO SCH (08:35)
[2019-05-13] MEDS: NEPHROCAPS PO SCH (08:36)
[2019-05-13] MEDS: FERROUS SULFATE 325 MG TAB PO SCH (08:36)
[2019-05-13] MEDS: INSULIN GLARGINE SOLOSTAR 100 UNITS/ML 3 ML PEN SC SCH (09:27)
[2019-05-13] MEDS: INSULIN ASPART 100 UNITS/ML 3 ML PEN SC SCH (09:27)
--- NOTE | 2019-05-13 09:51 | Discharge Summary ---
Date of Service May 13, 2019 Admission HPI Per Admitting Provider Ms. 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 The patient states that she fell this morning while trying to back up onto a chair. She states that she hit her head, but denies any loss of consciousness. Her family states that she has been generally weak for the past few days. Her daughter notes that Ms. Oliveira looks like she was having trouble breathing at home, checked her oxygen saturations and found to be 68%. They subsequently put her on CPAP, and called an ambulance. Ms. Oliveira denies feeling short of breath, or having chest pain. She states that she underwent dialysis yesterday, however they were not able to complete the entire duration of dialysis due to low blood pressure. Admission Exam Per Admitting Provider Constitutional: WD/WN, vitals as above no acute distress Eyes: PERRL, conjunctivae normal, anicteric sclerae ENMT: external ear and nose normal, oropharynx normal Respiratory: Auscultation: + diminished lung sounds and + crackles (at lung bases) Cardiovascular: Rate/Rhythm: regular rate and regular rhythm Heart Sounds: no murmur Vessels: dorsalis pedis pulses present (Faint) Extremities: normal capillary refill and + pedal edema (2+ bilaterally); no calf tenderness Gastrointestinal (Abdomen): Inspection/Auscultation: + abdomen distended Percussion/Palpation: abdomen soft; abdomen nontender and no guarding Musculoskeletal: no cyanosis or clubbing, extremities motor strength 5/5 Skin: no rashes, warm and dry Psychiatric: A+Ox3, euthymic affect Principal Diagnosis ESRD requiring dialysis Cirrhosis Discharge Exam General: awake, laying in bed Skin: No noted rashes or bruises Psych: Depressed mood and affect Neuro: No gross deficits HEENT: NC/AT Chest: Nontender to palpation. CV: Irregular rate and rhythm Resp: Breath sounds clear bilaterally on front Abdomen: nontender, distended. No guarding or rebounding. Extremities: Trace edema in lower extremities bilaterally. Discharge Data Allergies Allergy/AdvReac Type Severity Reaction Status Date / Time hydrocodone AdvReac Intermediate SWEATING, Verified 04/28/19 23:32 FELT FUNNY - UNSURE IF IT WAS VICODIN oxycodone AdvReac Intermediate Hallucinati Verified 04/28/19 23:32 ng Consultations 04/29/19 02:16 ED Decision to Admit Stat 04/29/19 03:44 Consult Nephrology Routine 05/11/19 14:21 Consult Palliative Care Routine Ordered Studies 04/29/19 03:44 US paracentesis abd w/image Routine 05/03/19 19:14 US abdomen limited Routine Hospital Course (1) C. difficile colitis: Ms. Earlene Oliveira is an 84yo female with a PMHx significant for ESRD on dialysis, cirrhosis secondary to WOODS, Type II diabetes, atrial fibrillation, HTN, hypothyroidism, LEIDY and GERD who was admitted for weakness and hypoxia and is currently being treated for c. diff colitis. Patient is currently COMFORT CARE on discharge after discussions with patient, family, palliative care and hospitalist team. C. difficile colitis -Comfort measures currently -Continue Dificid for 6 more days -Continue PO Vancomycin administration indefinitely given 20% recurrence rate and to keep this patient comfortable given she has had multiple recurrences. ESRD requiring dialysis -Comfort measures currently; will discontinue dialysis. -NO LONGER DESIRES DIALYSIS AT [facility] Historically: -Dialysis had to be discontinued sometimes as pt became hypotensive; fluid taken off had to be replenished -Palliative on board (appreciate recs) as pt previously stated she would not like to have HD done this way, if her quality of life was being affected. -Pt no longer desiring dialysis. Liver cirrhosis secondary to WOODS -comfort measures currently. -Cirrhosis with ascites requiring periodic paracentesis in the past. If pt becomes uncomfortably tense, can consider therapeutic paracentesis for comfort. -currently on midrodrine; holding nadolol due to hypotension Diabetes mellitus type 2 with complications -A1c of 6.7% noted -continue ISS Hypotension: -Pt with decreased BPs; also noted during dialysis. -continue to hold nadolol -comfort measures Atrial fibrillation: -Continue apixaban. -Hold home nadolol due to hypotension. -comfort measures Anemia: -Secondary to anemia of chronic disease and iron deficiency. - Hemoglobin 7.8 on arrival - baseline is around 78 - Patient typed and screened, and blood consent form signed in case patient requires blood transfusion with dialysis - Continue home iron supplementation Hypothyroidism: -TSH elevated at 5.78, T4 normal at 1. -Pt with no acute symptoms - Continue home levothyroxine Periodic limb movement disorder: -Continue home Sinemet Sleep apnea: -Comfort measures Total Time Total Time Spent Total Time Spent (In Minutes): <30 Discharge Plan Discharge Items Patient Disposition: Transfer [facility] Reason For Visit: WEAKNESS, HYPOXIA Discharge Diagnosis: ESRD requiring dialysis Cirrhosis Activity: Per Instructions section Non-emergency contact: Primary Care Provider Call non-emergency contact if: your pain is not controlled and you have a fever Follow-up/Referrals: Gavi Huang MD [Primary Care Provider] - Diet: Dialysis Renal and Low Sodium (2gm) Addtl Attending Provider Instructions: FACILITY DISCHARGE INSTRUCTIONS Ms. Earlene Oliveira is an 84yo female with a PMHx significant for ESRD on dialysis, cirrhosis secondary to WOODS, Type II diabetes, atrial fibrillation, HTN, hypothyroidism, LEIDY and GERD who was admitted for weakness and hypoxia and is currently being treated for c. diff colitis. Patient is currently COMFORT CARE on discharge after discussions with patient, family, palliative care and hospitalist team. C. difficile colitis -Comfort measures currently -Continue Dificid for 6 more days -Continue PO Vancomycin administration indefinitely ESRD requiring dialysis -Comfort measures currently; will discontinue dialysis. -NO LONGER DESIRES DIALYSIS AT [facility] Historically: -Dialysis had to be discontinued sometimes as pt became hypotensive; fluid taken off had to be replenished -Palliative on board (appreciate recs) as pt previously stated she would not like to have HD done this way, if her quality of life was being affected. -Pt no longer desiring dialysis. Liver cirrhosis secondary to WOODS -comfort measures currently. -Cirrhosis with ascites requiring periodic paracentesis in the past. If pt becomes uncomfortably tense, can consider therapeutic paracentesis for comfort. -currently on midrodrine; holding nadolol due to hypotension Diabetes mellitus type 2 with complications -A1c of 6.7% noted -continue ISS Hypotension: -Pt with decreased BPs; also noted during dialysis. -continue to hold nadolol -comfort measures Atrial fibrillation: -Continue apixaban. -Hold home nadolol due to hypotension. -comfort measures Anemia: -Secondary to anemia of chronic disease and iron deficiency. - Hemoglobin 7.8 on arrival - baseline is around 78 - Patient typed and screened, and blood consent form signed in case patient requires blood transfusion with dialysis - Continue home iron supplementation Hypothyroidism: -TSH elevated at 5.78, T4 normal at 1. -Pt with no acute symptoms - Continue home levothyroxine Periodic limb movement disorder: -Continue home Sinemet Sleep apnea: -Comfort measures Pending Studies at Discharge: No Stand-Alone Forms: My [facility] Skilled Items Patient informed of condition?: Yes DNR: Yes Discharge Level of Care: Skilled Communicable Disease: Yes Discharge Prognosis: Deteriorating Lines: None Urinary Catheter: No Medications and DC Order Prescriptions: New Dificid 200 mg Tablet 200 mg PO BID 6 Days Qty: 12 RF: 0 vancomycin 1,000 mg Recon Soln 250 mg PO Q6 6 Days Qty: 24 RF: 0 Continued famotidine 20 mg tablet 20 mg PO .COMPLEX Qty: 15 RF: 5 Eliquis 2.5 mg tablet 2.5 mg PO Q12H Qty: 180 RF: 3 Tresiba FlexTouch U-200 200 unit/mL (3 mL) insulin pen 20 unit subcut AMHS RF: 0 cholecalciferol (vitamin D3) 5,000 unit capsule 5,000 units PO DAILY RF: 0 carbidopa-levodopa 10-100 mg tablet 1 tab PO HS RF: 0 Novolog Flexpen U-100 Insulin 100 unit/mL (3 mL) insulin pen See Rx Instructions .ROUTE .COMPLEX Qty: 0 RF: 0 meclizine 12.5 mg tablet 12.5 mg PO BID RF: 0 levothyroxine 88 mcg capsule 88 mcg PO QAM RF: 0 ferrous sulfate 325 mg (65 mg iron) tablet,delayed release (DR/EC) 325 mg PO QAM RF: 0 ascorbic acid (vitamin C) 500 mg tablet 500 mg PO QAM RF: 0 acetaminophen 325 mg Tablet 650 mg PO Q4 MDD 10 tabs daily PRN (Reason: Fever Or Pain) RF: 0 calcium acetate 667 mg capsule 667 mg PO TIDM RF: 0 hydrocortisone 2.5 % Cream 1 applic TOPICAL BID RF: 0 Triphrocaps 1 mg capsule 1 cap PO QAM RF: 0 Discontinued nadolol 20 mg Tablet 10 mg PO HS RF: 0 Discharge Orders: Discharge Order (Routine); Ordered 05/13/19 Ordered By: Ericka Antoine Admission Data Admit Date/Time: 04/29/19 03:06 Attending Provider: Arnav Bob Admit Provider: Joe Oneill Primary Care Provider: Gavi Huang Other Providers: Tanner Garcia ; Elton Wheeler ; Otilio Guy ; Katelin Conn Other Interventions: Discharge Summary Assessment (RN) Last Done: 05/13/19 09:44 DC Date/Time DO NOT enter until pt leaves facility: 05/13/19 10:37 Supervising Physician Co-Signing Physician Notes I personally examined the patient and verified all vasquez points of history and exam, discussed case, and agree with decision making with Dr Antoine. no pain belly feeling ok. still feels like she is having a lot of diarrhea. [employer] COMM[employer]IONER notes she just finished cleaning backside and skin looks good overall vitals noted nad but quite fatigued. heent nc at mmm breathing unlabored no pallor or icterus. abd soft distended but again mostly like before feels like body wall edema not distention, skin without erythema no pallor or icterus - no significant skin breakdown in sacral area Cdiff colitis - continue treatment for comfort ESRD - failing on HD - has opted for comfort cirrhosis - comfort care as above transfer to SNF for comfort care/hospice. Resident Activity Tracking Resident Involvement: Resident Care Provided Care Provided: Adult Hospital Medicine
--- NOTE | 2019-05-13 18:50 | Billing Data ---
Coding Level of Care Code D/C Day Management <30 mins
== END 2019-05-13 10:37 | disposition hospice, inpatient (51) | DRG 682 ==
LOC: ED 22:37 → 2S 04-29 03:06 → SUATTDRO 04-29 03:06 → 2S 04-29 03:23 → 4W 05-05 17:31